=== PATIENT | male | born 1965 | race Caucasian/White ===

== ENCOUNTER 2017-08-31 00:05 | Inpatient (IN) ==
--- NOTE | 2017-08-31 00:16 | ED ---
HPI General Chief Complaint: Shortness of Breath/Dyspnea Stated Complaint: Diff Breathing Time Seen by Provider: 08/31/17 00:07 History of Present Illness 52-year-old male [facility] to the emergency department from [facility] hypoxemia dyspnea tachycardia and per paramedics elevated temperature with history of paraplegia with immobility dyslipidemia chronic cough mood disorder with depression dementia pressure ulceration bilateral lower extremity knee contracture prior Klebsiella pneumonia morbid obesity Related Data Home Medications Medication Instructions Recorded Confirmed baclofen 08/31/17 08/31/17 baclofen 08/31/17 08/31/17 cetirizine 08/31/17 08/31/17 collagenase clostridium histo. 08/31/17 08/31/17 [Santyl] dantrolene 08/31/17 08/31/17 divalproex 08/31/17 08/31/17 escitalopram oxalate 08/31/17 08/31/17 escitalopram oxalate 08/31/17 08/31/17 gabapentin 08/31/17 08/31/17 gabapentin 08/31/17 08/31/17 gabapentin 08/31/17 08/31/17 hydrochlorothiazide 08/31/17 08/31/17 hydrochlorothiazide 08/31/17 08/31/17 lactulose 08/31/17 08/31/17 meloxicam 08/31/17 08/31/17 metronidazole 08/31/17 08/31/17 metronidazole 08/31/17 08/31/17 omeprazole 08/31/17 08/31/17 oxybutynin chloride 08/31/17 08/31/17 simvastatin 08/31/17 08/31/17 simvastatin 08/31/17 08/31/17 simvastatin 08/31/17 08/31/17 vitamin E (dl, acetate) 08/31/17 08/31/17 vitamin E (dl, acetate) 08/31/17 08/31/17 Allergies Allergy/AdvReac Type Severity Reaction Status Date / Time No Known Allergies Allergy Verified 08/31/17 00:16 [facility] Medical History Medical History Dementia (Acute) Depression (Acute) GERD (gastroesophageal reflux disease) (Acute) Hemorrhoids (Acute) Hyperlipidemia (Acute) Paraplegia (Acute) UTI (urinary tract infection) (Acute) Surgical History Surgical History H/O exploratory laparotomy (Acute) History of cholecystectomy (Acute) Social History Social History Substance History: Unable to Obtain Second Hand Smoke Exposure: No Smoking Status: Unknown if ever smoked Tobacco Type: Cigarettes How Often Do You Have a Drink Containing Alcohol: Unable to Obtain Recent Travel in [place] within the Last 8 Weeks: No Recent Out of Country Travel within the Last 8 Weeks: No Exam Narrative Exam Narrative: GENERAL: Well-nourished, well-developed patient. Awake answers yes/no questions appropriately. SKIN: Focused skin assessment warm/dry. HEAD: Normocephalic. EYES: No scleral icterus. No injection or drainage. NECK: Supple, trachea midline. No JVD or lymphadenopathy. CARDIOVASCULAR: Regular rate and rhythm without murmurs, gallops, or rubs. RESPIRATORY: Breath sounds equal bilaterally. No accessory muscle use. GASTROINTESTINAL: Abdomen soft, non-tender, nondistended. MUSCULOSKELETAL: No cyanosis, or edema. Bilateral carpal and lower leg edema. BACK: Nontender without obvious deformity. No CVA tenderness. Course Initial Documented Vital Signs Pulse Rate 119 H 08/31/17 00:07 Respiratory Rate 26 H 08/31/17 00:07 Blood Pressure 148/79 H 08/31/17 00:07 Pulse Oximetry 96 08/31/17 00:07 Last Documented Vital Signs Temperature 98.6 F 09/01/17 00:00 Pulse Rate 103 H 09/01/17 04:14 Respiratory Rate 24 09/01/17 04:14 Blood Pressure 107/58 L 09/01/17 01:00 Pulse Oximetry 97 09/01/17 04:14 Critical Care Time Critical Care Time: Yes Total Critical Care Time: 35 Attestation: Aggregate critical care time was 35 minutes. Time to perform other separately billable procedures was not included in the critical care time. My time did not include minutes spent treating any other patients simultaneously or on activities that did not directly contribute to the patient's treatment. The services I provided to this patient were to treat and/or prevent clinically significant deterioration that could result in: Septic shock respiratory arrest I provided critical care services requiring my management, as noted below: Chart data review, documentation time, medication orders and management, vital sign assessments/reviewing monitor data, ordering and reviewing lab tests, ordering and interpreting/reviewing x-rays and diagnostic studies, care of the patient and discussion of the patient with the admitting physicians. Medical Decision Making MDM Narrative Medical decision making narrative: 52-year-old male presents from nursing facility for shortness of breath and dyspnea identified to have fever findings consistent with sepsis tachycardia tachypnea fever and hypoxemia placed on BiPAP after to care taken over from EMS with presentation on CPAP; blood cultures obtained lactic acid obtained chest x-ray ordered presumptive IV antibiotics administered Patient given rectal Tylenol for fever ABG performed which identifies respiratory acidosis pH 7.3 with PCO2 of 68 PO2 of 163 bicarb is 32 with a base excess of 6 sats 95% hemoglobin 13.6; FiO2 tapered toward 60% as tolerated patient had been on nonrebreather prior to EMS arrival to transport to emergency department unknown duration of high flow O2 prior to EMS arrival. Plan will be admission for IV antibiotics and ongoing respiratory support updraft 3 administered. Patient's case discussed with on-call plastic sheeting cutter Dr. Morton for admission Patient's EKG sinus tach with no acute ST elevation patient unable to tolerate rapid flow to taper. Patient given additional dose of acetaminophen 325 mg suppository Medical Records no prior evaluations here Lab Data Result diagrams: 09/01/17 03:47 09/01/17 03:47 Lab Results 08/31/17 08/31/17 08/31/17 Range/Units 00:25 00:27 00:30 WBC 11.7 H (4.0-11.0) th/mm3 RBC 4.34 L (4.50-5.90) mil/mm3 Hgb 13.6 (13.0-17.0) gm/dL Hct 41.5 (39.0-51.0) % MCV 95.7 (80.0-100.0) fL MCH 31.4 (27.0-34.0) pg MCHC 32.8 (32.0-36.0) % RDW 16.0 (11.6-17.2) % Plt Count 152 (150-450) th/mm3 MPV 9.4 (7.0-11.0) fL Neut % (Auto) 81.7 H (16.0-70.0) % Lymph % (Auto) 7.4 L (9.0-44.0) % [place] % (Auto) 10.1 H (0.0-8.0) % Eos % (Auto) 0.5 (0.0-4.0) % Baso % (Auto) 0.3 (0.0-2.0) % Neut # (Auto) 9.6 H (1.8-7.7) th/mm3 Lymph # (Auto) 0.9 L (1.0-4.8) th/mm3 [place] # (Auto) 1.2 H (0.0-0.9) th/mm3 Eos # (Auto) 0.1 (0.0-0.4) th/mm3 Baso # (Auto) 0.0 (0.0-0.2) th/mm3 WBC Differential . Differential Comment Auto diff final Hematology Comments PT (9.8-11.6) sec INR Ratio APTT (24.3-30.1) sec Puncture Site Right radial Patient Temperature 98.6 O2 Saturation 95 (90-100) % ABG pH 7.30 L (7.380-7.420) ABG pCO2 68 H* (38-42) mmHg ABG pO2 163 H (61-120) mmHg ABG HCO3 32 H (22-26) mmol/L ABG O2 Content 18.4 (12.0-20.0) Vol % ABG Base Excess 5.9 H (-2-2) mmol/L ABG Methemoglobin 1.7 (0-2) % Alpesh Test Present Hemoglobin 13.6 (12.0-16.0) G/DL Carboxyhemoglobin 1.1 (0-4) % O2 Delivery Device Bipap Vent Setting Epap5/ipap12 Inspired O2 100 % Critical Value Yes Sodium (136-145) meq/L Potassium (3.5-5.1) meq/L Chloride (98-107) meq/L Carbon Dioxide (21.0-32.0) meq/L Anion Gap (5-15) meq/L BUN (7-18) mg/dL Creatinine (0.60-1.30) mg/dL Estimated GFR (>89) mL/min POC Glucose 135 H (68-110) mg/dl Random Glucose (74-106) mg/dL Lactic Acid (0.4-2.0) mmol/L Calcium (8.5-10.1) mg/dL Phosphorus (2.5-4.9) mg/dL Magnesium (1.5-2.5) mg/dL Total Bilirubin (0.2-1.0) mg/dL AST (15-37) U/L ALT (12-78) U/L Alkaline Phosphatase (45-117) U/L Ammonia (11-32) mcmol/L Total Creatine Kinase (39-308) U/L CK-MB (CK-2) (0.5-3.6) ng/mL Troponin I (0.02-0.05) ng/mL Total Protein (6.4-8.2) g/dL Albumin (3.4-5.0) g/dL Urine Color (Yellw/Straw) Urine Clarity (Clear) Urine pH (5.0-8.5) Ur Specific [place] (1.002-1.035) Urine Protein (Neg-Trace) mg/dL Urine Glucose (UA) (Negative) mg/dL Urine Ketones (Negative) mg/dL Urine Occult Blood (Negative) Urine Nitrate (Negative) Urine Bilirubin (Negative) Urine Urobilinogen (Less than 2) mg/dL Ur Leukocyte Esterase (Negative) Urine RBC (0-3) /hpf Urine WBC (0-5) /hpf Ur Squamous Epith Cells (0-5) /hpf Urine Bacteria (None) /hpf Hyaline Casts (0-3) /lpf Urine Mucus (Occasional) /lpf Micro UA Comment Urine Culture Comments Nasal Screen MRSA (PCR) (Negative) Valproic Acid (50-100) mcg/mL 08/31/17 08/31/17 08/31/17 Range/Units 00:30 00:30 00:30 WBC (4.0-11.0) th/mm3 RBC (4.50-5.90) mil/mm3 Hgb (13.0-17.0) gm/dL Hct (39.0-51.0) % MCV (80.0-100.0) fL MCH (27.0-34.0) pg MCHC (32.0-36.0) % RDW (11.6-17.2) % Plt Count (150-450) th/mm3 MPV (7.0-11.0) fL Neut % (Auto) (16.0-70.0) % Lymph % (Auto) (9.0-44.0) % [place] % (Auto) (0.0-8.0) % Eos % (Auto) (0.0-4.0) % Baso % (Auto) (0.0-2.0) % Neut # (Auto) (1.8-7.7) th/mm3 Lymph # (Auto) (1.0-4.8) th/mm3 [place] # (Auto) (0.0-0.9) th/mm3 Eos # (Auto) (0.0-0.4) th/mm3 Baso # (Auto) (0.0-0.2) th/mm3 WBC Differential Differential Comment Hematology Comments PT 9.9 (9.8-11.6) sec INR 1.0 Ratio APTT 28.1 (24.3-30.1) sec Puncture Site Patient Temperature O2 Saturation (90-100) % ABG pH (7.380-7.420) ABG pCO2 (38-42) mmHg ABG pO2 (61-120) mmHg ABG HCO3 (22-26) mmol/L ABG O2 Content (12.0-20.0) Vol % ABG Base Excess (-2-2) mmol/L ABG Methemoglobin (0-2) % Alpesh Test Hemoglobin (12.0-16.0) G/DL Carboxyhemoglobin (0-4) % O2 Delivery Device Vent Setting Inspired O2 % Critical Value Sodium 140 (136-145) meq/L Potassium 4.5 (3.5-5.1) meq/L Chloride 101 (98-107) meq/L Carbon Dioxide 30.8 (21.0-32.0) meq/L Anion Gap 8 (5-15) meq/L BUN 20 H (7-18) mg/dL Creatinine 0.68 (0.60-1.30) mg/dL Estimated GFR Greater than 89 (>89) mL/min POC Glucose (68-110) mg/dl Random Glucose 146 H (74-106) mg/dL Lactic Acid 1.1 (0.4-2.0) mmol/L Calcium 8.3 L (8.5-10.1) mg/dL Phosphorus (2.5-4.9) mg/dL Magnesium 1.9 (1.5-2.5) mg/dL Total Bilirubin 0.4 (0.2-1.0) mg/dL AST 16 (15-37) U/L ALT 19 (12-78) U/L Alkaline Phosphatase 108 (45-117) U/L Ammonia (11-32) mcmol/L Total Creatine Kinase 293 (39-308) U/L CK-MB (CK-2) 2.1 (0.5-3.6) ng/mL Troponin I Less than 0.02 L (0.02-0.05) ng/mL Total Protein 7.2 (6.4-8.2) g/dL Albumin 3.4 (3.4-5.0) g/dL Urine Color (Yellw/Straw) Urine Clarity (Clear) Urine pH (5.0-8.5) Ur Specific [place] (1.002-1.035) Urine Protein (Neg-Trace) mg/dL Urine Glucose (UA) (Negative) mg/dL Urine Ketones (Negative) mg/dL Urine Occult Blood (Negative) Urine Nitrate (Negative) Urine Bilirubin (Negative) Urine Urobilinogen (Less than 2) mg/dL Ur Leukocyte Esterase (Negative) Urine RBC (0-3) /hpf Urine WBC (0-5) /hpf Ur Squamous Epith Cells (0-5) /hpf Urine Bacteria (None) /hpf Hyaline Casts (0-3) /lpf Urine Mucus (Occasional) /lpf Micro UA Comment Urine Culture Comments Nasal Screen MRSA (PCR) (Negative) Valproic Acid (50-100) mcg/mL 08/31/17 08/31/17 08/31/17 Range/Units 00:30 00:30 02:50 WBC (4.0-11.0) th/mm3 RBC (4.50-5.90) mil/mm3 Hgb (13.0-17.0) gm/dL Hct (39.0-51.0) % MCV (80.0-100.0) fL MCH (27.0-34.0) pg MCHC (32.0-36.0) % RDW (11.6-17.2) % Plt Count (150-450) th/mm3 MPV (7.0-11.0) fL Neut % (Auto) (16.0-70.0) % Lymph % (Auto) (9.0-44.0) % [place] % (Auto) (0.0-8.0) % Eos % (Auto) (0.0-4.0) % Baso % (Auto) (0.0-2.0) % Neut # (Auto) (1.8-7.7) th/mm3 Lymph # (Auto) (1.0-4.8) th/mm3 [place] # (Auto) (0.0-0.9) th/mm3 Eos # (Auto) (0.0-0.4) th/mm3 Baso # (Auto) (0.0-0.2) th/mm3 WBC Differential Differential Comment Hematology Comments PT (9.8-11.6) sec INR Ratio APTT (24.3-30.1) sec Puncture Site Patient Temperature O2 Saturation (90-100) % ABG pH (7.380-7.420) ABG pCO2 (38-42) mmHg ABG pO2 (61-120) mmHg ABG HCO3 (22-26) mmol/L ABG O2 Content (12.0-20.0) Vol % ABG Base Excess (-2-2) mmol/L ABG Methemoglobin (0-2) % Alpesh Test Hemoglobin (12.0-16.0) G/DL Carboxyhemoglobin (0-4) % O2 Delivery Device Vent Setting Inspired O2 % Critical Value Sodium (136-145) meq/L Potassium (3.5-5.1) meq/L Chloride (98-107) meq/L Carbon Dioxide (21.0-32.0) meq/L Anion Gap (5-15) meq/L BUN (7-18) mg/dL Creatinine (0.60-1.30) mg/dL Estimated GFR (>89) mL/min POC Glucose (68-110) mg/dl Random Glucose (74-106) mg/dL Lactic Acid (0.4-2.0) mmol/L Calcium (8.5-10.1) mg/dL Phosphorus (2.5-4.9) mg/dL Magnesium (1.5-2.5) mg/dL Total Bilirubin (0.2-1.0) mg/dL AST (15-37) U/L ALT (12-78) U/L Alkaline Phosphatase (45-117) U/L Ammonia 30 (11-32) mcmol/L Total Creatine Kinase (39-308) U/L CK-MB (CK-2) (0.5-3.6) ng/mL Troponin I (0.02-0.05) ng/mL Total Protein (6.4-8.2) g/dL Albumin (3.4-5.0) g/dL Urine Color Tricia (Yellw/Straw) Urine Clarity Cloudy H (Clear) Urine pH 5.0 (5.0-8.5) Ur Specific [place] 1.024 (1.002-1.035) Urine Protein 500 or greater (Neg-Trace) mg/dL Urine Glucose (UA) Negative (Negative) mg/dL Urine Ketones Trace (Negative) mg/dL Urine Occult Blood Moderate H (Negative) Urine Nitrate Positive H (Negative) Urine Bilirubin Negative (Negative) Urine Urobilinogen 2.0 H (Less than 2) mg/dL Ur Leukocyte Esterase Moderate H (Negative) Urine RBC 93 H (0-3) /hpf Urine WBC 80 H (0-5) /hpf Ur Squamous Epith Cells 2 (0-5) /hpf Urine Bacteria Moderate H (None) /hpf Hyaline Casts 6 (0-3) /lpf Urine Mucus Moderate H (Occasional) /lpf Micro UA Comment Cath-culture ind Urine Culture Comments Cath-cult indicated Nasal Screen MRSA (PCR) (Negative) Valproic Acid 29 L (50-100) mcg/mL 08/31/17 08/31/17 08/31/17 Range/Units 04:30 07:18 07:53 WBC (4.0-11.0) th/mm3 RBC (4.50-5.90) mil/mm3 Hgb (13.0-17.0) gm/dL Hct (39.0-51.0) % MCV (80.0-100.0) fL MCH (27.0-34.0) pg MCHC (32.0-36.0) % RDW (11.6-17.2) % Plt Count (150-450) th/mm3 MPV (7.0-11.0) fL Neut % (Auto) (16.0-70.0) % Lymph % (Auto) (9.0-44.0) % [place] % (Auto) (0.0-8.0) % Eos % (Auto) (0.0-4.0) % Baso % (Auto) (0.0-2.0) % Neut # (Auto) (1.8-7.7) th/mm3 Lymph # (Auto) (1.0-4.8) th/mm3 [place] # (Auto) (0.0-0.9) th/mm3 Eos # (Auto) (0.0-0.4) th/mm3 Baso # (Auto) (0.0-0.2) th/mm3 WBC Differential Differential Comment Hematology Comments PT (9.8-11.6) sec INR Ratio APTT (24.3-30.1) sec Puncture Site Right brachial Patient Temperature 98.6 O2 Saturation 90 (90-100) % ABG pH 7.29 L* (7.380-7.420) ABG pCO2 61 H* (38-42) mmHg ABG pO2 72 (61-120) mmHg ABG HCO3 28 H (22-26) mmol/L ABG O2 Content 17.8 (12.0-20.0) Vol % ABG Base Excess 1.9 (-2-2) mmol/L ABG Methemoglobin 2.3 H (0-2) % Alpesh Test Present Hemoglobin 14.1 (12.0-16.0) G/DL Carboxyhemoglobin 0.4 (0-4) % O2 Delivery Device Bipap Vent Setting [id number]/epap5 Inspired O2 50 % Critical Value Yes Sodium (136-145) meq/L Potassium (3.5-5.1) meq/L Chloride (98-107) meq/L Carbon Dioxide (21.0-32.0) meq/L Anion Gap (5-15) meq/L BUN (7-18) mg/dL Creatinine (0.60-1.30) mg/dL Estimated GFR (>89) mL/min POC Glucose 132 H (68-110) mg/dl Random Glucose (74-106) mg/dL Lactic Acid (0.4-2.0) mmol/L Calcium (8.5-10.1) mg/dL Phosphorus (2.5-4.9) mg/dL Magnesium (1.5-2.5) mg/dL Total Bilirubin (0.2-1.0) mg/dL AST (15-37) U/L ALT (12-78) U/L Alkaline Phosphatase (45-117) U/L Ammonia (11-32) mcmol/L Total Creatine Kinase (39-308) U/L CK-MB (CK-2) (0.5-3.6) ng/mL Troponin I (0.02-0.05) ng/mL Total Protein (6.4-8.2) g/dL Albumin (3.4-5.0) g/dL Urine Color (Yellw/Straw) Urine Clarity (Clear) Urine pH (5.0-8.5) Ur Specific [place] (1.002-1.035) Urine Protein (Neg-Trace) mg/dL Urine Glucose (UA) (Negative) mg/dL Urine Ketones (Negative) mg/dL Urine Occult Blood (Negative) Urine Nitrate (Negative) Urine Bilirubin (Negative) Urine Urobilinogen (Less than 2) mg/dL Ur Leukocyte Esterase (Negative) Urine RBC (0-3) /hpf Urine WBC (0-5) /hpf Ur Squamous Epith Cells (0-5) /hpf Urine Bacteria (None) /hpf Hyaline Casts (0-3) /lpf Urine Mucus (Occasional) /lpf Micro UA Comment Urine Culture Comments Nasal Screen MRSA (PCR) Not detected (Negative) Valproic Acid (50-100) mcg/mL 08/31/17 08/31/17 08/31/17 Range/Units 08:53 13:11 18:05 WBC (4.0-11.0) th/mm3 RBC (4.50-5.90) mil/mm3 Hgb (13.0-17.0) gm/dL Hct (39.0-51.0) % MCV (80.0-100.0) fL MCH (27.0-34.0) pg MCHC (32.0-36.0) % RDW (11.6-17.2) % Plt Count (150-450) th/mm3 MPV (7.0-11.0) fL Neut % (Auto) (16.0-70.0) % Lymph % (Auto) (9.0-44.0) % [place] % (Auto) (0.0-8.0) % Eos % (Auto) (0.0-4.0) % Baso % (Auto) (0.0-2.0) % Neut # (Auto) (1.8-7.7) th/mm3 Lymph # (Auto) (1.0-4.8) th/mm3 [place] # (Auto) (0.0-0.9) th/mm3 Eos # (Auto) (0.0-0.4) th/mm3 Baso # (Auto) (0.0-0.2) th/mm3 WBC Differential Differential Comment Hematology Comments PT (9.8-11.6) sec INR Ratio APTT (24.3-30.1) sec Puncture Site Patient Temperature O2 Saturation (90-100) % ABG pH (7.380-7.420) ABG pCO2 (38-42) mmHg ABG pO2 (61-120) mmHg ABG HCO3 (22-26) mmol/L ABG O2 Content (12.0-20.0) Vol % ABG Base Excess (-2-2) mmol/L ABG Methemoglobin (0-2) % Alpesh Test Hemoglobin (12.0-16.0) G/DL Carboxyhemoglobin (0-4) % O2 Delivery Device Vent Setting Inspired O2 % Critical Value Sodium 138 (136-145) meq/L Potassium 4.9 (3.5-5.1) meq/L Chloride 103 (98-107) meq/L Carbon Dioxide 23.7 (21.0-32.0) meq/L Anion Gap 11 (5-15) meq/L BUN 23 H (7-18) mg/dL Creatinine 0.80 (0.60-1.30) mg/dL Estimated GFR Greater than 89 (>89) mL/min POC Glucose 139 H 145 H (68-110) mg/dl Random Glucose 141 H (74-106) mg/dL Lactic Acid (0.4-2.0) mmol/L Calcium 8.9 (8.5-10.1) mg/dL Phosphorus (2.5-4.9) mg/dL Magnesium (1.5-2.5) mg/dL Total Bilirubin 0.5 (0.2-1.0) mg/dL AST 22 (15-37) U/L ALT 21 (12-78) U/L Alkaline Phosphatase 96 (45-117) U/L Ammonia (11-32) mcmol/L Total Creatine Kinase (39-308) U/L CK-MB (CK-2) (0.5-3.6) ng/mL Troponin I (0.02-0.05) ng/mL Total Protein 7.2 (6.4-8.2) g/dL Albumin 3.1 L (3.4-5.0) g/dL Urine Color (Yellw/Straw) Urine Clarity (Clear) Urine pH (5.0-8.5) Ur Specific [place] (1.002-1.035) Urine Protein (Neg-Trace) mg/dL Urine Glucose (UA) (Negative) mg/dL Urine Ketones (Negative) mg/dL Urine Occult Blood (Negative) Urine Nitrate (Negative) Urine Bilirubin (Negative) Urine Urobilinogen (Less than 2) mg/dL Ur Leukocyte Esterase (Negative) Urine RBC (0-3) /hpf Urine WBC (0-5) /hpf Ur Squamous Epith Cells (0-5) /hpf Urine Bacteria (None) /hpf Hyaline Casts (0-3) /lpf Urine Mucus (Occasional) /lpf Micro UA Comment Urine Culture Comments Nasal Screen MRSA (PCR) (Negative) Valproic Acid (50-100) mcg/mL 08/31/17 09/01/17 09/01/17 Range/Units 20:31 00:35 03:47 WBC 11.8 H (4.0-11.0) th/mm3 RBC 4.37 L (4.50-5.90) mil/mm3 Hgb 13.6 (13.0-17.0) gm/dL Hct 41.4 (39.0-51.0) % MCV 94.8 (80.0-100.0) fL MCH 31.2 (27.0-34.0) pg MCHC 32.9 (32.0-36.0) % RDW 15.8 (11.6-17.2) % Plt Count 146 L (150-450) th/mm3 MPV 9.9 (7.0-11.0) fL Neut % (Auto) 84.8 H (16.0-70.0) % Lymph % (Auto) 5.4 L (9.0-44.0) % [place] % (Auto) 9.6 H (0.0-8.0) % Eos % (Auto) 0.1 (0.0-4.0) % Baso % (Auto) 0.1 (0.0-2.0) % Neut # (Auto) 10.0 H (1.8-7.7) th/mm3 Lymph # (Auto) 0.6 L (1.0-4.8) th/mm3 [place] # (Auto) 1.1 H (0.0-0.9) th/mm3 Eos # (Auto) 0.0 (0.0-0.4) th/mm3 Baso # (Auto) 0.0 (0.0-0.2) th/mm3 WBC Differential . Differential Comment Auto diff final Hematology Comments PT (9.8-11.6) sec INR Ratio APTT (24.3-30.1) sec Puncture Site Patient Temperature O2 Saturation (90-100) % ABG pH (7.380-7.420) ABG pCO2 (38-42) mmHg ABG pO2 (61-120) mmHg ABG HCO3 (22-26) mmol/L ABG O2 Content (12.0-20.0) Vol % ABG Base Excess (-2-2) mmol/L ABG Methemoglobin (0-2) % Alpesh Test Hemoglobin (12.0-16.0) G/DL Carboxyhemoglobin (0-4) % O2 Delivery Device Vent Setting Inspired O2 % Critical Value Sodium (136-145) meq/L Potassium (3.5-5.1) meq/L Chloride (98-107) meq/L Carbon Dioxide (21.0-32.0) meq/L Anion Gap (5-15) meq/L BUN (7-18) mg/dL Creatinine (0.60-1.30) mg/dL Estimated GFR (>89) mL/min POC Glucose 110 100 (68-110) mg/dl Random Glucose (74-106) mg/dL Lactic Acid (0.4-2.0) mmol/L Calcium (8.5-10.1) mg/dL Phosphorus (2.5-4.9) mg/dL Magnesium (1.5-2.5) mg/dL Total Bilirubin (0.2-1.0) mg/dL AST (15-37) U/L ALT (12-78) U/L Alkaline Phosphatase (45-117) U/L Ammonia (11-32) mcmol/L Total Creatine Kinase (39-308) U/L CK-MB (CK-2) (0.5-3.6) ng/mL Troponin I (0.02-0.05) ng/mL Total Protein (6.4-8.2) g/dL Albumin (3.4-5.0) g/dL Urine Color (Yellw/Straw) Urine Clarity (Clear) Urine pH (5.0-8.5) Ur Specific [place] (1.002-1.035) Urine Protein (Neg-Trace) mg/dL Urine Glucose (UA) (Negative) mg/dL Urine Ketones (Negative) mg/dL Urine Occult Blood (Negative) Urine Nitrate (Negative) Urine Bilirubin (Negative) Urine Urobilinogen (Less than 2) mg/dL Ur Leukocyte Esterase (Negative) Urine RBC (0-3) /hpf Urine WBC (0-5) /hpf Ur Squamous Epith Cells (0-5) /hpf Urine Bacteria (None) /hpf Hyaline Casts (0-3) /lpf Urine Mucus (Occasional) /lpf Micro UA Comment Urine Culture Comments Nasal Screen MRSA (PCR) (Negative) Valproic Acid (50-100) mcg/mL 09/01/17 09/01/17 09/01/17 Range/Units 03:47 03:47 03:47 WBC (4.0-11.0) th/mm3 RBC (4.50-5.90) mil/mm3 Hgb (13.0-17.0) gm/dL Hct (39.0-51.0) % MCV (80.0-100.0) fL MCH (27.0-34.0) pg MCHC (32.0-36.0) % RDW (11.6-17.2) % Plt Count (150-450) th/mm3 MPV (7.0-11.0) fL Neut % (Auto) (16.0-70.0) % Lymph % (Auto) (9.0-44.0) % [place] % (Auto) (0.0-8.0) % Eos % (Auto) (0.0-4.0) % Baso % (Auto) (0.0-2.0) % Neut # (Auto) (1.8-7.7) th/mm3 Lymph # (Auto) (1.0-4.8) th/mm3 [place] # (Auto) (0.0-0.9) th/mm3 Eos # (Auto) (0.0-0.4) th/mm3 Baso # (Auto) (0.0-0.2) th/mm3 WBC Differential Differential Comment Hematology Comments PT 10.0 (9.8-11.6) sec INR 1.0 Ratio APTT 28.1 (24.3-30.1) sec Puncture Site Patient Temperature O2 Saturation (90-100) % ABG pH (7.380-7.420) ABG pCO2 (38-42) mmHg ABG pO2 (61-120) mmHg ABG HCO3 (22-26) mmol/L ABG O2 Content (12.0-20.0) Vol % ABG Base Excess (-2-2) mmol/L ABG Methemoglobin (0-2) % Alpesh Test Hemoglobin (12.0-16.0) G/DL Carboxyhemoglobin (0-4) % O2 Delivery Device Vent Setting Inspired O2 % Critical Value Sodium 144 (136-145) meq/L Potassium 4.2 (3.5-5.1) meq/L Chloride 106 (98-107) meq/L Carbon Dioxide 30.2 (21.0-32.0) meq/L Anion Gap 8 (5-15) meq/L BUN 20 H (7-18) mg/dL Creatinine 0.58 L (0.60-1.30) mg/dL Estimated GFR Greater than 89 (>89) mL/min POC Glucose (68-110) mg/dl Random Glucose 97 (74-106) mg/dL Lactic Acid 0.9 (0.4-2.0) mmol/L Calcium 8.7 (8.5-10.1) mg/dL Phosphorus 2.9 (2.5-4.9) mg/dL Magnesium 2.4 (1.5-2.5) mg/dL Total Bilirubin 0.3 (0.2-1.0) mg/dL AST 17 (15-37) U/L ALT 21 (12-78) U/L Alkaline Phosphatase 86 (45-117) U/L Ammonia (11-32) mcmol/L Total Creatine Kinase (39-308) U/L CK-MB (CK-2) (0.5-3.6) ng/mL Troponin I (0.02-0.05) ng/mL Total Protein 7.2 (6.4-8.2) g/dL Albumin 3.0 L (3.4-5.0) g/dL Urine Color (Yellw/Straw) Urine Clarity (Clear) Urine pH (5.0-8.5) Ur Specific [place] (1.002-1.035) Urine Protein (Neg-Trace) mg/dL Urine Glucose (UA) (Negative) mg/dL Urine Ketones (Negative) mg/dL Urine Occult Blood (Negative) Urine Nitrate (Negative) Urine Bilirubin (Negative) Urine Urobilinogen (Less than 2) mg/dL Ur Leukocyte Esterase (Negative) Urine RBC (0-3) /hpf Urine WBC (0-5) /hpf Ur Squamous Epith Cells (0-5) /hpf Urine Bacteria (None) /hpf Hyaline Casts (0-3) /lpf Urine Mucus (Occasional) /lpf Micro UA Comment Urine Culture Comments Nasal Screen MRSA (PCR) (Negative) Valproic Acid (50-100) mcg/mL 09/01/17 Range/Units 04:09 WBC (4.0-11.0) th/mm3 RBC (4.50-5.90) mil/mm3 Hgb (13.0-17.0) gm/dL Hct (39.0-51.0) % MCV (80.0-100.0) fL MCH (27.0-34.0) pg MCHC (32.0-36.0) % RDW (11.6-17.2) % Plt Count (150-450) th/mm3 MPV (7.0-11.0) fL Neut % (Auto) (16.0-70.0) % Lymph % (Auto) (9.0-44.0) % [place] % (Auto) (0.0-8.0) % Eos % (Auto) (0.0-4.0) % Baso % (Auto) (0.0-2.0) % Neut # (Auto) (1.8-7.7) th/mm3 Lymph # (Auto) (1.0-4.8) th/mm3 [place] # (Auto) (0.0-0.9) th/mm3 Eos # (Auto) (0.0-0.4) th/mm3 Baso # (Auto) (0.0-0.2) th/mm3 WBC Differential Differential Comment Hematology Comments PT (9.8-11.6) sec INR Ratio APTT (24.3-30.1) sec Puncture Site Patient Temperature O2 Saturation (90-100) % ABG pH (7.380-7.420) ABG pCO2 (38-42) mmHg ABG pO2 (61-120) mmHg ABG HCO3 (22-26) mmol/L ABG O2 Content (12.0-20.0) Vol % ABG Base Excess (-2-2) mmol/L ABG Methemoglobin (0-2) % Alpesh Test Hemoglobin (12.0-16.0) G/DL Carboxyhemoglobin (0-4) % O2 Delivery Device Vent Setting Inspired O2 % Critical Value Sodium (136-145) meq/L Potassium (3.5-5.1) meq/L Chloride (98-107) meq/L Carbon Dioxide (21.0-32.0) meq/L Anion Gap (5-15) meq/L BUN (7-18) mg/dL Creatinine (0.60-1.30) mg/dL Estimated GFR (>89) mL/min POC Glucose 95 (68-110) mg/dl Random Glucose (74-106) mg/dL Lactic Acid (0.4-2.0) mmol/L Calcium (8.5-10.1) mg/dL Phosphorus (2.5-4.9) mg/dL Magnesium (1.5-2.5) mg/dL Total Bilirubin (0.2-1.0) mg/dL AST (15-37) U/L ALT (12-78) U/L Alkaline Phosphatase (45-117) U/L Ammonia (11-32) mcmol/L Total Creatine Kinase (39-308) U/L CK-MB (CK-2) (0.5-3.6) ng/mL Troponin I (0.02-0.05) ng/mL Total Protein (6.4-8.2) g/dL Albumin (3.4-5.0) g/dL Urine Color (Yellw/Straw) Urine Clarity (Clear) Urine pH (5.0-8.5) Ur Specific [place] (1.002-1.035) Urine Protein (Neg-Trace) mg/dL Urine Glucose (UA) (Negative) mg/dL Urine Ketones (Negative) mg/dL Urine Occult Blood (Negative) Urine Nitrate (Negative) Urine Bilirubin (Negative) Urine Urobilinogen (Less than 2) mg/dL Ur Leukocyte Esterase (Negative) Urine RBC (0-3) /hpf Urine WBC (0-5) /hpf Ur Squamous Epith Cells (0-5) /hpf Urine Bacteria (None) /hpf Hyaline Casts (0-3) /lpf Urine Mucus (Occasional) /lpf Micro UA Comment Urine Culture Comments Nasal Screen MRSA (PCR) (Negative) Valproic Acid (50-100) mcg/mL Imaging Data Radiologist's impression: ITS Impressions Abdomen/Bladder Ultrasound 08/31/17 00:00 CONCLUSION: 1. 11 mm left midlung calculus. 2. No evidence of hydronephrosis. 3. Otherwise normal appearing kidneys. Chest CTA 08/31/17 00:00 CONCLUSION: 1. No evidence of pulmonary embolism. 2. Extensive consolidation in the right lung and patchy infiltrates elsewhere in both lungs. 3. Moderately enlarged mediastinal lymph node. Chest X-Ray 08/31/17 00:08 CONCLUSION: Elevation of the right hemidiaphragm and right lower lung consolidation. Patchy infiltrates in left lower lung. Cardiomegaly. ECG Data EKG Prior to Arrival: No Interpretation: EKG sinus tachycardia rate 120 rightward axis right ventricular hypertrophy no acute ST elevation injury Discharge Plan Discharge Disposition Patient Disposition: 30 Still Patient Physicians Team ED Provider: Aby Yusuf Primary Care Provider: UNKNOWN, Attending Provider: Brian Morton Other Providers: Cari Reveles Status ED Status: Left Department Discharge Information Discharge Date/Time: 08/31/17 04:10
[2017-08-31] MEDS ORDERED: Piperacil/Tazo 4.5 GM Premix 4.5 GM/100 ML BAG IV.SIG ONE (00:35)
[2017-08-31] MEDS ORDERED: Acetaminophen 650 MG Supp RECTAL ONE (00:39)
[2017-08-31] MEDS ORDERED: Vancomycin Inj 1 GM/200 ML PIGGYBACK IV.SIG ONE ×2 (00:39→05:00)
[2017-08-31 00:52] LABS: ABG Base Excess 5.9 mmol/L (-2-2); ABG PCO2 68 mmHg (38-42); ABG PO2 163 mmHg (61-120)
--- NOTE | 2017-08-31 00:55 | XR ---
EXAM DATE: 08/31/2017 12:39 AM EDT AGE/SEX: 52 years / Male INDICATIONS: Shortness of breath for 2 hours CLINICAL DATA: This is the patient's initial encounter. Patient reports that signs and symptoms have been present for 1 day and indicates a pain score of Nonresponsive. MEDICAL/SURGICAL HISTORY: None. None. COMPARISON: No prior exams available for comparison. FINDINGS: There is elevation of the right hemidiaphragm and patchy areas of consolidation in the medial right l ower lung. There are nonconsolidative infiltrates in the retrocardiac left lower lung with preservati on of the left hemidiaphragm. The heart is moderately enlarged. CONCLUSION: Elevation of the right hemidiaphragm and right lower lung consolidation. Patchy infiltrates in left l ower lung. Cardiomegaly. Electronically signed by: Quentin Dela Cruz MD 08/31/2017 12:53 AM EDT
[2017-08-31 01:01] LABS: Baso % (Auto) 0.3 % (0.0-2.0); Eos # (Auto) 0.1 th/mm3 (0.0-0.4); Eos % (Auto) 0.5 % (0.0-4.0); Hematocrit 41.5 % (39.0-51.0); Hemoglobin 13.6 gm/dL (13.0-17.0); Lymph # (Auto) 0.9 th/mm3 (1.0-4.8); Lymph % (Auto) 7.4 % (9.0-44.0); Mean Corpuscular HGB Conc 32.8 % (32.0-36.0); Mean Corpuscular Hemoglobin 31.4 pg (27.0-34.0); Mean Corpuscular Volume 95.7 fL (80.0-100.0); Mean Platelet Volume 9.4 fL (7.0-11.0); Mono # (Auto) 1.2 th/mm3 (0.0-0.9); Mono % (Auto) 10.1 % (0.0-8.0); Neut # (Auto) 9.6 th/mm3 (1.8-7.7); Neut % (Auto) 81.7 % (16.0-70.0); Platelet Count 152 th/mm3 (150-450); Red Blood Count 4.34 mil/mm3 (4.50-5.90); White Blood Count 11.7 th/mm3 (4.0-11.0)
[2017-08-31 01:04] LABS: Activated Partial Thrombo Time 28.1 sec (24.3-30.1); Prothrombin Time 9.9 sec (9.8-11.6)
[2017-08-31 01:13] LABS: Alanine Aminotransferase 19 U/L (12-78); Albumin 3.4 g/dL (3.4-5.0); Anion Gap 8 meq/L (5-15); Aspartate Aminotransferase 16 U/L (15-37); Blood Urea Nitrogen 20 mg/dL (7-18); Calcium 8.3 mg/dL (8.5-10.1); Carbon Dioxide 30.8 meq/L (21.0-32.0); Chloride 101 meq/L (98-107); Glomerular Filtration Rate Greater Than 89 mL/min (>89); Glucose,Random 146 mg/dL (74-106); Magnesium 1.9 mg/dL (1.5-2.5); Potassium 4.5 meq/L (3.5-5.1); Sodium 140 meq/L (136-145)
[2017-08-31 01:17] LABS: Alkaline Phosphatase 108 U/L (45-117); Creatine Kinase 293 U/L (39-308); Total Protein 7.2 g/dL (6.4-8.2)
[2017-08-31 01:30] LABS: Creatine Kinase MB 2.1 ng/mL (0.5-3.6)
[2017-08-31] MEDS ORDERED: Vancomycin Consult Pharmacy OTHER ONE (02:28)
[2017-08-31] MEDS ORDERED: Bisacodyl 10 MG Supp RECTAL PRN (02:28)
[2017-08-31] MEDS ORDERED: Acetaminophen 325 MG Tablet PO PRN (02:28)
--- NOTE | 2017-08-31 02:35 | P.HPCC ---
History of Present Illness Primary Care Physician: UNKNOWN History of Present Illness: 52-year-old male presents from [facility] for an evaluation of hypoxemia, shortness of breath, and tachycardia and per paramedics elevated temperature with history of paraplegia with immobility, dyslipidemia, chronic cough, mood disorder with depression, pressure ulceration bilateral lower extremity knee contracture, prior Klebsiella pneumonia and morbid obesity. In the emergency department he appeared to be in respiratory distress and was placed by ED attending on the BiPAP. - Inpatient Certification If this patient has been admitted as an Inpatient: I certify that the inpatient services were ordered in accordance with Medicare regulations governing the order. This includes certification that hospital inpatient services are reasonable and necessary and in the case of services not specified as inpatient-only under 42 CFR 419.22(n), that they are appropriately provided as inpatient services in accordance to with the 2-midnight benchmark under 43 CFR 412.3(e) Estimated Total Length of Stay (Days): 5 Plans for Post Hospital Care: Not yet determined Review of Systems unobtainable due to mental condition, other Unable to obtain patient in respiratory distress on facemask BiPAP PMFSH - History History Provided By: Air Conditioning Specialist / EMT - Medical / Surgical Hx Neg / Unobtainable Medical Problems Denied: Unable to Obtain - Tobacco History Smoking Status: Unknown if ever smoked - Alcohol History How Often Do You Have a Drink Containing Alcohol: Unable to Obtain - Substance Use History Substance History: Unable to Obtain - Travel History Recent Travel in the [place] Within the Last 8 Weeks: No Recent Travel Out of the Country Within the Last 8 Weeks: No Medications and Allergies Active Medications: Current Medications Acetaminophen (Tylenol) 650 mg PO Q6H PRN PRN Reason: PAIN 1-10 AND/OR FEVER >101F Al Hydroxide/Mg Hydroxide (Milk Of Magnesia Liq) 30 ml PO Q12H PRN PRN Reason: Mild Constipation Albuterol (Duoneb Neb (Volodymyr)) 1 ampul NEB Q6HR NEB VOLODYMYR Last Admin: 08/31/17 03:07 Dose: 1 ampul Albuterol (Duoneb Neb (Prn)) 1 ampul NEB Q2HR NEB PRN PRN Reason: WHEEZING Baclofen (Lioresal) 20 mg PO Q8HR VOLODYMYR Bisacodyl (Dulcolax Supp) 10 mg RECTAL DAILY PRN PRN Reason: SEVERE CONSITIPATION Chlorhexidine Gluconate (Chlorhexidine 2% Cloth) 3 pack TOPICAL DAILY@0400 [facility] Stop: 09/05/17 03:59 Last Admin: 08/31/17 05:22 Dose: 3 pack Chlorhexidine Gluconate (Chlorhexidine 2% Cloth) 3 pack TOPICAL DAILY@0400 PRN PRN Reason: Extra cloth needed Stop: 09/05/17 03:59 Divalproex Sodium (Depakote Sprinkles) 125 mg PO BID [facility] Escitalopram Oxalate (Lexapro) 20 mg PO HS [facility] Famotidine (Pepcid Pf Inj) 20 mg IV.PUSH Q12HR [facility] Gabapentin (Neurontin) 100 mg PO TID [facility] Heparin Sodium (Porcine) (Heparin Inj) 5,000 units SQ Q8H [facility] Last Admin: 08/31/17 05:20 Dose: 5,000 units Hydromorphone HCl (Dilaudid Pf Inj) 1 mg IV.PUSH Q4H PRN PRN Reason: PAIN SCALE 6 TO 10 Sodium Chloride (Ns Inj) 1,000 mls @ 150 mls/hr IV.CONT .Q6H40M [facility] Last Admin: 08/31/17 03:22 Dose: 150 mls/hr Piperacillin/Tazobactam/Dextrose (Zosyn 4.5 Gm Premix) 4.5 gm in 100 mls @ 200 mls/hr IV.SIG Q6H [facility] Last Admin: 08/31/17 05:20 Dose: 200 mls/hr Azithromycin 500 mg/ Sodium (Chloride) 250 mls @ 250 mls/hr IV.SIG Q24H [facility] Last Infusion: 08/31/17 04:47 Dose: Infused Lactulose (Lactulose Liq) 30 ml PO DAILY PRN PRN Reason: SEVERE CONSITIPATION Non-Formulary Medication (Simvastatin [Simvastatin]) 40 mg PO DAILY [facility] Ondansetron HCl (Zofran Inj) 4 mg IV.PUSH Q6H PRN PRN Reason: NAUSEA OR VOMITING Oxybutynin Chloride (Ditropan) 5 mg PO DAILY [facility] Senna/Docusate Sodium (Lakia-Colace) 1 tab PO BID [facility] Sennosides (Senokot) 17.2 mg PO Q12H PRN PRN Reason: Moderate Constipation Sodium Chloride (Ns Flush) 2 ml IV.FLUSH BID [facility] Sodium Chloride (Ns Flush) 2 ml IV.FLUSH PRN PRN PRN Reason: FLUSH AFTER USING IV ACCESS Vitamin E (Vitamin E) 400 unit PO DAILY VOLODYMYR Allergies Allergy/AdvReac Type Severity Reaction Status Date / Time No Known Allergies Allergy Verified 08/31/17 00:16 Home Medications Medication Instructions Recorded Confirmed Type baclofen 08/31/17 08/31/17 History baclofen 08/31/17 08/31/17 History cetirizine 08/31/17 08/31/17 History collagenase clostridium histo. 08/31/17 08/31/17 History [Santyl] dantrolene 08/31/17 08/31/17 History divalproex 08/31/17 08/31/17 History escitalopram oxalate 08/31/17 08/31/17 History escitalopram oxalate 08/31/17 08/31/17 History gabapentin 08/31/17 08/31/17 History gabapentin 08/31/17 08/31/17 History gabapentin 08/31/17 08/31/17 History hydrochlorothiazide 08/31/17 08/31/17 History hydrochlorothiazide 08/31/17 08/31/17 History lactulose 08/31/17 08/31/17 History meloxicam 08/31/17 08/31/17 History metronidazole 08/31/17 08/31/17 History metronidazole 08/31/17 08/31/17 History omeprazole 08/31/17 08/31/17 History oxybutynin chloride 08/31/17 08/31/17 History simvastatin 08/31/17 08/31/17 History simvastatin 08/31/17 08/31/17 History simvastatin 08/31/17 08/31/17 History vitamin E (dl, acetate) 08/31/17 08/31/17 History vitamin E (dl, acetate) 08/31/17 08/31/17 History Results - Labs CBC & Chem 7: 08/31/17 00:30 08/31/17 00:30 Labs: Short CBC 08/31/17 Range/Units 00:30 WBC 11.7 H (4.0-11.0) th/mm3 Hgb 13.6 (13.0-17.0) gm/dL Hct 41.5 (39.0-51.0) % Plt Count 152 (150-450) th/mm3 BMP 08/31/17 00:30 Sodium 140 Potassium 4.5 Chloride 101 Carbon Dioxide 30.8 BUN 20 H Creatinine 0.68 Calcium 8.3 L Cardiac Enzymes 08/31/17 Range/Units 00:30 Total Creatine Kinase 293 (39-308) U/L CK-MB (CK-2) 2.1 (0.5-3.6) ng/mL Troponin I Less than 0.02 L (0.02-0.05) ng/mL Liver Function 08/31/17 Range/Units 00:30 Total Bilirubin 0.4 (0.2-1.0) mg/dL AST 16 (15-37) U/L ALT 19 (12-78) U/L Alkaline Phosphatase 108 (45-117) U/L Albumin 3.4 (3.4-5.0) g/dL - Imaging Impressions Chest X-Ray 08/31/17 00:08 CONCLUSION: Elevation of the right hemidiaphragm and right lower lung consolidation. Patchy infiltrates in left lower lung. Cardiomegaly. Exam Vital signs: Vital Signs 08/31/17 00:07 08/31/17 00:21 08/31/17 00:31 Temperature Pulse Rate 119 H Respiratory Rate 26 H Blood Pressure 148/79 H Pulse Oximetry 96 97 95 08/31/17 00:36 08/31/17 00:37 08/31/17 02:29 Temperature 101.0 F H Pulse Rate 130 H Respiratory Rate 22 Blood Pressure 183/85 H Pulse Oximetry 98 97 Intake & Output 08/30/17 08/30/17 08/31/17 06:59 18:59 06:59 Weight 127.006 kg - Constitutional moderate distress, morbidly obese, disheveled, somnolent - Routine HEENT Exam Head: Present: atraumatic Eye: Present: PERRL ENT: Present: mucous membranes dry - Routine Neck Exam Absent: JVD, carotid bruit - Routine Respiratory Exam Present: patient mechanically ventilated. Absent: accessory muscle use - Routine Cardiovascular Exam Present: RRR, S1, S2 - Routine Abdominal Exam Present: soft, normoactive bowel sounds - Routine Extremities Exam Present: edema, joint swelling, pallor. Absent: cyanosis, clubbing - Routine Skin Exam Absent: cyanosis, erythema - Routine Neurological Exam Present: motor deficit, altered mental status. Absent: moving all extremities Caprini VTE Risk Assessment Caprini VTE Risk Assessment: Moderate/High Risk (score >= 2) Caprini Risk Assessment Model: Point Value = 1 Point Value = 2 Point Value = 3 Point Value = 5 Age 41-60 Minor surgery BMI > 25 kg/m2 Swollen legs Varicose veins or History of unexplained or recurrent spontaneous Oral contraceptives or hormone replacement Sepsis (< 1 month) Serious lung disease, including pneumonia (< 1 month) Abnormal pulmonary function Acute myocardial infarction Congestive heart failure (< 1 month) History of inflammatory bowel disease Medical patient at bed rest Age 61-74 Arthroscopic surgery Major open surgery (> 45 min) Laparoscopic surgery (> 45 min) Malignancy Confined to bed (> 72 hours) Immobilizing plaster cast Central venous access Age >= 75 History of VTE Family history of VTE Factor V Leiden Prothrombin [id number] Lupus anticoagulant Anticardiolipin antibodies Elevated serum homocysteine Heparin-induced thrombocytopenia Other congenital or acquired thrombophilia Stroke (< 1 month) Elective arthroplasty Hip, pelvis, or leg fracture Acute spinal cord injury (< 1 month) Prophylaxis Regimen: Total Risk Factor Score Risk Level Prophylaxis Regimen 0-1 Low Early ambulation 2 Moderate Order ONE of the following: *Sequential Compression Device (SCD) *Heparin 5000 units SQ BID 3-4 Higher Order ONE of the following medications: *Heparin 5000 units SQ TID *Enoxaparin/Lovenox 40 mg SQ daily (WT < 150 kg, CrCl > 30 mL/min) *Enoxaparin/Lovenox 30 mg SQ daily (WT < 150 kg, CrCl > 10-29 mL/min) *Enoxaparin/Lovenox 30 mg SQ BID (WT < 150 kg, CrCl > 30 mL/min) AND/OR *Sequential Compression Device (SCD) 5 or more Highest Order ONE of the following medications: *Heparin 5000 units SQ TID (Preferred with Epidurals) *Enoxaparin/Lovenox 40 mg SQ daily (WT < 150 kg, CrCl > 30 mL/min) *Enoxaparin/Lovenox 30 mg SQ daily (WT < 150 kg, CrCl > 10-29 mL/min) *Enoxaparin/Lovenox 30 mg SQ BID (WT < 150 kg, CrCl > 30 mL/min) AND *Sequential Compression Device (SCD) Assessment and Plan - Assessment and Plan Plan: Respiratory failure -Patchy infiltrates in left lower lung -Broad-spectrum antibiotics to treat as a hospital acquired pneumonia -Blood cultures, sputum cultures -DuoNeb scheduled and as needed -De-escalate antibiotics per sensitivity and microbiology results Paraplegia with immobility -Chronic spasticity -Baclofen -Gabapentin Dyslipidemia Mood disorder with depression, -Divalproex Sodium -Escitalopram Neurogenic bladder -Oxybutynin Chloride DVT GI prophylaxis -Teds SCDs -Subcu heparin -Pepcid Critical Care: The total critical care time was 35 minutes. Time to perform other separately billable procedures was not included in the critical care time.
[2017-08-31] MEDS ORDERED: Azithromycin Inj 500 MG in Sodium Chlor 0.9% Inj 250 ML IV.SIG SCH (03:00)
[2017-08-31] MEDS ORDERED: Acetaminophen 325 MG Supp RECTAL ONE (03:03)
[2017-08-31] MEDS ORDERED: Famotidine PF Inj 20 MG/2 ML Vial IV.PUSH ONE (03:09)
[2017-08-31] MEDS ORDERED: MethylPREDNISolone Sod Succinate Inj 125 MG/2 ML Vial IV.PUSH ONE (03:10)
[2017-08-31 03:15] LABS: Bacteria,Urine Moderate /hpf; Bilirubin,Urine Negative (Negative); Clarity,Urine Cloudy (Clear); Color,Urine Amber (Yellw/Straw); Glucose,Urine (UA) Negative (Negative); Hyaline Casts,Urine 6 /lpf (0-3); Leukocyte Esterase,Urine Moderate (Negative); Mucus,Urine Moderate /lpf (Occasional); Nitrite,Urine Positive (Negative); Specific Gravity,Urine 1.024 (1.002-1.035); Squamous Epithelial Cell,Urine 2 /hpf (0-5)
[2017-08-31] MEDS: Sod Chloride 0.9% Inj 1,000 ML IV.CONT SCH ×2 (03:22→10:01)
[2017-08-31] MEDS: Azithromycin Inj 500 MG in Sodium Chlor 0.9% Inj 250 ML IV.SIG SCH (03:24)
[2017-08-31] MEDS ORDERED: Chlorhexidine Gluconate 2% 1 Pack (2 Cloths) TOPICAL PRN (04:00)
[2017-08-31] MEDS: Piperacil/Tazo 4.5 GM Premix 4.5 GM/100 ML BAG IV.SIG SCH ×3 (05:20→18:02)
[2017-08-31] MEDS: Heparin - SQ 10,000 UNITS/ML Vial SQ SCH ×3 (05:20→21:25)
[2017-08-31] MEDS: Chlorhexidine Gluconate 2% 1 Pack (2 Cloths) TOPICAL SCH (05:22)
[2017-08-31 07:26] LABS: ABG Base Excess 1.9 mmol/L (-2-2); ABG PCO2 61 mmHg (38-42); ABG PO2 72 mmHG (61-120)
[2017-08-31] MEDS: Famotidine PF Inj 20 MG/2 ML Vial IV.PUSH SCH ×2 (08:00→21:24)
--- NOTE | 2017-08-31 08:44 | P.CONID ---
History of Present Illness Service: Infectious disease Consult date: 08/31/17 Requesting Physician: Nile Ng Reason for Consult: Evaluate patient with sepsis Primary Care Provider: UNKNOWN History of Present Illness: Patient seen and examined. Records reviewed. Unable to get any history from the patient He is a 52-year-old male, who is a resident of the assisted, brought to the hospital for evaluation of shortness of breath, hypoxemia, and tachycardic. According to the paramedics he had an elevated temp. Got some information from the nurse, patient did not have any Vernon when he presented, and a Vernon catheter was placed. Since admission he has required BiPAP for oxygenation. He has been febrile. Urinalysis showed significant pyuria. His blood pressures seem to be holding, and he is not requiring any pressors. His WBC is mildly elevated at 11.7. Lactic acid is normal. Creatinine is normal. Chest x -ray showing some infiltrates. Infectious disease consultation has been requested to assist with evaluation and treatment of patient with sepsis. Review of Systems unobtainable due to mental status PMFSH - History History Provided By: Outside Production Inspector / EMT - Medical / Surgical Hx Neg / Unobtainable Medical Problems Denied: Unable to Obtain - Medical History Medical History: Medical History (Last Updated 08/31/17 @ 08:33 by Cari Reveles MD) Dementia Depression GERD (gastroesophageal reflux disease) Hemorrhoids Hyperlipidemia Paraplegia UTI (urinary tract infection) - Surgical History Surgical History: Surgical History (Last Updated 08/31/17 @ 08:33 by Cari Reveles MD) H/O exploratory laparotomy History of cholecystectomy - Tobacco History Second Hand Smoke Exposure: No Tobacco Use In Past 30 Days: No Smoking Status: Unknown if ever smoked Tobacco Type: Cigarettes - Alcohol History How Often Do You Have a Drink Containing Alcohol: Unable to Obtain - Substance Use History Substance History: Unable to Obtain - Travel History Recent Travel in the [place] Within the Last 8 Weeks: No Recent Travel Out of the Country Within the Last 8 Weeks: No - Immunization History Tetanus Immunization: Unable to Assess Hx Influenza Vaccine This Season: Unable to Assess Medications and Allergies Active Medications: Active Medications Acetaminophen (Tylenol) 650 mg PO Q6H PRN PRN Reason: PAIN 1-10 AND/OR FEVER >101F Al Hydroxide/Mg Hydroxide (Milk Of Magnesia Liq) 30 ml PO Q12H PRN PRN Reason: Mild Constipation Albuterol (Duoneb Neb (Volodymyr)) 1 ampul NEB Q6HR NEB [facility] Last Admin: 08/31/17 07:45 Dose: 1 ampul Albuterol (Duoneb Neb (Prn)) 1 ampul NEB Q2HR NEB PRN PRN Reason: WHEEZING Baclofen (Lioresal) 20 mg PO Q8HR [facility] Bisacodyl (Dulcolax Supp) 10 mg RECTAL DAILY PRN PRN Reason: SEVERE CONSITIPATION Chlorhexidine Gluconate (Chlorhexidine 2% Cloth) 3 pack TOPICAL DAILY@0400 [facility] Stop: 09/05/17 03:59 Last Admin: 08/31/17 05:22 Dose: 3 pack Chlorhexidine Gluconate (Chlorhexidine 2% Cloth) 3 pack TOPICAL DAILY@0400 PRN PRN Reason: Extra cloth needed Stop: 09/05/17 03:59 Dextrose (D50w Vial) 50 ml IV.PUSH UNSCH PRN PRN Reason: PER HYPOGLYCEMIA PROTOCOL Divalproex Sodium (Depakote Sprinkles) 125 mg PO BID [facility] Escitalopram Oxalate (Lexapro) 20 mg PO HS [facility] Famotidine (Pepcid Pf Inj) 20 mg IV.PUSH Q12HR [facility] Last Admin: 08/31/17 08:00 Dose: 20 mg Gabapentin (Neurontin) 100 mg PO TID [facility] Glucagon (Glucagon Inj) 1 mg OTHER PRN PRN PRN Reason: for Hypoglycemia Protocol Heparin Sodium (Porcine) (Heparin Inj) 5,000 units SQ Q8H [facility] Last Admin: 08/31/17 05:20 Dose: 5,000 units Hydromorphone HCl (Dilaudid Pf Inj) 1 mg IV.PUSH Q4H PRN PRN Reason: PAIN SCALE 6 TO 10 Sodium Chloride (Ns Inj) 1,000 mls @ 75 mls/hr IV.CONT .[id number] [facility] Last Admin: 08/31/17 03:22 Dose: 150 mls/hr Piperacillin/Tazobactam/Dextrose (Zosyn 4.5 Gm Premix) 4.5 gm in 100 mls @ 200 mls/hr IV.SIG Q6H [facility] Last Infusion: 08/31/17 06:55 Dose: Infused Azithromycin 500 mg/ Sodium (Chloride) 250 mls @ 250 mls/hr IV.SIG Q24H [facility] Last Infusion: 08/31/17 04:47 Dose: Infused Insulin Human Regular (Novolin R Supplemental Scale) 0 units SQ Q4HR [facility]; Protocol Lactulose (Lactulose Liq) 30 ml PO DAILY PRN PRN Reason: SEVERE CONSITIPATION Ondansetron HCl (Zofran Inj) 4 mg IV.PUSH Q6H PRN PRN Reason: NAUSEA OR VOMITING Oxybutynin Chloride (Ditropan) 5 mg PO DAILY [facility] Pravastatin Sodium (Pravachol) 80 mg PO DAILY [facility] Senna/Docusate Sodium (Lakia-Colace) 1 tab PO BID [facility] Sennosides (Senokot) 17.2 mg PO Q12H PRN PRN Reason: Moderate Constipation Sodium Chloride (Ns Flush) 2 ml IV.FLUSH BID [facility] Last Admin: 08/31/17 07:59 Dose: 2 ml Sodium Chloride (Ns Flush) 2 ml IV.FLUSH PRN PRN PRN Reason: FLUSH AFTER USING IV ACCESS Vitamin E (Vitamin E) 400 unit PO DAILY [facility] Allergies Allergy/AdvReac Type Severity Reaction Status Date / Time No Known Allergies Allergy Verified 08/31/17 00:16 Home Medications Medication Instructions Recorded Confirmed Type baclofen 08/31/17 08/31/17 History baclofen 08/31/17 08/31/17 History cetirizine 08/31/17 08/31/17 History collagenase clostridium histo. 08/31/17 08/31/17 History [Santyl] dantrolene 08/31/17 08/31/17 History divalproex 08/31/17 08/31/17 History escitalopram oxalate 08/31/17 08/31/17 History escitalopram oxalate 08/31/17 08/31/17 History gabapentin 08/31/17 08/31/17 History gabapentin 08/31/17 08/31/17 History gabapentin 08/31/17 08/31/17 History hydrochlorothiazide 08/31/17 08/31/17 History hydrochlorothiazide 08/31/17 08/31/17 History lactulose 08/31/17 08/31/17 History meloxicam 08/31/17 08/31/17 History metronidazole 08/31/17 08/31/17 History metronidazole 08/31/17 08/31/17 History omeprazole 08/31/17 08/31/17 History oxybutynin chloride 08/31/17 08/31/17 History simvastatin 08/31/17 08/31/17 History simvastatin 08/31/17 08/31/17 History simvastatin 08/31/17 08/31/17 History vitamin E (dl, acetate) 08/31/17 08/31/17 History vitamin E (dl, acetate) 08/31/17 08/31/17 History Exam Vital signs: Vital Signs 08/31/17 00:07 08/31/17 00:21 08/31/17 00:31 Temperature Pulse Rate 119 H Respiratory Rate 26 H Blood Pressure 148/79 H Pulse Oximetry 96 97 95 08/31/17 00:36 08/31/17 00:37 08/31/17 01:20 Temperature 101.0 F H Pulse Rate 124 H Respiratory Rate 28 H Blood Pressure 183/79 H Pulse Oximetry 98 96 08/31/17 02:29 08/31/17 02:48 08/31/17 03:58 Temperature 101.1 F H Pulse Rate 130 H 121 H 133 H Respiratory Rate 22 28 H 26 H Blood Pressure 183/85 H 169/74 H 136/67 Pulse Oximetry 97 92 L 97 08/31/17 04:00 08/31/17 04:32 08/31/17 04:35 Temperature 101.1 F H Pulse Rate 123 H Respiratory Rate 24 Blood Pressure 134/79 Pulse Oximetry 96 95 95 08/31/17 05:00 08/31/17 06:00 08/31/17 07:45 Temperature 101.1 F H 99.7 F H Pulse Rate 118 H 101 H 94 H Respiratory Rate 23 24 22 Blood Pressure 92/56 L 92/57 L Pulse Oximetry 100 100 94 L Intake & Output 08/30/17 08/31/17 08/31/17 18:59 06:59 18:59 Intake Total 350 / 350 Balance 350 / 350 Weight 106 kg Intake: IV 350 / 350 Azithromycin Inj 500 MG In NS 250 / 250 Inj 250 ML @ 250 mls/hr IV.SIG Q24H [facility] Rx#:[id number] Zosyn 4.5 GM Premix 4.5 gm In 100 / 100 100 ml @ 200 mls/hr IV.SIG Q6H [facility] Rx#:[id number] Other: Weight On Admission 106 kg Narrative: Physical Examination GENERAL: Patient is an obese, well-developed male, awake, on BIPAP mask, following some commands, mildly tachypneic. SKIN: Cool and dry. No generalized rash, no ecchymoses and no evidence of embolic lesions. HEAD: Atraumatic. Normocephalic. No temporal wasting, or tenderness. EYES: [place] conjunctiva. No petechia or hemorrhage. Pupils equal, round and reactive to light. Extraocular movements full and intact. No scleral icterus. No injection or drainage. EARS, NOSE AND THROAT: Incomplete exam due to BIPAP mask, and he desaturates fairly quickly when mask taken off. NECK: Trachea midline. Supple and not tender, no meningeal signs CARDIOVASCULAR: Regular rate and rhythm. No murmurs, rubs or gallops heard RESPIRATORY: Clear to auscultation. Breath sounds equal bilaterally. No rales , wheezing or rhonchi ABDOMEN: Soft, obese, non-tender, nondistended. Bowel sounds present and normoactive. No guarding. No rebound. No organomegaly. He has a long midline incision which looks like an exp lap, and has a cholecystectomy scar in RUQ. EXTREMITIES: No clubbing, cyanosis. Has mild pedal edema. No calf tenderness. NEUROLOGICAL: Awake, following commands. 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 PSYCHIATRIC: cooperative. LINE: No evidence of infection : Vernon in place, urine dark yellow Results - Labs CBC & Chem 7: 08/31/17 00:30 08/31/17 00:30 Labs: Laboratory Results - last 24 hr 08/31/17 08/31/17 08/31/17 00:25 00:27 00:30 WBC 11.7 H RBC 4.34 L Hgb 13.6 Hct 41.5 MCV 95.7 MCH 31.4 MCHC 32.8 RDW 16.0 Plt Count 152 MPV 9.4 Neut % (Auto) 81.7 H Lymph % (Auto) 7.4 L Mitchell % (Auto) 10.1 H Eos % (Auto) 0.5 Baso % (Auto) 0.3 Neut # (Auto) 9.6 H Lymph # (Auto) 0.9 L Mitchell # (Auto) 1.2 H Eos # (Auto) 0.1 Baso # (Auto) 0.0 WBC Differential . Differential Comment Auto diff final PT INR APTT Puncture Site Right radial Patient Temperature 98.6 O2 Saturation 95 ABG pH 7.30 L ABG pCO2 68 H* ABG pO2 163 H ABG HCO3 32 H ABG O2 Content 18.4 ABG Base Excess 5.9 H ABG Methemoglobin 1.7 Alpesh Test Present Hemoglobin 13.6 Carboxyhemoglobin 1.1 O2 Delivery Device Bipap Vent Setting Epap5/ipap12 Inspired O2 100 Critical Value Yes Sodium Potassium Chloride Carbon Dioxide Anion Gap BUN Creatinine Estimated GFR POC Glucose 135 H Random Glucose Lactic Acid Calcium Magnesium Total Bilirubin AST ALT Alkaline Phosphatase Ammonia Total Creatine Kinase CK-MB (CK-2) Troponin I Total Protein Albumin Urine Color Urine Clarity Urine pH Ur Specific [place] Urine Protein Urine Glucose (UA) Urine Ketones Urine Occult Blood Urine Nitrate Urine Bilirubin Urine Urobilinogen Ur Leukocyte Esterase Urine RBC Urine WBC Ur Squamous Epith Cells Urine Bacteria Hyaline Casts Urine Mucus Micro UA Comment Urine Culture Comments Nasal Screen MRSA (PCR) Valproic Acid 08/31/17 08/31/17 08/31/17 00:30 00:30 00:30 WBC RBC Hgb Hct MCV MCH MCHC RDW Plt Count MPV Neut % (Auto) Lymph % (Auto) Mitchell % (Auto) Eos % (Auto) Baso % (Auto) Neut # (Auto) Lymph # (Auto) Mitchell # (Auto) Eos # (Auto) Baso # (Auto) WBC Differential Differential Comment PT 9.9 INR 1.0 APTT 28.1 Puncture Site Patient Temperature O2 Saturation ABG pH ABG pCO2 ABG pO2 ABG HCO3 ABG O2 Content ABG Base Excess ABG Methemoglobin Alpesh Test Hemoglobin Carboxyhemoglobin O2 Delivery Device Vent Setting Inspired O2 Critical Value Sodium 140 Potassium 4.5 Chloride 101 Carbon Dioxide 30.8 Anion Gap 8 BUN 20 H Creatinine 0.68 Estimated GFR Greater than 89 POC Glucose Random Glucose 146 H Lactic Acid 1.1 Calcium 8.3 L Magnesium 1.9 Total Bilirubin 0.4 AST 16 ALT 19 Alkaline Phosphatase 108 Ammonia Total Creatine Kinase 293 CK-MB (CK-2) 2.1 Troponin I Less than 0.02 L Total Protein 7.2 Albumin 3.4 Urine Color Urine Clarity Urine pH Ur Specific [place] Urine Protein Urine Glucose (UA) Urine Ketones Urine Occult Blood Urine Nitrate Urine Bilirubin Urine Urobilinogen Ur Leukocyte Esterase Urine RBC Urine WBC Ur Squamous Epith Cells Urine Bacteria Hyaline Casts Urine Mucus Micro UA Comment Urine Culture Comments Nasal Screen MRSA (PCR) Valproic Acid 08/31/17 08/31/17 08/31/17 00:30 00:30 02:50 WBC RBC Hgb Hct MCV MCH MCHC RDW Plt Count MPV Neut % (Auto) Lymph % (Auto) Mitchell % (Auto) Eos % (Auto) Baso % (Auto) Neut # (Auto) Lymph # (Auto) Mitchell # (Auto) Eos # (Auto) Baso # (Auto) WBC Differential Differential Comment PT INR APTT Puncture Site Patient Temperature O2 Saturation ABG pH ABG pCO2 ABG pO2 ABG HCO3 ABG O2 Content ABG Base Excess ABG Methemoglobin Alpesh Test Hemoglobin Carboxyhemoglobin O2 Delivery Device Vent Setting Inspired O2 Critical Value Sodium Potassium Chloride Carbon Dioxide Anion Gap BUN Creatinine Estimated GFR POC Glucose Random Glucose Lactic Acid Calcium Magnesium Total Bilirubin AST ALT Alkaline Phosphatase Ammonia 30 Total Creatine Kinase CK-MB (CK-2) Troponin I Total Protein Albumin Urine Color Tricia Urine Clarity Cloudy H Urine pH 5.0 Ur Specific [place] 1.024 Urine Protein 500 or greater Urine Glucose (UA) Negative Urine Ketones Trace Urine Occult Blood Moderate H Urine Nitrate Positive H Urine Bilirubin Negative Urine Urobilinogen 2.0 H Ur Leukocyte Esterase Moderate H Urine RBC 93 H Urine WBC 80 H Ur Squamous Epith Cells 2 Urine Bacteria Moderate H Hyaline Casts 6 Urine Mucus Moderate H Micro UA Comment Cath-culture ind Urine Culture Comments Cath-cult indicated Nasal Screen MRSA (PCR) Valproic Acid 29 L 08/31/17 08/31/17 08/31/17 04:30 07:18 07:53 WBC RBC Hgb Hct MCV MCH MCHC RDW Plt Count MPV Neut % (Auto) Lymph % (Auto) Mitchell % (Auto) Eos % (Auto) Baso % (Auto) Neut # (Auto) Lymph # (Auto) Mitchell # (Auto) Eos # (Auto) Baso # (Auto) WBC Differential Differential Comment PT INR APTT Puncture Site Right brachial Patient Temperature 98.6 O2 Saturation 90 ABG pH 7.29 L* ABG pCO2 61 H* ABG pO2 72 ABG HCO3 28 H ABG O2 Content 17.8 ABG Base Excess 1.9 ABG Methemoglobin 2.3 H Lapesh Test Present Hemoglobin 14.1 Carboxyhemoglobin 0.4 O2 Delivery Device Bipap Vent Setting Ipap15/epap5 Inspired O2 50 Critical Value Yes Sodium Potassium Chloride Carbon Dioxide Anion Gap BUN Creatinine Estimated GFR POC Glucose 132 H Random Glucose Lactic Acid Calcium Magnesium Total Bilirubin AST ALT Alkaline Phosphatase Ammonia Total Creatine Kinase CK-MB (CK-2) Troponin I Total Protein Albumin Urine Color Urine Clarity Urine pH Ur Specific [place] Urine Protein Urine Glucose (UA) Urine Ketones Urine Occult Blood Urine Nitrate Urine Bilirubin Urine Urobilinogen Ur Leukocyte Esterase Urine RBC Urine WBC Ur Squamous Epith Cells Urine Bacteria Hyaline Casts Urine Mucus Micro UA Comment Urine Culture Comments Nasal Screen MRSA (PCR) Not detected Valproic Acid - Imaging Impressions Chest X-Ray 08/31/17 00:08 CONCLUSION: Elevation of the right hemidiaphragm and right lower lung consolidation. Patchy infiltrates in left lower lung. Cardiomegaly. Assessment and Plan - Plan Impression Sepsis on presentation, patient came from [facility] - has lung infiltrates, and SOB, C/W HCAP - also with UTI Hx paraplegia Recommendation Follow C/S and adjust Abx Renal US to check for obstruction Continue Zosyn Continue Zithromax Add Vanco for MRSA coverage Monitor respiratory status Follow temps Monitor progress Urine for legio and pneumococcal Ag I will determine course of Abx once work up is completed I will follow along with you Thank you for this consultation D/W RN
[2017-08-31] MEDS ORDERED: Vancomycin Consult Pharmacy 1 EACH OTHER SCH (09:00)
[2017-08-31] MEDS: Senna/Docusate Sodium 8.6/50 MG Tablet PO SCH ×2 (09:11→22:47)
[2017-08-31] MEDS: Gabapentin 100 MG Capsule PO SCH ×3 (09:11→20:12)
[2017-08-31] MEDS: Divalproex 125 MG Sprinkles Capsule PO SCH ×2 (09:11→22:47)
[2017-08-31] MEDS: Insulin NovoLIN Regular Correctional Sugar Inj SQ SCH ×3 (09:12→21:25)
[2017-08-31 09:38] LABS: Albumin 3.1 g/dL (3.4-5.0); Anion Gap 11 meq/L (5-15); Blood Urea Nitrogen 23 mg/dL (7-18); Calcium 8.9 mg/dL (8.5-10.1); Carbon Dioxide 23.7 meq/L (21.0-32.0); Chloride 103 meq/L (98-107); Glomerular Filtration Rate Greater Than 89 mL/min (>89); Glucose,Random 141 mg/dL (74-106); Potassium 4.9 meq/L (3.5-5.1); Sodium 138 meq/L (136-145)
[2017-08-31 09:39] LABS: Alanine Aminotransferase 21 U/L (12-78); Aspartate Aminotransferase 22 U/L (15-37)
[2017-08-31 09:41] LABS: Alkaline Phosphatase 96 U/L (45-117); Total Protein 7.2 g/dL (6.4-8.2)
[2017-08-31] MEDS: Vancomycin Inj 1,500 MG in Sodium Chlor 0.9% Inj 500 ML IV.SIG SCH (15:25)
--- NOTE | 2017-08-31 15:31 | US ---
EXAM DATE: 08/31/2017 3:22 PM EDT AGE/SEX: 52 years / Male INDICATIONS: Elevated lab values. CLINICAL DATA: This is the patient's initial encounter. Patient reports that signs and symptoms have been present for 1 day and indicates a pain score of 1/10. MEDICAL/SURGICAL HISTORY: Gastroesophageal reflux disease. Dementia. Depression. Hyperlipidemia . Paraplegia. Urinary tract infection. Cholecystectomy. COMPARISON: No prior exams available for comparison. MEASUREMENTS: Right Kidney:__10.8 x 4.6 x 4.9 cm Left Kidney:__10.7 x 4.1 x 5.1 cm FINDINGS: Right Kidney: Normal echotexture and cortical thickness. No mass or hydronephrosis. Left Kidney: Normal echotexture and cortical thickness. No mass or hydronephrosis. A hyperechoic stru cture is identified in the mid left kidney measuring 11 mm in greatest dimension. Bladder: Vernon catheter is present. Bladder decompressed. Other: None. CONCLUSION: 1. 11 mm left midlung calculus. 2. No evidence of hydronephrosis. 3. Otherwise normal appearing kidneys. Electronically signed by: Rolando Dela Cruz MD 08/31/2017 3:30 PM EDT
--- NOTE | 2017-08-31 17:32 | ECG ---
Date Performed: 08/31/2017 Time Performed: 02:51:56 PTAGE: 52 years EKG: SINUS TACHYCARDIA PATTERN CONSISTENT WITH PULMONARY DISEASE INCOMPLETE RIGHT BUNDLE BRANCH BLOCK RIGHT VENTRICULAR HYPERTROPHY ABNORMAL ECG NO PREVIOUS TRACING DOCTOR: Mayte Mike Interpretating Date/Time 08/31/2017 17:31:22
--- NOTE | 2017-08-31 17:40 | ECHRPT ---
Indication: Shortness of breath CONCLUSIONS Wall thickness is measured at the upper limits of normal. The left ventricular systolic function is normal with an estimated ejection fraction in the range of 60-65%. The transthoracic study is normal by two-dimensional, color flow imaging and Doppler interrogation. BP: / HR: Rhythm: MEASUREMENTS (Male / Female) Normal Values Technical Quality: Technically difficult study 2D ECHO LV Diastolic Diameter PLAX 5.2 cm 4.2 - 5.9 / 3.9 - 5.3 cm LV Systolic Diameter PLAX 3.5 cm IVS Diastolic Thickness 1.4 cm 0.6 - 1.0 / 0.6 - 0.9 cm LVPW Diastolic Thickness 1.2 cm 0.6 - 1.0 / 0.6 - 0.9 cm LV Relative Wall Thickness 0.5 RV Internal Dim ED PLAX 2.3 cm M-MODE Aortic Root Diameter MM 3.6 cm LA Systolic Diameter MM 3.5 cm LA Ao Ratio MM 1.0 AV Cusp Separation MM 2.0 cm DOPPLER Mitral E Point Velocity 96.4 cm/s Mitral A Point Velocity 84.2 cm/s Mitral E to A Ratio 1.1 FINDINGS LEFT VENTRICLE There was limited left ventricular wall motion assessment due to poor endocardial visualization. Wall thickness is measured at the upper limits of normal. The left ventricular systolic function is normal with an estimated ejection fraction in the range of 60-65%. Normal left ventricular size. RIGHT VENTRICLE The right ventricular size is normal. LEFT ATRIUM The left atrial size is normal. RIGHT ATRIUM The right atrial size is normal. ATRIAL SEPTUM Normal atrial septal thickness without atrial level shunting by limited color doppler interrogation. AORTA The aortic root and proximal ascending aorta are not well visualized. MITRAL VALVE Structurally normal mitral valve. No mitral valve regurgitation. AORTIC VALVE Trileaflet aortic valve. No aortic valve stenosis or regurgitation. TRICUSPID VALVE Structurally normal tricuspid valve. No tricuspid valve stenosis or regurgitation. PULMONARY VALVE No pulmonary valve regurgitation or stenosis. VESSELS The inferior vena cava was not well visualized. PERICARDIUM No pericardial effusion. Troy Hearn MD (Electronically Signed) Final Date:31 August 2017 17:38
--- NOTE | 2017-08-31 17:47 | CT ---
EXAM DATE: 08/31/2017 5:42 PM EDT AGE/SEX: 52 years / Male INDICATIONS: Sepsis; dyspnea. Rule out pulmonary embolus. CLINICAL DATA: This is the patient's initial encounter. Patient reports that signs and symptoms have been present for 1 day and indicates a pain score of 0/10. MEDICAL/SURGICAL HISTORY: Gastroesophageal reflux disease. None. RADIATION DOSE: 10.77 CTDI (mGy) COMPARISON: No prior exams available for comparison. TECHNIQUE: Volumetric scanning was performed using a multi-row detector CT scanner during bolus infu oli of 70 ml Omnipaque 350 (iohexol) nonionic water-soluble contrast as a single exam dose. The yeimy a was post processed with a variety of visualization algorithms including full volume maximum intensi ty projection and sliding thin slab reformation. Using automated exposure control and adjustment of the mA and/or kV according to patient size, radiation dose was kept as low as reasonably achievable t o obtain optimal diagnostic quality images. DICOM format image data is available electronically for review and comparison. FINDINGS: Pulmonary Arteries: No filling defects are seen in the pulmonary arteries out to the subsegmental ve ssels. The left and right pulmonary arteries are normal in diameter. Lung: Lower lobe endobronchial mass or debris on the right with extensive consolidation in the right lower lobe. Patchy nodular infiltrate elsewhere in the right lung and occasional infiltrate in the c ontralateral left lung. Effusion: Minimal Mediastinum: 2.5 cm right paratracheal lymph node and smaller lymph nodes elsewhere in the mediastin um. Other: The axilla is unremarkable. CONCLUSION: 1. No evidence of pulmonary embolism. 2. Extensive consolidation in the right lung and patchy infiltrates elsewhere in both lungs. 3. Moderately enlarged mediastinal lymph node. Electronically signed by: Cesario Horton MD 08/31/2017 5:45 PM EDT
--- NOTE | 2017-08-31 19:37 | ECG ---
Date Performed: 08/31/2017 Time Performed: 08:06:40 PTAGE: 52 years EKG: Sinus rhythm . Severe right axis deviation rSr'(V1) - probable normal variant Low QRS voltages in precordial leads Probable right ventricular hypertrophy Borderline ECG PREVIOUS TRACING : 08/31/2017 @02.51 Since the previous tracing, no significant change noted DOCTOR: Mayte Mike Interpretating Date/Time 08/31/2017 19:36:13
[2017-08-31] MEDS: HYDROmorphone PF Inj 2 MG/ML Vial IV.PUSH PRN (21:31)
[2017-09-01] MEDS: Piperacil/Tazo 4.5 GM Premix 4.5 GM/100 ML BAG IV.SIG SCH ×4 (00:33→18:39)
[2017-09-01] MEDS: Insulin NovoLIN Regular Correctional Sugar Inj SQ SCH ×3 (00:35→20:59)
[2017-09-01] MEDS: Azithromycin Inj 500 MG in Sodium Chlor 0.9% Inj 250 ML IV.SIG SCH (03:58)
[2017-09-01] MEDS: Heparin - SQ 10,000 UNITS/ML Vial SQ SCH ×3 (04:03→20:47)
[2017-09-01 04:31] LABS: Activated Partial Thrombo Time 28.1 sec (24.3-30.1)
[2017-09-01] MEDS: Sod Chloride 0.9% Inj 1,000 ML IV.CONT SCH (04:37)
[2017-09-01 04:42] LABS: Baso % (Auto) 0.1 % (0.0-2.0); Eos % (Auto) 0.1 % (0.0-4.0); Hematocrit 41.4 % (39.0-51.0); Hemoglobin 13.6 gm/dL (13.0-17.0); Lymph # (Auto) 0.6 th/mm3 (1.0-4.8); Lymph % (Auto) 5.4 % (9.0-44.0); Mean Corpuscular HGB Conc 32.9 % (32.0-36.0); Mean Corpuscular Hemoglobin 31.2 pg (27.0-34.0); Mean Corpuscular Volume 94.8 fL (80.0-100.0); Mean Platelet Volume 9.9 fL (7.0-11.0); Mono # (Auto) 1.1 th/mm3 (0.0-0.9); Mono % (Auto) 9.6 % (0.0-8.0); Neut % (Auto) 84.8 % (16.0-70.0); Platelet Count 146 th/mm3 (150-450); Red Blood Count 4.37 mil/mm3 (4.50-5.90); Red Cell Distribution Width 15.8 % (11.6-17.2); White Blood Count 11.8 th/mm3 (4.0-11.0)
[2017-09-01 04:55] LABS: Anion Gap 8 meq/L (5-15); Aspartate Aminotransferase 17 U/L (15-37); Blood Urea Nitrogen 20 mg/dL (7-18); Calcium 8.7 mg/dL (8.5-10.1); Carbon Dioxide 30.2 meq/L (21.0-32.0); Chloride 106 meq/L (98-107); Glomerular Filtration Rate Greater Than 89 mL/min (>89); Glucose,Random 97 mg/dL (74-106); Magnesium 2.4 mg/dL (1.5-2.5); Potassium 4.2 meq/L (3.5-5.1); Sodium 144 meq/L (136-145)
[2017-09-01 04:59] LABS: Alanine Aminotransferase 21 U/L (12-78); Alkaline Phosphatase 86 U/L (45-117); Phosphorus 2.9 mg/dL (2.5-4.9); Total Protein 7.2 g/dL (6.4-8.2)
[2017-09-01] MEDS: HYDROmorphone PF Inj 2 MG/ML Vial IV.PUSH PRN (06:38)
[2017-09-01] MEDS: Vancomycin Inj 1,500 MG in Sodium Chlor 0.9% Inj 500 ML IV.SIG SCH ×2 (06:58→18:39)
[2017-09-01] MEDS: Chlorhexidine Gluconate 2% 1 Pack (2 Cloths) TOPICAL SCH (07:44)
[2017-09-01 07:48] LABS: ABG Base Excess 3.8 mmol/L (-2-2); ABG PCO2 78 mmHg (38-42); ABG PO2 77 mmHG (61-120)
--- NOTE | 2017-09-01 08:16 | P.PNCC ---
Subjective Subjective Remarks/Hospital Course: 52-year-old male presents from [facility] for an evaluation of hypoxemia, shortness of breath, and tachycardia and per paramedics elevated temperature with history of paraplegia with immobility, dyslipidemia, chronic cough, mood disorder with depression, pressure ulceration bilateral lower extremity knee contracture, prior Klebsiella pneumonia and morbid obesity. In the emergency department he appeared to be in respiratory distress and was placed by ED attending on the BiPAP. 09/01 Patient is on BIPAP 18/5 with 40% FIO2. Afebrile with intermittent confusion. CTA chest yesterday showed no PE, extensive consolidation right lung. Objective Vital Signs / I&O: Vital Signs 08/31/17 09:00 08/31/17 10:00 08/31/17 10:45 Temperature 98.3 F Pulse Rate 86 78 97 H Respiratory Rate 20 22 28 H Blood Pressure 104/60 107/66 129/70 Pulse Oximetry 94 L 96 97 08/31/17 11:00 08/31/17 12:00 08/31/17 13:00 Temperature 99 F Pulse Rate 94 H 82 89 Respiratory Rate 26 H 22 30 H Blood Pressure 131/72 116/58 L 135/79 Pulse Oximetry 94 L 91 L 95 08/31/17 13:10 08/31/17 14:00 08/31/17 15:00 Temperature Pulse Rate 96 H 97 H Respiratory Rate 30 H 29 H Blood Pressure 135/71 126/81 Pulse Oximetry 96 96 92 L 08/31/17 15:07 08/31/17 16:00 08/31/17 17:00 Temperature 97.9 F Pulse Rate 96 H 96 H 97 H Respiratory Rate 23 27 H 30 H Blood Pressure 149/86 H 130/72 Pulse Oximetry 95 97 95 08/31/17 17:20 08/31/17 17:24 08/31/17 18:00 Temperature Pulse Rate 102 H 109 H Respiratory Rate 36 H 30 H Blood Pressure 141/67 H Pulse Oximetry 89 L 95 08/31/17 19:00 08/31/17 20:00 08/31/17 20:25 Temperature 98.3 F Pulse Rate 103 H 100 H Respiratory Rate 36 H 18 Blood Pressure Pulse Oximetry 96 97 98 08/31/17 20:34 08/31/17 21:00 08/31/17 21:38 Temperature Pulse Rate 98 H 100 H Respiratory Rate 30 H 23 Blood Pressure Pulse Oximetry 98 97 08/31/17 22:00 08/31/17 22:49 08/31/17 23:00 Temperature Pulse Rate 103 H 100 H 98 H Respiratory Rate 24 28 H 21 Blood Pressure 109/57 L 111/55 L Pulse Oximetry 96 95 96 09/01/17 00:00 09/01/17 01:00 09/01/17 02:00 Temperature 98.6 F Pulse Rate 93 H 85 97 H Respiratory Rate 23 21 27 H Blood Pressure 115/56 L 107/58 L 132/74 Pulse Oximetry 97 96 97 09/01/17 03:00 09/01/17 04:00 09/01/17 04:14 Temperature 99.6 F Pulse Rate 97 H 97 H 103 H Respiratory Rate 29 H 26 H 24 Blood Pressure 140/74 147/80 H Pulse Oximetry 97 99 97 09/01/17 05:00 09/01/17 06:00 09/01/17 07:00 Temperature Pulse Rate 110 H 113 H 116 H Respiratory Rate 32 H 47 H 22 Blood Pressure 143/89 H 152/80 H 132/69 Pulse Oximetry 99 96 89 L 09/01/17 07:45 Temperature Pulse Rate Respiratory Rate Blood Pressure Pulse Oximetry 94 L Intake & Output 08/31/17 09/01/17 09/01/17 18:59 06:59 18:59 Intake Total 2100 / 2100 200 / 200 Output Total 750 / 750 550 / 550 Balance 1350 / 1350 -350 / -350 Weight 108.5 kg Intake: IV 2100 / 2100 200 / 200 NS Inj 1,000 ML @ 75 mls/hr IV. 1999 CONT .[id number] [facility] Rx#:[id number] Zosyn 4.5 GM Premix 4.5 gm In 100 / 100 200 / 200 100 ml @ 200 mls/hr IV.SIG Q6H [facility] Rx#:[id number] Output: Urine Amount (Catheter) 750 / 750 550 / 550 Indwelling Urethral Catheter 750 / 750 550 / 550 Result Diagrams: 09/01/17 03:47 09/01/17 03:47 Objective Remarks: GENERAL: Patient is 52 yo on BIPAP SKIN: Warm and dry. HEAD: Normocephalic. EYES: No scleral icterus. No injection or drainage. NECK: Supple, trachea midline. No JVD or lymphadenopathy. CARDIOVASCULAR: Tachycardic without murmurs, gallops, or rubs. RESPIRATORY: Breath sounds equal bilaterally. No accessory muscle use. GASTROINTESTINAL: Abdomen soft, non-tender, nondistended. MUSCULOSKELETAL: No cyanosis, or edema. Neuro: Awake, confused. Assessment and Plan - Assessment and Plan Plan: Acute hypoxemic and hypercapnic resp failure Hospital acquired pneumonia Paraplegia with immobility Dyslipidemia Mood disorder with depression, Neurogenic bladder Leukocytosis UTI Plan Neuro: awake with intermittent confusion. Monitor neuro status and avoid sedatives Pulm: Continue wit oxygen keep sats >92% Bronchodilators, add solumederol 60mg Q8, Mucomyst Will proceed with intubation given worsening resp acidosis and mental status. Patient s/p bronch today showed thock secretions/mucous plugs suctioned to clear BAL performed RLL CV: Monitor HR and BP keep MAP>65mmHg Place on Cardizem 60mg QID : Monitor renal function, electrolytes replacement per protocol On NS@75ml/hr GI: Keep NPO for now, on Pepcid for GI prophylaxis ID: Continue with abx (Zosyn, Zithromax)monitor for signs of infections ( fever , WBC) Follow up on cultures. ID is following. Strep pneumonia and Legionella Ag pending Heme: Monitor CBC Endo: SSI for glycemic control DVT GI prophylaxis -Teds SCDs -Subcu heparin -Pepcid Level 3
[2017-09-01] MEDS: MethylPREDNISolone Sod Succinate Inj 125 MG/2 ML Vial IV.PUSH SCH ×3 (08:32→21:03)
[2017-09-01] MEDS: Famotidine PF Inj 20 MG/2 ML Vial IV.PUSH SCH ×2 (08:39→20:48)
[2017-09-01] MEDS ORDERED: Etomidate Inj 40 MG/20 ML Vial IV.PUSH ONE (08:50)
[2017-09-01] MEDS ORDERED: fentaNYL Citrate Inj 100 MCG/2 ML Ampul ONE ×2 (08:59)
[2017-09-01] MEDS: Senna/Docusate Sodium 8.6/50 MG Tablet PO SCH ×2 (09:55→20:49)
[2017-09-01] MEDS: Gabapentin 100 MG Capsule PO SCH ×3 (09:55→18:38)
[2017-09-01] MEDS: Divalproex 125 MG Sprinkles Capsule PO SCH ×2 (09:56→20:49)
--- NOTE | 2017-09-01 09:59 | XR ---
EXAM DATE: 09/01/2017 9:46 AM EDT AGE/SEX: 52 years / Male INDICATIONS: Intubation. CLINICAL DATA: This is the patient's subsequent encounter. Patient reports that signs and symptoms h ave been present for 2 days and indicates a pain score of Nonresponsive. MEDICAL/SURGICAL HISTORY: . Gastroesophageal reflux disease. Dementia. Depression. Hyperlipidem ia. Paraplegia. Urinary tract infection. Cholecystectomy. COMPARISON: [facility], CHEST 1V SINGLE AP, 08/31/2017. . FINDINGS: Status post placement of an endotracheal tube which appears to be in good position overlying the trac heal air shadow. There is no evidence of pneumothorax. There is some parenchymal consolidation in the right lung base with an increasing infiltrate in the right upper lung. There is mild atelectasis in the left lung base. Otherwise the left lung is clear. The heart size is enlarged but stable. There is an NG tube in the stomach. The bony structures are stable CONCLUSION: 1. The endotracheal tube and NG tube appear to be in good position. 2. No evidence of pneumothorax. 3. There is parenchymal consolidation in the right lung base with an increasing infiltrate in the ri ght upper lung. Electronically signed by: Wilber Mcginnis MD 09/01/2017 9:58 AM EDT
[2017-09-01] MEDS: fentaNYL 10 mcg/mL Premix Drip 2,500 MCG/250 ML BAG IV.SIG PRN ×2 (10:00→20:55)
[2017-09-01] MEDS: Propofol 1000 mg/100 ml Inj 1,000 MG/100 ML BOTTLE IV.CONT PRN ×4 (10:04→23:43)
[2017-09-01 10:14] LABS: ABG Base Excess 5.4 mmol/L (-2-2); ABG PCO2 59 mmHg (38-42); ABG PO2 111 mmHG (61-120)
--- NOTE | 2017-09-01 12:54 | P.PNID ---
Subjective Remarks: He is a 52-year-old male, who is a [facility], brought to the hospital for evaluation of shortness of breath, hypoxemia, and tachycardic. According to the paramedics he had an elevated temp. Got some information from the nurse, patient did not have any Vernon when he presented, and a Vernon catheter was placed. Since admission he has required BiPAP for oxygenation. He has been febrile. Urinalysis showed significant pyuria. His blood pressures seem to be holding, and he is not requiring any pressors. His WBC is mildly elevated at 11.7. Lactic acid is normal. Creatinine is normal. Chest x -ray showing some infiltrates. Infectious disease consultation has been requested to assist with evaluation and treatment of patient with sepsis. Notes reviewed Temps ok Pulmonary deterioration, now intubated BP ok Sedated, FiO2 at 50% [place] and Pneumo Ag negative Antibiotics: Vancomycin Zosyn Zithromax Lines: No evidence of infection Past Medical History: Dementia Depression GERD (gastroesophageal reflux disease) Hemorrhoids Hyperlipidemia Paraplegia UTI (urinary tract infection) H/O exploratory laparotomy History of cholecystectomy Allergies/Adverse Reactions: Allergies No Known Allergies Allergy (Verified 08/31/17 00:16) Objective Vital Signs 08/31/17 13:00 08/31/17 13:10 08/31/17 14:00 Temperature Pulse Rate 89 96 H Respiratory Rate 30 H 30 H Blood Pressure 135/79 135/71 Pulse Oximetry 95 96 96 08/31/17 15:00 08/31/17 15:07 08/31/17 16:00 Temperature 97.9 F Pulse Rate 97 H 96 H 96 H Respiratory Rate 29 H 23 27 H Blood Pressure 126/81 149/86 H Pulse Oximetry 92 L 95 97 08/31/17 17:00 08/31/17 17:20 08/31/17 17:24 Temperature Pulse Rate 97 H 102 H Respiratory Rate 30 H 36 H Blood Pressure 130/72 141/67 H Pulse Oximetry 95 89 L 08/31/17 18:00 08/31/17 19:00 08/31/17 20:00 Temperature 98.3 F Pulse Rate 109 H 103 H 100 H Respiratory Rate 30 H 36 H 18 Blood Pressure Pulse Oximetry 95 96 97 08/31/17 20:25 08/31/17 20:34 08/31/17 21:00 Temperature Pulse Rate 98 H Respiratory Rate 30 H Blood Pressure Pulse Oximetry 98 98 97 08/31/17 21:38 08/31/17 22:00 08/31/17 22:49 Temperature Pulse Rate 100 H 103 H 100 H Respiratory Rate 23 24 28 H Blood Pressure 109/57 L Pulse Oximetry 96 95 08/31/17 23:00 09/01/17 00:00 09/01/17 01:00 Temperature 98.6 F Pulse Rate 98 H 93 H 85 Respiratory Rate 21 23 21 Blood Pressure 111/55 L 115/56 L 107/58 L Pulse Oximetry 96 97 96 09/01/17 02:00 09/01/17 03:00 09/01/17 04:00 Temperature 99.6 F Pulse Rate 97 H 97 H 97 H Respiratory Rate 27 H 29 H 26 H Blood Pressure 132/74 140/74 147/80 H Pulse Oximetry 97 97 99 09/01/17 04:14 09/01/17 05:00 09/01/17 06:00 Temperature Pulse Rate 103 H 110 H 113 H Respiratory Rate 24 32 H 47 H Blood Pressure 143/89 H 152/80 H Pulse Oximetry 97 99 96 09/01/17 07:00 09/01/17 07:45 09/01/17 08:00 Temperature Pulse Rate 116 H 137 H Respiratory Rate 22 33 H Blood Pressure 132/69 135/61 Pulse Oximetry 89 L 94 L 93 L 09/01/17 09:00 09/01/17 09:30 09/01/17 10:00 Temperature Pulse Rate 138 H 112 H 103 H Respiratory Rate 22 18 18 Blood Pressure 122/63 120/58 L 127/68 Pulse Oximetry 96 97 97 09/01/17 10:30 09/01/17 11:00 09/01/17 11:30 Temperature Pulse Rate 94 H 89 77 Respiratory Rate 18 18 18 Blood Pressure 128/63 125/62 127/61 Pulse Oximetry 95 92 L 93 L 09/01/17 11:40 09/01/17 12:00 Temperature 100.9 F H Pulse Rate Respiratory Rate 18 Blood Pressure Pulse Oximetry 94 L Intake & Output 08/31/17 09/01/17 09/01/17 18:59 06:59 18:59 Intake Total 2099 / 2100 200 / 200 Output Total 750 / 750 550 / 550 Balance 1350 / 1350 -350 / -350 Weight 108.5 kg Intake: IV 2099 / 2100 200 / 200 NS Inj 1,000 ML @ 75 mls/hr IV. 1999 CONT .[id number] [facility] Rx#:[id number] Zosyn 4.5 GM Premix 4.5 gm In 100 / 100 200 / 200 100 ml @ 200 mls/hr IV.SIG Q6H [facility] Rx#:[id number] Output: Urine Amount (Catheter) 750 / 750 550 / 550 Indwelling Urethral Catheter 750 / 750 550 / 550 08/31/17 00:25 Blood - Peripheral Aerobic Blood Culture - Preliminary No growth in 1 day 08/31/17 00:25 Blood - Peripheral Anaerobic Blood Culture - Preliminary No growth in 1 day 08/31/17 00:30 Blood - Peripheral Aerobic Blood Culture - Preliminary No growth in 1 day 08/31/17 00:30 Blood - Peripheral Anaerobic Blood Culture - Preliminary No growth in 1 day 08/31/17 02:50 Catheterized Urine Urine Culture - Final 50-100,000 cfu/mL mixed cher (probable contaminants ) 08/31/17 02:50 Urine - Catheterized Urine Streptococcus pneumoniae Antigen ( M - Final Presumptive negative for streptococcus pneumoniae antigen, suggesting no current or recent infection. Infection due to Streptococcus pneumoniae cannot be ruled out since the antigen present in the sample may be below the detection limit of the test. 08/31/17 02:50 Urine - Catheterized Urine Legionella Antigen - Final Presumptive negative for Legionella pneumophila serogroup 1 antigen in urine, suggesting no recent or recurrent infection. Infection due to Legionella cannot be ruled out since other serogroups and species may cause disease, antigen may not be present in urine in early infection, and the level of antigen present in the urine may be below the detection limit of the test. Lab - Hematology Results 08/31/17 09/01/17 00:30 03:47 WBC 11.7 H 11.8 H RBC 4.34 L 4.37 L Hgb 13.6 13.6 Hct 41.5 41.4 MCV 95.7 94.8 MCH 31.4 31.2 MCHC 32.8 32.9 RDW 16.0 15.8 Plt Count 152 146 L MPV 9.4 9.9 Neut % (Auto) 81.7 H 84.8 H Lymph % (Auto) 7.4 L 5.4 L [place] % (Auto) 10.1 H 9.6 H Eos % (Auto) 0.5 0.1 Baso % (Auto) 0.3 0.1 Neut # (Auto) 9.6 H 10.0 H Lymph # (Auto) 0.9 L 0.6 L [place] # (Auto) 1.2 H 1.1 H Eos # (Auto) 0.1 0.0 Baso # (Auto) 0.0 0.0 WBC Differential . . Differential Comment Auto diff final Auto diff final Hematology Comments Lab - Chemistry Results 08/31/17 08/31/17 08/31/17 00:27 00:30 00:30 Sodium 140 Potassium 4.5 Chloride 101 Carbon Dioxide 30.8 Anion Gap 8 BUN 20 H Creatinine 0.68 Estimated GFR Greater than 89 POC Glucose 135 H Random Glucose 146 H Lactic Acid 1.1 Calcium 8.3 L Phosphorus Magnesium 1.9 Total Bilirubin 0.4 AST 16 ALT 19 Alkaline Phosphatase 108 Ammonia Total Creatine Kinase 293 CK-MB (CK-2) 2.1 Troponin I Less than 0.02 L Total Protein 7.2 Albumin 3.4 08/31/17 08/31/17 08/31/17 00:30 07:53 08:53 Sodium 138 Potassium 4.9 Chloride 103 Carbon Dioxide 23.7 Anion Gap 11 BUN 23 H Creatinine 0.80 Estimated GFR Greater than 89 POC Glucose 132 H Random Glucose 141 H Lactic Acid Calcium 8.9 Phosphorus Magnesium Total Bilirubin 0.5 AST 22 ALT 21 Alkaline Phosphatase 96 Ammonia 30 Total Creatine Kinase CK-MB (CK-2) Troponin I Total Protein 7.2 Albumin 3.1 L 08/31/17 08/31/17 08/31/17 13:11 18:05 20:31 Sodium Potassium Chloride Carbon Dioxide Anion Gap BUN Creatinine Estimated GFR POC Glucose 139 H 145 H 110 Random Glucose Lactic Acid Calcium Phosphorus Magnesium Total Bilirubin AST ALT Alkaline Phosphatase Ammonia Total Creatine Kinase CK-MB (CK-2) Troponin I Total Protein Albumin 09/01/17 09/01/17 09/01/17 00:35 03:47 03:47 Sodium 144 Potassium 4.2 Chloride 106 Carbon Dioxide 30.2 Anion Gap 8 BUN 20 H Creatinine 0.58 L Estimated GFR Greater than 89 POC Glucose 100 Random Glucose 97 Lactic Acid 0.9 Calcium 8.7 Phosphorus 2.9 Magnesium 2.4 Total Bilirubin 0.3 AST 17 ALT 21 Alkaline Phosphatase 86 Ammonia Total Creatine Kinase CK-MB (CK-2) Troponin I Total Protein 7.2 Albumin 3.0 L 09/01/17 09/01/17 04:09 08:42 Sodium Potassium Chloride Carbon Dioxide Anion Gap BUN Creatinine Estimated GFR POC Glucose 95 99 Random Glucose Lactic Acid Calcium Phosphorus Magnesium Total Bilirubin AST ALT Alkaline Phosphatase Ammonia Total Creatine Kinase CK-MB (CK-2) Troponin I Total Protein Albumin Imaging: Abdomen/Bladder Ultrasound 08/31/17 00:00 CONCLUSION: 1. 11 mm left midlung calculus. 2. No evidence of hydronephrosis. 3. Otherwise normal appearing kidneys. Chest CTA 08/31/17 00:00 CONCLUSION: 1. No evidence of pulmonary embolism. 2. Extensive consolidation in the right lung and patchy infiltrates elsewhere in both lungs. 3. Moderately enlarged mediastinal lymph node. Chest X-Ray 09/01/17 00:00 CONCLUSION: 1. The endotracheal tube and NG tube appear to be in good position. 2. No evidence of pneumothorax. 3. There is parenchymal consolidation in the right lung base with an increasing infiltrate in the right upper lung. Physical Exam: Physical Examination GENERAL: sedated on the vent, not in distress. SKIN: Cool and dry. No generalized rash, no ecchymoses and no evidence of embolic lesions. HEAD: Atraumatic. Normocephalic. No temporal wasting, or tenderness. EYES: [place] conjunctiva. No petechia or hemorrhage. Pupils equal, round and reactive to light. No scleral icterus. No injection or drainage. EARS, NOSE AND THROAT: orally intubated, no nasal discharge NECK: Trachea midline. Supple and not tender, no meningeal signs CARDIOVASCULAR: Regular rate and rhythm. No murmurs, rubs or gallops heard RESPIRATORY: Scattered rhocnhi, decreased L base ABDOMEN: obese, distended. Bowel sounds present and normoactive. He has a long midline incision which looks like an exp lap, and has a cholecystectomy scar in RUQ. EXTREMITIES: No clubbing, cyanosis. Has mild pedal edema. No calf tenderness. NEUROLOGICAL: Sedated on the vent PSYCHIATRIC: Unable to assess LINE: No evidence of infection : Vernon in place, urine dark yellow Assessment and Plan - Plan Impression Sepsis on presentation, patient came from [facility] - has lung infiltrates, and SOB, C/W HCAP - also with UTI HCAP Respiratory failure Hx paraplegia Recommendation Follow C/S and adjust Abx Continue Zosyn Continue Zithromax Continue Vanco for MRSA coverage Sputum G/S C/S Follow temps Monitor progress
--- NOTE | 2017-09-01 13:29 | P.DIET ---
Nutritional Evaluation Type of nutrition evaluation: initial Nutrition consult regarding: Tube Feeding Nutrition screening: Poor PO Intake Objective - Diagnosis Sepsis. PMH see H&P - Objective Spinal Cord Impairment: Paraplegia (5-10 lbs) Weight Subtracted: 5 lbs % IBW: 132 Body Weight Used for Calculations: IBW Energy Needs - Lower Range (kCal/kg): 25 Energy Needs - Upper Range (kCal/kg): 30 Lower Limit kCal/kg (kCals): 2,025 Upper Limit kCal/kg (kCals): 2,430 Lower Limit Protein Factor (Grams per Kg): 1.0 Upper Limit Protein Factor (Grams per Kg): 1.5 Lower Protein Needs (Protein): 81 Upper Protein Needs (Protein): 121 Dietitian Reviewed in Medical Record: Curent medications, Intake & Output, Labs , Medical history Diet Order: TF Assessment Assessment: Pt. is at nutritional risk due to dx. and need for TFing. Pt. presents from retirement for an evaluation of hypoxemia, shortness of breath, and tachycardia and per paramedics elevated temperature with history of paraplegia with immobility, dyslipidemia, chronic cough, mood disorder with depression, pressure ulceration bilateral lower extremity, knee contracture, prior Klebsiella pneumonia and morbid obesity. Pt. was just intubated and on low dose of propofol due to worsening resp acidosis and metal status. Recommend Jevity 1.5 @ goal rate of 60 mls/hr. over 24 hours with current propofol rate. Will provide 2160kcals, 92g of protein and 1094mls of free water. Monitor TFing tolerance, documentation on pressure ulceration, wt. and labs. Recommendations: 1. Recommend Jevity 1.5 @ goal rate of 60 mls/hr. over 24 hours with current propofol rate. 2. Monitor TFing tolerance, documentation on pressure ulceration, wt. and labs. Dietitian to Monitor: Lab values, Glucose level, Intake & Output, Tube feeding tolerance, Weight change, Residuals, Wound/skin status, Medical course
--- NOTE | 2017-09-01 15:45 | XR ---
EXAM DATE: 09/01/2017 3:41 PM EDT AGE/SEX: 52 years / Male INDICATIONS: Post bronchoscopy CLINICAL DATA: This is the patient's subsequent encounter. Patient reports that signs and symptoms h ave been present for 2 weeks and indicates a pain score of Nonresponsive. MEDICAL/SURGICAL HISTORY: . Gastroesophageal reflux disease. Dementia. Depression. Hyperlipide felicia. Paraplegia. Urinary tract infection. . Cholecystectomy. COMPARISON: [facility], CHEST 1V SINGLE AP, 09/01/2017. . FINDINGS: The support devices remain in place. Patient is status post bronchoscopy. There are scattered infiltr ates bilaterally. There is some elevation of the right hemidiaphragm. No pneumothorax. The heart size is enlarged but stable. The bony structures are stable. CONCLUSION: There are scattered bilateral pulmonary infiltrates. No evidence of pneumothorax. Electronically signed by: Wilber Mcginnis MD 09/01/2017 3:43 PM EDT
[2017-09-01] MEDS: RESP: Acetylcysteine 10% 4 ML Neb NEB SCH (20:39)
[2017-09-02] MEDS: RESP: Acetylcysteine 10% 4 ML Neb NEB SCH ×6 (00:22→21:00)
[2017-09-02] MEDS: Insulin NovoLIN Regular Correctional Sugar Inj SQ SCH ×8 (00:41→23:40)
[2017-09-02] MEDS: Piperacil/Tazo 4.5 GM Premix 4.5 GM/100 ML BAG IV.SIG SCH ×5 (00:41→23:38)
[2017-09-02] MEDS: Propofol 1000 mg/100 ml Inj 1,000 MG/100 ML BOTTLE IV.CONT PRN ×5 (03:00→22:41)
[2017-09-02] MEDS: Azithromycin Inj 500 MG in Sodium Chlor 0.9% Inj 250 ML IV.SIG SCH (03:35)
[2017-09-02] MEDS: Heparin - SQ 10,000 UNITS/ML Vial SQ SCH ×3 (03:35→20:12)
[2017-09-02] MEDS ORDERED: Pharmacy Ordered Lab Info OTHER ONE (03:45)
[2017-09-02] MEDS: Vancomycin Inj 1,500 MG in Sodium Chlor 0.9% Inj 500 ML IV.SIG SCH ×2 (03:59→18:02)
[2017-09-02 04:36] LABS: Baso % (Auto) 0.2 % (0.0-2.0); Hematocrit 37.7 % (39.0-51.0); Hemoglobin 12.6 gm/dL (13.0-17.0); Lymph # (Auto) 0.4 th/mm3 (1.0-4.8); Lymph % (Auto) 4.7 % (9.0-44.0); Mean Corpuscular HGB Conc 33.4 % (32.0-36.0); Mean Corpuscular Hemoglobin 31.1 pg (27.0-34.0); Mean Corpuscular Volume 93.3 fL (80.0-100.0); Mean Platelet Volume 9.6 fL (7.0-11.0); Mono # (Auto) 0.6 th/mm3 (0.0-0.9); Mono % (Auto) 7.1 % (0.0-8.0); Neut # (Auto) 7.7 th/mm3 (1.8-7.7); Platelet Count 186 th/mm3 (150-450); Red Blood Count 4.04 mil/mm3 (4.50-5.90); Red Cell Distribution Width 15.8 % (11.6-17.2); White Blood Count 8.8 th/mm3 (4.0-11.0)
[2017-09-02 04:48] LABS: Alanine Aminotransferase 28 U/L (12-78); Albumin 3.1 g/dL (3.4-5.0); Alkaline Phosphatase 84 U/L (45-117); Anion Gap 10 meq/L (5-15); Aspartate Aminotransferase 28 U/L (15-37); Blood Urea Nitrogen 22 mg/dL (7-18); Calcium 8.6 mg/dL (8.5-10.1); Carbon Dioxide 29.1 meq/L (21.0-32.0); Chloride 105 meq/L (98-107); Glomerular Filtration Rate Greater Than 89 mL/min (>89); Glucose,Random 125 mg/dL (74-106); Potassium 3.1 meq/L (3.5-5.1); Sodium 144 meq/L (136-145); Vancomycin,Trough 10.5 mcg/mL (5.0-10.0)
[2017-09-02 05:18] LABS: Platelet Estimate Normal (Normal); Platelet Morphology Normal (Normal)
[2017-09-02] MEDS: MethylPREDNISolone Sod Succinate Inj 125 MG/2 ML Vial IV.PUSH SCH ×3 (06:01→22:40)
[2017-09-02] MEDS ORDERED: Potassium Phosphate Inj 30 MMOL in Sodium Chlor 0.9% Inj 250 ML IV.SIG PRN (08:45)
[2017-09-02] MEDS ORDERED: Potassium Chloride 25 MEQ Effervescent Tablet PO PRN (08:45)
[2017-09-02] MEDS ORDERED: Sodium Phosphate Inj 30 MMOL in Sodium Chlor 0.9% Inj 250 ML IV.SIG PRN (08:45)
[2017-09-02] MEDS ORDERED: Magnesium Sulfate Inj 4 GM in Sodium Chlor 0.9% Inj 92 ML IV.SIG PRN (08:45)
[2017-09-02] MEDS ORDERED: Potassium Chlor 40 mEq Premix 40 MEQ/100 ML PIGGYBACK IV.SIG PRN ×2 (08:45)
[2017-09-02] MEDS ORDERED: Magnesium Sulfate Inj 2 GM in Sodium Chlor 0.9% Inj 96 ML IV.SIG PRN (08:45)
[2017-09-02] MEDS ORDERED: Magnesium Oxide 400 MG Tablet PO PRN (08:45)
[2017-09-02] MEDS ORDERED: Potassium Phosphate 500 MG Soluble Tablet PO PRN ×2 (08:45)
--- NOTE | 2017-09-02 08:50 | P.PNCC ---
Subjective Subjective Remarks/Hospital Course: 52-year-old male presents from longterm for an evaluation of hypoxemia, shortness of breath, and tachycardia and per paramedics elevated temperature with history of paraplegia with immobility, dyslipidemia, chronic cough, mood disorder with depression, pressure ulceration bilateral lower extremity knee contracture, prior Klebsiella pneumonia and morbid obesity. In the emergency department he appeared to be in respiratory distress and was placed by ED attending on the BiPAP. 09/01 Patient is on BIPAP 18/5 with 40% FIO2. Afebrile with intermittent confusion. CTA chest yesterday showed no PE, extensive consolidation right lung. 09/02 Patient was intubated yesterday and s/p bronch. Sdeated with Diprivan and Fentanyl infusion. Afebrile. Objective Vital Signs / I&O: Vital Signs 09/01/17 09:00 09/01/17 09:30 09/01/17 10:00 Temperature Pulse Rate 138 H 112 H 103 H Respiratory Rate 22 18 18 Blood Pressure 122/63 120/58 L 127/68 Pulse Oximetry 96 97 97 09/01/17 10:30 09/01/17 11:00 09/01/17 11:30 Temperature Pulse Rate 94 H 89 77 Respiratory Rate 18 18 18 Blood Pressure 128/63 125/62 127/61 Pulse Oximetry 95 92 L 93 L 09/01/17 11:40 09/01/17 12:00 09/01/17 12:30 Temperature 100.9 F H Pulse Rate 74 71 Respiratory Rate 18 18 18 Blood Pressure 128/67 130/70 Pulse Oximetry 94 L 95 96 09/01/17 13:00 09/01/17 13:30 09/01/17 14:00 Temperature Pulse Rate 71 88 68 Respiratory Rate 18 18 18 Blood Pressure 136/73 151/68 H 132/71 Pulse Oximetry 96 100 98 09/01/17 14:01 09/01/17 14:30 09/01/17 15:00 Temperature Pulse Rate 71 83 Respiratory Rate 18 21 Blood Pressure 127/69 Pulse Oximetry 100 95 94 L 09/01/17 15:01 09/01/17 15:30 09/01/17 15:51 Temperature Pulse Rate 79 62 60 Respiratory Rate 18 18 18 Blood Pressure 126/61 105/65 Pulse Oximetry 94 L 94 L 95 09/01/17 16:00 07/06/18 16:30 09/01/17 17:00 Temperature 97.5 F L Pulse Rate 60 58 L 57 L Respiratory Rate 18 18 18 Blood Pressure 101/63 107/67 Pulse Oximetry 95 94 L 94 L 09/01/17 17:01 09/01/17 17:30 09/01/17 18:00 Temperature Pulse Rate 58 L 59 L 59 L Respiratory Rate 18 18 18 Blood Pressure 122/69 129/74 134/76 Pulse Oximetry 94 L 95 95 09/01/17 18:30 09/01/17 19:00 09/01/17 19:30 Temperature Pulse Rate 59 L 59 L 58 L Respiratory Rate 18 18 18 Blood Pressure 137/80 134/73 134/73 Pulse Oximetry 95 94 L 94 L 09/01/17 20:00 09/01/17 20:30 09/01/17 20:38 Temperature 98.8 F Pulse Rate 56 L 57 L 55 L Respiratory Rate 18 18 18 Blood Pressure 143/76 H 144/79 H Pulse Oximetry 94 L 94 L 09/01/17 21:00 09/01/17 21:30 09/01/17 22:00 Temperature Pulse Rate 58 L 56 L 56 L Respiratory Rate 18 18 18 Blood Pressure 150/77 H 146/78 H 148/77 H Pulse Oximetry 93 L 93 L 93 L 09/01/17 22:30 09/01/17 23:00 09/01/17 23:30 Temperature Pulse Rate 56 L 56 L 55 L Respiratory Rate 18 18 18 Blood Pressure 157/81 H 162/82 H 162/83 H Pulse Oximetry 94 L 94 L 93 L 09/02/17 00:00 09/02/17 00:24 09/02/17 00:30 Temperature 98.9 F Pulse Rate 55 L 55 L 56 L Respiratory Rate 18 18 18 Blood Pressure 164/82 H 166/81 H Pulse Oximetry 93 L 93 L 94 L 09/02/17 01:00 09/02/17 01:01 09/02/17 01:30 Temperature Pulse Rate 58 L 59 L 56 L Respiratory Rate 18 18 18 Blood Pressure 145/76 H 148/75 H Pulse Oximetry 92 L 92 L 92 L 09/02/17 02:00 09/02/17 02:30 09/02/17 03:00 Temperature Pulse Rate 54 L 57 L 55 L Respiratory Rate 18 18 18 Blood Pressure 152/82 H 148/76 H 145/82 H Pulse Oximetry 90 L 90 L 91 L 09/02/17 03:30 09/02/17 03:38 09/02/17 03:40 Temperature Pulse Rate 55 L 54 L Respiratory Rate 18 18 18 Blood Pressure 160/82 H Pulse Oximetry 92 L 92 L 09/02/17 04:00 09/02/17 04:17 09/02/17 04:30 Temperature 98.4 F Pulse Rate 60 70 68 Respiratory Rate 18 18 18 Blood Pressure 154/82 H 142/77 H 145/84 H Pulse Oximetry 91 L 92 L 90 L 09/02/17 05:00 09/02/17 05:30 09/02/17 06:00 Temperature Pulse Rate 57 L 56 L 56 L Respiratory Rate 18 18 18 Blood Pressure 155/81 H 154/86 H 165/87 H Pulse Oximetry 92 L 92 L 93 L 09/02/17 06:31 09/02/17 07:00 09/02/17 07:01 Temperature Pulse Rate 54 L 74 61 Respiratory Rate 18 16 19 Blood Pressure 144/80 H 160/91 H Pulse Oximetry 93 L 92 L 98 09/02/17 07:30 09/02/17 08:25 Temperature Pulse Rate 52 L Respiratory Rate 18 Blood Pressure 156/82 H Pulse Oximetry 93 L 93 L Intake & Output 09/01/17 09/02/17 09/02/17 18:59 06:59 18:59 Intake Total 300 / 300 3215 / 3215 Output Total 1750 / 1750 550 / 550 Balance -1450 / -1450 2665 / 2665 Weight 105.5 kg Intake: IV 300 / 300 2615 / 2615 Diprivan 1000 mg/100 ml Inj 1, 100 / 100 400 / 400 000 mg In 100 ml @ 5 MCG/KG/MIN 3.255 mls/hr IV.CONT TITRATE PRN Rx#:[id number] NS Inj 1,000 ML @ 75 mls/hr IV. 1000 / 1000 CONT .[id number] [facility] Rx#:[id number] Azithromycin Inj 500 MG In NS 250 / 250 Inj 250 ML @ 250 mls/hr IV.SIG Q24H [facility] Rx#:[id number] Zosyn 4.5 GM Premix 4.5 gm In 200 / 200 200 / 200 100 ml @ 200 mls/hr IV.SIG Q6H [facility] Rx#:[id number] Vancomycin Inj 1,500 MG In NS 515 / 515 Inj 500 ML @ 250 mls/hr IV.SIG Q12H [facility] Rx#:[id number] fentaNYL 10 mcg/mL Premix Drip 250 / 250 2,500 mcg In 250 ml @ 50 MCG/HR 5 mls/hr IV.SIG TITRATE PRN Rx #:[id number] Water Bolus Amount 600 / 600 Output: Urine Amount (Catheter) 1750 / 1750 550 / 550 Indwelling Urethral Catheter 1750 / 1750 550 / 550 Other: # Bowel Movements 0 0 Result Diagrams: 09/02/17 03:22 09/02/17 03:22 Objective Remarks: GENERAL: Patient is 52 yo intubated and sdeated SKIN: Warm and dry. HEAD: Normocephalic. EYES: No scleral icterus. No injection or drainage. NECK: Supple, trachea midline. No JVD or lymphadenopathy. CARDIOVASCULAR: RRR, nl S1, S2 without murmurs, gallops, or rubs. RESPIRATORY: Breath sounds equal bilaterally. No accessory muscle use. GASTROINTESTINAL: Abdomen soft, non-tender, nondistended. MUSCULOSKELETAL: No cyanosis, or edema. Neuro: Intubated Assessment and Plan - Assessment and Plan Plan: Acute hypoxemic and hypercapnic resp failure Intubated 09/02 Hospital acquired pneumonia Paraplegia with immobility Dyslipidemia Mood disorder with depression, Neurogenic bladder Leukocytosis UTI Plan Neuro: On Diprivan and Fentnayl infusion for sedation. Daily sedation vacation. Pulm: Continue with vent support keep sats >92% Bronchodilators, solumederol 60mg Q8, Mucomyst Check ABG Patient s/p bronch 09/01 showed thick cormier like secretions/mucous plugs suctioned to clear BAL performed RLL CV: Monitor HR and BP keep MAP>65mmHg on Cardizem 60mg QID : Monitor renal function, electrolytes replacement per protocol Will need K replacement today GI: on Pepcid for GI prophylaxis Tube feeds- Glucerna 1.5 with goal rate 45ml/hr, not started yet as there is no pump available. ID: Continue with abx (Zosyn, Zithromax, Vanco)monitor for signs of infections ( fever, WBC) ID is following. Follow up on BAL cxs Strep pneumonia and Legionella Ag negative Heme: Monitor CBC Endo: SSI for glycemic control DVT GI prophylaxis -Teds SCDs -Subcu heparin -Pepcid Level 3
[2017-09-02] MEDS: Gabapentin 100 MG Capsule PO SCH ×3 (08:56→18:01)
[2017-09-02] MEDS: Famotidine PF Inj 20 MG/2 ML Vial IV.PUSH SCH ×2 (08:56→20:12)
[2017-09-02] MEDS: Divalproex 125 MG Sprinkles Capsule PO SCH ×2 (08:56→20:11)
[2017-09-02] MEDS: Senna/Docusate Sodium 8.6/50 MG Tablet PO SCH ×2 (08:56→20:11)
[2017-09-02 09:19] LABS: ABG Base Excess 4.6 mmol/L (-2-2); ABG PCO2 40 mmHg (38-42); ABG PO2 73 mmHG (61-120)
[2017-09-02] MEDS: Potassium Chlor 20 mEq Premix 20 MEQ/100 ML PIGGYBACK IV.SIG PRN ×4 (10:57→18:03)
[2017-09-02] MEDS: fentaNYL 10 mcg/mL Premix Drip 2,500 MCG/250 ML BAG IV.SIG PRN ×2 (13:55→22:43)
[2017-09-03] MEDS: RESP: Acetylcysteine 10% 4 ML Neb NEB SCH ×2 (00:23→12:01)
[2017-09-03] MEDS ORDERED: Pharmacy Ordered Lab Info OTHER ONE (03:45)
[2017-09-03 04:11] LABS: Hematocrit 40.4 % (39.0-51.0); Hemoglobin 13.1 gm/dL (13.0-17.0); Lymph # (Auto) 0.5 th/mm3 (1.0-4.8); Lymph % (Auto) 3.8 % (9.0-44.0); Mean Corpuscular HGB Conc 32.5 % (32.0-36.0); Mean Corpuscular Hemoglobin 30.6 pg (27.0-34.0); Mean Corpuscular Volume 94.1 fL (80.0-100.0); Mean Platelet Volume 9.2 fL (7.0-11.0); Mono # (Auto) 0.7 th/mm3 (0.0-0.9); Mono % (Auto) 5.7 % (0.0-8.0); Neut # (Auto) 11.2 th/mm3 (1.8-7.7); Neut % (Auto) 90.5 % (16.0-70.0); Platelet Count 208 th/mm3 (150-450); Red Cell Distribution Width 15.7 % (11.6-17.2); White Blood Count 12.4 th/mm3 (4.0-11.0)
[2017-09-03 04:43] LABS: Alanine Aminotransferase 36 U/L (12-78); Albumin 2.9 g/dL (3.4-5.0); Alkaline Phosphatase 88 U/L (45-117); Anion Gap 10 meq/L (5-15); Aspartate Aminotransferase 34 U/L (15-37); Blood Urea Nitrogen 23 mg/dL (7-18); Carbon Dioxide 28.1 meq/L (21.0-32.0); Chloride 106 meq/L (98-107); Glomerular Filtration Rate Greater Than 89 mL/min (>89); Glucose,Random 107 mg/dL (74-106); Potassium 4.3 meq/L (3.5-5.1); Sodium 144 meq/L (136-145); Total Protein 7.1 g/dL (6.4-8.2); Vancomycin,Trough 6.5 mcg/mL (5.0-10.0)
[2017-09-03 04:49] LABS: Lymphocytes 2 % (9-44); Metamyelocytes 1 % (0-1); Monocytes 1 % (0-8); Myelocytes 1 % (0-0); Platelet Estimate Normal (Normal); Platelet Morphology Normal (Normal); Promyelocyte 1 % (0-0)
[2017-09-03] MEDS: Insulin NovoLIN Regular Correctional Sugar Inj SQ SCH ×5 (05:22→17:34)
[2017-09-03] MEDS: Chlorhexidine Gluconate 2% 1 Pack (2 Cloths) TOPICAL SCH (05:23)
[2017-09-03] MEDS: Azithromycin Inj 500 MG in Sodium Chlor 0.9% Inj 250 ML IV.SIG SCH (05:24)
[2017-09-03] MEDS: MethylPREDNISolone Sod Succinate Inj 125 MG/2 ML Vial IV.PUSH SCH ×3 (05:24→21:42)
[2017-09-03] MEDS: Piperacil/Tazo 4.5 GM Premix 4.5 GM/100 ML BAG IV.SIG SCH ×3 (05:25→17:34)
[2017-09-03] MEDS: Heparin - SQ 10,000 UNITS/ML Vial SQ SCH ×3 (05:25→21:44)
[2017-09-03] MEDS: Vancomycin Inj 1,500 MG in Sodium Chlor 0.9% Inj 500 ML IV.SIG SCH ×2 (05:25→15:04)
--- NOTE | 2017-09-03 08:09 | P.PNCC ---
Subjective Subjective Remarks/Hospital Course: 52-year-old male presents from long-term for an evaluation of hypoxemia, shortness of breath, and tachycardia and per paramedics elevated temperature with history of paraplegia with immobility, dyslipidemia, chronic cough, mood disorder with depression, pressure ulceration bilateral lower extremity knee contracture, prior Klebsiella pneumonia and morbid obesity. In the emergency department he appeared to be in respiratory distress and was placed by ED attending on the BiPAP. 09/01 Patient is on BIPAP 18/5 with 40% FIO2. Afebrile with intermittent confusion. CTA chest yesterday showed no PE, extensive consolidation right lung. 09/02 Patient was intubated yesterday and s/p bronch. Sedated with Diprivan and Fentanyl infusion. Afebrile. 09/03 No events overnight. Sedated with Diprivan and Fentanyl infusion. Afebrile. Objective Vital Signs / I&O: Vital Signs 09/02/17 08:25 09/02/17 08:30 09/02/17 09:00 Temperature Pulse Rate 53 L 51 L Respiratory Rate 18 18 Blood Pressure 150/82 H 164/84 H Pulse Oximetry 93 L 92 L 92 L 09/02/17 09:31 09/02/17 10:00 09/02/17 10:30 Temperature Pulse Rate 51 L 53 L 54 L Respiratory Rate 18 18 18 Blood Pressure 153/85 H 163/89 H 158/88 H Pulse Oximetry 93 L 94 L 93 L 09/02/17 11:00 09/02/17 11:30 09/02/17 11:53 Temperature Pulse Rate 53 L 53 L Respiratory Rate 18 18 Blood Pressure 162/85 H 140/81 Pulse Oximetry 93 L 93 L 93 L 09/02/17 12:00 09/02/17 12:31 09/02/17 13:00 Temperature Pulse Rate 51 L 55 L 46 L Respiratory Rate 18 18 18 Blood Pressure 139/79 133/88 140/80 Pulse Oximetry 92 L 93 L 94 L 09/02/17 13:31 09/02/17 14:00 09/02/17 14:30 Temperature Pulse Rate 82 84 89 Respiratory Rate 18 18 22 Blood Pressure 170/91 H 164/93 H 163/88 H Pulse Oximetry 89 L 94 L 94 L 09/02/17 15:00 09/02/17 15:01 09/02/17 15:30 Temperature Pulse Rate 102 H 108 H 88 Respiratory Rate 17 32 H 22 Blood Pressure 148/95 H 152/84 H Pulse Oximetry 87 L 89 L 96 09/02/17 16:00 09/02/17 16:01 09/02/17 16:30 Temperature Pulse Rate 75 80 64 Respiratory Rate 18 19 18 Blood Pressure 122/74 116/72 Pulse Oximetry 91 L 95 91 L 09/02/17 16:59 09/02/17 17:00 09/02/17 17:23 Temperature 98.4 F Pulse Rate 91 H 90 Respiratory Rate 18 32 H Blood Pressure 128/82 Pulse Oximetry 94 L 09/02/17 17:30 09/02/17 18:00 09/02/17 18:30 Temperature Pulse Rate 62 56 L 53 L Respiratory Rate 18 18 18 Blood Pressure 114/66 114/67 117/72 Pulse Oximetry 90 L 91 L 92 L 09/02/17 19:00 09/02/17 20:00 09/02/17 21:00 Temperature 98.8 F Pulse Rate 58 L 72 62 Respiratory Rate 18 18 18 Blood Pressure 127/77 133/82 115/69 Pulse Oximetry 94 L 91 L 91 L 09/02/17 22:00 09/02/17 23:00 09/03/17 00:00 Temperature 98.8 F Pulse Rate 59 L 53 L 80 Respiratory Rate 18 18 Blood Pressure 110/65 124/75 115/60 Pulse Oximetry 92 L 94 L 91 L 09/03/17 00:24 09/03/17 01:00 09/03/17 02:00 Temperature Pulse Rate 64 60 Respiratory Rate 18 18 18 Blood Pressure 111/62 116/65 Pulse Oximetry 92 L 93 L 09/03/17 03:00 09/03/17 04:00 09/03/17 04:54 Temperature 98.6 F 98.9 F Pulse Rate 53 L 75 62 Respiratory Rate 20 18 18 Blood Pressure 124/75 107/60 Pulse Oximetry 94 L 92 L 93 L 09/03/17 05:00 09/03/17 06:00 Temperature Pulse Rate 60 87 Respiratory Rate 18 18 Blood Pressure 104/60 101/59 L Pulse Oximetry 93 L Intake & Output 09/02/17 09/03/17 09/03/17 18:59 06:59 18:59 Intake Total 1773 / 1773 649 / 649 Output Total 400 / 400 400 / 400 Balance 1373 / 1373 249 / 249 Weight 106 kg Intake: IV 1615 / 1615 350 / 350 Diprivan 1000 mg/100 ml Inj 1, 250 / 250 000 mg In 100 ml @ 5 MCG/KG/MIN 3.255 mls/hr IV.CONT TITRATE PRN Rx#:[id number] Zosyn 4.5 GM Premix 4.5 gm In 300 / 300 100 / 100 100 ml @ 200 mls/hr IV.SIG Q6H [facility] Rx#:[id number] KCl 20 mEq Premix Inj 20 meq In 300 / 300 100 ml @ 50 mls/hr IV.SIG Q2H [facility] Rx#:[id number] Vancomycin Inj 1,500 MG In NS 515 / 515 Inj 500 ML @ 250 mls/hr IV.SIG Q12H [facility] Rx#:[id number] fentaNYL 10 mcg/mL Premix Drip 250 / 250 250 / 250 2,500 mcg In 250 ml @ 50 MCG/HR 5 mls/hr IV.SIG TITRATE PRN Rx #:[id number] Tube Feeding 68 / 68 249 / 249 Tube Irrigant 90 / 90 Water Bolus Amount 50 / 50 Output: Stool 0 / 0 Urine Amount (Catheter) 400 / 400 400 / 400 Indwelling Urethral Catheter 400 / 400 400 / 400 Other: # Bowel Movements 0 Result Diagrams: 09/03/17 03:55 09/03/17 03:55 Other Results: Laboratory Results - last 12 hr 09/02/17 09/02/17 09/03/17 21:30 23:40 03:55 WBC 12.4 H RBC 4.30 L Hgb 13.1 Hct 40.4 MCV 94.1 MCH 30.6 MCHC 32.5 RDW 15.7 Plt Count 208 MPV 9.2 Prelim Diff (Auto) Slide review pending Neut % (Auto) 90.5 H Lymph % (Auto) 3.8 L Curry % (Auto) 5.7 Eos % (Auto) 0.0 Baso % (Auto) 0.0 Neut # (Auto) 11.2 H Lymph # (Auto) 0.5 L Curry # (Auto) 0.7 Eos # (Auto) 0.0 Baso # (Auto) 0.0 WBC Differential Manual diff final Seg Neuts % (Manual) 88 H Band Neuts % (Manual) 6 Lymphocytes % (Manual) 2 L Monocytes % (Manual) 1 Metamyelocytes % (Man) 1 Myelocytes % (Man) 1 H Promyelocytes % (Man) 1 H Abs Neuts (Manual) 12.0 H Differential Comment . Platelet Estimate Normal Platelet Morphology Normal Sodium Potassium Chloride Carbon Dioxide Anion Gap BUN Creatinine Estimated GFR POC Glucose 115 H 103 Random Glucose Calcium Total Bilirubin AST ALT Alkaline Phosphatase Total Protein Albumin Vancomycin Trough 09/03/17 03:55 WBC RBC Hgb Hct MCV MCH MCHC RDW Plt Count MPV Prelim Diff (Auto) Neut % (Auto) Lymph % (Auto) Curry % (Auto) Eos % (Auto) Baso % (Auto) Neut # (Auto) Lymph # (Auto) Curry # (Auto) Eos # (Auto) Baso # (Auto) WBC Differential Seg Neuts % (Manual) Band Neuts % (Manual) Lymphocytes % (Manual) Monocytes % (Manual) Metamyelocytes % (Man) Myelocytes % (Man) Promyelocytes % (Man) Abs Neuts (Manual) Differential Comment Platelet Estimate Platelet Morphology Sodium 144 Potassium 4.3 D Chloride 106 Carbon Dioxide 28.1 Anion Gap 10 BUN 23 H Creatinine 0.76 Estimated GFR Greater than 89 POC Glucose Random Glucose 107 H Calcium 9.0 Total Bilirubin 0.4 AST 34 ALT 36 Alkaline Phosphatase 88 Total Protein 7.1 Albumin 2.9 L Vancomycin Trough 6.5 Imaging: Abdomen/Bladder Ultrasound 08/31/17 00:00 CONCLUSION: 1. 11 mm left midlung calculus. 2. No evidence of hydronephrosis. 3. Otherwise normal appearing kidneys. Chest CTA 08/31/17 00:00 CONCLUSION: 1. No evidence of pulmonary embolism. 2. Extensive consolidation in the right lung and patchy infiltrates elsewhere in both lungs. 3. Moderately enlarged mediastinal lymph node. Chest X-Ray 09/01/17 00:00 CONCLUSION: There are scattered bilateral pulmonary infiltrates. No evidence of pneumothorax. Objective Remarks: GENERAL: Patient is 52 yo intubated and sdeated SKIN: Warm and dry. HEAD: Normocephalic. EYES: No scleral icterus. No injection or drainage. NECK: Supple, trachea midline. No JVD or lymphadenopathy. CARDIOVASCULAR: RRR, nl S1, S2 without murmurs, gallops, or rubs. RESPIRATORY: Breath sounds equal bilaterally. No accessory muscle use. GASTROINTESTINAL: Abdomen soft, non-tender, nondistended. MUSCULOSKELETAL: No cyanosis, or edema. Neuro: Intubated, sedated Assessment and Plan - Assessment and Plan Plan: Acute hypoxemic and hypercapnic resp failure Intubated 09/02 Hospital acquired pneumonia Paraplegia with immobility Dyslipidemia Mood disorder with depression, Neurogenic bladder Leukocytosis UTI Plan Neuro: On Diprivan and Fentanyl infusion for sedation. Daily sedation vacation. Pulm: Continue with vent support keep sats >92% Bronchodilators, solumederol 60mg Q8, Mucomyst Patient s/p bronch 09/01 showed thick cormier like secretions/mucous plugs suctioned to clear BAL performed RLL CV: Monitor HR and BP keep MAP>65mmHg on Cardizem 60mg QID : Monitor renal function, electrolytes replacement per protocol GI: on Pepcid for GI prophylaxis Tube feeds- Glucerna 1.5 with goal rate 45ml/hr, not started yet as there is no pump available. Check KUB abdomen r/o ileus, continue with bowel regimen. ID: Continue with abx (Zosyn, Zithromax, Vanco)monitor for signs of infections ( fever, WBC) ID is following. Follow up on BAL cxs- NGTD BC 08/31: NGTD Strep pneumonia and Legionella Ag negative Heme: Monitor CBC Endo: SSI for glycemic control DVT GI prophylaxis -Teds SCDs -Subcu heparin -Pepcid Level 3
[2017-09-03] MEDS: Propofol 1000 mg/100 ml Inj 1,000 MG/100 ML BOTTLE IV.CONT PRN ×4 (08:54→20:28)
[2017-09-03] MEDS: fentaNYL 10 mcg/mL Premix Drip 2,500 MCG/250 ML BAG IV.SIG PRN ×2 (08:54→20:31)
[2017-09-03] MEDS: Famotidine PF Inj 20 MG/2 ML Vial IV.PUSH SCH ×2 (08:55→21:46)
[2017-09-03] MEDS: Senna/Docusate Sodium 8.6/50 MG Tablet PO SCH ×2 (08:55→21:46)
[2017-09-03] MEDS: Divalproex 125 MG Sprinkles Capsule PO SCH ×2 (08:55→21:46)
[2017-09-03] MEDS: Gabapentin 100 MG Capsule PO SCH ×3 (08:55→17:34)
--- NOTE | 2017-09-03 08:58 | XR ---
EXAM DATE: 09/03/2017 8:55 AM EDT AGE/SEX: 52 years / Male INDICATIONS: Evaluate for ileus CLINICAL DATA: This is the patient's initial encounter. Patient reports that signs and symptoms have been present for 3 days and indicates a pain score of Nonresponsive. MEDICAL/SURGICAL HISTORY: Non-responsive. Non-responsive. COMPARISON: No prior exams available for comparison. FINDINGS: There is a prominent bowel loop in the right abdomen otherwise normal bowel gas pattern.. No abnormal masses, calcifications, or organomegaly is seen. The osseous structures are unremarkable . CONCLUSION: Prominent loop of bowel in the right abdomen. Electronically signed by: José Luis Mi MD 09/03/2017 8:57 AM EDT
[2017-09-04] MEDS: Insulin NovoLIN Regular Correctional Sugar Inj SQ SCH ×4 (00:04→23:42)
[2017-09-04] MEDS: Piperacil/Tazo 4.5 GM Premix 4.5 GM/100 ML BAG IV.SIG SCH ×5 (00:10→23:43)
[2017-09-04] MEDS: Propofol 1000 mg/100 ml Inj 1,000 MG/100 ML BOTTLE IV.CONT PRN ×5 (01:04→20:41)
--- NOTE | 2017-09-04 03:13 | XR ---
EXAM DATE: 09/04/2017 2:38 AM EDT AGE/SEX: 52 years / Male INDICATIONS: Respiratory failure. CLINICAL DATA: This is the patient's subsequent encounter. Patient reports that signs and symptoms h ave been present for 4 - 6 days and indicates a pain score of Nonresponsive. MEDICAL/SURGICAL HISTORY: Non-responsive. Non-responsive. COMPARISON: [facility], CHEST 1V SINGLE AP, 09/01/2017. . FINDINGS: Stable ETT and NGT coursing beyond the GE junction. Redemonstration of patchy airspace disease in the mid to lower lung zones bilaterally. Cardiomediastinal contours are stable. Remainder of the exam is unchanged. CONCLUSION: 1. No significant interval change. 2. Stable patchy bilateral mid to lower lung zone airspace disease. Electronically signed by: Cody Shaffer MD 09/04/2017 3:12 AM EDT
[2017-09-04] MEDS: Chlorhexidine Gluconate 2% 1 Pack (2 Cloths) TOPICAL SCH (04:06)
[2017-09-04] MEDS: Heparin - SQ 10,000 UNITS/ML Vial SQ SCH ×3 (04:14→20:46)
[2017-09-04] MEDS: Azithromycin Inj 500 MG in Sodium Chlor 0.9% Inj 250 ML IV.SIG SCH (04:14)
[2017-09-04] MEDS: Vancomycin Inj 1,500 MG in Sodium Chlor 0.9% Inj 500 ML IV.SIG SCH (04:15)
[2017-09-04] MEDS: RESP: Acetylcysteine 10% 4 ML Neb NEB SCH ×6 (04:27→21:16)
[2017-09-04] MEDS: MethylPREDNISolone Sod Succinate Inj 125 MG/2 ML Vial IV.PUSH SCH ×3 (05:58→21:00)
[2017-09-04 08:24] LABS: Baso % (Auto) 0.1 % (0.0-2.0); Eos % (Auto) 0.1 % (0.0-4.0); Hematocrit 37.5 % (39.0-51.0); Hemoglobin 12.7 gm/dL (13.0-17.0); Lymph # (Auto) 0.7 th/mm3 (1.0-4.8); Lymph % (Auto) 4.6 % (9.0-44.0); Mean Corpuscular HGB Conc 33.9 % (32.0-36.0); Mean Corpuscular Hemoglobin 31.7 pg (27.0-34.0); Mean Corpuscular Volume 93.5 fL (80.0-100.0); Mono # (Auto) 0.9 th/mm3 (0.0-0.9); Mono % (Auto) 6.1 % (0.0-8.0); Neut # (Auto) 12.8 th/mm3 (1.8-7.7); Neut % (Auto) 89.1 % (16.0-70.0); Platelet Count 196 th/mm3 (150-450); Red Blood Count 4.01 mil/mm3 (4.50-5.90); Red Cell Distribution Width 15.8 % (11.6-17.2); White Blood Count 14.4 th/mm3 (4.0-11.0)
[2017-09-04] MEDS: Famotidine PF Inj 20 MG/2 ML Vial IV.PUSH SCH ×2 (08:28→20:46)
[2017-09-04] MEDS: Divalproex 125 MG Sprinkles Capsule PO SCH ×2 (08:29→20:47)
[2017-09-04] MEDS: Gabapentin 100 MG Capsule PO SCH ×3 (08:30→17:21)
[2017-09-04] MEDS: Senna/Docusate Sodium 8.6/50 MG Tablet PO SCH ×2 (08:30→20:47)
[2017-09-04 08:49] LABS: Alkaline Phosphatase 86 U/L (45-117); Total Protein 6.7 g/dL (6.4-8.2)
[2017-09-04 08:57] LABS: Alanine Aminotransferase 33 U/L (12-78); Albumin 2.6 g/dL (3.4-5.0); Anion Gap 7 meq/L (5-15); Aspartate Aminotransferase 33 U/L (15-37); Blood Urea Nitrogen 20 mg/dL (7-18); Calcium 8.3 mg/dL (8.5-10.1); Carbon Dioxide 29.7 meq/L (21.0-32.0); Chloride 107 meq/L (98-107); Glomerular Filtration Rate Greater Than 89 mL/min (>89); Glucose,Random 116 mg/dL (74-106); Potassium 4.4 meq/L (3.5-5.1)
[2017-09-04 09:01] LABS: Sodium 144 meq/L (136-145)
[2017-09-04 09:35] LABS: Lymphocytes 5 % (9-44); Metamyelocytes 1 % (0-1); Myelocytes 6 % (0-0); Platelet Estimate Normal (Normal); Platelet Morphology Normal (Normal)
--- NOTE | 2017-09-04 10:39 | P.PNCC ---
Subjective Subjective Remarks/Hospital Course: 52-year-old male presents from shelter for an evaluation of hypoxemia, shortness of breath, and tachycardia and per paramedics elevated temperature with history of paraplegia with immobility, dyslipidemia, chronic cough, mood disorder with depression, pressure ulceration bilateral lower extremity knee contracture, prior Klebsiella pneumonia and morbid obesity. In the emergency department he appeared to be in respiratory distress and was placed by ED attending on the BiPAP. 09/01 Patient is on BIPAP 18/ with 40% FIO2. Afebrile with intermittent confusion. CTA chest yesterday showed no PE, extensive consolidation right lung. 09/02 Patient was intubated yesterday and s/p bronch. Sedated with Diprivan and Fentanyl infusion. Afebrile. 09/03 No events overnight. Sedated with Diprivan and Fentanyl infusion. Afebrile. 09/04: Remains intubated, sedated with propofol. Eyes open, do not follow commands. Bilateral wheezing on exam. FiO2 remains high at 60%, O2 sat 92-94% Objective Vital Signs / I&O: Vital Signs 09/03/17 10:30 09/03/17 11:00 09/03/17 11:30 Temperature Pulse Rate 63 63 71 Respiratory Rate 18 18 Blood Pressure 109/60 106/60 109/62 Pulse Oximetry 94 L 93 L 92 L 09/03/17 11:56 09/03/17 12:00 09/03/17 12:30 Temperature 99.5 F Pulse Rate 92 H 68 Respiratory Rate 17 28 H 20 Blood Pressure 120/70 105/60 Pulse Oximetry 93 L 98 93 L 09/03/17 13:00 09/03/17 13:30 09/03/17 14:00 Temperature Pulse Rate 61 58 L 54 L Respiratory Rate 18 18 18 Blood Pressure 103/58 L 95/54 L 98/57 L Pulse Oximetry 92 L 92 L 93 L 09/03/17 14:30 09/03/17 15:00 09/03/17 15:30 Temperature Pulse Rate 50 L 48 L 56 L Respiratory Rate 18 18 18 Blood Pressure 105/62 118/67 119/69 Pulse Oximetry 94 L 95 94 L 09/03/17 16:00 09/03/17 16:30 09/03/17 16:53 Temperature 99.4 F Pulse Rate 53 L 56 L 55 L Respiratory Rate 18 18 18 Blood Pressure 121/70 117/65 Pulse Oximetry 94 L 94 L 09/03/17 16:54 09/03/17 17:00 09/03/17 17:30 Temperature Pulse Rate 60 72 Respiratory Rate 18 18 18 Blood Pressure 114/63 122/67 Pulse Oximetry 93 L 92 L 91 L 09/03/17 18:00 09/03/17 20:00 09/03/17 20:20 Temperature 98.6 F Pulse Rate 62 51 L Respiratory Rate 18 18 19 Blood Pressure 113/61 126/71 Pulse Oximetry 91 L 95 95 09/03/17 21:46 09/04/17 00:00 09/04/17 00:23 Temperature 99.2 F Pulse Rate 51 L 55 L Respiratory Rate 18 18 18 Blood Pressure 142/74 H Pulse Oximetry 95 94 L 09/04/17 02:00 09/04/17 04:31 09/04/17 06:00 Temperature 99.1 F Pulse Rate 57 L 61 59 L Respiratory Rate 18 18 Blood Pressure 134/77 Pulse Oximetry 92 L 92 L 09/04/17 08:21 Temperature Pulse Rate 71 Respiratory Rate 18 Blood Pressure Pulse Oximetry 93 L Intake & Output 09/03/17 09/04/17 09/04/17 18:59 06:59 18:59 Intake Total 2363 / 2363 2034 / 2034 Output Total 450 / 450 650 / 650 Balance 191 / 1913 1384 / 1384 Weight 109 kg Intake: IV 2004 1508 / 1508 Diprivan 1000 mg/100 ml Inj 1, 300 / 300 293 / 293 000 mg In 100 ml @ 5 MCG/KG/MIN 3.255 mls/hr IV.CONT TITRATE PRN Rx#:[id number] Azithromycin Inj 500 MG In NS 250 / 250 250 / 250 Inj 250 ML @ 250 mls/hr IV.SIG Q24H [facility] Rx#:[id number] Zosyn 4.5 GM Premix 4.5 gm In 200 / 200 200 / 200 100 ml @ 200 mls/hr IV.SIG Q6H [facility] Rx#:[id number] Vancomycin Inj 1,500 MG In NS 1005 / 1005 515 / 515 Inj 500 ML @ 250 mls/hr IV.SIG Q12H [facility] Rx#:[id number] fentaNYL 10 mcg/mL Premix Drip 250 / 250 250 / 250 2,500 mcg In 250 ml @ 50 MCG/HR 5 mls/hr IV.SIG TITRATE PRN Rx #:[id number] Tube Feeding 358 / 358 526 / 526 Output: Urine Amount (Catheter) 450 / 450 650 / 650 Indwelling Urethral Catheter 450 / 450 650 / 650 Other: Date of Last Bowel Movement 09/02/17 # Bowel Movements 0 Result Diagrams: 09/04/17 07:54 09/04/17 07:54 Objective Remarks: GENERAL: Patient is 52 yo intubated and sedated SKIN: Warm and dry. HEAD: Normocephalic. EYES: No scleral icterus. No injection or drainage. NECK: Supple, trachea midline. No JVD or lymphadenopathy. CARDIOVASCULAR: RRR, nl S1, S2 without murmurs, gallops, or rubs. RESPIRATORY: Breath sounds equal bilaterally. No accessory muscle use. Bilateral wheezes heard GASTROINTESTINAL: Abdomen soft, non-tender, nondistended. MUSCULOSKELETAL: No cyanosis, or edema. Neuro: Intubated, sedated. Eyes are open to stimuli, does not followed commands Assessment and Plan - Assessment and Plan Plan: Acute hypoxemic and hypercapnic resp failure Intubated 09/02 Hospital acquired pneumonia Paraplegia with immobility Dyslipidemia Mood disorder with depression, Neurogenic bladder Leukocytosis UTI Plan Neuro: On Diprivan and Fentanyl infusion for sedation. Daily sedation vacation. Once FiO2 down to 40%, start Precedex to facilitate vent wean Pulm: Continue with vent support keep sats >92%. Fio2 remains high at 60%, increase PEEP to 10, give 1 dose of Lasix 20 mg x1 Bronchodilators, solumederol 60mg Q8, Mucomyst. Add scheduled DuoNeb q4hr Patient s/p bronch 09/01 showed thick cormier like secretions/mucous plugs suctioned to clear BAL performed RLL CV: Monitor HR and BP keep MAP>65mmHg on Cardizem 60mg QID. iv lasix 20 mg x1 : Monitor renal function, electrolytes replacement per protocol GI: on Pepcid for GI prophylaxis Tube feeds- Glucerna 1.5 with goal rate 45ml/hr, not started yet as there is no pump available. ID: Continue with abx (Zosyn, Zithromax, Vanco)monitor for signs of infections ( fever, WBC) ID is following. Follow up on BAL cxs- NGTD BC 08/31: NGTD Strep pneumonia and Legionella Ag negative Heme: Monitor CBC Endo: SSI for glycemic control DVT GI prophylaxis -Teds SCDs -Subcu heparin -Pepcid CCT 35. Patient is critically ill with high FiO2 requirement and bilateral wheezing. Increase PEEP 10, add scheduled DuoNeb
[2017-09-04] MEDS: fentaNYL 10 mcg/mL Premix Drip 2,500 MCG/250 ML BAG IV.SIG PRN (11:45)
--- NOTE | 2017-09-04 13:18 | P.PNID ---
Subjective Remarks: He is a 52-year-old male, who [facility], brought to the hospital for evaluation of shortness of breath, hypoxemia, and tachycardic. According to the paramedics he had an elevated temp. Got some information from the nurse, patient did not have any Vernon when he presented, and a Vernon catheter was placed. Since admission he has required BiPAP for oxygenation. He has been febrile. Urinalysis showed significant pyuria. His blood pressures seem to be holding, and he is not requiring any pressors. His WBC is mildly elevated at 11.7. Lactic acid is normal. Creatinine is normal. Chest x -ray showing some infiltrates. Infectious disease consultation has been requested to assist with evaluation and treatment of patient with sepsis. Notes reviewed D/W RBN Temps ok BP ok On the vent, FiO2 at 55% Not a lot of secretions Bronch C/S negative CXR no change in infiltrates [place] and Pneumo Ag negative Antibiotics: Vancomycin Zosyn Zithromax Lines: No evidence of infection Past Medical History: Dementia Depression GERD (gastroesophageal reflux disease) Hemorrhoids Hyperlipidemia Paraplegia UTI (urinary tract infection) H/O exploratory laparotomy History of cholecystectomy Allergies/Adverse Reactions: Allergies No Known Allergies Allergy (Verified 08/31/17 00:16) Objective Vital Signs 09/03/17 13:30 09/03/17 14:00 09/03/17 14:30 Temperature Pulse Rate 58 L 54 L 50 L Respiratory Rate 18 18 18 Blood Pressure 95/54 L 98/57 L 105/62 Pulse Oximetry 92 L 93 L 94 L 09/03/17 15:00 09/03/17 15:30 09/03/17 16:00 Temperature 99.4 F Pulse Rate 48 L 56 L 53 L Respiratory Rate 18 18 18 Blood Pressure 118/67 119/69 121/70 Pulse Oximetry 95 94 L 94 L 09/03/17 16:30 09/03/17 16:53 09/03/17 16:54 Temperature Pulse Rate 56 L 55 L Respiratory Rate 18 18 18 Blood Pressure 117/65 Pulse Oximetry 94 L 93 L 09/03/17 17:00 09/03/17 17:30 09/03/17 18:00 Temperature Pulse Rate 60 72 62 Respiratory Rate 18 18 18 Blood Pressure 114/63 122/67 113/61 Pulse Oximetry 92 L 91 L 91 L 09/03/17 20:00 09/03/17 20:20 09/03/17 21:46 Temperature 98.6 F Pulse Rate 51 L 51 L Respiratory Rate 18 19 18 Blood Pressure 126/71 Pulse Oximetry 95 95 09/04/17 00:00 09/04/17 00:23 09/04/17 02:00 Temperature 99.2 F Pulse Rate 55 L 57 L Respiratory Rate 18 18 Blood Pressure 142/74 H Pulse Oximetry 95 94 L 09/04/17 04:31 09/04/17 05:00 09/04/17 05:15 Temperature Pulse Rate 61 79 80 Respiratory Rate 18 18 18 Blood Pressure 122/70 Pulse Oximetry 92 L 91 L 95 09/04/17 05:31 09/04/17 05:45 09/04/17 06:00 Temperature 99.1 F Pulse Rate 105 H 95 H 79 Respiratory Rate 22 19 18 Blood Pressure 145/78 H 132/73 121/61 Pulse Oximetry 90 L 89 L 92 L 09/04/17 06:15 09/04/17 06:30 09/04/17 06:45 Temperature Pulse Rate 96 H 80 73 Respiratory Rate 23 18 18 Blood Pressure 128/63 125/66 123/64 Pulse Oximetry 87 L 91 L 91 L 09/04/17 07:00 09/04/17 07:15 09/04/17 07:30 Temperature Pulse Rate 68 63 63 Respiratory Rate 18 18 18 Blood Pressure 127/72 130/76 129/77 Pulse Oximetry 91 L 91 L 91 L 09/04/17 07:45 09/04/17 08:00 09/04/17 08:15 Temperature Pulse Rate 65 87 70 Respiratory Rate 18 20 19 Blood Pressure 128/74 135/75 135/75 Pulse Oximetry 91 L 91 L 92 L 09/04/17 08:21 09/04/17 08:30 09/04/17 08:45 Temperature Pulse Rate 71 74 93 H Respiratory Rate 18 18 20 Blood Pressure 140/77 163/105 H Pulse Oximetry 93 L 89 L 92 L 09/04/17 08:48 09/04/17 09:00 09/04/17 09:31 Temperature Pulse Rate 93 H 80 63 Respiratory Rate 20 18 18 Blood Pressure 155/93 H 150/82 H 124/72 Pulse Oximetry 92 L 94 L 94 L 09/04/17 10:00 09/04/17 10:31 09/04/17 11:00 Temperature Pulse Rate 63 77 64 Respiratory Rate 18 20 18 Blood Pressure 125/68 161/84 H Pulse Oximetry 94 L 95 93 L 09/04/17 11:01 09/04/17 11:30 09/04/17 11:32 Temperature Pulse Rate 65 59 L 60 Respiratory Rate 18 18 18 Blood Pressure 117/68 124/70 Pulse Oximetry 93 L 94 L 09/04/17 12:00 09/04/17 12:04 09/04/17 13:00 Temperature 98.8 F Pulse Rate 61 62 57 L Respiratory Rate 18 18 Blood Pressure 116/64 116/68 Pulse Oximetry 94 L 95 Intake & Output 09/03/17 09/04/17 09/04/17 18:59 06:59 18:59 Intake Total 2363 / 2363 2134 / 2134 350 / 350 Output Total 450 / 450 650 / 650 Balance 1912 / 1912 1484 / 1484 350 / 350 Weight 109 kg Intake: IV 2004 1608 / 1608 350 / 350 Diprivan 1000 mg/100 ml Inj 1, 300 / 300 293 / 293 100 / 100 000 mg In 100 ml @ 5 MCG/KG/MIN 3.255 mls/hr IV.CONT TITRATE PRN Rx#:[id number] Azithromycin Inj 500 MG In NS 250 / 250 250 / 250 Inj 250 ML @ 250 mls/hr IV.SIG Q24H ABENA Rx#:[id number] Zosyn 4.5 GM Premix 4.5 gm In 200 / 200 300 / 300 100 ml @ 200 mls/hr IV.SIG Q6H ABENA Rx#:[id number] Vancomycin Inj 1,500 MG In NS 1005 / 1005 515 / 515 Inj 500 ML @ 250 mls/hr IV.SIG Q12H ABENA Rx#:[id number] fentaNYL 10 mcg/mL Premix Drip 250 / 250 250 / 250 250 / 250 2,500 mcg In 250 ml @ 50 MCG/HR 5 mls/hr IV.SIG TITRATE PRN Rx #:[id number] Tube Feeding 358 / 358 526 / 526 Output: Urine Amount (Catheter) 450 / 450 650 / 650 Indwelling Urethral Catheter 450 / 450 650 / 650 Other: Date of Last Bowel Movement 09/02/17 # Bowel Movements 0 08/31/17 00:25 Blood - Peripheral Aerobic Blood Culture - Preliminary No growth in 4 days 08/31/17 00:25 Blood - Peripheral Anaerobic Blood Culture - Preliminary No growth in 4 days 08/31/17 00:30 Blood - Peripheral Aerobic Blood Culture - Preliminary No growth in 4 days 08/31/17 00:30 Blood - Peripheral Anaerobic Blood Culture - Preliminary No growth in 4 days 09/01/17 09:30 Bronchial - Right Lower Lobe Gram Stain - Final 09/01/17 09:30 Bronchial - Right Lower Lobe Bronchial Culture - Final No growth in 48 hours 08/31/17 02:50 Catheterized Urine Urine Culture - Final 50-100,000 cfu/mL mixed cher (probable contaminants ) Lab - Hematology Results 09/03/17 09/04/17 03:55 07:54 WBC 12.4 H 14.4 H RBC 4.30 L 4.01 L Hgb 13.1 12.7 L Hct 40.4 37.5 L MCV 94.1 93.5 MCH 30.6 31.7 MCHC 32.5 33.9 RDW 15.7 15.8 Plt Count 208 196 MPV 9.2 9.0 Prelim Diff (Auto) Slide review pending Slide review pending Neut % (Auto) 90.5 H 89.1 H Lymph % (Auto) 3.8 L 4.6 L [place] % (Auto) 5.7 6.1 Eos % (Auto) 0.0 0.1 Baso % (Auto) 0.0 0.1 Neut # (Auto) 11.2 H 12.8 H Lymph # (Auto) 0.5 L 0.7 L [place] # (Auto) 0.7 0.9 Eos # (Auto) 0.0 0.0 Baso # (Auto) 0.0 0.0 WBC Differential Manual diff final Manual diff final Seg Neuts % (Manual) 88 H 74 H Band Neuts % (Manual) 6 14 H Lymphocytes % (Manual) 2 L 5 L Monocytes % (Manual) 1 Metamyelocytes % (Man) 1 1 Myelocytes % (Man) 1 H 6 H Promyelocytes % (Man) 1 H Abs Neuts (Manual) 12.0 H 13.7 H Differential Comment . . Platelet Estimate Normal Normal Platelet Morphology Normal Normal Lab - Chemistry Results 09/02/17 09/02/17 09/03/17 21:30 23:40 03:55 Sodium 144 Potassium 4.3 D Chloride 106 Carbon Dioxide 28.1 Anion Gap 10 BUN 23 H Creatinine 0.76 Estimated GFR Greater than 89 POC Glucose 115 H 103 Random Glucose 107 H Calcium 9.0 Total Bilirubin 0.4 AST 34 ALT 36 Alkaline Phosphatase 88 Total Protein 7.1 Albumin 2.9 L 09/03/17 09/03/17 09/03/17 08:49 16:04 20:27 Sodium Potassium Chloride Carbon Dioxide Anion Gap BUN Creatinine Estimated GFR POC Glucose 125 H 137 H 175 H Random Glucose Calcium Total Bilirubin AST ALT Alkaline Phosphatase Total Protein Albumin 09/03/17 09/04/17 09/04/17 21:38 00:03 04:03 Sodium Potassium Chloride Carbon Dioxide Anion Gap BUN Creatinine Estimated GFR POC Glucose 128 H 133 H 104 Random Glucose Calcium Total Bilirubin AST ALT Alkaline Phosphatase Total Protein Albumin 09/04/17 09/04/17 07:54 08:17 Sodium 144 Potassium 4.4 Chloride 107 Carbon Dioxide 29.7 Anion Gap 7 BUN 20 H Creatinine 0.63 Estimated GFR Greater than 89 POC Glucose 105 Random Glucose 116 H Calcium 8.3 L Total Bilirubin 0.4 AST 33 ALT 33 Alkaline Phosphatase 86 Total Protein 6.7 Albumin 2.6 L Imaging: ITS Impressions Abdomen/Bladder Ultrasound 08/31/17 00:00 CONCLUSION: 1. 11 mm left midlung calculus. 2. No evidence of hydronephrosis. 3. Otherwise normal appearing kidneys. Chest CTA 08/31/17 00:00 CONCLUSION: 1. No evidence of pulmonary embolism. 2. Extensive consolidation in the right lung and patchy infiltrates elsewhere in both lungs. 3. Moderately enlarged mediastinal lymph node. Abdomen X-Ray 09/03/17 08:04 CONCLUSION: Prominent loop of bowel in the right abdomen. Chest X-Ray 09/04/17 00:00 CONCLUSION: 1. No significant interval change. 2. Stable patchy bilateral mid to lower lung zone airspace disease. Physical Exam: Physical Examination GENERAL: sedated on the vent, not in distress. SKIN: Cool and dry. No generalized rash, no ecchymoses and no evidence of embolic lesions. HEAD: Atraumatic. Normocephalic. No temporal wasting, or tenderness. EYES: [place] conjunctiva. No petechia or hemorrhage. Pupils equal, round and reactive to light. No scleral icterus. No injection or drainage. EARS, NOSE AND THROAT: orally intubated, no nasal discharge NECK: Trachea midline. Supple and not tender, no meningeal signs CARDIOVASCULAR: Regular rate and rhythm. No murmurs, rubs or gallops heard RESPIRATORY: Scattered rhocnhi, decreased L base ABDOMEN: obese, distended. Bowel sounds present and normoactive. He has a long midline incision which looks like an exp lap, and has a cholecystectomy scar in RUQ. EXTREMITIES: No clubbing, cyanosis. Has mild pedal edema. No calf tenderness. NEUROLOGICAL: Sedated on the vent PSYCHIATRIC: Unable to assess LINE: No evidence of infection : Vernon in place, urine dark yellow Assessment and Plan - Plan Impression Sepsis on presentation, patient came from [facility] - has lung infiltrates, and SOB, C/W HCAP - also with UTI HCAP Respiratory failure Hx paraplegia Recommendation Continue Zosyn Continue Zithromax Stop Vanco Follow CBC Follow temps Monitor progress D/W RN
[2017-09-04] MEDS ORDERED: Dexmedetomidine Inj 200 MCG in Sodium Chlor 0.9% Inj 48 ML IV.SIG PRN (14:35)
[2017-09-04] MEDS: Chlorhexidine 0.12% Oral Kit 15 ML UDC OROPHARYNG SCH (20:47)
[2017-09-04] MEDS: Oral Hygiene Kit OROPHARYNG SCH (23:27)
[2017-09-05] MEDS: Propofol 1000 mg/100 ml Inj 1,000 MG/100 ML BOTTLE IV.CONT PRN ×7 (00:06→21:49)
[2017-09-05] MEDS: RESP: Acetylcysteine 10% 4 ML Neb NEB SCH ×5 (02:08→15:49)
[2017-09-05] MEDS: Oral Hygiene Kit OROPHARYNG SCH ×4 (03:38→17:26)
[2017-09-05] MEDS: Heparin - SQ 10,000 UNITS/ML Vial SQ SCH ×3 (03:39→21:40)
[2017-09-05] MEDS: fentaNYL 10 mcg/mL Premix Drip 2,500 MCG/250 ML BAG IV.SIG PRN ×2 (03:40→14:53)
[2017-09-05] MEDS ORDERED: Pharmacy Ordered Lab Info OTHER ONE (03:45)
[2017-09-05] MEDS: Insulin NovoLIN Regular Correctional Sugar Inj SQ SCH ×6 (03:47→21:40)
[2017-09-05] MEDS: MethylPREDNISolone Sod Succinate Inj 125 MG/2 ML Vial IV.PUSH SCH ×3 (05:21→21:40)
[2017-09-05] MEDS: Piperacil/Tazo 4.5 GM Premix 4.5 GM/100 ML BAG IV.SIG SCH ×3 (05:22→17:25)
--- NOTE | 2017-09-05 06:27 | XR ---
EXAM DATE: 09/05/2017 6:04 AM EDT AGE/SEX: 52 years / Male INDICATIONS: ET tube placement advancement. CLINICAL DATA: This is the patient's initial encounter. Patient reports that signs and symptoms have been present for 4 - 6 days and indicates a pain score of 0/10. MEDICAL/SURGICAL HISTORY: Non-responsive. Non-responsive. COMPARISON: [facility], CHEST 1V SINGLE AP, 09/04/2017. . FINDINGS: ETT at the level of the clavicles. NGT in the stomach. Patchy bilateral airspace disease similar to p rior exam. Cardiomediastinal contours are stable. Bony thorax is intact. CONCLUSION: 1. ETT at the level of the clavicles. NGT beyond the GE junction. 2. Stable patchy diffuse bilateral airspace disease. Electronically signed by: Cody Shaffer MD 09/05/2017 6:25 AM EDT
[2017-09-05] MEDS: Azithromycin 250 MG Tablet PO SCH (08:49)
[2017-09-05] MEDS: Divalproex 125 MG Sprinkles Capsule PO SCH ×2 (08:50→21:42)
[2017-09-05] MEDS: Gabapentin 100 MG Capsule PO SCH ×3 (08:51→17:25)
[2017-09-05] MEDS: Senna/Docusate Sodium 8.6/50 MG Tablet PO SCH ×2 (08:51→21:39)
[2017-09-05] MEDS: Famotidine PF Inj 20 MG/2 ML Vial IV.PUSH SCH ×2 (08:51→21:40)
[2017-09-05] MEDS: Chlorhexidine 0.12% Oral Kit 15 ML UDC OROPHARYNG SCH ×2 (10:43→21:41)
--- NOTE | 2017-09-05 11:35 | P.PNCC ---
Subjective Subjective Remarks/Hospital Course: 52-year-old male presents from snf for an evaluation of hypoxemia, shortness of breath, and tachycardia and per paramedics elevated temperature with history of paraplegia with immobility, dyslipidemia, chronic cough, mood disorder with depression, pressure ulceration bilateral lower extremity knee contracture, prior Klebsiella pneumonia and morbid obesity. In the emergency department he appeared to be in respiratory distress and was placed by ED attending on the BiPAP. 09/01 Patient is on BIPAP 18/5 with 40% FIO2. Afebrile with intermittent confusion. CTA chest yesterday showed no PE, extensive consolidation right lung. 09/02 Patient was intubated yesterday and s/p bronch. Sedated with Diprivan and Fentanyl infusion. Afebrile. 09/03 No events overnight. Sedated with Diprivan and Fentanyl infusion. Afebrile. 09/04: Remains intubated, sedated with propofol. Eyes open, do not follow commands. Bilateral wheezing on exam. FiO2 remains high at 60%, O2 sat 92-94% 09/05: Remains sedated heavily for vent synchrony, FiO2 remains at 60%, will wean. Sputum cx negative. ETT advanced due to leak, will repeat CXR. Patient do not follow commands, but get agitated when sedation held Objective Vital Signs / I&O: Vital Signs 09/04/17 11:30 09/04/17 11:32 09/04/17 12:00 Temperature 98.8 F Pulse Rate 59 L 60 61 Respiratory Rate 18 18 18 Blood Pressure 124/70 116/64 Pulse Oximetry 94 L 94 L 09/04/17 12:04 09/04/17 12:30 09/04/17 13:00 Temperature Pulse Rate 62 58 L 56 L Respiratory Rate 18 18 Blood Pressure 119/66 116/68 Pulse Oximetry 94 L 95 09/04/17 13:30 09/04/17 14:00 09/04/17 14:31 Temperature 98.2 F Pulse Rate 56 L 52 L 106 H Respiratory Rate 18 18 22 Blood Pressure 119/67 127/69 157/86 H Pulse Oximetry 96 96 90 L 09/04/17 15:00 09/04/17 15:01 09/04/17 15:30 Temperature Pulse Rate 67 67 73 Respiratory Rate 18 16 17 Blood Pressure 136/71 136/71 147/72 H Pulse Oximetry 98 98 99 09/04/17 16:00 09/04/17 16:28 09/04/17 16:31 Temperature Pulse Rate 61 74 79 Respiratory Rate 18 20 19 Blood Pressure 140/73 156/103 H Pulse Oximetry 99 99 09/04/17 16:47 09/04/17 17:00 09/04/17 17:31 Temperature Pulse Rate 76 76 60 Respiratory Rate 16 16 26 H Blood Pressure 166/88 H 177/93 H 175/75 H Pulse Oximetry 99 99 99 09/04/17 18:00 09/04/17 18:01 09/04/17 20:00 Temperature 98.5 F Pulse Rate 56 L 56 L 47 L Respiratory Rate 11 L 10 L 21 Blood Pressure 139/71 143/75 H Pulse Oximetry 99 99 99 09/04/17 21:12 09/04/17 22:00 09/05/17 00:00 Temperature 98.1 F Pulse Rate 56 L 46 L 54 L Respiratory Rate 10 L 18 Blood Pressure 148/76 H Pulse Oximetry 99 98 09/05/17 02:00 09/05/17 02:08 09/05/17 04:00 Temperature 98 F Pulse Rate 50 L 47 L 69 Respiratory Rate 18 18 Blood Pressure 168/71 H Pulse Oximetry 97 97 09/05/17 05:10 09/05/17 06:00 09/05/17 07:00 Temperature Pulse Rate 57 L 64 42 L Respiratory Rate 18 18 Blood Pressure 135/69 Pulse Oximetry 95 09/05/17 07:31 09/05/17 08:00 09/05/17 09:00 Temperature 98.3 F Pulse Rate 61 70 48 L Respiratory Rate 10 L 15 18 Blood Pressure 147/82 H 159/81 H Pulse Oximetry 94 L 95 97 09/05/17 09:02 09/05/17 09:43 09/05/17 09:59 Temperature Pulse Rate 46 L 49 L Respiratory Rate 18 18 18 Blood Pressure 172/82 H Pulse Oximetry 97 97 09/05/17 10:00 09/05/17 10:30 09/05/17 10:42 Temperature Pulse Rate 50 L 51 L 51 L Respiratory Rate 18 18 18 Blood Pressure 171/79 H 182/87 H 187/88 H Pulse Oximetry 97 97 97 09/05/17 11:00 Temperature Pulse Rate 51 L Respiratory Rate 18 Blood Pressure Pulse Oximetry 94 L Intake & Output 09/04/17 09/05/17 09/05/17 18:59 06:59 18:59 Intake Total 1191 / 1191 1396 / 1396 100 / 100 Output Total 750 / 750 750 / 750 Balance 441 / 441 646 / 646 100 / 100 Weight 109 kg Intake: IV 550 / 550 900 / 900 100 / 100 Diprivan 1000 mg/100 ml Inj 1, 200 / 200 300 / 300 100 / 100 000 mg In 100 ml @ 5 MCG/KG/MIN 3.255 mls/hr IV.CONT TITRATE PRN Rx#:[id number] Precedex Inj 200 MCG In NS Inj 50 / 50 48 ML @ 0.2 MCG/KG/HR 5.45 mls/ hr IV.SIG TITRATE PRN Rx#: [id number] Zosyn 4.5 GM Premix 4.5 gm In 100 / 100 300 / 300 100 ml @ 200 mls/hr IV.SIG Q6H ABENA Rx#:[id number] fentaNYL 10 mcg/mL Premix Drip 250 / 250 250 / 250 2,500 mcg In 250 ml @ 50 MCG/HR 5 mls/hr IV.SIG TITRATE PRN Rx #:[id number] Tube Feeding 441 / 441 496 / 496 Tube Irrigant 200 / 200 Output: Urine 750 / 750 Urine Amount (Catheter) 750 / 750 Indwelling Urethral Catheter 750 / 750 Other: Date of Last Bowel Movement 09/02/17 09/02/17 Result Diagrams: 09/04/17 07:54 09/04/17 07:54 Objective Remarks: GENERAL: Patient is 52 yo intubated and sedated SKIN: Warm and dry. HEAD: Normocephalic. EYES: No scleral icterus. No injection or drainage. NECK: Supple, trachea midline. No JVD or lymphadenopathy. CARDIOVASCULAR: RRR, nl S1, S2 without murmurs, gallops, or rubs. RESPIRATORY: Breath sounds equal bilaterally. No accessory muscle use. Bilateral wheezes heard, but improved GASTROINTESTINAL: Abdomen soft, non-tender, nondistended. MUSCULOSKELETAL: No cyanosis, or edema. Neuro: Intubated, sedated. Eyes are open to stimuli, does not follow commands. Sedated with propofol today Assessment and Plan - Assessment and Plan Plan: Acute hypoxemic and hypercapnic resp failure Intubated 09/02 Hospital acquired pneumonia Paraplegia with immobility Dyslipidemia Mood disorder with depression Neurogenic bladder Leukocytosis UTI Plan Neuro: On Diprivan and Fentanyl infusion for sedation. Daily sedation vacation. Once FiO2 down to 40%, start Precedex to facilitate vent wean Low valproic acid level but I believe this is for mood disorder. Will check EEG Pulm: Continue with vent support keep sats >92%. Fio2 remains high at 60%, PEEP 8, give 1 dose of Lasix 20 mg x1 yesterday, start on scheduled Lasix as below Bronchodilators, solumederol 60mg Q8, Mucomyst. scheduled DuoNeb q4hr Patient s/p bronch 09/01 showed thick cormier like secretions/mucous plugs suctioned to clear BAL performed RLL-cultures negative to date CV: Monitor HR and BP keep MAP>65mmHg on Cardizem 60mg QID. iv lasix 20 mg x1 given 09/04/2017 Start IV Lasix 40 mg every 12 : Monitor renal function, electrolytes replacement per protocol GI: on Pepcid for GI prophylaxis Tube feeds- Glucerna 1.5 with goal rate 45ml/hr ID: Continue with abx (Zosyn, Zithromax, Vanco)monitor for signs of infections ( fever, WBC) ID is following. Follow up on BAL cxs- NGTD BC 08/31: NGTD Strep pneumonia and Legionella Ag negative Heme: Monitor CBC Endo: SSI for glycemic control DVT GI prophylaxis -Teds SCDs -Subcu heparin -Pepcid CCT 35. Patient is critically ill with high FiO2 requirement and bilateral wheezing. Remains encephalopathy
[2017-09-05] MEDS ORDERED: niCARdipine Inj 25 MG in Sodium Chlor 0.9% Inj 240 ML IV.CONT PRN (12:00)
[2017-09-05] MEDS: amLODIPine 5 MG Tablet PO SCH (12:28)
--- NOTE | 2017-09-05 12:37 | XR ---
EXAM DATE: 09/05/2017 12:26 PM EDT AGE/SEX: 52 years / Male INDICATIONS: Respiratory distress. CLINICAL DATA: This is the patient's subsequent encounter. Patient reports that signs and symptoms h ave been present for 4 - 6 days and indicates a pain score of Nonresponsive. MEDICAL/SURGICAL HISTORY: Non-responsive. Non-responsive. COMPARISON: [facility], CHEST 1V SINGLE AP, 09/05/2017. . FINDINGS: The endotracheal tube and NG tube remain in place. There continue be bilateral pulmonary infiltrates without significant change compared to the prior examination. There appears to be a small right-sided pleural effusion. The heart size is enlarged but stable. The bony structures are stable. CONCLUSION: No significant change with the bilateral pulmonary infiltrates compared to the prior study. Electronically signed by: Wilber Mcginnis MD 09/05/2017 12:36 PM EDT
--- NOTE | 2017-09-05 14:03 | P.PNID ---
Subjective Remarks: He is a 52-year-old male, who is a resident of the residential, brought to the hospital for evaluation of shortness of breath, hypoxemia, and tachycardic. According to the paramedics he had an elevated temp. Got some information from the nurse, patient did not have any Vernon when he presented, and a Vernon catheter was placed. Since admission he has required BiPAP for oxygenation. He has been febrile. Urinalysis showed significant pyuria. His blood pressures seem to be holding, and he is not requiring any pressors. His WBC is mildly elevated at 11.7. Lactic acid is normal. Creatinine is normal. Chest x -ray showing some infiltrates. Infectious disease consultation has been requested to assist with evaluation and treatment of patient with sepsis. Notes reviewed D/W RN Temps ok BP ok On the vent, FiO2 at 50% Needing heavy sedation, for vent management Gets very agitated when sedation lighten Bronch C/S negative CXR no change in infiltrates [place] and Pneumo Ag negative Having EEG Antibiotics: Zosyn Zithromax Lines: No evidence of infection Past Medical History: Dementia Depression GERD (gastroesophageal reflux disease) Hemorrhoids Hyperlipidemia Paraplegia UTI (urinary tract infection) H/O exploratory laparotomy History of cholecystectomy Allergies/Adverse Reactions: Allergies No Known Allergies Allergy (Verified 08/31/17 00:16) Objective Vital Signs 09/04/17 14:31 09/04/17 15:00 09/04/17 15:01 Temperature Pulse Rate 106 H 67 67 Respiratory Rate 22 18 16 Blood Pressure 157/86 H 136/71 136/71 Pulse Oximetry 90 L 98 98 09/04/17 15:30 09/04/17 16:00 09/04/17 16:28 Temperature Pulse Rate 73 61 74 Respiratory Rate 17 18 20 Blood Pressure 147/72 H 140/73 Pulse Oximetry 99 99 09/04/17 16:31 09/04/17 16:47 09/04/17 17:00 Temperature Pulse Rate 79 76 76 Respiratory Rate 19 16 16 Blood Pressure 156/103 H 166/88 H 177/93 H Pulse Oximetry 99 99 99 09/04/17 17:31 09/04/17 18:00 09/04/17 18:01 Temperature Pulse Rate 60 56 L 56 L Respiratory Rate 26 H 11 L 10 L Blood Pressure 175/75 H 139/71 Pulse Oximetry 99 99 99 09/04/17 20:00 09/04/17 21:12 09/04/17 22:00 Temperature 98.5 F Pulse Rate 47 L 56 L 46 L Respiratory Rate 21 10 L Blood Pressure 143/75 H Pulse Oximetry 99 99 09/05/17 00:00 09/05/17 02:00 09/05/17 02:08 Temperature 98.1 F Pulse Rate 54 L 50 L 47 L Respiratory Rate 18 18 Blood Pressure 148/76 H Pulse Oximetry 98 97 09/05/17 04:00 09/05/17 05:10 09/05/17 06:00 Temperature 98 F Pulse Rate 69 57 L 64 Respiratory Rate 18 18 Blood Pressure 168/71 H Pulse Oximetry 97 09/05/17 07:00 09/05/17 07:31 09/05/17 08:00 Temperature Pulse Rate 42 L 61 70 Respiratory Rate 18 10 L 15 Blood Pressure 135/69 147/82 H 159/81 H Pulse Oximetry 95 94 L 95 09/05/17 09:00 09/05/17 09:02 09/05/17 09:43 Temperature 98.3 F Pulse Rate 48 L 46 L Respiratory Rate 18 18 18 Blood Pressure Pulse Oximetry 97 97 09/05/17 09:59 09/05/17 10:00 09/05/17 10:30 Temperature Pulse Rate 49 L 50 L 51 L Respiratory Rate 18 18 18 Blood Pressure 172/82 H 171/79 H 182/87 H Pulse Oximetry 97 97 97 09/05/17 10:42 09/05/17 11:00 09/05/17 11:01 Temperature Pulse Rate 51 L 51 L 52 L Respiratory Rate 18 18 18 Blood Pressure 187/88 H 183/84 H Pulse Oximetry 97 94 L 94 L 09/05/17 11:30 09/05/17 11:56 09/05/17 11:59 Temperature Pulse Rate 110 H 99 H Respiratory Rate 20 18 18 Blood Pressure 195/90 H Pulse Oximetry 84 L 93 L 09/05/17 12:00 09/05/17 12:01 09/05/17 13:00 Temperature 98.4 F Pulse Rate 65 64 53 L Respiratory Rate 18 18 18 Blood Pressure 132/63 132/63 Pulse Oximetry 93 L 93 L 95 Intake & Output 09/04/17 09/05/17 09/05/17 18:59 06:59 18:59 Intake Total 1191 / 1191 1396 / 1396 200 / 200 Output Total 750 / 750 750 / 750 Balance 441 / 441 646 / 646 200 / 200 Weight 109 kg Intake: IV 550 / 550 900 / 900 200 / 200 Diprivan 1000 mg/100 ml Inj 1, 200 / 200 300 / 300 200 / 200 000 mg In 100 ml @ 5 MCG/KG/MIN 3.255 mls/hr IV.CONT TITRATE PRN Rx#:[id number] Precedex Inj 200 MCG In NS Inj 50 / 50 48 ML @ 0.2 MCG/KG/HR 5.45 mls/ hr IV.SIG TITRATE PRN Rx#: [id number] Zosyn 4.5 GM Premix 4.5 gm In 100 / 100 300 / 300 100 ml @ 200 mls/hr IV.SIG Q6H ABENA Rx#:[id number] fentaNYL 10 mcg/mL Premix Drip 250 / 250 250 / 250 2,500 mcg In 250 ml @ 50 MCG/HR 5 mls/hr IV.SIG TITRATE PRN Rx #:[id number] Tube Feeding 441 / 441 496 / 496 Tube Irrigant 200 / 200 Output: Urine 750 / 750 Urine Amount (Catheter) 750 / 750 Indwelling Urethral Catheter 750 / 750 Other: Date of Last Bowel Movement 09/02/17 09/02/17 08/31/17 00:25 Blood - Peripheral Aerobic Blood Culture - Final No growth in 5 days 08/31/17 00:25 Blood - Peripheral Anaerobic Blood Culture - Final No growth in 5 days 08/31/17 00:30 Blood - Peripheral Aerobic Blood Culture - Final No growth in 5 days 08/31/17 00:30 Blood - Peripheral Anaerobic Blood Culture - Final No growth in 5 days 09/01/17 09:30 Bronchial - Right Lower Lobe Gram Stain - Final 09/01/17 09:30 Bronchial - Right Lower Lobe Bronchial Culture - Final No growth in 48 hours Lab - Hematology Results 09/04/17 07:54 WBC 14.4 H RBC 4.01 L Hgb 12.7 L Hct 37.5 L MCV 93.5 MCH 31.7 MCHC 33.9 RDW 15.8 Plt Count 196 MPV 9.0 Prelim Diff (Auto) Slide review pending Neut % (Auto) 89.1 H Lymph % (Auto) 4.6 L [place] % (Auto) 6.1 Eos % (Auto) 0.1 Baso % (Auto) 0.1 Neut # (Auto) 12.8 H Lymph # (Auto) 0.7 L [place] # (Auto) 0.9 Eos # (Auto) 0.0 Baso # (Auto) 0.0 WBC Differential Manual diff final Seg Neuts % (Manual) 74 H Band Neuts % (Manual) 14 H Lymphocytes % (Manual) 5 L Metamyelocytes % (Man) 1 Myelocytes % (Man) 6 H Abs Neuts (Manual) 13.7 H Differential Comment . Platelet Estimate Normal Platelet Morphology Normal Lab - Chemistry Results 09/03/17 09/03/17 09/03/17 16:04 20:27 21:38 Sodium Potassium Chloride Carbon Dioxide Anion Gap BUN Creatinine Estimated GFR POC Glucose 137 H 175 H 128 H Random Glucose Calcium Total Bilirubin AST ALT Alkaline Phosphatase Total Protein Albumin 09/04/17 09/04/17 09/04/17 00:03 04:03 07:54 Sodium 144 Potassium 4.4 Chloride 107 Carbon Dioxide 29.7 Anion Gap 7 BUN 20 H Creatinine 0.63 Estimated GFR Greater than 89 POC Glucose 133 H 104 Random Glucose 116 H Calcium 8.3 L Total Bilirubin 0.4 AST 33 ALT 33 Alkaline Phosphatase 86 Total Protein 6.7 Albumin 2.6 L 09/04/17 09/04/17 09/04/17 08:17 14:01 19:44 Sodium Potassium Chloride Carbon Dioxide Anion Gap BUN Creatinine Estimated GFR POC Glucose 105 121 H 145 H Random Glucose Calcium Total Bilirubin AST ALT Alkaline Phosphatase Total Protein Albumin 09/04/17 09/05/17 09/05/17 23:23 03:47 07:45 Sodium Potassium Chloride Carbon Dioxide Anion Gap BUN Creatinine Estimated GFR POC Glucose 159 H 135 H 139 H Random Glucose Calcium Total Bilirubin AST ALT Alkaline Phosphatase Total Protein Albumin 09/05/17 11:56 Sodium Potassium Chloride Carbon Dioxide Anion Gap BUN Creatinine Estimated GFR POC Glucose 152 H Random Glucose Calcium Total Bilirubin AST ALT Alkaline Phosphatase Total Protein Albumin Imaging: ITS Impressions Abdomen/Bladder Ultrasound 08/31/17 00:00 CONCLUSION: 1. 11 mm left midlung calculus. 2. No evidence of hydronephrosis. 3. Otherwise normal appearing kidneys. Chest CTA 08/31/17 00:00 CONCLUSION: 1. No evidence of pulmonary embolism. 2. Extensive consolidation in the right lung and patchy infiltrates elsewhere in both lungs. 3. Moderately enlarged mediastinal lymph node. Abdomen X-Ray 09/03/17 08:04 CONCLUSION: Prominent loop of bowel in the right abdomen. Chest X-Ray 09/05/17 06:00 CONCLUSION: 1. ETT at the level of the clavicles. NGT beyond the GE junction. 2. Stable patchy diffuse bilateral airspace disease. Physical Exam: Physical Examination GENERAL: sedated on the vent, not in distress. SKIN: Cool and dry. No generalized rash, no ecchymoses and no evidence of embolic lesions. HEAD: Atraumatic. Normocephalic. No temporal wasting, or tenderness. EYES: [place] conjunctiva. No petechia or hemorrhage. Pupils equal, round and reactive to light. No scleral icterus. No injection or drainage. EARS, NOSE AND THROAT: orally intubated, no nasal discharge NECK: Trachea midline. Supple and not tender, no meningeal signs CARDIOVASCULAR: Regular rate and rhythm. No murmurs, rubs or gallops heard RESPIRATORY: Scattered rhocnhi, decreased L base ABDOMEN: obese, distended. Bowel sounds present and normoactive. He has a long midline incision which looks like an exp lap, and has a cholecystectomy scar in RUQ. EXTREMITIES: No clubbing, cyanosis. Has mild pedal edema. No calf tenderness. NEUROLOGICAL: Sedated on the vent PSYCHIATRIC: Unable to assess LINE: No evidence of infection : Vernon in place, urine dark yellow Assessment and Plan - Plan Impression Sepsis on presentation, patient came from [facility] - has lung infiltrates, and SOB, C/W HCAP - also with UTI HCAP Respiratory failure Hx paraplegia Encephalopathy Recommendation Continue Zosyn Continue Zithromax Follow CBC Follow temps Monitor progress D/W RN
--- NOTE | 2017-09-05 16:05 | MG ---
cc: Ana Hoskins MD DATE OF : 1965 AGE: [age] years old. EEG NUMBER: [id number] REFERRING PHYSICIAN: Dr. Nassar ROOM: 508B NOTE: Intubated, sedated. On Diprivan 50 mcg, fentanyl 250 mcg. With photic done. Very agitated off sedation. Stimulation makes him more agitated. CT or MRI not reported. Admitted with respiratory failure, hypoxemia. Sedated. History of dementia, paraplegia, pneumonia. MEDICATIONS: On Diprivan, fentanyl, baclofen, Neurontin, Depakote Sprinkles, Lexapro, as well as Ditropan. DESCRIPTION OF RECORD: Stated the patient's EEG is performed with him in a sedated state. Overall, background slow. Predominantly delta frequency. At times, it looks like he may also be in burst suppression. No epileptiform features. Low amplitude. Photic stimulation with no driving response. IMPRESSION: Abnormal electrocardiogram due to significant slowing of the background at times with some burst suppressed pattern. Notable for possible sedation effect versus encephalopathic process but the patient is sedated, as outlined. Clinical correlation. MD ROBERT Gunderson/EDSON , 03:41 PM , 04:04 PM
--- NOTE | 2017-09-05 21:11 | ECHRPT ---
Indication: SOB CONCLUSIONS Normal left ventricular size. Mild concentric left ventricular hypertrophy. The left ventricular systolic function is normal with an estimated ejection fraction in the range of 55-60%. There is trace tricuspid valve regurgitation. Trace pericardial effusion. A prominent epicardial fat pad is present. BP: / HR: Rhythm: Sinus MEASUREMENTS (Male / Female) Normal Values Technical Quality:Very technically difficult study 2D ECHO LV Diastolic Diameter PLAX 4.3 cm 4.2 - 5.9 / 3.9 - 5.3 cm LV Systolic Diameter PLAX 3.3 cm IVS Diastolic Thickness 1.2 cm 0.6 - 1.0 / 0.6 - 0.9 cm LVPW Diastolic Thickness 1.2 cm 0.6 - 1.0 / 0.6 - 0.9 cm LV Relative Wall Thickness 0.6 RV Internal Dim ED PLAX 2.8 cm LVOT Diameter 2.0 cm Aortic Root Diameter 3.4 cm LA Systolic Diameter LX 3.1 cm 3.0 - 4.0 / 2.7 - 3.8 cm M-MODE AV Cusp Separation MM 2.2 cm DOPPLER LVOT Peak Velocity 52.6 cm/s LVOT Peak Gradient 1.1 mmHg LVOT Velocity Time Integral 11.1 cm Mitral E Point Velocity 69.6 cm/s Mitral A Point Velocity 58.2 cm/s Mitral E to A Ratio 1.2 LV E' Lateral Velocity 4.4 cm/s Mitral E to LV E' Lateral Ratio 15.9 LV E' Septal Velocity 7.1 cm/s Mitral E to LV E' Septal Ratio 9.8 PV Peak Velocity 68.4 cm/s PV Peak Gradient 1.9 mmHg FINDINGS LEFT VENTRICLE Normal left ventricular size. Mild concentric left ventricular hypertrophy. The left ventricular systolic function is normal with an estimated ejection fraction in the range of 55-60%. RIGHT VENTRICLE Normal right ventricular size and systolic function. LEFT ATRIUM The left atrial size is normal. RIGHT ATRIUM The right atrial size is normal. ATRIAL SEPTUM The interatrial septum not well visualized. AORTA The aortic root and proximal ascending aorta are not well visualized. MITRAL VALVE Structurally normal mitral valve. No mitral valve stenosis or regurgitation. AORTIC VALVE No aortic valve stenosis or regurgitation. TRICUSPID VALVE There is trace tricuspid valve regurgitation. PULMONARY VALVE No pulmonary valve regurgitation or stenosis. VESSELS The inferior vena cava was not well visualized. PERICARDIUM Trace pericardial effusion. A prominent epicardial fat pad is present. Troy Hearn MD (Electronically Signed) Final Date:05 September 2017 21:10
[2017-09-06] MEDS: Piperacil/Tazo 4.5 GM Premix 4.5 GM/100 ML BAG IV.SIG SCH ×4 (00:12→17:34)
[2017-09-06] MEDS: fentaNYL 10 mcg/mL Premix Drip 2,500 MCG/250 ML BAG IV.SIG PRN ×3 (00:13→17:34)
[2017-09-06] MEDS: Oral Hygiene Kit OROPHARYNG SCH ×4 (00:13→16:33)
[2017-09-06] MEDS: Insulin NovoLIN Regular Correctional Sugar Inj SQ SCH ×6 (00:13→21:52)
[2017-09-06] MEDS: Propofol 1000 mg/100 ml Inj 1,000 MG/100 ML BOTTLE IV.CONT PRN ×7 (01:00→22:39)
[2017-09-06] MEDS: Heparin - SQ 10,000 UNITS/ML Vial SQ SCH ×3 (04:38→21:51)
[2017-09-06] MEDS: MethylPREDNISolone Sod Succinate Inj 125 MG/2 ML Vial IV.PUSH SCH ×3 (05:16→21:54)
--- NOTE | 2017-09-06 05:28 | XR ---
EXAM DATE: 09/06/2017 5:05 AM EDT AGE/SEX: 52 years / Male INDICATIONS: Short of breath. CLINICAL DATA: This is the patient's subsequent encounter. Patient reports that signs and symptoms h ave been present for 1 week and indicates a pain score of 0/10. MEDICAL/SURGICAL HISTORY: Non-responsive. Non-responsive. COMPARISON: C, CHEST 1V SINGLE AP, 09/05/2017. . FINDINGS: Stable ETT and NGT. Diffuse interstitial prominence with patchy bilateral airspace disease. Cardiomed iastinal contours are stable. Remainder of exam is unchanged. CONCLUSION: 1. No significant interval change. 2. Stable ETT and NGT. 3. Stable bilateral patchy airspace disease. Electronically signed by: Cody Shaffer MD 09/06/2017 5:27 AM EDT
[2017-09-06 07:23] LABS: Alanine Aminotransferase 33 U/L (12-78); Albumin 2.6 g/dL (3.4-5.0); Alkaline Phosphatase 90 U/L (45-117); Anion Gap 6 meq/L (5-15); Aspartate Aminotransferase 26 U/L (15-37); Blood Urea Nitrogen 25 mg/dL (7-18); Calcium 8.9 mg/dL (8.5-10.1); Carbon Dioxide 35.8 meq/L (21.0-32.0); Chloride 99 meq/L (98-107); Glomerular Filtration Rate Greater Than 89 mL/min (>89); Glucose,Random 134 mg/dL (74-106); Potassium 5.1 meq/L (3.5-5.1); Sodium 141 meq/L (136-145); Total Protein 6.5 g/dL (6.4-8.2); Valproic Acid 11 mcg/mL (50-100)
[2017-09-06] MEDS: Divalproex 125 MG Sprinkles Capsule PO SCH ×3 (08:30→21:52)
[2017-09-06] MEDS: Famotidine PF Inj 20 MG/2 ML Vial IV.PUSH SCH ×2 (08:52→21:51)
[2017-09-06] MEDS: amLODIPine 5 MG Tablet PO SCH (08:53)
[2017-09-06] MEDS: Azithromycin 250 MG Tablet PO SCH (08:54)
[2017-09-06] MEDS: Gabapentin 100 MG Capsule PO SCH ×3 (08:54→17:34)
[2017-09-06] MEDS: Senna/Docusate Sodium 8.6/50 MG Tablet PO SCH ×2 (08:54→21:52)
[2017-09-06] MEDS: Chlorhexidine 0.12% Oral Kit 15 ML UDC OROPHARYNG SCH ×2 (08:55→21:52)
--- NOTE | 2017-09-06 09:20 | P.PNCC ---
Subjective Subjective Remarks/Hospital Course: 52-year-old male [facility] for an evaluation of hypoxemia, shortness of breath, and tachycardia and per paramedics elevated temperature with history of paraplegia with immobility, dyslipidemia, chronic cough, mood disorder with depression, pressure ulceration bilateral lower extremity knee contracture, prior Klebsiella pneumonia and morbid obesity. In the emergency department he appeared to be in respiratory distress and was placed by ED attending on the BiPAP. 09/01 Patient is on BIPAP 18/5 with 40% FIO2. Afebrile with intermittent confusion. CTA chest yesterday showed no PE, extensive consolidation right lung. 09/02 Patient was intubated yesterday and s/p bronch. Sedated with Diprivan and Fentanyl infusion. Afebrile. 09/03 No events overnight. Sedated with Diprivan and Fentanyl infusion. Afebrile. 09/04: Remains intubated, sedated with propofol. Eyes open, do not follow commands. Bilateral wheezing on exam. FiO2 remains high at 60%, O2 sat 92-94% 09/05: Remains sedated heavily for vent synchrony, FiO2 remains at 60%, will wean. Sputum cx negative. ETT advanced due to leak, will repeat CXR. Patient do not follow commands, but get agitated when sedation held 09/06: Remains sedated for ventilator synchrony. Oxygen saturation improved FiO2 down to 50%. Chest x-ray on my review shows pulmonary edema. Started scheduled Lasix scheduled Lasix yesterday, urine output excellent 5.5 L in 24 hours Objective Vital Signs / I&O: Vital Signs 09/05/17 09:43 09/05/17 09:59 09/05/17 10:00 Temperature Pulse Rate 49 L 50 L Respiratory Rate 18 18 18 Blood Pressure 172/82 H 171/79 H Pulse Oximetry 97 97 97 09/05/17 10:30 09/05/17 10:42 09/05/17 11:00 Temperature Pulse Rate 51 L 51 L 51 L Respiratory Rate 18 18 18 Blood Pressure 182/87 H 187/88 H Pulse Oximetry 97 97 94 L 09/05/17 11:01 09/05/17 11:30 09/05/17 11:56 Temperature Pulse Rate 52 L 110 H Respiratory Rate 18 20 18 Blood Pressure 183/84 H 195/90 H Pulse Oximetry 94 L 84 L 93 L 09/05/17 11:59 09/05/17 12:00 09/05/17 12:01 Temperature 98.4 F Pulse Rate 99 H 65 64 Respiratory Rate 18 18 18 Blood Pressure 132/63 Pulse Oximetry 93 L 93 L 09/05/17 12:30 09/05/17 13:00 09/05/17 13:30 Temperature Pulse Rate 59 L 57 L 51 L Respiratory Rate 18 18 18 Blood Pressure 131/61 132/63 132/63 Pulse Oximetry 94 L 95 95 09/05/17 14:00 09/05/17 14:30 09/05/17 15:00 Temperature 98.2 F Pulse Rate 51 L 50 L 51 L Respiratory Rate 18 18 18 Blood Pressure 129/64 139/70 143/69 H Pulse Oximetry 95 95 95 09/05/17 15:30 09/05/17 15:49 09/05/17 15:54 Temperature Pulse Rate 51 L 54 L Respiratory Rate 18 18 18 Blood Pressure 160/80 H Pulse Oximetry 94 L 92 L 09/05/17 16:00 09/05/17 16:30 09/05/17 17:00 Temperature 98.9 F Pulse Rate 55 L 54 L 53 L Respiratory Rate 18 18 18 Blood Pressure 147/70 H 149/72 H 158/76 H Pulse Oximetry 91 L 92 L 93 L 09/05/17 17:30 09/05/17 18:00 09/05/17 18:01 Temperature Pulse Rate 52 L 56 L 56 L Respiratory Rate 18 18 18 Blood Pressure 162/79 H 141/73 H Pulse Oximetry 94 L 93 L 93 L 09/05/17 18:30 09/05/17 19:00 09/05/17 19:30 Temperature Pulse Rate 53 L 52 L 53 L Respiratory Rate 18 18 18 Blood Pressure 136/69 140/72 140/76 Pulse Oximetry 93 L 93 L 93 L 09/05/17 20:00 09/05/17 20:30 09/05/17 20:49 Temperature 98.4 F Pulse Rate 51 L 52 L 51 L Respiratory Rate 18 18 18 Blood Pressure 146/73 H 145/73 H Pulse Oximetry 93 L 94 L 94 L 09/05/17 21:00 09/05/17 21:30 09/05/17 22:00 Temperature Pulse Rate 56 L 60 81 Respiratory Rate 18 18 19 Blood Pressure 145/71 H 146/81 H Pulse Oximetry 94 L 93 L 92 L 09/05/17 22:01 09/05/17 22:31 09/05/17 23:00 Temperature Pulse Rate 79 53 L 50 L Respiratory Rate 20 18 18 Blood Pressure 153/84 H 138/74 Pulse Oximetry 93 L 93 L 93 L 09/05/17 23:01 09/05/17 23:30 09/05/17 23:41 Temperature Pulse Rate 50 L 49 L 49 L Respiratory Rate 18 18 18 Blood Pressure 168/84 H 186/93 H 188/87 H Pulse Oximetry 93 L 93 L 93 L 09/05/17 23:45 09/06/17 00:00 09/06/17 00:15 Temperature 98.8 F Pulse Rate 50 L 52 L 50 L Respiratory Rate 18 18 18 Blood Pressure 173/86 H 157/78 H 161/83 H Pulse Oximetry 93 L 92 L 93 L 09/06/17 00:30 09/06/17 00:42 09/06/17 00:46 Temperature Pulse Rate 54 L 53 L 60 Respiratory Rate 18 18 18 Blood Pressure 146/77 H 141/90 H Pulse Oximetry 93 L 92 L 98 09/06/17 01:00 09/06/17 01:15 09/06/17 01:30 Temperature Pulse Rate 57 L 57 L 56 L Respiratory Rate 18 18 18 Blood Pressure 135/78 136/76 126/72 Pulse Oximetry 93 L 92 L 93 L 09/06/17 01:45 09/06/17 02:00 09/06/17 02:15 Temperature Pulse Rate 51 L 52 L 51 L Respiratory Rate 18 18 18 Blood Pressure 137/77 140/82 148/82 H Pulse Oximetry 93 L 93 L 93 L 09/06/17 02:30 09/06/17 02:45 09/06/17 03:00 Temperature Pulse Rate 52 L 50 L 50 L Respiratory Rate 18 18 18 Blood Pressure 148/81 H 148/82 H 151/85 H Pulse Oximetry 94 L 94 L 94 L 09/06/17 03:15 09/06/17 03:30 09/06/17 03:45 Temperature Pulse Rate 49 L 51 L 49 L Respiratory Rate 18 18 18 Blood Pressure 165/85 H 153/77 H 158/82 H Pulse Oximetry 94 L 94 L 94 L 09/06/17 04:00 09/06/17 04:15 09/06/17 04:33 Temperature 98.5 F Pulse Rate 51 L 51 L 63 Respiratory Rate 18 18 18 Blood Pressure 151/77 H 143/75 H 157/87 H Pulse Oximetry 94 L 94 L 94 L 09/06/17 04:45 09/06/17 05:00 09/06/17 05:15 Temperature Pulse Rate 64 66 57 L Respiratory Rate 18 18 18 Blood Pressure 152/84 H 130/80 139/78 Pulse Oximetry 94 L 94 L 94 L 09/06/17 05:30 09/06/17 05:39 09/06/17 05:45 Temperature Pulse Rate 54 L 53 L 56 L Respiratory Rate 18 18 18 Blood Pressure 130/73 121/68 Pulse Oximetry 94 L 94 L 94 L 09/06/17 06:00 09/06/17 06:05 09/06/17 07:00 Temperature Pulse Rate 66 77 53 L Respiratory Rate 18 18 18 Blood Pressure 142/82 H Pulse Oximetry 92 L 91 L 93 L 09/06/17 07:35 09/06/17 07:45 Temperature Pulse Rate 50 L 47 L Respiratory Rate 18 18 Blood Pressure 148/78 H 158/85 H Pulse Oximetry 94 L 95 Intake & Output 09/05/17 09/06/17 09/06/17 18:59 06:59 18:59 Intake Total 1352 / 1352 1408 / 1408 450 / 450 Output Total 2550 / 2550 2995 / 2995 Balance -1198 / -1198 -1587 / -1587 450 / 450 Weight 110 kg Intake: IV 750 / 750 750 / 750 450 / 450 Diprivan 1000 mg/100 ml Inj 1, 400 / 400 300 / 300 100 / 100 000 mg In 100 ml @ 5 MCG/KG/MIN 3.255 mls/hr IV.CONT TITRATE PRN Rx#:[id number] Zosyn 4.5 GM Premix 4.5 gm In 100 / 100 200 / 200 100 / 100 100 ml @ 200 mls/hr IV.SIG Q6H ABENA Rx#:[id number] fentaNYL 10 mcg/mL Premix Drip 250 / 250 250 / 250 250 / 250 2,500 mcg In 250 ml @ 50 MCG/HR 5 mls/hr IV.SIG TITRATE PRN Rx #:[id number] Tube Feeding 502 / 502 538 / 538 Tube Irrigant 100 / 100 120 / 120 Output: Urine Amount (Catheter) 2550 / 2550 2995 / 2995 Indwelling Urethral Catheter 2550 / 2550 2995 / 2995 Other: Date of Last Bowel Movement 09/02/17 09/02/17 Result Diagrams: 09/04/17 07:54 09/06/17 06:05 Objective Remarks: GENERAL: Patient is 52 yo intubated and sedated SKIN: Warm and dry. HEAD: Normocephalic. EYES: No scleral icterus. No injection or drainage. ENT: Orotracheally intubated NECK: Supple, trachea midline. No JVD or lymphadenopathy. CARDIOVASCULAR: RRR, NL S1, S2 without murmurs, gallops, or rubs. RESPIRATORY: Breath sounds equal bilaterally. No accessory muscle use. Bilateral wheezes improving GASTROINTESTINAL: Abdomen soft, non-tender, nondistended. MUSCULOSKELETAL: No cyanosis, or edema. Neuro: Intubated, sedated. Eyes are open to stimuli, does not follow commands. Sedated with propofol Assessment and Plan - Assessment and Plan Plan: ASSESSMENT: Acute hypoxemic and hypercapnic respiratory failure Intubated 09/02 Hospital acquired pneumonia Fluid overload/pulmonary edema Metabolic encephalopathy Sepsis Leukocytosis Paraplegia with immobility Dyslipidemia Mood disorder with depression Neurogenic bladder Plan Neuro: On Diprivan and Fentanyl infusion for sedation. Daily sedation vacation. Low valproic acid level but I believe this is for mood disorder. EEG- encephalopathy, some burst suppression pattern. Increase valproic acid to 250 mg twice daily Pulm: Continue with vent support keep sats >92%. Fio2 remains at 500%, PEEP 8, wean FiO2 to 50% Bronchodilators, solumederol 60mg Q8, Mucomyst. scheduled DuoNeb q4hr Patient s/p bronch 09/01 showed thick cormier like secretions/mucous plugs suctioned to clear BAL performed RLL-cultures negative to date CV: Monitor HR and BP keep MAP>65mmHg on Cardizem 60mg QID. iv Lasix 20 mg x1 given 09/04/2017. Started IV Lasix 40 mg every 12 on 09/05 : Monitor renal function, electrolytes replacement per protocol. IV Lasix as above GI: on Pepcid for GI prophylaxis Tube feeds- Glucerna 1.5 with goal rate 45ml/hr ID: Continue with abx (Zosyn, Zithromax,)monitor for signs of infections ( fever , WBC) ID is following. Follow up on BAL cxs- NGTD BC 08/31: NGTD Strep pneumonia and Legionella Ag negative Heme: Monitor CBC Endo: SSI for glycemic control DVT GI prophylaxis -Teds SCDs -Subcu heparin -Pepcid Level 3 Remains critical, unable to wean ventilator due to severe encephalopathy. Continue weaning attempts to continue aggressive diuresis
--- NOTE | 2017-09-06 09:57 | P.PNID ---
Subjective Remarks: He is a 52-year-old male, who [facility], brought to the hospital for evaluation of shortness of breath, hypoxemia, and tachycardic. According to the paramedics he had an elevated temp. Got some information from the nurse, patient did not have any Vernon when he presented, and a Vernon catheter was placed. Since admission he has required BiPAP for oxygenation. He has been febrile. Urinalysis showed significant pyuria. His blood pressures seem to be holding, and he is not requiring any pressors. His WBC is mildly elevated at 11.7. Lactic acid is normal. Creatinine is normal. Chest x -ray showing some infiltrates. Infectious disease consultation has been requested to assist with evaluation and treatment of patient with sepsis. Notes reviewed Temps ok BP ok Awake, on the vent, on CPAP this morning FiO2 at 50% Has a lot of clear oral secretions Bronch C/S negative CXR no change in infiltrates [place] and Pneumo Ag negative Antibiotics: Zosyn Zithromax Lines: No evidence of infection Past Medical History: Dementia Depression GERD (gastroesophageal reflux disease) Hemorrhoids Hyperlipidemia Paraplegia UTI (urinary tract infection) H/O exploratory laparotomy History of cholecystectomy Allergies/Adverse Reactions: Allergies No Known Allergies Allergy (Verified 08/31/17 00:16) Objective Vital Signs 09/05/17 09:59 09/05/17 10:00 09/05/17 10:30 Temperature Pulse Rate 49 L 50 L 51 L Respiratory Rate 18 18 18 Blood Pressure 172/82 H 171/79 H 182/87 H Pulse Oximetry 97 97 97 09/05/17 10:42 09/05/17 11:00 09/05/17 11:01 Temperature Pulse Rate 51 L 51 L 52 L Respiratory Rate 18 18 18 Blood Pressure 187/88 H 183/84 H Pulse Oximetry 97 94 L 94 L 09/05/17 11:30 09/05/17 11:56 09/05/17 11:59 Temperature Pulse Rate 110 H 99 H Respiratory Rate 20 18 18 Blood Pressure 195/90 H Pulse Oximetry 84 L 93 L 09/05/17 12:00 09/05/17 12:01 09/05/17 12:30 Temperature 98.4 F Pulse Rate 65 64 59 L Respiratory Rate 18 18 18 Blood Pressure 132/63 131/61 Pulse Oximetry 93 L 93 L 94 L 09/05/17 13:00 09/05/17 13:30 09/05/17 14:00 Temperature 98.2 F Pulse Rate 57 L 51 L 51 L Respiratory Rate 18 18 18 Blood Pressure 132/63 132/63 129/64 Pulse Oximetry 95 95 95 09/05/17 14:30 09/05/17 15:00 09/05/17 15:30 Temperature Pulse Rate 50 L 51 L 51 L Respiratory Rate 18 18 18 Blood Pressure 139/70 143/69 H 160/80 H Pulse Oximetry 95 95 94 L 09/05/17 15:49 09/05/17 15:54 09/05/17 16:00 Temperature 98.9 F Pulse Rate 54 L 55 L Respiratory Rate 18 18 18 Blood Pressure 147/70 H Pulse Oximetry 92 L 91 L 09/05/17 16:30 09/05/17 17:00 09/05/17 17:30 Temperature Pulse Rate 54 L 53 L 52 L Respiratory Rate 18 18 18 Blood Pressure 149/72 H 158/76 H 162/79 H Pulse Oximetry 92 L 93 L 94 L 09/05/17 18:00 09/05/17 18:01 09/05/17 18:30 Temperature Pulse Rate 56 L 56 L 53 L Respiratory Rate 18 18 18 Blood Pressure 141/73 H 136/69 Pulse Oximetry 93 L 93 L 93 L 09/05/17 19:00 09/05/17 19:30 09/05/17 20:00 Temperature 98.4 F Pulse Rate 52 L 53 L 51 L Respiratory Rate 18 18 18 Blood Pressure 140/72 140/76 146/73 H Pulse Oximetry 93 L 93 L 93 L 09/05/17 20:30 09/05/17 20:49 09/05/17 21:00 Temperature Pulse Rate 52 L 51 L 56 L Respiratory Rate 18 18 18 Blood Pressure 145/73 H 145/71 H Pulse Oximetry 94 L 94 L 94 L 09/05/17 21:30 09/05/17 22:00 09/05/17 22:01 Temperature Pulse Rate 60 81 79 Respiratory Rate 18 19 20 Blood Pressure 146/81 H 153/84 H Pulse Oximetry 93 L 92 L 93 L 09/05/17 22:31 09/05/17 23:00 09/05/17 23:01 Temperature Pulse Rate 53 L 50 L 50 L Respiratory Rate 18 18 18 Blood Pressure 138/74 168/84 H Pulse Oximetry 93 L 93 L 93 L 09/05/17 23:30 09/05/17 23:41 09/05/17 23:45 Temperature Pulse Rate 49 L 49 L 50 L Respiratory Rate 18 18 18 Blood Pressure 186/93 H 188/87 H 173/86 H Pulse Oximetry 93 L 93 L 93 L 09/06/17 00:00 09/06/17 00:15 09/06/17 00:30 Temperature 98.8 F Pulse Rate 52 L 50 L 54 L Respiratory Rate 18 18 18 Blood Pressure 157/78 H 161/83 H 146/77 H Pulse Oximetry 92 L 93 L 93 L 09/06/17 00:42 09/06/17 00:46 09/06/17 01:00 Temperature Pulse Rate 53 L 60 57 L Respiratory Rate 18 18 18 Blood Pressure 141/90 H 135/78 Pulse Oximetry 92 L 98 93 L 09/06/17 01:15 09/06/17 01:30 09/06/17 01:45 Temperature Pulse Rate 57 L 56 L 51 L Respiratory Rate 18 18 18 Blood Pressure 136/76 126/72 137/77 Pulse Oximetry 92 L 93 L 93 L 09/06/17 02:00 09/06/17 02:15 09/06/17 02:30 Temperature Pulse Rate 52 L 51 L 52 L Respiratory Rate 18 18 18 Blood Pressure 140/82 148/82 H 148/81 H Pulse Oximetry 93 L 93 L 94 L 09/06/17 02:45 09/06/17 03:00 09/06/17 03:15 Temperature Pulse Rate 50 L 50 L 49 L Respiratory Rate 18 18 18 Blood Pressure 148/82 H 151/85 H 165/85 H Pulse Oximetry 94 L 94 L 94 L 09/06/17 03:30 09/06/17 03:45 09/06/17 04:00 Temperature 98.5 F Pulse Rate 51 L 49 L 51 L Respiratory Rate 18 18 18 Blood Pressure 153/77 H 158/82 H 151/77 H Pulse Oximetry 94 L 94 L 94 L 09/06/17 04:15 09/06/17 04:33 09/06/17 04:45 Temperature Pulse Rate 51 L 63 64 Respiratory Rate 18 18 18 Blood Pressure 143/75 H 157/87 H 152/84 H Pulse Oximetry 94 L 94 L 94 L 09/06/17 05:00 07/11/18 05:15 09/06/17 05:30 Temperature Pulse Rate 66 57 L 54 L Respiratory Rate 18 18 18 Blood Pressure 130/80 139/78 130/73 Pulse Oximetry 94 L 94 L 94 L 09/06/17 05:39 09/06/17 05:45 09/06/17 06:00 Temperature Pulse Rate 53 L 56 L 66 Respiratory Rate 18 18 18 Blood Pressure 121/68 Pulse Oximetry 94 L 94 L 92 L 09/06/17 06:05 09/06/17 07:00 09/06/17 07:35 Temperature Pulse Rate 77 53 L 50 L Respiratory Rate 18 18 18 Blood Pressure 142/82 H 148/78 H Pulse Oximetry 91 L 93 L 94 L 09/06/17 07:45 09/06/17 09:20 Temperature Pulse Rate 47 L 99 H Respiratory Rate 18 14 Blood Pressure 158/85 H Pulse Oximetry 95 93 L Intake & Output 09/05/17 09/06/17 09/06/17 18:59 06:59 18:59 Intake Total 1352 / 1352 1408 / 1408 450 / 450 Output Total 2550 / 2550 2995 / 2995 Balance -1198 / -1198 -1587 / -1587 450 / 450 Weight 110 kg Intake: IV 750 / 750 750 / 750 450 / 450 Diprivan 1000 mg/100 ml Inj 1, 400 / 400 300 / 300 100 / 100 000 mg In 100 ml @ 5 MCG/KG/MIN 3.255 mls/hr IV.CONT TITRATE PRN Rx#:[id number] Zosyn 4.5 GM Premix 4.5 gm In 100 / 100 200 / 200 100 / 100 100 ml @ 200 mls/hr IV.SIG Q6H ABENA Rx#:[id number] fentaNYL 10 mcg/mL Premix Drip 250 / 250 250 / 250 250 / 250 2,500 mcg In 250 ml @ 50 MCG/HR 5 mls/hr IV.SIG TITRATE PRN Rx #:[id number] Tube Feeding 502 / 502 538 / 538 Tube Irrigant 100 / 100 120 / 120 Output: Urine Amount (Catheter) 2550 / 2550 2995 / 2995 Indwelling Urethral Catheter 2550 / 2550 2995 / 2995 Other: Date of Last Bowel Movement 09/02/17 09/02/17 08/31/17 00:25 Blood - Peripheral Aerobic Blood Culture - Final No growth in 5 days 08/31/17 00:25 Blood - Peripheral Anaerobic Blood Culture - Final No growth in 5 days 08/31/17 00:30 Blood - Peripheral Aerobic Blood Culture - Final No growth in 5 days 08/31/17 00:30 Blood - Peripheral Anaerobic Blood Culture - Final No growth in 5 days 09/01/17 09:30 Bronchial - Right Lower Lobe Gram Stain - Final 09/01/17 09:30 Bronchial - Right Lower Lobe Bronchial Culture - Final No growth in 48 hours Lab - Chemistry Results 09/04/17 09/04/17 09/04/17 14:01 19:44 23:23 Sodium Potassium Chloride Carbon Dioxide Anion Gap BUN Creatinine Estimated GFR POC Glucose 121 H 145 H 159 H Random Glucose Calcium Total Bilirubin AST ALT Alkaline Phosphatase Total Protein Albumin 09/05/17 09/05/17 09/05/17 03:47 07:45 11:56 Sodium Potassium Chloride Carbon Dioxide Anion Gap BUN Creatinine Estimated GFR POC Glucose 135 H 139 H 152 H Random Glucose Calcium Total Bilirubin AST ALT Alkaline Phosphatase Total Protein Albumin 09/05/17 09/05/17 09/06/17 16:11 21:30 00:10 Sodium Potassium Chloride Carbon Dioxide Anion Gap BUN Creatinine Estimated GFR POC Glucose 148 H 132 H 140 H Random Glucose Calcium Total Bilirubin AST ALT Alkaline Phosphatase Total Protein Albumin 09/06/17 09/06/17 09/06/17 04:34 06:05 07:53 Sodium 141 Potassium 5.1 Chloride 99 D Carbon Dioxide 35.8 H Anion Gap 6 BUN 25 H Creatinine 0.61 Estimated GFR Greater than 89 POC Glucose 138 H 122 H Random Glucose 134 H Calcium 8.9 Total Bilirubin 0.3 AST 26 ALT 33 Alkaline Phosphatase 90 Total Protein 6.5 Albumin 2.6 L Imaging: ITS Impressions Abdomen/Bladder Ultrasound 08/31/17 00:00 CONCLUSION: 1. 11 mm left midlung calculus. 2. No evidence of hydronephrosis. 3. Otherwise normal appearing kidneys. Chest CTA 08/31/17 00:00 CONCLUSION: 1. No evidence of pulmonary embolism. 2. Extensive consolidation in the right lung and patchy infiltrates elsewhere in both lungs. 3. Moderately enlarged mediastinal lymph node. Abdomen X-Ray 09/03/17 08:04 CONCLUSION: Prominent loop of bowel in the right abdomen. Chest X-Ray 09/06/17 06:00 CONCLUSION: 1. No significant interval change. 2. Stable ETT and NGT. 3. Stable bilateral patchy airspace disease. Physical Exam: Physical Examination GENERAL: Awake, on the vent, on CPAP, not in distress, not tracking. SKIN: Cool and dry. No generalized rash, no ecchymoses and no evidence of embolic lesions. HEAD: Atraumatic. Normocephalic. No temporal wasting, or tenderness. EYES: [place] conjunctiva. No petechia or hemorrhage. Pupils equal, round and reactive to light. No scleral icterus. No injection or drainage. EARS, NOSE AND THROAT: orally intubated, no nasal discharge NECK: Trachea midline. Supple and not tender, no meningeal signs CARDIOVASCULAR: Regular rate and rhythm. No murmurs, rubs or gallops heard RESPIRATORY: Coarse breath sounds bilaterally, decreased L base ABDOMEN: obese, distended. Bowel sounds present and normoactive. He has a long midline incision which looks like an exp lap, and has a cholecystectomy scar in RUQ. EXTREMITIES: No clubbing, cyanosis. Has mild pedal edema. No calf tenderness. NEUROLOGICAL: Sedated on the vent PSYCHIATRIC: Unable to assess LINE: No evidence of infection : Vernon in place, urine dark yellow Assessment and Plan - Plan Impression Sepsis on presentation, patient came from [facility] - has lung infiltrates, and SOB, C/W HCAP - also with UTI HCAP, C/S bronch negative Leukocytosis Respiratory failure Hx paraplegia Encephalopathy Recommendation Continue Zosyn Continue Zithromax Repeat sputum G/S C/S Follow CBC Follow temps Monitor progress I will be off September 07- Other ID MD covering in my absence
[2017-09-06 09:59] LABS: Hematocrit 41.2 % (39.0-51.0); Hemoglobin 13.6 gm/dL (13.0-17.0); Mean Corpuscular HGB Conc 32.9 % (32.0-36.0); Mean Corpuscular Hemoglobin 30.8 pg (27.0-34.0); Mean Corpuscular Volume 93.6 fL (80.0-100.0); Mean Platelet Volume 9.7 fL (7.0-11.0); Platelet Count 212 th/mm3 (150-450); Red Cell Distribution Width 15.8 % (11.6-17.2); White Blood Count 12.8 th/mm3 (4.0-11.0)
[2017-09-07] MEDS: Insulin NovoLIN Regular Correctional Sugar Inj SQ SCH ×5 (01:01→20:59)
[2017-09-07] MEDS: Oral Hygiene Kit OROPHARYNG SCH ×3 (01:01→11:15)
[2017-09-07] MEDS: Piperacil/Tazo 4.5 GM Premix 4.5 GM/100 ML BAG IV.SIG SCH ×4 (01:01→23:46)
[2017-09-07] MEDS: fentaNYL 10 mcg/mL Premix Drip 2,500 MCG/250 ML BAG IV.SIG PRN (04:00)
[2017-09-07] MEDS: Heparin - SQ 10,000 UNITS/ML Vial SQ SCH ×3 (05:13→21:00)
[2017-09-07] MEDS: MethylPREDNISolone Sod Succinate Inj 125 MG/2 ML Vial IV.PUSH SCH ×3 (05:13→21:03)
[2017-09-07] MEDS: Propofol 1000 mg/100 ml Inj 1,000 MG/100 ML BOTTLE IV.CONT PRN ×4 (05:15→20:39)
[2017-09-07] MEDS: Divalproex 125 MG Sprinkles Capsule PO SCH ×2 (08:17→21:02)
[2017-09-07] MEDS: Azithromycin 250 MG Tablet PO SCH (08:18)
[2017-09-07] MEDS: Famotidine PF Inj 20 MG/2 ML Vial IV.PUSH SCH (08:18)
[2017-09-07] MEDS: amLODIPine 5 MG Tablet PO SCH (08:18)
[2017-09-07] MEDS: Senna/Docusate Sodium 8.6/50 MG Tablet PO SCH ×2 (08:18→21:03)
[2017-09-07] MEDS: Gabapentin 100 MG Capsule PO SCH ×2 (08:32→13:02)
[2017-09-07] MEDS: Chlorhexidine 0.12% Oral Kit 15 ML UDC OROPHARYNG SCH ×2 (08:33→21:01)
--- NOTE | 2017-09-07 13:24 | P.PNCC ---
Subjective Subjective Remarks/Hospital Course: 52-year-old male presents from residential for an evaluation of hypoxemia, shortness of breath, and tachycardia and per paramedics elevated temperature with history of paraplegia with immobility, dyslipidemia, chronic cough, mood disorder with depression, pressure ulceration bilateral lower extremity knee contracture, prior Klebsiella pneumonia and morbid obesity. In the emergency department he appeared to be in respiratory distress and was placed by ED attending on the BiPAP. 09/01 Patient is on BIPAP 18/5 with 40% FIO2. Afebrile with intermittent confusion. CTA chest yesterday showed no PE, extensive consolidation right lung. 09/02 Patient was intubated yesterday and s/p bronch. Sedated with Diprivan and Fentanyl infusion. Afebrile. 09/03 No events overnight. Sedated with Diprivan and Fentanyl infusion. Afebrile. 09/04: Remains intubated, sedated with propofol. Eyes open, do not follow commands. Bilateral wheezing on exam. FiO2 remains high at 60%, O2 sat 92-94% 09/05: Remains sedated heavily for vent synchrony, FiO2 remains at 60%, will wean. Sputum cx negative. ETT advanced due to leak, will repeat CXR. Patient do not follow commands, but get agitated when sedation held 09/06: Remains sedated for ventilator synchrony. Oxygen saturation improved FiO2 down to 50%. Chest x-ray on my review shows pulmonary edema. Started scheduled Lasix scheduled Lasix yesterday, urine output excellent 5.5 L in 24 hours Subjective 09/07: Afebrile. Remains on propofol and fentanyl drips due to his significant agitation. 2 bite block placed overnight/guedel airways related secondary to patient attempted to bite through ET tube.. One bowel movement yesterday Objective Vital Signs / I&O: Vital Signs 09/06/17 13:30 09/06/17 14:00 09/06/17 14:31 Temperature Pulse Rate 55 L 52 L 55 L Respiratory Rate 18 18 18 Blood Pressure 107/59 L 113/62 105/57 L Pulse Oximetry 98 98 98 09/06/17 15:00 09/06/17 15:01 09/06/17 15:30 Temperature Pulse Rate 50 L 52 L 53 L Respiratory Rate 18 18 18 Blood Pressure 129/69 129/69 134/71 Pulse Oximetry 98 98 98 09/06/17 15:52 09/06/17 16:00 09/06/17 16:30 Temperature 98.9 F Pulse Rate 86 81 79 Respiratory Rate 18 18 18 Blood Pressure 130/79 126/77 Pulse Oximetry 97 97 97 09/06/17 17:00 09/06/17 17:30 09/06/17 18:00 Temperature Pulse Rate 77 66 62 Respiratory Rate 18 18 18 Blood Pressure 129/77 122/68 118/69 Pulse Oximetry 97 98 98 09/06/17 18:30 09/06/17 19:00 09/06/17 19:30 Temperature Pulse Rate 55 L 55 L 58 L Respiratory Rate 18 18 18 Blood Pressure 124/69 115/66 106/60 Pulse Oximetry 99 98 98 09/06/17 19:56 09/06/17 20:00 09/06/17 20:30 Temperature 98.6 F Pulse Rate 58 L 63 Respiratory Rate 26 H 18 18 Blood Pressure 103/62 97/56 L Pulse Oximetry 98 98 97 09/06/17 21:00 09/06/17 21:30 09/06/17 22:00 Temperature Pulse Rate 61 61 104 H Respiratory Rate 18 18 18 Blood Pressure 101/59 L 104/59 L 156/95 H Pulse Oximetry 98 98 99 09/06/17 22:30 09/06/17 23:00 09/06/17 23:30 Temperature Pulse Rate 73 58 L 52 L Respiratory Rate 18 18 18 Blood Pressure 125/70 122/71 137/78 Pulse Oximetry 100 100 99 09/07/17 00:00 09/07/17 00:31 09/07/17 01:00 Temperature 98.5 F Pulse Rate 52 L 55 L 55 L Respiratory Rate 18 18 18 Blood Pressure 157/79 H 139/71 159/82 H Pulse Oximetry 98 98 99 09/07/17 01:31 09/07/17 02:00 09/07/17 02:23 Temperature Pulse Rate 69 62 57 L Respiratory Rate 18 18 18 Blood Pressure 113/58 L 115/65 Pulse Oximetry 99 99 99 09/07/17 02:30 09/07/17 03:00 09/07/17 03:31 Temperature Pulse Rate 57 L 58 L 74 Respiratory Rate 18 18 18 Blood Pressure 119/68 114/61 131/74 Pulse Oximetry 99 99 99 09/07/17 04:00 09/07/17 04:30 09/07/17 05:00 Temperature 98.9 F Pulse Rate 63 64 69 Respiratory Rate 18 18 18 Blood Pressure 116/64 145/85 H 114/62 Pulse Oximetry 100 100 100 09/07/17 05:24 09/07/17 05:31 09/07/17 06:00 Temperature Pulse Rate 67 70 77 Respiratory Rate 18 18 18 Blood Pressure 149/83 H 137/79 Pulse Oximetry 100 100 100 09/07/17 06:30 09/07/17 07:00 09/07/17 08:00 Temperature 97.5 F L 97.5 F L Pulse Rate 56 L 58 L 58 L Respiratory Rate 18 18 18 Blood Pressure 123/74 162/83 H 148/59 H Pulse Oximetry 100 100 100 09/07/17 09:00 09/07/17 09:07 09/07/17 10:00 Temperature 97.6 F 97.8 F Pulse Rate 63 64 61 Respiratory Rate 18 18 Blood Pressure 101/60 Pulse Oximetry 100 100 100 09/07/17 11:00 09/07/17 11:24 09/07/17 12:00 Temperature 98 F 97.5 F L Pulse Rate 59 L 64 98 H Respiratory Rate 18 18 18 Blood Pressure 101/60 103/73 Pulse Oximetry 100 100 100 Intake & Output 09/06/17 09/07/17 09/07/17 18:59 06:59 18:59 Intake Total 1763 / 1763 1395 / 1395 200 / 200 Output Total 2225 / 2225 2875 / 2875 Balance -462 / -462 -1480 / -1480 200 / 200 Weight 107.5 kg Intake: IV 1200 / 1200 650 / 650 200 / 200 Diprivan 1000 mg/100 ml Inj 1, 400 / 400 200 / 200 200 / 200 000 mg In 100 ml @ 5 MCG/KG/MIN 3.255 mls/hr IV.CONT TITRATE PRN Rx#:[id number] Zosyn 4.5 GM Premix 4.5 gm In 300 / 300 200 / 200 100 ml @ 200 mls/hr IV.SIG Q6H ABENA Rx#:[id number] fentaNYL 10 mcg/mL Premix Drip 500 / 500 250 / 250 2,500 mcg In 250 ml @ 50 MCG/HR 5 mls/hr IV.SIG TITRATE PRN Rx #:[id number] Tube Feeding 503 / 503 425 / 425 Tube Irrigant 320 / 320 Water Bolus Amount 60 / 60 Output: Urine Amount (Catheter) 2225 / 2225 2875 / 2875 Indwelling Urethral Catheter 2224 / 2224 2875 / 2875 Other: Date of Last Bowel Movement 09/02/17 09/07/17 09/07/17 Result Diagrams: 09/06/17 08:59 09/06/17 06:05 Other Results: Microbiology 09/06/17 10:45 Sputum - Endotracheal Gram Stain - Final 08/31/17 00:25 Blood - Peripheral Aerobic Blood Culture - Final No growth in 5 days 08/31/17 00:25 Blood - Peripheral Anaerobic Blood Culture - Final No growth in 5 days 08/31/17 00:30 Blood - Peripheral Aerobic Blood Culture - Final No growth in 5 days 08/31/17 00:30 Blood - Peripheral Anaerobic Blood Culture - Final No growth in 5 days 09/01/17 09:30 Bronchial - Right Lower Lobe Gram Stain - Final 09/01/17 09:30 Bronchial - Right Lower Lobe Bronchial Culture - Final No growth in 48 hours 08/31/17 02:50 Catheterized Urine Urine Culture - Final 50-100,000 cfu/mL mixed cher (probable contaminants ) 08/31/17 02:50 Urine - Catheterized Urine Streptococcus pneumoniae Antigen ( M - Final Presumptive negative for streptococcus pneumoniae antigen, suggesting no current or recent infection. Infection due to Streptococcus pneumoniae cannot be ruled out since the antigen present in the sample may be below the detection limit of the test. 08/31/17 02:50 Urine - Catheterized Urine Legionella Antigen - Final Presumptive negative for Legionella pneumophila serogroup 1 antigen in urine, suggesting no recent or recurrent infection. Infection due to Legionella cannot be ruled out since other serogroups and species may cause disease, antigen may not be present in urine in early infection, and the level of antigen present in the urine may be below the detection limit of the test. Imaging: ITS Impressions Abdomen/Bladder Ultrasound 08/31/17 00:00 CONCLUSION: 1. 11 mm left midlung calculus. 2. No evidence of hydronephrosis. 3. Otherwise normal appearing kidneys. Chest CTA 08/31/17 00:00 CONCLUSION: 1. No evidence of pulmonary embolism. 2. Extensive consolidation in the right lung and patchy infiltrates elsewhere in both lungs. 3. Moderately enlarged mediastinal lymph node. Chest X-Ray 08/31/17 00:08 CONCLUSION: Elevation of the right hemidiaphragm and right lower lung consolidation. Patchy infiltrates in left lower lung. Cardiomegaly. Chest X-Ray 09/01/17 00:00 CONCLUSION: 1. The endotracheal tube and NG tube appear to be in good position. 2. No evidence of pneumothorax. 3. There is parenchymal consolidation in the right lung base with an increasing infiltrate in the right upper lung. Chest X-Ray 09/01/17 00:00 CONCLUSION: There are scattered bilateral pulmonary infiltrates. No evidence of pneumothorax. Abdomen X-Ray 09/03/17 08:04 CONCLUSION: Prominent loop of bowel in the right abdomen. Chest X-Ray 09/04/17 00:00 CONCLUSION: 1. No significant interval change. 2. Stable patchy bilateral mid to lower lung zone airspace disease. Chest X-Ray 09/05/17 00:00 CONCLUSION: No significant change with the bilateral pulmonary infiltrates compared to the prior study. Chest X-Ray 09/05/17 06:00 CONCLUSION: 1. ETT at the level of the clavicles. NGT beyond the GE junction. 2. Stable patchy diffuse bilateral airspace disease. Chest X-Ray 09/06/17 06:00 CONCLUSION: 1. No significant interval change. 2. Stable ETT and NGT. 3. Stable bilateral patchy airspace disease. Objective Remarks: GENERAL: Patient is 52 yo male currently orotracheally intubated SKIN: Warm and dry. No rash HEAD: Normocephalic. EYES: No scleral icterus. No injection or drainage. ENT: Orotracheally intubated NECK: Supple, trachea midline. No JVD or lymphadenopathy. CARDIOVASCULAR: RRR, NL S1, S2 without murmurs, gallops, or rubs. RESPIRATORY: Breath sounds equal bilaterally. No accessory muscle use. Bilateral and expiratory wheeze. GASTROINTESTINAL: Abdomen soft, non-tender, nondistended. Hypoactive bowel sounds are appreciated MUSCULOSKELETAL: Anasarca/1+ upper lower extremity edema Neuro: Intubated, sedated. Eyes are open to stimuli, does not follow commands. Sedated with propofol. Patient has a diagnosis of paraplegia in the record. Assessment and Plan - Assessment and Plan Plan: Neuro/Psych: Mood disorder with depression Paraplegia with mobility Acute metabolic encephalopathy Dementia disorder NOS On propofol at 40 mcg/kg/min and fentanyl drip at 200 mcg an hour for sedation/ analgesia while intubated Goal of RASS -2 Low valproic acid level but I believe this is for mood disorder. EEG-encephalopathy, some burst suppression pattern. Increase valproic acid to 250 mg twice daily and recheck level in a.m. 09/08 Continue baclofen 20 mg 3 times daily/home medication Continue citalopram 20 mg daily/home medication for depression Continue gabapentin 100 mg 3 times daily/home medication Acetaminophen 650 mg by tube every 6 hours as needed fever Holding meloxicam/home medication Holding dantrolene unknown dosage. Pulm: Acute Respiratory Failure -hypoxic and hypercapnic PRVC 18/600/03/06/54 Ventilator bundle Albuterol/ipratropium aerosols every 4 hours with albuterol aerosols every 2 hours as needed for dyspnea Methylprednisolone succinate 60 mg IV every 8 hours Spontaneous breathing trials when clinically indicated Patient s/p bronch 09/01 showed thick cormier like secretions/mucous plugs suctioned to clear BAL performed RLL-cultures negative to date Follow-up on chest x-ray in a.m. 09/08 CV: Hypertension Hyperlipidemia Monitor HR and BP keep MAP>65mmHg Started on furosemide 40 mg IV twice daily 09/05. Continue Holding amlodipine 5 mg daily in light of hypertension Patient is on simvastatin 40 mg daily at home. Hospital substitution is pravastatin 80 mg daily Renal/FEN/: Neurogenic bladder Monitor renal function, electrolytes replacement per protocol. IV furosemide as above Replace electrolytes as clinically indicated GI: Gastroesophageal reflux disease Hypoalbuminemia History of external hemorrhoids Glucerna 1.5 to goal 45 cc an hour Lansoprazole for GI prophylaxis Docusate sodium/senna 1 tablet twice daily for bowel regimen ID: HAP Continue with abx (piperacillin/tazobactam, Zithromax,)monitor for signs of infections ( fever, WBC) ID is following. Follow up on BAL 09/01 cxs- NGTD BC 08/31: NGTD Strep pneumonia and Legionella Ag negative Sputum 09/06 no growth to date Heme: Monitor CBC Endo: Hyperglycemia SSI with Novulin R with Accu-Cheks to maintain euglycemia for glycemic control MSK Paraplegia DVT GI prophylaxis -Teds SCDs -Subcu heparin -Lansoprazole Level 3 Remains critical, unable to wean ventilator due to severe encephalopathy. Continue weaning attempts to continue aggressive diuresis
--- NOTE | 2017-09-07 14:45 | P.PNID ---
Subjective Remarks: He is a 52-year-old male, who is a [facility] the [facility], brought to the hospital for evaluation of shortness of breath, hypoxemia, and tachycardic. According to the paramedics he had an elevated temp. Got some information from the nurse, patient did not have any Vernon when he presented, and a Vernon catheter was placed. Since admission he has required BiPAP for oxygenation. He has been febrile. Urinalysis showed significant pyuria. His blood pressures seem to be holding, and he is not requiring any pressors. His WBC is mildly elevated at 11.7. Lactic acid is normal. Creatinine is normal. Chest x -ray showing some infiltrates. Infectious disease consultation has been requested to assist with evaluation and treatment of patient with sepsis. Notes reviewed. Labs reviewed. Discussed with RN. Temps ok Sedated on vent. Has a lot of clear oral secretions Bronch C/S negative Legionella and Pneumococcal Ag negative Antibiotics: Zosyn Zithromax Lines: No evidence of infection Past Medical History: Dementia Depression GERD (gastroesophageal reflux disease) Hemorrhoids Hyperlipidemia Paraplegia UTI (urinary tract infection) H/O exploratory laparotomy History of cholecystectomy Allergies/Adverse Reactions: Allergies No Known Allergies Allergy (Verified 08/31/17 00:16) Objective Vital Signs 09/06/17 15:00 09/06/17 15:01 09/06/17 15:30 Temperature Pulse Rate 50 L 52 L 53 L Respiratory Rate 18 18 18 Blood Pressure 129/69 129/69 134/71 Pulse Oximetry 98 98 98 09/06/17 15:52 09/06/17 16:00 09/06/17 16:30 Temperature 98.9 F Pulse Rate 86 81 79 Respiratory Rate 18 18 18 Blood Pressure 130/79 126/77 Pulse Oximetry 97 97 97 09/06/17 17:00 09/06/17 17:30 09/06/17 18:00 Temperature Pulse Rate 77 66 62 Respiratory Rate 18 18 18 Blood Pressure 129/77 122/68 118/69 Pulse Oximetry 97 98 98 09/06/17 18:30 09/06/17 19:00 09/06/17 19:30 Temperature Pulse Rate 55 L 55 L 58 L Respiratory Rate 18 18 18 Blood Pressure 124/69 115/66 106/60 Pulse Oximetry 99 98 98 09/06/17 19:56 09/06/17 20:00 09/06/17 20:30 Temperature 98.6 F Pulse Rate 58 L 63 Respiratory Rate 26 H 18 18 Blood Pressure 103/62 97/56 L Pulse Oximetry 98 98 97 09/06/17 21:00 09/06/17 21:30 09/06/17 22:00 Temperature Pulse Rate 61 61 104 H Respiratory Rate 18 18 18 Blood Pressure 101/59 L 104/59 L 156/95 H Pulse Oximetry 98 98 99 09/06/17 22:30 09/06/17 23:00 09/06/17 23:30 Temperature Pulse Rate 73 58 L 52 L Respiratory Rate 18 18 18 Blood Pressure 125/70 122/71 137/78 Pulse Oximetry 100 100 99 09/07/17 00:00 09/07/17 00:31 09/07/17 01:00 Temperature 98.5 F Pulse Rate 52 L 55 L 55 L Respiratory Rate 18 18 18 Blood Pressure 157/79 H 139/71 159/82 H Pulse Oximetry 98 98 99 09/07/17 01:31 09/07/17 02:00 09/07/17 02:23 Temperature Pulse Rate 69 62 57 L Respiratory Rate 18 18 18 Blood Pressure 113/58 L 115/65 Pulse Oximetry 99 99 99 09/07/17 02:30 09/07/17 03:00 09/07/17 03:31 Temperature Pulse Rate 57 L 58 L 74 Respiratory Rate 18 18 18 Blood Pressure 119/68 114/61 131/74 Pulse Oximetry 99 99 99 09/07/17 04:00 09/07/17 04:30 09/07/17 05:00 Temperature 98.9 F Pulse Rate 63 64 69 Respiratory Rate 18 18 18 Blood Pressure 116/64 145/85 H 114/62 Pulse Oximetry 100 100 100 09/07/17 05:24 09/07/17 05:31 09/07/17 06:00 Temperature Pulse Rate 67 70 77 Respiratory Rate 18 18 18 Blood Pressure 149/83 H 137/79 Pulse Oximetry 100 100 100 09/07/17 06:30 09/07/17 07:00 09/07/17 08:00 Temperature 97.5 F L 97.5 F L Pulse Rate 56 L 58 L 58 L Respiratory Rate 18 18 18 Blood Pressure 123/74 162/83 H 148/59 H Pulse Oximetry 100 100 100 09/07/17 09:00 09/07/17 09:07 09/07/17 10:00 Temperature 97.6 F 97.8 F Pulse Rate 63 64 61 Respiratory Rate 18 18 Blood Pressure 101/60 Pulse Oximetry 100 100 100 09/07/17 11:00 09/07/17 11:24 09/07/17 12:00 Temperature 98 F 97.5 F L Pulse Rate 59 L 64 98 H Respiratory Rate 18 18 18 Blood Pressure 101/60 103/73 Pulse Oximetry 100 100 100 09/07/17 13:00 Temperature 97.8 F Pulse Rate 74 Respiratory Rate 18 Blood Pressure 103/73 Pulse Oximetry 100 Intake & Output 09/06/17 09/07/17 09/07/17 18:59 06:59 18:59 Intake Total 1763 / 1763 1395 / 1395 200 / 200 Output Total 2225 / 2225 2875 / 2875 Balance -462 / -462 -1480 / -1480 200 / 200 Weight 107.5 kg Intake: IV 1200 / 1200 650 / 650 200 / 200 Diprivan 1000 mg/100 ml Inj 1, 400 / 400 200 / 200 200 / 200 000 mg In 100 ml @ 5 MCG/KG/MIN 3.255 mls/hr IV.CONT TITRATE PRN Rx#:[id number] Zosyn 4.5 GM Premix 4.5 gm In 300 / 300 200 / 200 100 ml @ 200 mls/hr IV.SIG Q6H ABENA Rx#:[id number] fentaNYL 10 mcg/mL Premix Drip 500 / 500 250 / 250 2,500 mcg In 250 ml @ 50 MCG/HR 5 mls/hr IV.SIG TITRATE PRN Rx #:[id number] Tube Feeding 503 / 503 425 / 425 Tube Irrigant 320 / 320 Water Bolus Amount 60 / 60 Output: Urine Amount (Catheter) 2225 / 2225 2875 / 2875 Indwelling Urethral Catheter 2225 / 2225 2875 / 2875 Other: Date of Last Bowel Movement 09/02/17 09/07/17 09/07/17 09/06/17 10:45 Sputum - Endotracheal Gram Stain - Final 09/06/17 10:45 Sputum - Endotracheal Sputum Culture - Preliminary No growth in 24 hours 08/31/17 00:25 Blood - Peripheral Aerobic Blood Culture - Final No growth in 5 days 08/31/17 00:25 Blood - Peripheral Anaerobic Blood Culture - Final No growth in 5 days 08/31/17 00:30 Blood - Peripheral Aerobic Blood Culture - Final No growth in 5 days 08/31/17 00:30 Blood - Peripheral Anaerobic Blood Culture - Final No growth in 5 days Lab - Hematology Results 09/06/17 08:59 WBC 12.8 H RBC 4.40 L Hgb 13.6 Hct 41.2 MCV 93.6 MCH 30.8 MCHC 32.9 RDW 15.8 Plt Count 212 MPV 9.7 Lab - Chemistry Results 09/05/17 09/05/17 09/06/17 16:11 21:30 00:10 Sodium Potassium Chloride Carbon Dioxide Anion Gap BUN Creatinine Estimated GFR POC Glucose 148 H 132 H 140 H Random Glucose Calcium Total Bilirubin AST ALT Alkaline Phosphatase Total Protein Albumin 09/06/17 09/06/17 09/06/17 04:34 06:05 07:53 Sodium 141 Potassium 5.1 Chloride 99 D Carbon Dioxide 35.8 H Anion Gap 6 BUN 25 H Creatinine 0.61 Estimated GFR Greater than 89 POC Glucose 138 H 122 H Random Glucose 134 H Calcium 8.9 Total Bilirubin 0.3 AST 26 ALT 33 Alkaline Phosphatase 90 Total Protein 6.5 Albumin 2.6 L 09/06/17 09/06/17 09/06/17 12:08 16:32 21:37 Sodium Potassium Chloride Carbon Dioxide Anion Gap BUN Creatinine Estimated GFR POC Glucose 156 H 126 H 144 H Random Glucose Calcium Total Bilirubin AST ALT Alkaline Phosphatase Total Protein Albumin 09/07/17 09/07/17 09/07/17 00:59 04:19 07:55 Sodium Potassium Chloride Carbon Dioxide Anion Gap BUN Creatinine Estimated GFR POC Glucose 145 H 133 H 132 H Random Glucose Calcium Total Bilirubin AST ALT Alkaline Phosphatase Total Protein Albumin 09/07/17 11:05 Sodium Potassium Chloride Carbon Dioxide Anion Gap BUN Creatinine Estimated GFR POC Glucose 148 H Random Glucose Calcium Total Bilirubin AST ALT Alkaline Phosphatase Total Protein Albumin Imaging: ITS Impressions Abdomen/Bladder Ultrasound 08/31/17 00:00 CONCLUSION: 1. 11 mm left midlung calculus. 2. No evidence of hydronephrosis. 3. Otherwise normal appearing kidneys. Chest CTA 08/31/17 00:00 CONCLUSION: 1. No evidence of pulmonary embolism. 2. Extensive consolidation in the right lung and patchy infiltrates elsewhere in both lungs. 3. Moderately enlarged mediastinal lymph node. Abdomen X-Ray 09/03/17 08:04 CONCLUSION: Prominent loop of bowel in the right abdomen. Chest X-Ray 09/06/17 06:00 CONCLUSION: 1. No significant interval change. 2. Stable ETT and NGT. 3. Stable bilateral patchy airspace disease. Physical Exam: GENERAL: Awake, on the vent. SKIN: Cool and dry. No generalized rash. HEAD: Atraumatic. Normocephalic. No temporal wasting, or tenderness. EYES: [place] conjunctiva. No petechia or hemorrhage. Pupils equal, round and reactive to light. No scleral icterus. No injection or drainage. EARS, NOSE AND THROAT: orally intubated, no nasal discharge NECK: Trachea midline. Supple. CARDIOVASCULAR: Regular rate and rhythm. No murmurs, rubs or gallops. RESPIRATORY: Coarse breath sounds bilaterally, decreased L base ABDOMEN: obese, distended. Bowel sounds present and normoactive. He has a long midline incision which looks like an exp lap, and has a cholecystectomy scar in RUQ. EXTREMITIES: No clubbing, cyanosis. Has mild pedal edema. No calf tenderness. NEUROLOGICAL: Sedated on the vent PSYCHIATRIC: Unable to assess LINE: No evidence of infection : Vernon in place, Clear yellow urine. Assessment and Plan - Plan Impression Sepsis on presentation, patient came from SN[facility] - has lung infiltrates, and SOB, C/W HCAP - also with UTI HCAP, C/S bronch negative Leukocytosis Respiratory failure Hx paraplegia Encephalopathy Recommendation Continue Zosyn Continue Zithromax Follow sputum G/S C/S Monitor temps Monitor progress
--- NOTE | 2017-09-07 16:35 | P.DIET ---
Nutritional Evaluation Type of nutrition evaluation: follow-up Nutrition screening: Poor PO Intake Screening comments: [facility] [place] TF Objective - Diagnosis Sepsis. PMH see H&P - Objective Spinal Cord Impairment: Paraplegia (5-10 lbs) (Policy states 10-15 lbs. This clinician uses 12.5 lbs) Weight Subtracted: Other % IBW: 132 Body Weight Used for Calculations: IBW (Adjusted IBW of 75.3kg) Energy Needs - Lower Range (kCal/kg): 25 Energy Needs - Upper Range (kCal/kg): 30 Lower Limit kCal/kg (kCals): 1,883 Upper Limit kCal/kg (kCals): 2,259 Lower Limit Protein Factor (Grams per Kg): 1.2 Upper Limit Protein Factor (Grams per Kg): 1.5 Lower Protein Needs (Protein): 90 Upper Protein Needs (Protein): 113 Dietitian Reviewed in Medical Record: Curent medications, Intake & Output, Labs , Medical history, Tube feeding Diet Order: TF Objective Comments: PMH: Paraplegia with immobility, depression, PNA, obesity, dementia, GERD, HLD, Bilateral pressure ulceration LE knee contracture Meds include: Propofol, Fentanyl, Lasix, Vit E Labs include: Glucose 134 Assessment Assessment: Pt. is at nutritional risk due to dx. and need for TFing. Pt remains intubated and sedated on propofol and fentanyl. Current TF of Glucerna 1.5 is running at 45 ml/hr. In order to meet pt's nutritional needs a goal rate of 60 ml/hr is necessary providing 2160 kcals, 119 gms protein and 1094 mls free water. Reviewed MD notes, labs, wt. Will continue to monitor Tf tolerance, clinical course. Recommendations: 1.Glucerna 1.5 with a goal rate of 60 mls/hr to meet pt's nutritional needs. 2. Monitor TFing tolerance, documentation on pressure ulceration, wt. and labs. Dietitian to Monitor: Lab values, Glucose level, Intake & Output, Tube feeding tolerance, Weight change, Residuals, Wound/skin status, Medical course
[2017-09-07] MEDS: Hypromellose 0.3% Opth Gel 10 GM Bottle EACH EYE SCH (21:02)
[2017-09-08] MEDS: Insulin NovoLIN Regular Correctional Sugar Inj SQ SCH ×6 (00:16→21:45)
[2017-09-08] MEDS: Oral Hygiene Kit OROPHARYNG SCH ×4 (00:36→13:32)
[2017-09-08] MEDS: Piperacil/Tazo 4.5 GM Premix 4.5 GM/100 ML BAG IV.SIG SCH ×4 (00:38→18:35)
[2017-09-08] MEDS: fentaNYL 10 mcg/mL Premix Drip 2,500 MCG/250 ML BAG IV.SIG PRN (03:01)
[2017-09-08] MEDS: Heparin - SQ 10,000 UNITS/ML Vial SQ SCH ×3 (04:09→20:00)
--- NOTE | 2017-09-08 04:57 | XR ---
EXAM DATE: 09/08/2017 4:15 AM EDT AGE/SEX: 52 years / Male INDICATIONS: Shortness of breath. CLINICAL DATA: This is the patient's subsequent encounter. Patient reports that signs and symptoms h ave been present for 1 week and indicates a pain score of Nonresponsive. MEDICAL/SURGICAL HISTORY: Non-responsive. Non-responsive. COMPARISON: [facility] [place], CHEST 1V SINGLE AP, 09/06/2017. . FINDINGS: A single AP view of the chest demonstrates cardiomegaly with minimal bibasilar densities. Lungs are b mervin aerated when compared to previous study. Endotracheal tube and nasogastric tube unchanged.. Th e cardiomediastinal contours are unremarkable. Osseous structures are intact. CONCLUSION: Lungs are better aerated. Minimal residual bibasilar densities. Electronically signed by: José Luis Mi MD 09/08/2017 4:56 AM EDT
[2017-09-08] MEDS: MethylPREDNISolone Sod Succinate Inj 125 MG/2 ML Vial IV.PUSH SCH ×3 (05:03→21:49)
[2017-09-08 06:00] LABS: Baso # (Auto) 0.1 th/mm3 (0.0-0.2); Baso % (Auto) 0.5 % (0.0-2.0); Hematocrit 41.5 % (39.0-51.0); Hemoglobin 14.1 gm/dL (13.0-17.0); Lymph % (Auto) 9.4 % (9.0-44.0); Mean Corpuscular HGB Conc 33.8 % (32.0-36.0); Mean Corpuscular Hemoglobin 31.3 pg (27.0-34.0); Mean Corpuscular Volume 92.5 fL (80.0-100.0); Mean Platelet Volume 9.4 fL (7.0-11.0); Mono # (Auto) 1.1 th/mm3 (0.0-0.9); Mono % (Auto) 10.8 % (0.0-8.0); Neut # (Auto) 8.1 th/mm3 (1.8-7.7); Neut % (Auto) 79.3 % (16.0-70.0); Platelet Count 196 th/mm3 (150-450); Red Blood Count 4.49 mil/mm3 (4.50-5.90); Red Cell Distribution Width 15.5 % (11.6-17.2); White Blood Count 10.3 th/mm3 (4.0-11.0)
[2017-09-08] MEDS: Gabapentin 100 MG Capsule PO SCH ×2 (08:33→13:31)
[2017-09-08] MEDS: Divalproex 125 MG Sprinkles Capsule PO SCH ×2 (08:33→21:00)
[2017-09-08] MEDS: Collagenase Oint 30 GM Tube TOPICAL SCH (08:33)
[2017-09-08] MEDS: Azithromycin 250 MG Tablet PO SCH (08:33)
[2017-09-08] MEDS: Senna/Docusate Sodium 8.6/50 MG Tablet PO SCH ×2 (08:33→21:48)
--- NOTE | 2017-09-08 08:35 | P.PNCC ---
Subjective Subjective Remarks/Hospital Course: 52[facility] of hypoxemia, shortness of breath, and tachycardia and per paramedics elevated temperature with history of paraplegia with immobility, dyslipidemia, chronic cough, mood disorder with depression, pressure ulceration bilateral lower extremity knee contracture, prior Klebsiella pneumonia and morbid obesity. In the emergency department he appeared to be in respiratory distress and was placed by ED attending on the BiPAP. 09/01 Patient is on BIPAP 18/5 with 40% FIO2. Afebrile with intermittent confusion. CTA chest yesterday showed no PE, extensive consolidation right lung. 09/02 Patient was intubated yesterday and s/p bronch. Sedated with Diprivan and Fentanyl infusion. Afebrile. 09/03 No events overnight. Sedated with Diprivan and Fentanyl infusion. Afebrile. 09/04: Remains intubated, sedated with propofol. Eyes open, do not follow commands. Bilateral wheezing on exam. FiO2 remains high at 60%, O2 sat 92-94% 09/05: Remains sedated heavily for vent synchrony, FiO2 remains at 60%, will wean. Sputum cx negative. ETT advanced due to leak, will repeat CXR. Patient do not follow commands, but get agitated when sedation held 09/06: Remains sedated for ventilator synchrony. Oxygen saturation improved FiO2 down to 50%. Chest x-ray on my review shows pulmonary edema. Started scheduled Lasix scheduled Lasix yesterday, urine output excellent 5.5 L in 24 hours Subjective 09/07: Afebrile. Remains on propofol and fentanyl drips due to his significant agitation. 2 bite block placed overnight/guedel airways related secondary to patient attempted to bite through ET tube.. One bowel movement yesterday 09/08 No events overnight. Sedated with Diprivan and Fentanyl drip. Afebrile. Objective Vital Signs / I&O: Vital Signs 09/07/17 09:00 09/07/17 09:07 09/07/17 10:00 Temperature 97.6 F 97.8 F Pulse Rate 63 64 61 Respiratory Rate 18 18 Blood Pressure 101/60 Pulse Oximetry 100 100 100 09/07/17 11:00 09/07/17 11:24 09/07/17 12:00 Temperature 98 F 97.5 F L Pulse Rate 59 L 64 98 H Respiratory Rate 18 18 18 Blood Pressure 101/60 103/73 Pulse Oximetry 100 100 100 09/07/17 13:00 09/07/17 14:00 09/07/17 15:00 Temperature 97.8 F Pulse Rate 74 61 54 L Respiratory Rate 18 18 18 Blood Pressure 103/73 103/63 128/71 Pulse Oximetry 100 100 100 09/07/17 16:00 09/07/17 17:00 09/07/17 17:11 Temperature 98.5 F Pulse Rate 71 59 L 57 L Respiratory Rate 18 18 18 Blood Pressure 136/75 106/58 L Pulse Oximetry 100 100 99 09/07/17 18:00 09/07/17 19:00 09/07/17 20:00 Temperature 98.6 F 98.5 F 98.5 F Pulse Rate 68 55 L 55 L Respiratory Rate 18 18 Blood Pressure 114/69 103/62 103/62 Pulse Oximetry 100 98 98 09/07/17 20:43 09/07/17 20:44 09/07/17 21:00 Temperature 98.6 F Pulse Rate 59 L 63 Respiratory Rate 18 18 18 Blood Pressure 108/61 Pulse Oximetry 98 98 09/07/17 22:00 09/07/17 23:00 09/08/17 00:00 Temperature 98.3 F 98.3 F 98.0 F Pulse Rate 67 56 L 91 H Respiratory Rate 18 18 17 Blood Pressure 108/62 107/67 146/63 H Pulse Oximetry 97 97 100 09/08/17 00:38 09/08/17 01:00 09/08/17 02:00 Temperature 98.2 F 98.4 F Pulse Rate 82 93 H 88 Respiratory Rate 18 18 16 Blood Pressure 128/60 130/60 Pulse Oximetry 97 100 100 09/08/17 04:00 09/08/17 04:13 09/08/17 05:00 Temperature 98.7 F 98.4 F Pulse Rate 66 60 84 Respiratory Rate 18 18 Blood Pressure 120/72 120/72 Pulse Oximetry 98 98 09/08/17 06:00 09/08/17 08:16 Temperature 98 F Pulse Rate 115 H 114 H Respiratory Rate 18 15 Blood Pressure 115/74 Pulse Oximetry 97 95 Intake & Output 09/07/17 09/08/17 09/08/17 18:59 06:59 18:59 Intake Total 1185 / 1185 1190 / 1190 Output Total 2500 / 2500 2200 / 2200 Balance -1315 / -1315 -1010 / -1010 Weight 108 kg Intake: IV 300 / 300 750 / 750 Diprivan 1000 mg/100 ml Inj 1, 200 / 200 300 / 300 000 mg In 100 ml @ 5 MCG/KG/MIN 3.255 mls/hr IV.CONT TITRATE PRN Rx#:[id number] Zosyn 4.5 GM Premix 4.5 gm In 100 / 100 200 / 200 100 ml @ 200 mls/hr IV.SIG Q6H ABENA Rx#:[id number] fentaNYL 10 mcg/mL Premix Drip 250 / 250 2,500 mcg In 250 ml @ 50 MCG/HR 5 mls/hr IV.SIG TITRATE PRN Rx #:[id number] Tube Feeding 535 / 535 440 / 440 Tube Irrigant 275 / 275 Water Bolus Amount 75 / 75 Output: Stool 0 / 0 0 / 0 Urine Amount (Catheter) 2500 / 2500 2200 / 2200 Indwelling Urethral Catheter 2500 / 2500 2200 / 2200 Other: Date of Last Bowel Movement 09/07/17 09/07/17 # Bowel Movements 0 0 Result Diagrams: 09/08/17 05:26 09/06/17 06:05 Other Results: Laboratory Results - last 12 hr 09/07/17 09/07/17 09/08/17 20:46 23:52 04:08 WBC RBC Hgb Hct MCV MCH MCHC RDW Plt Count MPV Prelim Diff (Auto) Neut % (Auto) Lymph % (Auto) [place] % (Auto) Eos % (Auto) Baso % (Auto) Neut # (Auto) Lymph # (Auto) [place] # (Auto) Eos # (Auto) Baso # (Auto) Differential Comment POC Glucose 135 H 149 H 156 H Ammonia 09/08/17 09/08/17 09/08/17 05:24 05:26 07:59 WBC 10.3 RBC 4.49 L Hgb 14.1 Hct 41.5 MCV 92.5 MCH 31.3 MCHC 33.8 RDW 15.5 Plt Count 196 MPV 9.4 Prelim Diff (Auto) Slide review pending Neut % (Auto) 79.3 H Lymph % (Auto) 9.4 [place] % (Auto) 10.8 H Eos % (Auto) 0.0 Baso % (Auto) 0.5 Neut # (Auto) 8.1 H Lymph # (Auto) 1.0 [place] # (Auto) 1.1 H Eos # (Auto) 0.0 Baso # (Auto) 0.1 Differential Comment . POC Glucose 129 H Ammonia 56 H Imaging: Abdomen/Bladder Ultrasound 08/31/17 00:00 CONCLUSION: 1. 11 mm left midlung calculus. 2. No evidence of hydronephrosis. 3. Otherwise normal appearing kidneys. Chest CTA 08/31/17 00:00 CONCLUSION: 1. No evidence of pulmonary embolism. 2. Extensive consolidation in the right lung and patchy infiltrates elsewhere in both lungs. 3. Moderately enlarged mediastinal lymph node. Abdomen X-Ray 09/03/17 08:04 CONCLUSION: Prominent loop of bowel in the right abdomen. Chest X-Ray 09/08/17 06:00 CONCLUSION: Lungs are better aerated. Minimal residual bibasilar densities. Objective Remarks: GENERAL: Patient is 52 yo male currently orotracheally intubated SKIN: Warm and dry. No rash HEAD: Normocephalic. EYES: No scleral icterus. No injection or drainage. ENT: Orotracheally intubated NECK: Supple, trachea midline. No JVD or lymphadenopathy. CARDIOVASCULAR: RRR, NL S1, S2 without murmurs, gallops, or rubs. RESPIRATORY: Breath sounds equal bilaterally. No accessory muscle use. Bilateral and expiratory wheeze. GASTROINTESTINAL: Abdomen soft, non-tender, nondistended. Hypoactive bowel sounds are appreciated MUSCULOSKELETAL: Anasarca/1+ upper lower extremity edema Neuro: Intubated, sedated. Eyes are open to stimuli, does not follow commands. Sedated with propofol. Patient has a diagnosis of paraplegia in the record. Assessment and Plan - Assessment and Plan Plan: Neuro/Psych: Mood disorder with depression Paraplegia with mobility Acute metabolic encephalopathy Dementia disorder NOS On propofol at 40 mcg/kg/min and fentanyl drip at 200 mcg an hour for sedation/ analgesia while intubated Goal of RASS -2 EEG-encephalopathy, some burst suppression pattern. On valproic acid 250 mg twice daily, follow up on Valproic acid level. Continue baclofen 20 mg 3 times daily/home medication Continue citalopram 20 mg daily/home medication for depression Continue gabapentin 100 mg 3 times daily/home medication Acetaminophen 650 mg by tube every 6 hours as needed fever Holding meloxicam/home medication Holding dantrolene unknown dosage. Pulm: Acute Respiratory Failure -hypoxic and hypercapnic PRVC 18/600/03/06/55, decrease FIO2:45% Ventilator bundle Albuterol/ipratropium aerosols every 4 hours with albuterol aerosols every 2 hours as needed for dyspnea Methylprednisolone succinate 60 mg IV every 8 hours Spontaneous breathing trials Patient s/p bronch 09/01 showed thick cormier like secretions/mucous plugs suctioned to clear BAL performed RLL-cultures negative to date CXR today: Minimal residual bibasilar densities, better aeration. CV: Hypertension Hyperlipidemia Monitor HR and BP keep MAP>65mmHg on furosemide 40 mg IV twice daily Patient is on simvastatin 40 mg daily at home. Hospital substitution is pravastatin 80 mg daily Renal/FEN/: Neurogenic bladder Monitor renal function, electrolytes replacement per protocol. IV furosemide as above GI: Gastroesophageal reflux disease Hypoalbuminemia History of external hemorrhoids Glucerna 1.5 to goal 45 cc an hour Lansoprazole for GI prophylaxis Docusate sodium/senna 1 tablet twice daily for bowel regimen ID: HAP Continue with abx (piperacillin/tazobactam, Zithromax,)monitor for signs of infections ( fever, WBC) ID is following. Follow up on BAL 09/01 cxs- NGTD BC 08/31: NGTD Strep pneumonia and Legionella Ag negative Sputum 09/06 no growth to date Heme: Monitor CBC Endo: Hyperglycemia SSI with Novulin R with Accu-Cheks to maintain euglycemia for glycemic control MSK Paraplegia DVT GI prophylaxis -Teds SCDs -Subcu heparin -Lansoprazole Level 3 Remains critical, unable to wean ventilator due to severe encephalopathy. Continue weaning attempts to continue aggressive diuresis
[2017-09-08 09:25] LABS: Alanine Aminotransferase 31 U/L (12-78); Albumin 2.8 g/dL (3.4-5.0); Alkaline Phosphatase 82 U/L (45-117); Anion Gap 14 meq/L (5-15); Aspartate Aminotransferase 25 U/L (15-37); Blood Urea Nitrogen 39 mg/dL (7-18); Calcium 8.9 mg/dL (8.5-10.1); Carbon Dioxide 28.9 meq/L (21.0-32.0); Chloride 96 meq/L (98-107); Glomerular Filtration Rate Greater Than 89 mL/min (>89); Glucose,Random 148 mg/dL (74-106); Magnesium 2.7 mg/dL (1.5-2.5); Phosphorus 4.9 mg/dL (2.5-4.9); Potassium 4.6 meq/L (3.5-5.1); Sodium 139 meq/L (136-145); Total Protein 6.8 g/dL (6.4-8.2); Valproic Acid 16 mcg/mL (50-100)
[2017-09-08 10:42] LABS: Lymphocytes 15 % (9-44); Monocytes 6 % (0-8); Myelocytes 4 % (0-0)
[2017-09-08 10:43] LABS: Platelet Estimate Normal (Normal); Platelet Morphology Normal (Normal)
[2017-09-08 14:00] LABS: ABG PCO2 51 mmHg (38-42); ABG PO2 108 mmHG (61-120)
--- NOTE | 2017-09-08 16:44 | P.PNID ---
Subjective Remarks: He is a 52-year-old male, who [facility], brought to the hospital for evaluation of shortness of breath, hypoxemia, and tachycardic. According to the paramedics he had an elevated temp. Got some information from the nurse, patient did not have any Vernon when he presented, and a Vernon catheter was placed. Since admission he has required BiPAP for oxygenation. He has been febrile. Urinalysis showed significant pyuria. His blood pressures seem to be holding, and he is not requiring any pressors. His WBC is mildly elevated at 11.7. Lactic acid is normal. Creatinine is normal. Chest x -ray showing some infiltrates. Infectious disease consultation has been requested to assist with evaluation and treatment of patient with sepsis. Notes reviewed. Discussed with RN. Patient was extubated a couple hours ago. On O2 via facemask. Somewhat lethargic but responsive. Afebrile. Bronch C/S negative Legionella and Pneumococcal Ag negative Antibiotics: Zosyn Zithromax Lines: No evidence of infection Past Medical History: Dementia Depression GERD (gastroesophageal reflux disease) Hemorrhoids Hyperlipidemia Paraplegia UTI (urinary tract infection) H/O exploratory laparotomy History of cholecystectomy Allergies/Adverse Reactions: Allergies No Known Allergies Allergy (Verified 08/31/17 00:16) Objective Vital Signs 09/07/17 17:00 09/07/17 17:11 09/07/17 18:00 Temperature 98.6 F Pulse Rate 59 L 57 L 68 Respiratory Rate 18 18 Blood Pressure 106/58 L 114/69 Pulse Oximetry 100 99 100 09/07/17 19:00 09/07/17 20:00 09/07/17 20:43 Temperature 98.5 F 98.5 F Pulse Rate 55 L 55 L 59 L Respiratory Rate 18 18 18 Blood Pressure 103/62 103/62 Pulse Oximetry 98 98 09/07/17 20:44 09/07/17 21:00 09/07/17 22:00 Temperature 98.6 F 98.3 F Pulse Rate 63 67 Respiratory Rate 18 18 18 Blood Pressure 108/61 108/62 Pulse Oximetry 98 98 97 09/07/17 23:00 09/08/17 00:00 09/08/17 00:30 Temperature 98.3 F 98.0 F Pulse Rate 56 L 55 L 76 Respiratory Rate 18 18 18 Blood Pressure 107/67 126/71 140/74 Pulse Oximetry 97 97 97 09/08/17 00:38 09/08/17 01:00 09/08/17 01:30 Temperature 98.2 F Pulse Rate 82 80 79 Respiratory Rate 18 18 18 Blood Pressure 130/75 127/65 Pulse Oximetry 97 97 97 09/08/17 02:00 09/08/17 02:30 09/08/17 03:00 Temperature 98.4 F Pulse Rate 71 58 L 55 L Respiratory Rate 18 18 18 Blood Pressure 111/64 102/58 L 105/61 Pulse Oximetry 97 97 97 09/08/17 03:31 09/08/17 04:00 09/08/17 04:13 Temperature 98.7 F Pulse Rate 65 66 60 Respiratory Rate 18 18 18 Blood Pressure 135/75 120/72 Pulse Oximetry 97 98 09/08/17 04:30 09/08/17 05:00 09/08/17 05:30 Temperature 98.4 F Pulse Rate 69 84 88 Respiratory Rate 18 18 18 Blood Pressure 102/57 L 108/70 116/66 Pulse Oximetry 96 96 97 09/08/17 06:00 09/08/17 06:30 09/08/17 07:00 Temperature 98 F Pulse Rate 115 H 91 H 76 Respiratory Rate 18 18 18 Blood Pressure 115/74 99/58 L 98/55 L Pulse Oximetry 97 97 96 09/08/17 08:00 09/08/17 08:16 09/08/17 09:00 Temperature Pulse Rate 103 H 114 H 117 H Respiratory Rate 18 15 16 Blood Pressure 140/84 151/89 H Pulse Oximetry 97 95 95 09/08/17 10:00 09/08/17 11:00 09/08/17 11:27 Temperature Pulse Rate 133 H 138 H 118 H Respiratory Rate 17 22 18 Blood Pressure 156/93 H 156/87 H Pulse Oximetry 95 96 97 09/08/17 11:30 09/08/17 12:00 09/08/17 16:35 Temperature Pulse Rate 119 H 108 H 110 H Respiratory Rate 18 18 26 H Blood Pressure 125/68 108/57 L Pulse Oximetry 97 98 93 L Intake & Output 09/07/17 09/08/17 09/08/17 18:59 06:59 18:59 Intake Total 1185 / 1185 1190 / 1190 100 / 100 Output Total 2500 / 2500 2200 / 2200 Balance -1315 / -1315 -1010 / -1010 100 / 100 Weight 108 kg Intake: IV 300 / 300 750 / 750 100 / 100 Diprivan 1000 mg/100 ml Inj 1, 200 / 200 300 / 300 000 mg In 100 ml @ 5 MCG/KG/MIN 3.255 mls/hr IV.CONT TITRATE PRN Rx#:[id number] Zosyn 4.5 GM Premix 4.5 gm In 100 / 100 200 / 200 100 / 100 100 ml @ 200 mls/hr IV.SIG Q6H [facility] Rx#:[id number] fentaNYL 10 mcg/mL Premix Drip 250 / 250 2,500 mcg In 250 ml @ 50 MCG/HR 5 mls/hr IV.SIG TITRATE PRN Rx #:[id number] Tube Feeding 535 / 535 440 / 440 Tube Irrigant 275 / 275 Water Bolus Amount 75 / 75 Output: Stool 0 / 0 0 / 0 Urine Amount (Catheter) 2500 / 2500 2200 / 2200 Indwelling Urethral Catheter 2500 / 2500 2200 / 2200 Other: Date of Last Bowel Movement 09/07/17 09/07/17 09/07/17 # Bowel Movements 0 0 09/06/17 10:45 Sputum - Endotracheal Gram Stain - Final 09/06/17 10:45 Sputum - Endotracheal Sputum Culture - Final Rare growth normal respiratory cher Lab - Hematology Results 09/08/17 05:26 WBC 10.3 RBC 4.49 L Hgb 14.1 Hct 41.5 MCV 92.5 MCH 31.3 MCHC 33.8 RDW 15.5 Plt Count 196 MPV 9.4 Prelim Diff (Auto) Slide review pending Neut % (Auto) 79.3 H Lymph % (Auto) 9.4 [place] % (Auto) 10.8 H Eos % (Auto) 0.0 Baso % (Auto) 0.5 Neut # (Auto) 8.1 H Lymph # (Auto) 1.0 [place] # (Auto) 1.1 H Eos # (Auto) 0.0 Baso # (Auto) 0.1 WBC Differential Manual diff final Seg Neuts % (Manual) 73 H Band Neuts % (Manual) 1 Lymphocytes % (Manual) 15 Monocytes % (Manual) 6 Basophils % (Manual) 1 Myelocytes % (Man) 4 H Abs Neuts (Manual) 8.0 H Differential Comment . Platelet Estimate Normal Platelet Morphology Normal Lab - Chemistry Results 09/06/17 09/07/17 09/07/17 21:37 00:59 04:19 Sodium Potassium Chloride Carbon Dioxide Anion Gap BUN Creatinine Estimated GFR POC Glucose 144 H 145 H 133 H Random Glucose Calcium Phosphorus Magnesium Total Bilirubin AST ALT Alkaline Phosphatase Ammonia Total Protein Albumin 09/07/17 09/07/17 09/07/17 07:55 11:05 15:50 Sodium Potassium Chloride Carbon Dioxide Anion Gap BUN Creatinine Estimated GFR POC Glucose 132 H 148 H 134 H Random Glucose Calcium Phosphorus Magnesium Total Bilirubin AST ALT Alkaline Phosphatase Ammonia Total Protein Albumin 09/07/17 09/07/17 09/08/17 20:46 23:52 04:08 Sodium Potassium Chloride Carbon Dioxide Anion Gap BUN Creatinine Estimated GFR POC Glucose 135 H 149 H 156 H Random Glucose Calcium Phosphorus Magnesium Total Bilirubin AST ALT Alkaline Phosphatase Ammonia Total Protein Albumin 09/08/17 09/08/17 09/08/17 05:24 05:24 07:59 Sodium 139 Potassium 4.6 Chloride 96 L Carbon Dioxide 28.9 Anion Gap 14 BUN 39 H Creatinine 0.77 Estimated GFR Greater than 89 POC Glucose 129 H Random Glucose 148 H Calcium 8.9 Phosphorus 4.9 Magnesium 2.7 H Total Bilirubin 0.4 AST 25 ALT 31 Alkaline Phosphatase 82 Ammonia 56 H Total Protein 6.8 Albumin 2.8 L 09/08/17 09/08/17 11:51 15:40 Sodium Potassium Chloride Carbon Dioxide Anion Gap BUN Creatinine Estimated GFR POC Glucose 87 98 Random Glucose Calcium Phosphorus Magnesium Total Bilirubin AST ALT Alkaline Phosphatase Ammonia Total Protein Albumin Imaging: ITS Impressions Abdomen/Bladder Ultrasound 08/31/17 00:00 CONCLUSION: 1. 11 mm left midlung calculus. 2. No evidence of hydronephrosis. 3. Otherwise normal appearing kidneys. Chest CTA 08/31/17 00:00 CONCLUSION: 1. No evidence of pulmonary embolism. 2. Extensive consolidation in the right lung and patchy infiltrates elsewhere in both lungs. 3. Moderately enlarged mediastinal lymph node. Abdomen X-Ray 09/03/17 08:04 CONCLUSION: Prominent loop of bowel in the right abdomen. Chest X-Ray 09/08/17 06:00 CONCLUSION: Lungs are better aerated. Minimal residual bibasilar densities. Physical Exam: GENERAL: Awake. Lethargic. SKIN: Cool and dry. No generalized rash. HEAD: Atraumatic. Normocephalic. No temporal wasting, or tenderness. EYES: [place] conjunctiva. No petechia or hemorrhage. Pupils equal, round and reactive to light. No scleral icterus. No injection or drainage. NECK: Trachea midline. Supple. CARDIOVASCULAR: Regular rate and rhythm. No murmurs, rubs or gallops. RESPIRATORY: Decreased breath sounds. ABDOMEN: obese, distended. Bowel sounds present and normoactive. He has a long midline incision which looks like an exp lap, and has a cholecystectomy scar in RUQ. EXTREMITIES: No clubbing, cyanosis. Has mild pedal edema. No calf tenderness. NEUROLOGICAL: Sedated on the vent PSYCHIATRIC: Unable to assess LINE: No evidence of infection : Vernon in place, Clear yellow urine. Assessment and Plan - Plan Impression Sepsis on presentation, patient came from [facility] - has lung infiltrates, and SOB, C/W HCAP - also with UTI HCAP, C/S bronch negative Leukocytosis Respiratory failure Hx paraplegia Encephalopathy Recommendation Continue Zosyn Continue Zithromax Follow sputum G/S C/S Monitor temps Monitor progress
[2017-09-08] MEDS: Chlorhexidine 0.12% Oral Kit 15 ML UDC OROPHARYNG SCH (19:13)
[2017-09-08] MEDS: Hypromellose 0.3% Opth Gel 10 GM Bottle EACH EYE SCH ×2 (21:43→21:48)
[2017-09-09] MEDS: Insulin NovoLIN Regular Correctional Sugar Inj SQ SCH ×7 (00:19→20:09)
[2017-09-09] MEDS: Piperacil/Tazo 4.5 GM Premix 4.5 GM/100 ML BAG IV.SIG SCH ×4 (00:23→18:02)
[2017-09-09] MEDS: Oral Hygiene Kit OROPHARYNG SCH ×5 (00:23→19:34)
[2017-09-09] MEDS: Heparin - SQ 10,000 UNITS/ML Vial SQ SCH ×3 (05:51→20:47)
[2017-09-09] MEDS: MethylPREDNISolone Sod Succinate Inj 125 MG/2 ML Vial IV.PUSH SCH (05:51)
[2017-09-09 07:20] LABS: Baso % (Auto) 0.3 % (0.0-2.0); Eos # (Auto) 0.1 th/mm3 (0.0-0.4); Eos % (Auto) 0.7 % (0.0-4.0); Hematocrit 45.8 % (39.0-51.0); Hemoglobin 14.9 gm/dL (13.0-17.0); Lymph # (Auto) 0.9 th/mm3 (1.0-4.8); Mean Corpuscular HGB Conc 32.5 % (32.0-36.0); Mean Corpuscular Hemoglobin 30.4 pg (27.0-34.0); Mean Corpuscular Volume 93.4 fL (80.0-100.0); Mean Platelet Volume 9.4 fL (7.0-11.0); Mono % (Auto) 6.7 % (0.0-8.0); Neut # (Auto) 13.4 th/mm3 (1.8-7.7); Neut % (Auto) 86.3 % (16.0-70.0); Platelet Count 220 th/mm3 (150-450); Red Cell Distribution Width 15.9 % (11.6-17.2); White Blood Count 15.6 th/mm3 (4.0-11.0)
[2017-09-09 07:51] LABS: Anion Gap 12 meq/L (5-15); Blood Urea Nitrogen 35 mg/dL (7-18); Calcium 9.4 mg/dL (8.5-10.1); Carbon Dioxide 25.6 meq/L (21.0-32.0); Chloride 100 meq/L (98-107); Glomerular Filtration Rate Greater Than 89 mL/min (>89); Glucose,Random 91 mg/dL (74-106); Sodium 138 meq/L (136-145)
[2017-09-09 08:43] LABS: Potassium 5.4 meq/L (3.5-5.1)
[2017-09-09] MEDS: Chlorhexidine 0.12% Oral Kit 15 ML UDC OROPHARYNG SCH ×3 (09:09→20:10)
[2017-09-09] MEDS: Collagenase Oint 30 GM Tube TOPICAL SCH (09:10)
[2017-09-09] MEDS: Hypromellose 0.3% Opth Gel 10 GM Bottle EACH EYE SCH ×2 (09:10→20:49)
[2017-09-09 09:32] LABS: Lymphocytes 3 % (9-44); Metamyelocytes 1 % (0-1); Monocytes 6 % (0-8); Myelocytes 1 % (0-0); Platelet Estimate Normal (Normal)
[2017-09-09 09:33] LABS: Platelet Morphology Normal (Normal)
[2017-09-09] MEDS ORDERED: MethylPREDNISolone Sod Succinate Inj 125 MG/2 ML Vial IV.PUSH SCH (10:19)
[2017-09-09] MEDS ORDERED: Dextrose 50% in Water 50 ML Vial IV.PUSH ONE (10:20)
[2017-09-09] MEDS: Gabapentin 100 MG Capsule PO SCH ×4 (10:43→19:33)
[2017-09-09] MEDS: Senna/Docusate Sodium 8.6/50 MG Tablet PO SCH (10:44)
[2017-09-09] MEDS: Divalproex 125 MG Sprinkles Capsule PO SCH ×2 (10:44→20:48)
[2017-09-09] MEDS: MethylPREDNISolone Sod Succinate Inj 40 MG/ML Vial IV.PUSH SCH ×3 (11:05→21:38)
[2017-09-09] MEDS ORDERED: Calcium Chloride Inj 1 GM in Sodium Chlor 0.9% Inj 100 ML IV.SIG ONE (12:00)
--- NOTE | 2017-09-09 14:08 | XR ---
EXAM DATE: 09/09/2017 2:01 PM EDT AGE/SEX: 52 years / Male INDICATIONS: NG tube placement. CLINICAL DATA: This is the patient's subsequent encounter. Patient reports that signs and symptoms h ave been present for 2 weeks and indicates a pain score of Nonresponsive. MEDICAL/SURGICAL HISTORY: . Gastroesophageal reflux disease. Dementia. Depression. Hyperlipidem ia. Paraplegia. Urinary tract infection. . Cholecystectomy. COMPARISON: C, ABDOMEN 1V KUB, 09/03/2017. . FINDINGS: Examination of the abdomen demonstrates a normal bowel gas pattern. No free air is identified. No o rganomegaly is evident. Osseous structures are intact. Dobbhoff tube is present at the level of the pyloric channel CONCLUSION: Dobbhoff tube at the level of the pyloric channel Electronically signed by: Manjeet Tristan MD 09/09/2017 2:06 PM EDT
[2017-09-09] MEDS: Azithromycin 250 MG Tablet PO SCH (14:27)
--- NOTE | 2017-09-09 15:28 | P.PNCC ---
Subjective Subjective Remarks/Hospital Course: 52-year-old male [facility] for an evaluation of hypoxemia, shortness of breath, and tachycardia and per paramedics elevated temperature with history of paraplegia with immobility, dyslipidemia, chronic cough, mood disorder with depression, pressure ulceration bilateral lower extremity knee contracture, prior Klebsiella pneumonia and morbid obesity. In the emergency department he appeared to be in respiratory distress and was placed by ED attending on the BiPAP. 09/01 Patient is on BIPAP 18/5 with 40% FIO2. Afebrile with intermittent confusion. CTA chest yesterday showed no PE, extensive consolidation right lung. 09/02 Patient was intubated yesterday and s/p bronch. Sedated with Diprivan and Fentanyl infusion. Afebrile. 09/03 No events overnight. Sedated with Diprivan and Fentanyl infusion. Afebrile. 09/04: Remains intubated, sedated with propofol. Eyes open, do not follow commands. Bilateral wheezing on exam. FiO2 remains high at 60%, O2 sat 92-94% 09/05: Remains sedated heavily for vent synchrony, FiO2 remains at 60%, will wean. Sputum cx negative. ETT advanced due to leak, will repeat CXR. Patient do not follow commands, but get agitated when sedation held 09/06: Remains sedated for ventilator synchrony. Oxygen saturation improved FiO2 down to 50%. Chest x-ray on my review shows pulmonary edema. Started scheduled Lasix scheduled Lasix yesterday, urine output excellent 5.5 L in 24 hours 09/07: Afebrile. Remains on propofol and fentanyl drips due to his significant agitation. 2 bite block placed overnight/Guedel airways related secondary to patient attempted to bite through ET tube.. One bowel movement yesterday 09/08 No events overnight. Sedated with Diprivan and Fentanyl drip. Afebrile. Subjective 09/09: Extubated yesterday without complication. Currently on 6 L nasal cannula. Swallow evaluation failed 2. Dobbhoff tube is in place. No bowel movement since 09/02. Objective Vital Signs / I&O: Vital Signs 09/08/17 16:00 09/08/17 16:35 09/08/17 17:00 Temperature 98.1 F Pulse Rate 107 H 110 H 109 H Respiratory Rate 21 26 H 21 Blood Pressure 152/83 H 135/78 Pulse Oximetry 94 L 93 L 94 L 09/08/17 19:00 09/08/17 20:00 09/08/17 21:00 Temperature 98.4 F 98.4 F 98.0 F Pulse Rate 98 H 94 H 97 H Respiratory Rate 25 H 25 H 25 H Blood Pressure 144/78 H 150/83 H 149/98 H Pulse Oximetry 93 L 95 97 09/08/17 21:11 09/08/17 22:00 09/08/17 23:00 Temperature 98.0 F 99.0 F Pulse Rate 90 104 H 97 H Respiratory Rate 25 H 27 H Blood Pressure 149/98 H 139/80 Pulse Oximetry 93 L 97 97 09/09/17 00:00 09/09/17 00:36 09/09/17 01:00 Temperature 98.4 F 98.3 F Pulse Rate 92 H 96 H 99 H Respiratory Rate 25 H 18 27 H Blood Pressure 146/82 H 145/73 H Pulse Oximetry 97 99 09/09/17 02:00 09/09/17 03:00 09/09/17 04:00 Temperature 98.4 F 98.4 F 94.0 F L Pulse Rate 97 H 96 H 95 H Respiratory Rate 27 H 27 H 29 H Blood Pressure 121/63 135/87 145/80 H Pulse Oximetry 97 96 96 09/09/17 04:33 09/09/17 05:00 09/09/17 06:00 Temperature 98.0 F 98.4 F Pulse Rate 101 H 106 H 96 H Respiratory Rate 19 29 H 25 H Blood Pressure 145/80 H 156/74 H Pulse Oximetry 90 L 91 L 93 L 09/09/17 07:00 09/09/17 08:00 09/09/17 09:16 Temperature 98.4 F 97.5 F L Pulse Rate 92 H 92 H Respiratory Rate 29 H 24 Blood Pressure 148/87 H Pulse Oximetry 96 95 09/09/17 11:28 Temperature Pulse Rate 106 H Respiratory Rate 20 Blood Pressure Pulse Oximetry Intake & Output 09/08/17 09/09/17 09/09/17 18:59 06:59 18:59 Intake Total 200 / 200 750 / 750 100 / 100 Output Total 1200 / 1200 Balance 200 / 200 -450 / -450 100 / 100 Weight 103.5 kg Intake: IV 200 / 200 300 / 300 100 / 100 Zosyn 4.5 GM Premix 4.5 gm In 200 / 200 300 / 300 100 / 100 100 ml @ 200 mls/hr IV.SIG Q6H [facility] Rx#:[id number] Oral 0 / 0 Tube Feeding 450 / 450 Output: Stool 0 / 0 Urine Amount (Catheter) 1200 / 1200 Indwelling Urethral Catheter 1200 / 1200 Other: Date of Last Bowel Movement 09/07/17 09/07/17 # Bowel Movements 0 Result Diagrams: 09/09/17 06:08 09/09/17 06:08 Other Results: Microbiology 09/06/17 10:45 Sputum - Endotracheal Gram Stain - Final 09/06/17 10:45 Sputum - Endotracheal Sputum Culture - Final Rare growth normal respiratory cher 08/31/17 00:25 Blood - Peripheral Aerobic Blood Culture - Final No growth in 5 days 08/31/17 00:25 Blood - Peripheral Anaerobic Blood Culture - Final No growth in 5 days 08/31/17 00:30 Blood - Peripheral Aerobic Blood Culture - Final No growth in 5 days 08/31/17 00:30 Blood - Peripheral Anaerobic Blood Culture - Final No growth in 5 days 09/01/17 09:30 Bronchial - Right Lower Lobe Gram Stain - Final 09/01/17 09:30 Bronchial - Right Lower Lobe Bronchial Culture - Final No growth in 48 hours 08/31/17 02:50 Catheterized Urine Urine Culture - Final 50-100,000 cfu/mL mixed cher (probable contaminants ) 08/31/17 02:50 Urine - Catheterized Urine Streptococcus pneumoniae Antigen ( M - Final Presumptive negative for streptococcus pneumoniae antigen, suggesting no current or recent infection. Infection due to Streptococcus pneumoniae cannot be ruled out since the antigen present in the sample may be below the detection limit of the test. 08/31/17 02:50 Urine - Catheterized Urine Legionella Antigen - Final Presumptive negative for Legionella pneumophila serogroup 1 antigen in urine, suggesting no recent or recurrent infection. Infection due to Legionella cannot be ruled out since other serogroups and species may cause disease, antigen may not be present in urine in early infection, and the level of antigen present in the urine may be below the detection limit of the test. Imaging: Abdomen/Bladder Ultrasound 08/31/17 00:00 CONCLUSION: 1. 11 mm left midlung calculus. 2. No evidence of hydronephrosis. 3. Otherwise normal appearing kidneys. Chest CTA 08/31/17 00:00 CONCLUSION: 1. No evidence of pulmonary embolism. 2. Extensive consolidation in the right lung and patchy infiltrates elsewhere in both lungs. 3. Moderately enlarged mediastinal lymph node. Chest X-Ray 08/31/17 00:08 CONCLUSION: Elevation of the right hemidiaphragm and right lower lung consolidation. Patchy infiltrates in left lower lung. Cardiomegaly. Chest X-Ray 09/01/17 00:00 CONCLUSION: 1. The endotracheal tube and NG tube appear to be in good position. 2. No evidence of pneumothorax. 3. There is parenchymal consolidation in the right lung base with an increasing infiltrate in the right upper lung. Chest X-Ray 09/01/17 00:00 CONCLUSION: There are scattered bilateral pulmonary infiltrates. No evidence of pneumothorax. Abdomen X-Ray 09/03/17 08:04 CONCLUSION: Prominent loop of bowel in the right abdomen. Chest X-Ray 09/04/17 00:00 CONCLUSION: 1. No significant interval change. 2. Stable patchy bilateral mid to lower lung zone airspace disease. Chest X-Ray 09/05/17 00:00 CONCLUSION: No significant change with the bilateral pulmonary infiltrates compared to the prior study. Chest X-Ray 09/05/17 06:00 CONCLUSION: 1. ETT at the level of the clavicles. NGT beyond the GE junction. 2. Stable patchy diffuse bilateral airspace disease. Chest X-Ray 09/06/17 06:00 CONCLUSION: 1. No significant interval change. 2. Stable ETT and NGT. 3. Stable bilateral patchy airspace disease. Chest X-Ray 09/08/17 06:00 CONCLUSION: Lungs are better aerated. Minimal residual bibasilar densities. Abdomen X-Ray 09/09/17 00:00 CONCLUSION: Dobbhoff tube at the level of the pyloric channel Objective Remarks: GENERAL: 52 yo male currently resting in bed in no acute distress SKIN: Warm and dry. No rash HEAD: Normocephalic. EYES: No scleral icterus. No injection or drainage. ENT: Mucous members are moist and pink. Oropharynx without erythema NECK: Supple, trachea midline. No JVD or lymphadenopathy. CARDIOVASCULAR: Tachycardic, RR, NL S1, S2 without murmurs, gallops, or rubs. RESPIRATORY: Breath sounds equal bilaterally. No accessory muscle use. Bilateral end expiratory wheeze. Transmitted upper airway sounds are noted. Coarse crackles anteriorly. GASTROINTESTINAL: Abdomen soft, non-tender, nondistended. Hypoactive bowel sounds are appreciated MUSCULOSKELETAL: Anasarca/1+ upper lower extremity edema Neuro: Cranial nerves II through XII grossly intact. Strength 4-5 bilateral upper extremities and lower 1-2 out of 5. Sensation appears intact. Assessment and Plan - Assessment and Plan Plan: Neuro/Psych: Mood disorder with depression Paraplegia with mobility Acute metabolic encephalopathy Dementia disorder NOS EEG-encephalopathy, some burst suppression pattern. On valproic acid 250 mg twice daily, follow up on Valproic acid level in a.m. . Continue baclofen 20 mg 3 times daily/home medication Continue citalopram 20 mg daily/home medication for depression Continue gabapentin 100 mg 3 times daily/home medication Acetaminophen 650 mg by tube every 6 hours as needed fever Holding meloxicam/home medication Holding dantrolene unknown dosage. Pulm: Acute Respiratory Failure -hypoxic and hypercapnic Nasal cannula to maintain saturations greater than or equal to 92% Incentive spirometry while awake Albuterol/ipratropium aerosols every 4 hours with albuterol aerosols every 2 hours as needed for dyspnea Methylprednisolone succinate 60 mg IV every 8 hours Patient s/p bronch 09/01 showed thick cormier like secretions/mucous plugs suctioned to clear BAL performed RLL-cultures negative to date CXR 09/08: Minimal residual bibasilar densities, better aeration. CV: Hypertension Hyperlipidemia Monitor HR and BP keep MAP>65mmHg Continue furosemide 40 mg IV twice daily Patient is on simvastatin 40 mg daily at home. Hospital substitution is pravastatin 80 mg daily Renal/FEN/: Neurogenic bladder Hyperkalemia Monitor renal function, electrolytes replacement per protocol. IV furosemide as above Received D50/insulin, bicarbonate and calcium. Recheck this afternoon GI: Gastroesophageal reflux disease Hypoalbuminemia History of external hemorrhoids Glucerna 1.5 to goal 45 cc an hour to be resumed Lansoprazole for GI prophylaxis Docusate sodium/senna 1 tablet twice daily for bowel regimen ID: HAP Continue with abx (piperacillin/tazobactam, Zithromax,)monitor for signs of infections ( fever, WBC) ID is following. Follow up on BAL 09/01 cxs- NGTD BC 08/31: NGTD Strep pneumonia and Legionella Ag negative Sputum 7/11 no growth to date Heme: Leukocytosis Monitor CBC and follow trend Endo: Hyperglycemia SSI with Novulin R with Accu-Cheks to maintain euglycemia for glycemic control MSK Paraplegia PT evaluate and treat DVT GI prophylaxis -Teds SCDs -Subcu heparin -Lansoprazole Level 3
[2017-09-09] MEDS ORDERED: Methylnaltrexone Inj 12 MG/0.6 ML Vial SQ ONE (15:33)
[2017-09-09] MEDS ORDERED: Chlorothiazide Inj 500 MG Vial IV.PUSH ONE (18:00)
[2017-09-09] MEDS ORDERED: Metoprolol Inj 5 MG/5 ML Vial IV.PUSH SCH (20:45)
[2017-09-09] MEDS: Docusate Sodium Liq 100 MG/10 ML UDC NG/OG SCH (20:48)
[2017-09-09] MEDS ORDERED: Polyethylene Glycol 3350 17 GM Packet PO SCH (21:00)
[2017-09-09] MEDS ORDERED: Sennosides Liq 8.8 MG/5 ML UDC PO SCH (21:00)
[2017-09-10] MEDS: Piperacil/Tazo 4.5 GM Premix 4.5 GM/100 ML BAG IV.SIG SCH ×5 (01:26→23:53)
[2017-09-10] MEDS: Oral Hygiene Kit OROPHARYNG SCH ×5 (01:27→23:53)
[2017-09-10] MEDS: Insulin NovoLIN Regular Correctional Sugar Inj SQ SCH ×7 (01:27→23:53)
[2017-09-10] MEDS ORDERED: Propofol Inj 500 MG/50 ML Vial ONE (04:29)
[2017-09-10] MEDS ORDERED: Succinylcholine Inj 200 MG/10 ML Vial ONE (04:29)
--- NOTE | 2017-09-10 04:50 | P.PCN ---
Date of procedure: 09/10/17 Pre-op diagnosis: respiratory failure Procedure: Endotracheal Intubation A time-out was completed verifying correct patient, procedure, site, positioning , and special equipment if applicable. The patient was placed in a flat position. Sedation was obtained using Etomidate 20mg. The patient was easily ventilated using an ambu bag. The [employer]/ MAC 4 BLADE was used and inserted into the oropharynx at which time there was a Grade 1 view of the vocal cords. A 8-occitan endotracheal tube was inserted and visualized going through the vocal cords. The stylette was removed. Colorimetric change was visualized on the CO2 meter. Breath sounds were heard in both lung hernandez equally. The endotracheal tube was placed at 23 cm, measured at the teeth. A chest x-ray was ordered to assess for pneumothorax and verify endotrachealtube placement. Estimated Blood Loss: 0 The patient tolerated the procedure well and there were no complications.
[2017-09-10] MEDS: Heparin - SQ 10,000 UNITS/ML Vial SQ SCH ×3 (05:04→20:57)
[2017-09-10 05:31] LABS: ABG Base Excess 7.6 mmol/L (-2-2); ABG PCO2 57 mmHg (38-42); ABG PO2 55 mmHG (61-120)
--- NOTE | 2017-09-10 05:40 | XR ---
EXAM DATE: 09/10/2017 5:36 AM EDT AGE/SEX: 52 years / Male INDICATIONS: Post intubation. CLINICAL DATA: This is the patient's subsequent encounter. Patient reports that signs and symptoms h ave been present for 1 week and indicates a pain score of Nonresponsive. MEDICAL/SURGICAL HISTORY: Non-responsive. Non-responsive. COMPARISON: [facility], CHEST 1V SINGLE AP, 09/10/2017. . FINDINGS: Endotracheal tube is present with tip 6 cm above the alyce. A weighted feeding tube descends into th e stomach. Aeration is slightly improved with decrease in hazy right base pleural-parenchymal opacity . Left lung is grossly clear. Accounting for rotation, cardiac contours are satisfactory. CONCLUSION: Interval intubation with improved aeration Electronically signed by: Cesario Horton MD 09/10/2017 5:38 AM EDT
--- NOTE | 2017-09-10 05:42 | XR ---
EXAM DATE: 09/10/2017 4:55 AM EDT AGE/SEX: 52 years / Male INDICATIONS: Respiratory distress. CLINICAL DATA: This is the patient's subsequent encounter. Patient reports that signs and symptoms h ave been present for 3 days and indicates a pain score of Nonresponsive. MEDICAL/SURGICAL HISTORY: None. None. COMPARISON: [facility] [place], CHEST 1V SINGLE AP, 09/08/2017. . FINDINGS: Weighted feeding tube descends into the stomach. There is prominent hazy pleural-parenchymal opacity, right worse than left. Moderate rotation with right hilar prominence potentially related to consolid ative change or the rotation. CONCLUSION: Prominent hazy bilateral pleural parenchymal opacity right worse than left Electronically signed by: Cesario Horton MD 09/10/2017 5:41 AM EDT
[2017-09-10] MEDS: MethylPREDNISolone Sod Succinate Inj 40 MG/ML Vial IV.PUSH SCH ×3 (05:48→22:00)
[2017-09-10 06:18] LABS: ABG Base Excess 5.1 mmol/L (-2-2); ABG PCO2 46 mmHg (38-42); ABG PO2 173 mmHG (61-120)
[2017-09-10 06:47] LABS: Baso # (Auto) 0.1 th/mm3 (0.0-0.2); Baso % (Auto) 0.3 % (0.0-2.0); Hematocrit 50.8 % (39.0-51.0); Hemoglobin 16.6 gm/dL (13.0-17.0); Lymph # (Auto) 1.2 th/mm3 (1.0-4.8); Lymph % (Auto) 3.7 % (9.0-44.0); Mean Corpuscular HGB Conc 32.5 % (32.0-36.0); Mean Corpuscular Hemoglobin 29.8 pg (27.0-34.0); Mean Corpuscular Volume 91.7 fL (80.0-100.0); Mean Platelet Volume 9.3 fL (7.0-11.0); Mono # (Auto) 2.4 th/mm3 (0.0-0.9); Mono % (Auto) 7.2 % (0.0-8.0); Neut # (Auto) 29.7 th/mm3 (1.8-7.7); Neut % (Auto) 88.8 % (16.0-70.0); Platelet Count 354 th/mm3 (150-450); Red Blood Count 5.55 mil/mm3 (4.50-5.90); Red Cell Distribution Width 15.7 % (11.6-17.2); White Blood Count 33.4 th/mm3 (4.0-11.0)
[2017-09-10 07:11] LABS: Alanine Aminotransferase 63 U/L (12-78); Albumin 3.5 g/dL (3.4-5.0); Alkaline Phosphatase 117 U/L (45-117); Anion Gap 14 meq/L (5-15); Aspartate Aminotransferase 40 U/L (15-37); Blood Urea Nitrogen 53 mg/dL (7-18); Calcium 11.1 mg/dL (8.5-10.1); Carbon Dioxide 28.9 meq/L (21.0-32.0); Chloride 94 meq/L (98-107); Glomerular Filtration Rate 83 mL/min (>89); Glucose,Random 154 mg/dL (74-106); Magnesium 2.7 mg/dL (1.5-2.5); Potassium 4.1 meq/L (3.5-5.1); Sodium 137 meq/L (136-145); Total Protein 8.1 g/dL (6.4-8.2); Valproic Acid 16 mcg/mL (50-100)
[2017-09-10] MEDS: Azithromycin 250 MG Tablet PO SCH (09:02)
[2017-09-10] MEDS: Divalproex 125 MG Sprinkles Capsule PO SCH ×2 (09:03→20:57)
[2017-09-10] MEDS: Docusate Sodium Liq 100 MG/10 ML UDC NG/OG SCH (09:03)
[2017-09-10] MEDS: Gabapentin 100 MG Capsule PO SCH ×3 (09:03→17:27)
[2017-09-10] MEDS: Collagenase Oint 30 GM Tube TOPICAL SCH (09:04)
[2017-09-10] MEDS: Hypromellose 0.3% Opth Gel 10 GM Bottle EACH EYE SCH ×2 (09:04→20:57)
--- NOTE | 2017-09-10 09:49 | XR ---
EXAM DATE: 09/10/2017 9:27 AM EDT AGE/SEX: 52 years / Male INDICATIONS: Intubation. CLINICAL DATA: This is the patient's initial encounter. Patient reports that signs and symptoms have been present for 1 day and indicates a pain score of Nonresponsive. MEDICAL/SURGICAL HISTORY: None. None. [place] [facility] [place]. . FINDINGS: Single portable upright view of the chest demonstrates an endotracheal tube at the level of the clavi cles. There has been interval improvement of the lung exam with improved aeration of the right hemith orax which now appears clear. Stable elevation of the right hemidiaphragm. The left lung is clear. CONCLUSION: Improved exam with resolution of the right lower lobe airspace consolidation. Electronically signed by: Anjelica Nguyen MD 09/10/2017 9:48 AM EDT
[2017-09-10 10:01] LABS: ABG Base Excess 2.4 mmol/L (-2-2); ABG PCO2 42 mmHg (38-42); ABG PO2 272 mmHG (61-120)
[2017-09-10 10:43] LABS: Lymphocytes 5 % (9-44); Metamyelocytes 1 % (0-1); Monocytes 4 % (0-8)
[2017-09-10 10:44] LABS: Platelet Estimate Normal (Normal); Platelet Morphology Normal (Normal); RBC Morphology Normal (Normal)
--- NOTE | 2017-09-10 12:49 | P.PNCC ---
Subjective Subjective Remarks/Hospital Course: 52-year-old male presents from alf for an evaluation of hypoxemia, shortness of breath, and tachycardia and per paramedics elevated temperature with history of paraplegia with immobility, dyslipidemia, chronic cough, mood disorder with depression, pressure ulceration bilateral lower extremity knee contracture, prior Klebsiella pneumonia and morbid obesity. In the emergency department he appeared to be in respiratory distress and was placed by ED attending on the BiPAP. 09/01 Patient is on BIPAP 18/5 with 40% FIO2. Afebrile with intermittent confusion. CTA chest yesterday showed no PE, extensive consolidation right lung. 09/02 Patient was intubated yesterday and s/p bronch. Sedated with Diprivan and Fentanyl infusion. Afebrile. 09/03 No events overnight. Sedated with Diprivan and Fentanyl infusion. Afebrile. 09/04: Remains intubated, sedated with propofol. Eyes open, do not follow commands. Bilateral wheezing on exam. FiO2 remains high at 60%, O2 sat 92-94% 09/05: Remains sedated heavily for vent synchrony, FiO2 remains at 60%, will wean. Sputum cx negative. ETT advanced due to leak, will repeat CXR. Patient do not follow commands, but get agitated when sedation held 09/06: Remains sedated for ventilator synchrony. Oxygen saturation improved FiO2 down to 50%. Chest x-ray on my review shows pulmonary edema. Started scheduled Lasix scheduled Lasix yesterday, urine output excellent 5.5 L in 24 hours 09/07: Afebrile. Remains on propofol and fentanyl drips due to his significant agitation. 2 bite block placed overnight/Guedel airways related secondary to patient attempted to bite through ET tube.. One bowel movement yesterday 09/08 No events overnight. Sedated with Diprivan and Fentanyl drip. Afebrile. 09/09: Extubated yesterday without complication. Currently on 6 L nasal cannula. Swallow evaluation failed 2. Dobbhoff tube is in place. No bowel movement since 09/02. Subjective 09/10: Intubated overnight due to respiratory failure. Currently on PEEP of 12 and FiO2 90%. Ventilator is been adjusted. 2 feeds of been resumed. Objective Vital Signs / I&O: Vital Signs 09/09/17 13:00 09/09/17 13:31 09/09/17 13:58 Temperature Pulse Rate 94 H 107 H 108 H Respiratory Rate 24 39 H 33 H Blood Pressure 141/80 H 165/103 H 148/87 H Pulse Oximetry 95 93 L 96 09/09/17 14:00 09/09/17 14:30 09/09/17 15:00 Temperature Pulse Rate 107 H 108 H 100 H Respiratory Rate 33 H 32 H 34 H Blood Pressure 144/79 H 151/86 H 153/88 H Pulse Oximetry 95 95 98 09/09/17 15:30 09/09/17 15:59 09/09/17 16:00 Temperature 98.2 F Pulse Rate 99 H 106 H 105 H Respiratory Rate 24 24 32 H Blood Pressure 138/86 145/82 H Pulse Oximetry 98 97 09/09/17 16:30 09/09/17 17:00 09/09/17 17:31 Temperature Pulse Rate 106 H 119 H 116 H Respiratory Rate 40 H 33 H 41 H Blood Pressure 167/90 H 149/84 H 139/83 Pulse Oximetry 94 L 92 L 90 L 09/09/17 18:00 09/09/17 18:30 09/09/17 19:00 Temperature Pulse Rate 123 H 120 H 122 H Respiratory Rate 36 H 34 H 33 H Blood Pressure 137/76 125/71 120/71 Pulse Oximetry 92 L 93 L 09/09/17 20:00 09/09/17 21:00 09/09/17 21:28 Temperature 100.4 F H Pulse Rate 127 H 128 H Respiratory Rate 36 H 38 H Blood Pressure 115/65 111/69 Pulse Oximetry 94 L 93 L 98 09/09/17 22:00 09/09/17 23:00 09/10/17 00:00 Temperature 99.6 F Pulse Rate 101 H 114 H 123 H Respiratory Rate 38 H 39 H 41 H Blood Pressure 110/68 112/72 125/77 Pulse Oximetry 97 96 93 L 09/10/17 01:00 09/10/17 02:00 09/10/17 03:00 Temperature Pulse Rate 127 H 125 H 133 H Respiratory Rate 44 H 41 H 48 H Blood Pressure 111/78 119/74 153/91 H Pulse Oximetry 93 L 93 L 92 L 09/10/17 04:00 09/10/17 04:45 09/10/17 05:00 Temperature 99.2 F Pulse Rate 135 H 123 H Respiratory Rate 39 H 26 H 48 H Blood Pressure 179/96 H 88/50 L Pulse Oximetry 94 L 88 L 87 L 09/10/17 06:00 09/10/17 07:00 09/10/17 08:00 Temperature 101.0 F H Pulse Rate 134 H 132 H Respiratory Rate 28 H 28 H Blood Pressure 96/59 L 108/62 Pulse Oximetry 94 L 94 L 95 09/10/17 08:14 09/10/17 11:51 Temperature Pulse Rate Respiratory Rate 23 24 Blood Pressure Pulse Oximetry 95 95 Intake & Output 09/09/17 09/10/17 09/10/17 18:59 06:59 18:59 Intake Total 330 / 330 268 / 268 Output Total 3700 / 3700 1550 / 1550 Balance -3370 / -3370 -1282 / -1282 Weight 97 kg Intake: IV 200 / 200 100 / 100 Zosyn 4.5 GM Premix 4.5 gm In 200 / 200 100 / 100 100 ml @ 200 mls/hr IV.SIG Q[facility]H [facility] Rx#:[id number] Tube Feeding 168 / 168 Water Bolus Amount 120 / 120 Output: Urine Amount (Catheter) 3700 / 3700 1550 / 1550 Indwelling Urethral Catheter 3700 / 3700 1550 / 1550 Other: Date of Last Bowel Movement 09/09/17 09/09/17 # Bowel Movements 1 Result Diagrams: 09/10/17 05:44 09/10/17 05:44 Other Results: Microbiology 09/06/17 10:45 Sputum - Endotracheal Gram Stain - Final 09/06/17 10:45 Sputum - Endotracheal Sputum Culture - Final Rare growth normal respiratory cher 08/31/17 00:25 Blood - Peripheral Aerobic Blood Culture - Final No growth in 5 days 08/31/17 00:25 Blood - Peripheral Anaerobic Blood Culture - Final No growth in 5 days 08/31/17 00:30 Blood - Peripheral Aerobic Blood Culture - Final No growth in 5 days 08/31/17 00:30 Blood - Peripheral Anaerobic Blood Culture - Final No growth in 5 days 09/01/17 09:30 Bronchial - Right Lower Lobe Gram Stain - Final 09/01/17 09:30 Bronchial - Right Lower Lobe Bronchial Culture - Final No growth in 48 hours 08/31/17 02:50 Catheterized Urine Urine Culture - Final 50-100,000 cfu/mL mixed cher (probable contaminants ) 08/31/17 02:50 Urine - Catheterized Urine Streptococcus pneumoniae Antigen ( M - Final Presumptive negative for streptococcus pneumoniae antigen, suggesting no current or recent infection. Infection due to Streptococcus pneumoniae cannot be ruled out since the antigen present in the sample may be below the detection limit of the test. 08/31/17 02:50 Urine - Catheterized Urine Legionella Antigen - Final Presumptive negative for Legionella pneumophila serogroup 1 antigen in urine, suggesting no recent or recurrent infection. Infection due to Legionella cannot be ruled out since other serogroups and species may cause disease, antigen may not be present in urine in early infection, and the level of antigen present in the urine may be below the detection limit of the test. Imaging: Abdomen/Bladder Ultrasound 08/31/17 00:00 CONCLUSION: 1. 11 mm left midlung calculus. 2. No evidence of hydronephrosis. 3. Otherwise normal appearing kidneys. Chest CTA 08/31/17 00:00 CONCLUSION: 1. No evidence of pulmonary embolism. 2. Extensive consolidation in the right lung and patchy infiltrates elsewhere in both lungs. 3. Moderately enlarged mediastinal lymph node. Chest X-Ray 08/31/17 00:08 CONCLUSION: Elevation of the right hemidiaphragm and right lower lung consolidation. Patchy infiltrates in left lower lung. Cardiomegaly. Chest X-Ray 09/01/17 00:00 CONCLUSION: 1. The endotracheal tube and NG tube appear to be in good position. 2. No evidence of pneumothorax. 3. There is parenchymal consolidation in the right lung base with an increasing infiltrate in the right upper lung. Chest X-Ray 09/01/17 00:00 CONCLUSION: There are scattered bilateral pulmonary infiltrates. No evidence of pneumothorax. Abdomen X-Ray 09/03/17 08:04 CONCLUSION: Prominent loop of bowel in the right abdomen. Chest X-Ray 09/04/17 00:00 CONCLUSION: 1. No significant interval change. 2. Stable patchy bilateral mid to lower lung zone airspace disease. Chest X-Ray 09/05/17 00:00 CONCLUSION: No significant change with the bilateral pulmonary infiltrates compared to the prior study. Chest X-Ray 09/05/17 06:00 CONCLUSION: 1. ETT at the level of the clavicles. NGT beyond the GE junction. 2. Stable patchy diffuse bilateral airspace disease. Chest X-Ray 09/06/17 06:00 CONCLUSION: 1. No significant interval change. 2. Stable ETT and NGT. 3. Stable bilateral patchy airspace disease. Chest X-Ray 09/08/17 06:00 CONCLUSION: Lungs are better aerated. Minimal residual bibasilar densities. Abdomen X-Ray 09/09/17 00:00 CONCLUSION: Dobbhoff tube at the level of the pyloric channel Chest X-Ray 09/10/17 00:00 CONCLUSION: Interval intubation with improved aeration Chest X-Ray 09/10/17 00:00 CONCLUSION: Improved exam with resolution of the right lower lobe airspace consolidation. Chest X-Ray 09/10/17 06:00 CONCLUSION: Prominent hazy bilateral pleural parenchymal opacity right worse than left Objective Remarks: GENERAL: 52 yo male currently resting in bed in no acute distress orotracheally intubated SKIN: Warm and dry. No rash HEAD: Normocephalic. EYES: No scleral icterus. No injection or drainage. ENT: Mucous members are moist and pink. Oropharynx without erythema NECK: Supple, trachea midline. No JVD or lymphadenopathy. CARDIOVASCULAR: Tachycardic, RR, NL S1, S2 without murmurs, gallops, or rubs. RESPIRATORY: Breath sounds equal bilaterally. No accessory muscle use. Bilateral end expiratory wheeze. Transmitted upper airway sounds are noted. Coarse crackles anteriorly and posterior bases. GASTROINTESTINAL: Abdomen soft, non-tender, nondistended. Hypoactive bowel sounds are appreciated MUSCULOSKELETAL: Anasarca/1+ upper lower extremity edema Neuro: Cranial nerves II through XII grossly intact. Strength 4-5 bilateral upper extremities and lower 1-2 out of 5. Sensation appears intact. Assessment and Plan - Assessment and Plan Plan: Neuro/Psych: Mood disorder with depression Paraplegia with mobility Acute metabolic encephalopathy Dementia disorder NOS Currently on propofol drip at 24 m/kg/min for sedation while intubated Goal of RASS -2 Daily sedation vacation EEG-encephalopathy, some burst suppression pattern. On valproic acid 250 mg twice daily, follow up on Valproic acid level in a.m. . Continue baclofen 20 mg 3 times daily/home medication Continue citalopram 20 mg daily/home medication for depression Continue gabapentin 100 mg 3 times daily/home medication Acetaminophen 650 mg by tube every 6 hours as needed fever Holding meloxicam/home medication Holding dantrolene unknown dosage. Pulm: Acute Respiratory Failure -hypoxic and hypercapnic PRVC 18/600/03/10/69 Ventilator bundle Albuterol/ipratropium aerosols every 4 hours with albuterol aerosols every 2 hours as needed for dyspnea Methylprednisolone succinate 60 mg IV every 8 hours Patient s/p bronch 09/01 showed thick cormier like secretions/mucous plugs suctioned to clear BAL performed RLL-cultures negative to date CXR 09/10: Minimal residual bibasilar densities, better aeration post intubation CV: Hypertension Hyperlipidemia Monitor HR and BP keep MAP>65mmHg Continue furosemide 40 mg IV twice daily Patient is on simvastatin 40 mg daily at home. Hospital substitution is pravastatin 80 mg daily Renal/FEN/: Neurogenic bladder Monitor renal function, electrolytes replacement per protocol. IV furosemide as above Received D50/insulin, bicarbonate and calcium. Recheck this afternoon GI: Gastroesophageal reflux disease Hypoalbuminemia History of external hemorrhoids Hyperammonia Glucerna 1.5 to goal 60 cc an hour to be resumed. Currently at 20 cc an hour Lansoprazole for GI prophylaxis Lactulose 30 cc twice daily, Xifaxan 550 twice daily. Recheck hemoglobin a.m. ID: [id number] Continue with abx (piperacillin/tazobactam, Zithromax,)monitor for signs of infections ( fever, WBC) ID is following. Follow up on BAL 09/01 cxs- NGTD BC 08/31: NGTD Strep pneumonia and Legionella Ag negative Sputum 09/06 no growth to date Heme: Leukocytosis Monitor CBC and follow trend Endo: Hyperglycemia SSI with Novulin R with Accu-Cheks to maintain euglycemia for glycemic control MSK Paraplegia PT evaluate and treat DVT GI prophylaxis -Teds SCDs -Subcu heparin -Lansoprazole Level 3
[2017-09-10] MEDS: Chlorhexidine 0.12% Oral Kit 15 ML UDC OROPHARYNG SCH ×2 (13:06→20:57)
[2017-09-10] MEDS: Propofol 1000 mg/100 ml Inj 1,000 MG/100 ML BOTTLE IV.CONT PRN ×2 (13:13→21:36)
[2017-09-10 13:26] LABS: Bacteria,Urine Few /hpf; Bilirubin,Urine Negative (Negative); Color,Urine Yellow (Yellw/Straw); Glucose,Urine (UA) Negative (Negative); Hyaline Casts,Urine 1 /lpf (0-3); Leukocyte Esterase,Urine Negative (Negative); Nitrite,Urine Negative (Negative); Specific Gravity,Urine 1.026 (1.002-1.035); Squamous Epithelial Cell,Urine <1 /hpf (0-5); Transitional Epi Cells,Urine <1 /hpf
[2017-09-10 13:27] LABS: Clarity,Urine Hazy (Clear)
[2017-09-10] MEDS: rifAXIMin 550 MG Tablet PO SCH (20:58)
[2017-09-11] MEDS: Oral Hygiene Kit OROPHARYNG SCH ×3 (04:40→15:48)
[2017-09-11] MEDS: Heparin - SQ 10,000 UNITS/ML Vial SQ SCH ×3 (04:40→19:50)
[2017-09-11] MEDS: Propofol 1000 mg/100 ml Inj 1,000 MG/100 ML BOTTLE IV.CONT PRN ×3 (04:41→18:50)
--- NOTE | 2017-09-11 05:04 | XR ---
EXAM DATE: 09/11/2017 4:55 AM EDT AGE/SEX: 52 years / Male INDICATIONS: Shortness of breath. CLINICAL DATA: This is the patient's subsequent encounter. Patient reports that signs and symptoms h ave been present for 1 week and indicates a pain score of Nonresponsive. MEDICAL/SURGICAL HISTORY: Non-responsive. Non-responsive. COMPARISON: C, CHEST 1V SINGLE AP, 09/10/2017. . FINDINGS: Endotracheal tube in good position. Feeding tube enters stomach. Bilateral mild basilar airspace dise ase and small effusions. No pneumothorax. Elevated right hemidiaphragm. CONCLUSION: Subsegmental basilar airspace disease with small effusions. Endotracheal tube and feeding tube in goo d position. Electronically signed by: Rajiv Parr MD 09/11/2017 5:02 AM EDT
[2017-09-11 05:09] LABS: Baso # (Auto) 0.1 th/mm3 (0.0-0.2); Baso % (Auto) 0.3 % (0.0-2.0); Eos % (Auto) 0.1 % (0.0-4.0); Hematocrit 44.4 % (39.0-51.0); Hemoglobin 14.6 gm/dL (13.0-17.0); Mean Corpuscular HGB Conc 32.9 % (32.0-36.0); Mean Corpuscular Hemoglobin 30.4 pg (27.0-34.0); Mean Corpuscular Volume 92.2 fL (80.0-100.0); Mean Platelet Volume 9.6 fL (7.0-11.0); Mono # (Auto) 1.2 th/mm3 (0.0-0.9); Mono % (Auto) 6.9 % (0.0-8.0); Neut # (Auto) 14.7 th/mm3 (1.8-7.7); Neut % (Auto) 86.7 % (16.0-70.0); Platelet Count 180 th/mm3 (150-450); Red Blood Count 4.81 mil/mm3 (4.50-5.90); Red Cell Distribution Width 15.6 % (11.6-17.2); White Blood Count 16.9 th/mm3 (4.0-11.0)
[2017-09-11 05:26] LABS: Alanine Aminotransferase 77 U/L (12-78); Albumin 2.9 g/dL (3.4-5.0); Alkaline Phosphatase 94 U/L (45-117); Anion Gap 14 meq/L (5-15); Aspartate Aminotransferase 39 U/L (15-37); Blood Urea Nitrogen 64 mg/dL (7-18); Calcium 10.2 mg/dL (8.5-10.1); Carbon Dioxide 26.6 meq/L (21.0-32.0); Chloride 96 meq/L (98-107); Glomerular Filtration Rate Greater Than 89 mL/min (>89); Glucose,Random 157 mg/dL (74-106); Magnesium 2.8 mg/dL (1.5-2.5); Phosphorus 4.7 mg/dL (2.5-4.9); Potassium 3.9 meq/L (3.5-5.1); Sodium 137 meq/L (136-145); Total Protein 7.1 g/dL (6.4-8.2)
[2017-09-11] MEDS: Insulin NovoLIN Regular Correctional Sugar Inj SQ SCH ×5 (05:58→19:49)
[2017-09-11] MEDS: Piperacil/Tazo 4.5 GM Premix 4.5 GM/100 ML BAG IV.SIG SCH ×2 (06:34→11:57)
[2017-09-11] MEDS: MethylPREDNISolone Sod Succinate Inj 40 MG/ML Vial IV.PUSH SCH ×3 (06:34→22:45)
[2017-09-11] MEDS: rifAXIMin 550 MG Tablet PO SCH ×2 (09:48→21:27)
[2017-09-11] MEDS: Gabapentin 100 MG Capsule PO SCH ×3 (09:48→17:27)
[2017-09-11] MEDS: Chlorhexidine 0.12% Oral Kit 15 ML UDC OROPHARYNG SCH ×2 (09:48→19:50)
[2017-09-11] MEDS: Divalproex 125 MG Sprinkles Capsule PO SCH ×2 (09:48→21:27)
[2017-09-11] MEDS: Azithromycin 250 MG Tablet PO SCH (09:48)
[2017-09-11] MEDS: Hypromellose 0.3% Opth Gel 10 GM Bottle EACH EYE SCH (09:49)
[2017-09-11] MEDS: Collagenase Oint 30 GM Tube TOPICAL SCH (09:49)
--- NOTE | 2017-09-11 11:45 | P.PNCC ---
Subjective Subjective Remarks/Hospital Course: 52-year-old male presents from shelter for an evaluation of hypoxemia, shortness of breath, and tachycardia and per paramedics elevated temperature with history of paraplegia with immobility, dyslipidemia, chronic cough, mood disorder with depression, pressure ulceration bilateral lower extremity knee contracture, prior Klebsiella pneumonia and morbid obesity. In the emergency department he appeared to be in respiratory distress and was placed by ED attending on the BiPAP. 09/01 Patient is on BIPAP 18/5 with 40% FIO2. Afebrile with intermittent confusion. CTA chest yesterday showed no PE, extensive consolidation right lung. 09/02 Patient was intubated yesterday and s/p bronch. Sedated with Diprivan and Fentanyl infusion. Afebrile. 09/03 No events overnight. Sedated with Diprivan and Fentanyl infusion. Afebrile. 09/04: Remains intubated, sedated with propofol. Eyes open, do not follow commands. Bilateral wheezing on exam. FiO2 remains high at 60%, O2 sat 92-94% 09/05: Remains sedated heavily for vent synchrony, FiO2 remains at 60%, will wean. Sputum cx negative. ETT advanced due to leak, will repeat CXR. Patient do not follow commands, but get agitated when sedation held 09/06: Remains sedated for ventilator synchrony. Oxygen saturation improved FiO2 down to 50%. Chest x-ray on my review shows pulmonary edema. Started scheduled Lasix scheduled Lasix yesterday, urine output excellent 5.5 L in 24 hours 09/07: Afebrile. Remains on propofol and fentanyl drips due to his significant agitation. 2 bite block placed overnight/Guedel airways related secondary to patient attempted to bite through ET tube.. One bowel movement yesterday 09/08 No events overnight. Sedated with Diprivan and Fentanyl drip. Afebrile. 09/09: Extubated yesterday without complication. Currently on 6 L nasal cannula. Swallow evaluation failed 2. Dobbhoff tube is in place. No bowel movement since 09/02. Subjective 09/10: Intubated overnight due to respiratory failure. Currently on PEEP of 12 and FiO2 90%. Ventilator is been adjusted. 2 feeds of been resumed. 09/11 Patient remains intubated and sedated, on PRVC with PEEP:10, FIO2 40% . Objective Vital Signs / I&O: Vital Signs 09/10/17 11:45 09/10/17 11:51 09/10/17 12:00 Temperature 101.8 F H Pulse Rate 127 H 128 H Respiratory Rate 24 24 24 Blood Pressure 108/63 110/63 Pulse Oximetry 95 95 95 09/10/17 12:15 09/10/17 12:30 09/10/17 12:45 Temperature Pulse Rate 128 H 121 H 119 H Respiratory Rate 25 H 24 23 Blood Pressure 101/55 L 87/53 L 89/57 L Pulse Oximetry 95 95 95 09/10/17 13:00 09/10/17 13:01 09/10/17 13:15 Temperature Pulse Rate 123 H 124 H 128 H Respiratory Rate 24 24 25 H Blood Pressure 118/58 L 107/56 L Pulse Oximetry 95 95 95 09/10/17 13:30 09/10/17 13:45 09/10/17 14:00 Temperature Pulse Rate 123 H 127 H 127 H Respiratory Rate 24 26 H 27 H Blood Pressure 110/54 L 105/58 L 101/59 L Pulse Oximetry 95 95 95 09/10/17 14:16 09/10/17 14:17 09/10/17 14:30 Temperature Pulse Rate 119 H 119 H 115 H Respiratory Rate 21 21 22 Blood Pressure 77/54 L 81/56 L 81/53 L Pulse Oximetry 94 L 95 91 L 09/10/17 14:45 09/10/17 14:47 09/10/17 14:56 Temperature Pulse Rate 111 H 111 H 110 H Respiratory Rate 24 24 24 Blood Pressure 81/50 L 79/50 L 78/52 L Pulse Oximetry 99 99 99 09/10/17 14:57 09/10/17 15:00 09/10/17 15:05 Temperature Pulse Rate 109 H 107 H 104 H Respiratory Rate 24 24 23 Blood Pressure 82/53 L 86/52 L 88/54 L Pulse Oximetry 99 99 99 09/10/17 15:15 09/10/17 15:30 09/10/17 15:45 Temperature Pulse Rate 101 H 98 H 91 H Respiratory Rate 23 23 22 Blood Pressure 89/54 L 91/58 L 97/61 L Pulse Oximetry 99 99 100 09/10/17 16:00 09/10/17 16:15 09/10/17 16:30 Temperature 100.1 F H Pulse Rate 85 87 85 Respiratory Rate 21 22 21 Blood Pressure 98/60 L 91/59 L 86/57 L Pulse Oximetry 100 100 100 09/10/17 16:45 09/10/17 17:00 09/10/17 17:15 Temperature Pulse Rate 84 83 82 Respiratory Rate 21 21 21 Blood Pressure 88/60 L 83/56 L 85/54 L Pulse Oximetry 100 100 100 09/10/17 17:30 09/10/17 17:31 09/10/17 17:41 Temperature 99.5 F Pulse Rate 77 77 82 Respiratory Rate 20 20 21 Blood Pressure 79/50 L 78/52 L 75/50 L Pulse Oximetry 100 100 99 09/10/17 17:42 09/10/17 17:50 09/10/17 18:00 Temperature Pulse Rate 79 81 83 Respiratory Rate 21 19 23 Blood Pressure 77/51 L 100/59 L 107/58 L Pulse Oximetry 99 99 99 09/10/17 18:11 09/10/17 18:20 09/10/17 18:30 Temperature Pulse Rate 79 69 69 Respiratory Rate 22 21 21 Blood Pressure 105/64 101/62 104/62 Pulse Oximetry 100 100 100 09/10/17 18:40 09/10/17 20:00 09/10/17 21:30 Temperature 97.8 F Pulse Rate 58 L 55 L 76 Respiratory Rate 19 19 22 Blood Pressure 99/58 L 94/57 L Pulse Oximetry 100 100 98 09/10/17 22:00 09/10/17 23:55 09/11/17 00:00 Temperature 98.0 F Pulse Rate 60 69 63 Respiratory Rate 18 18 Blood Pressure 86/54 L Pulse Oximetry 99 99 09/11/17 02:00 09/11/17 03:37 09/11/17 04:00 Temperature 97.7 F Pulse Rate 56 L 52 L 68 Respiratory Rate 18 20 Blood Pressure 100/59 L Pulse Oximetry 99 94 L 09/11/17 06:00 09/11/17 06:40 09/11/17 06:50 Temperature Pulse Rate 49 L 69 Respiratory Rate 18 Blood Pressure 115/64 109/64 Pulse Oximetry 94 L 09/11/17 07:00 09/11/17 07:10 09/11/17 07:20 Temperature Pulse Rate 56 L 55 L 49 L Respiratory Rate 18 18 18 Blood Pressure 108/59 L 105/61 103/60 Pulse Oximetry 95 95 95 09/11/17 07:30 09/11/17 07:40 09/11/17 07:50 Temperature Pulse Rate 52 L 49 L 54 L Respiratory Rate 18 18 18 Blood Pressure 103/60 105/59 L 104/60 Pulse Oximetry 95 95 95 09/11/17 08:00 09/11/17 08:01 09/11/17 08:10 Temperature 98.7 F Pulse Rate 47 L 47 L 50 L Respiratory Rate 18 18 18 Blood Pressure 115/68 111/67 Pulse Oximetry 97 96 96 09/11/17 08:20 09/11/17 08:28 09/11/17 08:30 Temperature Pulse Rate 53 L 57 L Respiratory Rate 18 18 18 Blood Pressure 104/61 119/68 Pulse Oximetry 95 96 96 09/11/17 08:40 09/11/17 08:51 09/11/17 09:00 Temperature Pulse Rate 58 L 54 L 55 L Respiratory Rate 18 18 18 Blood Pressure 92/53 L 114/65 110/65 Pulse Oximetry 95 96 96 09/11/17 09:10 09/11/17 09:20 09/11/17 09:30 Temperature Pulse Rate 53 L 53 L 51 L Respiratory Rate 18 18 18 Blood Pressure 116/66 112/65 118/67 Pulse Oximetry 95 95 96 09/11/17 09:40 09/11/17 09:50 09/11/17 10:00 Temperature Pulse Rate 54 L 54 L 57 L Respiratory Rate 18 18 18 Blood Pressure 111/66 115/67 108/65 Pulse Oximetry 95 95 95 09/11/17 10:10 09/11/17 10:20 09/11/17 10:30 Temperature Pulse Rate 55 L 55 L 57 L Respiratory Rate 18 18 18 Blood Pressure 112/66 112/68 104/64 Pulse Oximetry 95 95 96 09/11/17 10:40 Temperature Pulse Rate 58 L Respiratory Rate 18 Blood Pressure 102/62 Pulse Oximetry 95 Intake & Output 09/10/17 09/11/17 09/11/17 18:59 06:59 18:59 Intake Total 1617 / 1617 769 / 769 100 / 100 Output Total 400 / 400 825 / 825 Balance 1217 / 1217 -56 / -56 100 / 100 Weight 97 kg Intake: IV 1200 / 1200 300 / 300 100 / 100 Diprivan 1000 mg/100 ml Inj 1, 200 / 200 000 mg In 100 ml @ 5 MCG/KG/MIN 3.105 mls/hr IV.CONT TITRATE PRN Rx#:[id number] LR 1000 mL Inj 1,000 ML @ 1000 1000 / 1000 mls/hr IV.SIG .Q1H ONE Rx#: [id number] Zosyn 4.5 GM Premix 4.5 gm In 200 / 200 100 / 100 100 / 100 100 ml @ 200 mls/hr IV.SIG Q6H ABENA Rx#:[id number] Tube Feeding 297 / 297 469 / 469 Water Bolus Amount 120 / 120 Output: Urine Amount (Catheter) 400 / 400 825 / 825 Indwelling Urethral Catheter 400 / 400 825 / 825 Other: Date of Last Bowel Movement 09/09/17 09/09/17 09/09/17 Result Diagrams: 09/11/17 04:17 09/11/17 04:17 Other Results: Abnormal Lab Results 09/10/17 09/10/17 09/10/17 11:15 11:16 13:11 WBC RBC Hgb Hct MCV MCH MCHC RDW Plt Count MPV Neut % (Auto) Lymph % (Auto) Grant % (Auto) Eos % (Auto) Baso % (Auto) Neut # (Auto) Lymph # (Auto) Grant # (Auto) Eos # (Auto) Baso # (Auto) WBC Differential Differential Comment Sodium Potassium Chloride Carbon Dioxide Anion Gap BUN Creatinine Estimated GFR POC Glucose 108 Random Glucose Lactic Acid 2.6 H Calcium Phosphorus Magnesium Total Bilirubin AST ALT Alkaline Phosphatase Ammonia Total Protein Albumin Urine Color Yellow Urine Clarity Hazy H Urine pH 5.0 Ur Specific Otis 1.026 Urine Protein 100 H Urine Glucose (UA) Negative Urine Ketones Negative Urine Occult Blood Negative Urine Nitrate Negative Urine Bilirubin Negative Urine Urobilinogen 2.0 H Ur Leukocyte Esterase Negative Urine WBC 17 H Ur Squamous Epith Cells <1 Ur Transition Epith Cell <1 Urine Bacteria Few H Hyaline Casts 1 Micro UA Comment Cath-culture ind Urine Culture Comments Cath-cult indicated 09/10/17 09/10/17 09/10/17 17:31 20:20 23:50 WBC RBC Hgb Hct MCV MCH MCHC RDW Plt Count MPV Neut % (Auto) Lymph % (Auto) Grant % (Auto) Eos % (Auto) Baso % (Auto) Neut # (Auto) Lymph # (Auto) Grant # (Auto) Eos # (Auto) Baso # (Auto) WBC Differential Differential Comment Sodium Potassium Chloride Carbon Dioxide Anion Gap BUN Creatinine Estimated GFR POC Glucose 127 H 141 H 142 H Random Glucose Lactic Acid Calcium Phosphorus Magnesium Total Bilirubin AST ALT Alkaline Phosphatase Ammonia Total Protein Albumin Urine Color Urine Clarity Urine pH Ur Specific Otis Urine Protein Urine Glucose (UA) Urine Ketones Urine Occult Blood Urine Nitrate Urine Bilirubin Urine Urobilinogen Ur Leukocyte Esterase Urine WBC Ur Squamous Epith Cells Ur Transition Epith Cell Urine Bacteria Hyaline Casts Micro UA Comment Urine Culture Comments 09/11/17 09/11/17 09/11/17 04:17 04:17 04:17 WBC 16.9 H RBC 4.81 Hgb 14.6 D Hct 44.4 MCV 92.2 MCH 30.4 MCHC 32.9 RDW 15.6 Plt Count 180 D MPV 9.6 Neut % (Auto) 86.7 H Lymph % (Auto) 6.0 L Grant % (Auto) 6.9 Eos % (Auto) 0.1 Baso % (Auto) 0.3 Neut # (Auto) 14.7 H Lymph # (Auto) 1.0 Grant # (Auto) 1.2 H Eos # (Auto) 0.0 Baso # (Auto) 0.1 WBC Differential . Differential Comment Auto diff final Sodium 137 Potassium 3.9 Chloride 96 L Carbon Dioxide 26.6 Anion Gap 14 BUN 64 H Creatinine 0.87 Estimated GFR Greater than 89 POC Glucose Random Glucose 157 H Lactic Acid Calcium 10.2 H D Phosphorus 4.7 Magnesium 2.8 H Total Bilirubin 0.5 AST 39 H ALT 77 Alkaline Phosphatase 94 Ammonia 47 H Total Protein 7.1 D Albumin 2.9 L D Urine Color Urine Clarity Urine pH Ur Specific Otis Urine Protein Urine Glucose (UA) Urine Ketones Urine Occult Blood Urine Nitrate Urine Bilirubin Urine Urobilinogen Ur Leukocyte Esterase Urine WBC Ur Squamous Epith Cells Ur Transition Epith Cell Urine Bacteria Hyaline Casts Micro UA Comment Urine Culture Comments 09/11/17 09/11/17 08:20 11:39 WBC RBC Hgb Hct MCV MCH MCHC RDW Plt Count MPV Neut % (Auto) Lymph % (Auto) Grant % (Auto) Eos % (Auto) Baso % (Auto) Neut # (Auto) Lymph # (Auto) Grant # (Auto) Eos # (Auto) Baso # (Auto) WBC Differential Differential Comment Sodium Potassium Chloride Carbon Dioxide Anion Gap BUN Creatinine Estimated GFR POC Glucose 150 H 157 H Random Glucose Lactic Acid Calcium Phosphorus Magnesium Total Bilirubin AST ALT Alkaline Phosphatase Ammonia Total Protein Albumin Urine Color Urine Clarity Urine pH Ur Specific [place] Urine Protein Urine Glucose (UA) Urine Ketones Urine Occult Blood Urine Nitrate Urine Bilirubin Urine Urobilinogen Ur Leukocyte Esterase Urine WBC Ur Squamous Epith Cells Ur Transition Epith Cell Urine Bacteria Hyaline Casts Micro UA Comment Urine Culture Comments Imaging: Abdomen/Bladder Ultrasound 08/31/17 00:00 CONCLUSION: 1. 11 mm left midlung calculus. 2. No evidence of hydronephrosis. 3. Otherwise normal appearing kidneys. Chest CTA 08/31/17 00:00 CONCLUSION: 1. No evidence of pulmonary embolism. 2. Extensive consolidation in the right lung and patchy infiltrates elsewhere in both lungs. 3. Moderately enlarged mediastinal lymph node. Abdomen X-Ray 09/09/17 00:00 CONCLUSION: Dobbhoff tube at the level of the pyloric channel Chest X-Ray 09/11/17 06:00 CONCLUSION: Subsegmental basilar airspace disease with small effusions. Endotracheal tube and feeding tube in good position. Objective Remarks: GENERAL: 52 yo male currently resting in bed in no acute distress orotracheally intubated SKIN: Warm and dry. No rash HEAD: Normocephalic. EYES: No scleral icterus. No injection or drainage. ENT: Mucous members are moist and pink. Oropharynx without erythema NECK: Supple, trachea midline. No JVD or lymphadenopathy. CARDIOVASCULAR: Tachycardic, RR, NL S1, S2 without murmurs, gallops, or rubs. RESPIRATORY: Breath sounds equal bilaterally. No accessory muscle use. Bilateral end expiratory wheeze. Transmitted upper airway sounds are noted. Coarse crackles anteriorly and posterior bases. GASTROINTESTINAL: Abdomen soft, non-tender, nondistended. Hypoactive bowel sounds are appreciated MUSCULOSKELETAL: Anasarca/1+ upper lower extremity edema Neuro: Intubated, sedated Assessment and Plan - Assessment and Plan Plan: Neuro/Psych: Mood disorder with depression Paraplegia with mobility Acute metabolic encephalopathy Dementia disorder NOS Currently on propofol drip at 20 m/kg/min for sedation while intubated Goal of RASS -2 Daily sedation vacation EEG-encephalopathy, some burst suppression pattern. On valproic acid 250 mg twice daily, follow up on Valproic acid level 16 on 09/10 Continue baclofen 20 mg 3 times daily/home medication Continue citalopram 20 mg daily/home medication for depression Continue gabapentin 100 mg 3 times daily/home medication Acetaminophen 650 mg by tube every 6 hours as needed fever Holding meloxicam/home medication Holding dantrolene unknown dosage. Pulm: Acute Respiratory Failure -hypoxic and hypercapnic PRVC 18/600/1/10/40, decrease PEEP:5 Ventilator bundle Albuterol/ipratropium aerosols every 4 hours with albuterol aerosols every 2 hours as needed for dyspnea Methylprednisolone succinate 60 mg IV every 8 hours Patient s/p bronch 09/01 showed thick cormier like secretions/mucous plugs suctioned to clear BAL performed RLL-cultures negative to date CXR basilar airspace disease CV: Hypertension Hyperlipidemia Monitor HR and BP keep MAP>65mmHg simvastatin 40 mg daily at home. Hospital substitution is pravastatin 80 mg daily Renal/FEN/: Neurogenic bladder Monitor renal function, electrolytes replacement per protocol. d/c Lasix GI: Gastroesophageal reflux disease Hypoalbuminemia History of external hemorrhoids Hyperammonia Glucerna 1.5 to goal 60 cc an hour to be resumed. Currently at 40 cc an hour Lansoprazole for GI prophylaxis Lactulose 30 cc twice daily, Xifaxan 550 twice daily. ID: [id number] Continue with abx (piperacillin/tazobactam, Zithromax,)monitor for signs of infections ( fever, WBC) ID is following. Follow up on BAL 09/01 cxs- NGTD BC 08/31: NGTD Strep pneumonia and Legionella Ag negative Sputum 09/06 no growth to date Heme: Leukocytosis Monitor CBC and follow trend Endo: Hyperglycemia SSI with Novulin R with Accu-Cheks to maintain euglycemia for glycemic control MSK Paraplegia PT evaluate and treat DVT GI prophylaxis -Teds SCDs -Subcu heparin -Lansoprazole Level 3
--- NOTE | 2017-09-11 13:03 | P.PNID ---
Subjective Remarks: He is a 52-year-old male, who is a resident of the longterm, brought to the hospital for evaluation of shortness of breath, hypoxemia, and tachycardic. According to the paramedics he had an elevated temp. Got some information from the nurse, patient did not have any Vernon when he presented, and a Vernon catheter was placed. Since admission he has required BiPAP for oxygenation. He has been febrile. Urinalysis showed significant pyuria. His blood pressures seem to be holding, and he is not requiring any pressors. His WBC is mildly elevated at 11.7. Lactic acid is normal. Creatinine is normal. Chest x -ray showing some infiltrates. Infectious disease consultation has been requested to assist with evaluation and treatment of patient with sepsis. Notes reviewed. Discussed with RN. He was extubated 09/08, but reintubated 09/09 Had volume loss on R side, better after intubation Temps ok BP ok Comfortable on the vent Repeat C/S pending WBC went up to 33K yesterday down to 16K today Antibiotics: Zosyn Zithromax Lines: No evidence of infection Past Medical History: Dementia Depression GERD (gastroesophageal reflux disease) Hemorrhoids Hyperlipidemia Paraplegia UTI (urinary tract infection) H/O exploratory laparotomy History of cholecystectomy Allergies/Adverse Reactions: Allergies No Known Allergies Allergy (Verified 08/31/17 00:16) Objective Vital Signs 09/10/17 13:00 09/10/17 13:01 09/10/17 13:15 Temperature Pulse Rate 123 H 124 H 128 H Respiratory Rate 24 24 25 H Blood Pressure 118/58 L 107/56 L Pulse Oximetry 95 95 95 09/10/17 13:30 09/10/17 13:45 09/10/17 14:00 Temperature Pulse Rate 123 H 127 H 127 H Respiratory Rate 24 26 H 27 H Blood Pressure 110/54 L 105/58 L 101/59 L Pulse Oximetry 95 95 95 09/10/17 14:16 09/10/17 14:17 09/10/17 14:30 Temperature Pulse Rate 119 H 119 H 115 H Respiratory Rate 21 21 22 Blood Pressure 77/54 L 81/56 L 81/53 L Pulse Oximetry 94 L 95 91 L 09/10/17 14:45 09/10/17 14:47 09/10/17 14:56 Temperature Pulse Rate 111 H 111 H 110 H Respiratory Rate 24 24 24 Blood Pressure 81/50 L 79/50 L 78/52 L Pulse Oximetry 99 99 99 09/10/17 14:57 09/10/17 15:00 09/10/17 15:05 Temperature Pulse Rate 109 H 107 H 104 H Respiratory Rate 24 24 23 Blood Pressure 82/53 L 86/52 L 88/54 L Pulse Oximetry 99 99 99 09/10/17 15:15 09/10/17 15:30 09/10/17 15:45 Temperature Pulse Rate 101 H 98 H 91 H Respiratory Rate 23 23 22 Blood Pressure 89/54 L 91/58 L 97/61 L Pulse Oximetry 99 99 100 09/10/17 16:00 09/10/17 16:15 09/10/17 16:30 Temperature 100.1 F H Pulse Rate 85 87 85 Respiratory Rate 21 22 21 Blood Pressure 98/60 L 91/59 L 86/57 L Pulse Oximetry 100 100 100 09/10/17 16:45 09/10/17 17:00 09/10/17 17:15 Temperature Pulse Rate 84 83 82 Respiratory Rate 21 21 21 Blood Pressure 88/60 L 83/56 L 85/54 L Pulse Oximetry 100 100 100 09/10/17 17:30 09/10/17 17:31 09/10/17 17:41 Temperature 99.5 F Pulse Rate 77 77 82 Respiratory Rate 20 20 21 Blood Pressure 79/50 L 78/52 L 75/50 L Pulse Oximetry 100 100 99 09/10/17 17:42 09/10/17 17:50 09/10/17 18:00 Temperature Pulse Rate 79 81 83 Respiratory Rate 21 19 23 Blood Pressure 77/51 L 100/59 L 107/58 L Pulse Oximetry 99 99 99 09/10/17 18:11 09/10/17 18:20 09/10/17 18:30 Temperature Pulse Rate 79 69 69 Respiratory Rate 22 21 21 Blood Pressure 105/64 101/62 104/62 Pulse Oximetry 100 100 100 09/10/17 18:40 09/10/17 20:00 09/10/17 21:30 Temperature 97.8 F Pulse Rate 58 L 55 L 76 Respiratory Rate 19 19 22 Blood Pressure 99/58 L 94/57 L Pulse Oximetry 100 100 98 09/10/17 22:00 09/10/17 23:55 09/11/17 00:00 Temperature 98.0 F Pulse Rate 60 69 63 Respiratory Rate 18 18 Blood Pressure 86/54 L Pulse Oximetry 99 99 09/11/17 02:00 09/11/17 03:37 09/11/17 04:00 Temperature 97.7 F Pulse Rate 56 L 52 L 68 Respiratory Rate 18 20 Blood Pressure 100/59 L Pulse Oximetry 99 94 L 09/11/17 06:00 09/11/17 06:40 09/11/17 06:50 Temperature Pulse Rate 49 L 69 Respiratory Rate 18 Blood Pressure 115/64 109/64 Pulse Oximetry 94 L 09/11/17 07:00 09/11/17 07:10 09/11/17 07:20 Temperature Pulse Rate 56 L 55 L 49 L Respiratory Rate 18 18 18 Blood Pressure 108/59 L 105/61 103/60 Pulse Oximetry 95 95 95 09/11/17 07:30 09/11/17 07:40 09/11/17 07:50 Temperature Pulse Rate 52 L 49 L 54 L Respiratory Rate 18 18 18 Blood Pressure 103/60 105/59 L 104/60 Pulse Oximetry 95 95 95 09/11/17 08:00 09/11/17 08:01 09/11/17 08:10 Temperature 98.7 F Pulse Rate 47 L 47 L 50 L Respiratory Rate 18 18 18 Blood Pressure 115/68 111/67 Pulse Oximetry 97 96 96 09/11/17 08:20 09/11/17 08:28 09/11/17 08:30 Temperature Pulse Rate 53 L 57 L Respiratory Rate 18 18 18 Blood Pressure 104/61 119/68 Pulse Oximetry 95 96 96 09/11/17 08:40 09/11/17 08:51 09/11/17 09:00 Temperature Pulse Rate 58 L 54 L 55 L Respiratory Rate 18 18 18 Blood Pressure 92/53 L 114/65 110/65 Pulse Oximetry 95 96 96 09/11/17 09:10 09/11/17 09:20 09/11/17 09:30 Temperature Pulse Rate 53 L 53 L 51 L Respiratory Rate 18 18 18 Blood Pressure 116/66 112/65 118/67 Pulse Oximetry 95 95 96 09/11/17 09:40 09/11/17 09:50 09/11/17 10:00 Temperature Pulse Rate 54 L 54 L 57 L Respiratory Rate 18 18 18 Blood Pressure 111/66 115/67 108/65 Pulse Oximetry 95 95 95 09/11/17 10:10 09/11/17 10:20 09/11/17 10:30 Temperature Pulse Rate 55 L 55 L 57 L Respiratory Rate 18 18 18 Blood Pressure 112/66 112/68 104/64 Pulse Oximetry 95 95 96 09/11/17 10:40 09/11/17 12:32 Temperature Pulse Rate 58 L Respiratory Rate 18 21 Blood Pressure 102/62 Pulse Oximetry 95 Intake & Output 09/10/17 09/11/17 09/11/17 18:59 06:59 18:59 Intake Total 1617 / 1617 769 / 769 100 / 100 Output Total 400 / 400 825 / 825 Balance 1217 / 1217 -56 / -56 100 / 100 Weight 97 kg Intake: IV 1200 / 1200 300 / 300 100 / 100 Diprivan 1000 mg/100 ml Inj 1, 200 / 200 000 mg In 100 ml @ 5 MCG/KG/MIN 3.105 mls/hr IV.CONT TITRATE PRN Rx#:[id number] LR 1000 mL Inj 1,000 ML @ 1000 1000 / 1000 mls/hr IV.SIG .Q1H ONE Rx#: [id number] Zosyn 4.5 GM Premix 4.5 gm In 200 / 200 100 / 100 100 / 100 100 ml @ 200 mls/hr IV.SIG Q6H ABENA Rx#:[id number] Tube Feeding 297 / 297 469 / 469 Water Bolus Amount 120 / 120 Output: Urine Amount (Catheter) 400 / 400 825 / 825 Indwelling Urethral Catheter 400 / 400 825 / 825 Other: Date of Last Bowel Movement 09/09/17 09/09/17 09/09/17 09/10/17 11:16 Blood - Peripheral Aerobic Blood Culture - Preliminary No growth in 1 day 09/10/17 11:16 Blood - Peripheral Anaerobic Blood Culture - Preliminary No growth in 1 day 09/10/17 11:10 Blood - Peripheral Aerobic Blood Culture - Preliminary No growth in 1 day 09/10/17 11:10 Blood - Peripheral Anaerobic Blood Culture - Preliminary No growth in 1 day 09/10/17 09:30 Sputum - Endotracheal Gram Stain - Final 09/10/17 09:30 Sputum - Endotracheal Sputum Culture - Pending 09/10/17 11:15 Catheterized Urine Urine Culture - Pending 09/10/17 11:00 Nasal Wash Influenza Types A,B Antigen - Final Negative for FLU A and B antigen Infection due to influenza A or B cannot be ruled out since the antigen present in the sample may be below the detection limit of the test. 09/06/17 10:45 Sputum - Endotracheal Gram Stain - Final 09/06/17 10:45 Sputum - Endotracheal Sputum Culture - Final Rare growth normal respiratory cher Lab - Hematology Results 09/10/17 09/11/17 05:44 04:17 WBC 33.4 H D 16.9 H RBC 5.55 4.81 Hgb 16.6 14.6 D Hct 50.8 44.4 MCV 91.7 92.2 MCH 29.8 30.4 MCHC 32.5 32.9 RDW 15.7 15.6 Plt Count 354 D 180 D MPV 9.3 9.6 Prelim Diff (Auto) Slide review pending Neut % (Auto) 88.8 H 86.7 H Lymph % (Auto) 3.7 L 6.0 L [place] % (Auto) 7.2 6.9 Eos % (Auto) 0.0 0.1 Baso % (Auto) 0.3 0.3 Neut # (Auto) 29.7 H 14.7 H Lymph # (Auto) 1.2 1.0 [place] # (Auto) 2.4 H 1.2 H Eos # (Auto) 0.0 0.0 Baso # (Auto) 0.1 0.1 WBC Differential Manual diff final . Seg Neuts % (Manual) 89 H Band Neuts % (Manual) 1 Lymphocytes % (Manual) 5 L Monocytes % (Manual) 4 Metamyelocytes % (Man) 1 Abs Neuts (Manual) 30.4 H Differential Comment . Auto diff final Platelet Estimate Normal Platelet Morphology Normal RBC Morphology Normal Lab - Chemistry Results 09/09/17 09/09/17 09/09/17 17:21 17:24 19:58 Sodium Potassium 4.3 D Chloride Carbon Dioxide Anion Gap BUN Creatinine Estimated GFR POC Glucose 118 H 125 H Random Glucose Lactic Acid Calcium Phosphorus Magnesium Total Bilirubin AST ALT Alkaline Phosphatase Ammonia Total Protein Albumin 09/10/17 09/10/17 09/10/17 01:15 05:02 05:44 Sodium 137 Potassium 4.1 Chloride 94 L Carbon Dioxide 28.9 Anion Gap 14 BUN 53 H Creatinine 0.95 Estimated GFR 83 L POC Glucose 127 H 170 H Random Glucose 154 H Lactic Acid Calcium 11.1 H D Phosphorus Magnesium 2.7 H Total Bilirubin 0.6 AST 40 H ALT 63 Alkaline Phosphatase 117 Ammonia Total Protein 8.1 D Albumin 3.5 09/10/17 09/10/17 09/10/17 05:44 08:48 11:16 Sodium Potassium Chloride Carbon Dioxide Anion Gap BUN Creatinine Estimated GFR POC Glucose 116 H Random Glucose Lactic Acid 2.6 H Calcium Phosphorus Magnesium Total Bilirubin AST ALT Alkaline Phosphatase Ammonia 74 H Total Protein Albumin 09/10/17 09/10/17 09/10/17 13:11 17:31 20:20 Sodium Potassium Chloride Carbon Dioxide Anion Gap BUN Creatinine Estimated GFR POC Glucose 108 127 H 141 H Random Glucose Lactic Acid Calcium Phosphorus Magnesium Total Bilirubin AST ALT Alkaline Phosphatase Ammonia Total Protein Albumin 09/10/17 09/11/17 09/11/17 23:50 04:17 04:17 Sodium 137 Potassium 3.9 Chloride 96 L Carbon Dioxide 26.6 Anion Gap 14 BUN 64 H Creatinine 0.87 Estimated GFR Greater than 89 POC Glucose 142 H Random Glucose 157 H Lactic Acid Calcium 10.2 H D Phosphorus 4.7 Magnesium 2.8 H Total Bilirubin 0.5 AST 39 H ALT 77 Alkaline Phosphatase 94 Ammonia 47 H Total Protein 7.1 D Albumin 2.9 L D 09/11/17 09/11/17 08:20 11:39 Sodium Potassium Chloride Carbon Dioxide Anion Gap BUN Creatinine Estimated GFR POC Glucose 150 H 157 H Random Glucose Lactic Acid Calcium Phosphorus Magnesium Total Bilirubin AST ALT Alkaline Phosphatase Ammonia Total Protein Albumin Imaging: ITS Impressions Abdomen/Bladder Ultrasound 08/31/17 00:00 CONCLUSION: 1. 11 mm left midlung calculus. 2. No evidence of hydronephrosis. 3. Otherwise normal appearing kidneys. Chest CTA 08/31/17 00:00 CONCLUSION: 1. No evidence of pulmonary embolism. 2. Extensive consolidation in the right lung and patchy infiltrates elsewhere in both lungs. 3. Moderately enlarged mediastinal lymph node. Abdomen X-Ray 09/09/17 00:00 CONCLUSION: Dobbhoff tube at the level of the pyloric channel Chest X-Ray 09/11/17 06:00 CONCLUSION: Subsegmental basilar airspace disease with small effusions. Endotracheal tube and feeding tube in good position. Physical Exam: GENERAL: Awake. Tracking. Comfortable on the vent SKIN: Cool and dry. No generalized rash. HEAD: Atraumatic. Normocephalic. No temporal wasting, or tenderness. EYES: [place] conjunctiva. No petechia or hemorrhage. Pupils equal, round and reactive to light. No scleral icterus. No injection or drainage. NECK: Trachea midline. Supple. CARDIOVASCULAR: Regular rate and rhythm. No murmurs, rubs or gallops. RESPIRATORY: Rhonchi upper lung hernandez, decreased breath sounds bases worse on L than R ABDOMEN: obese, distended. Bowel sounds present and normoactive. He has a long midline incision which looks like an exp lap, and has a cholecystectomy scar in RUQ. EXTREMITIES: No clubbing, cyanosis. Has no pedal edema. No calf tenderness. NEUROLOGICAL: Awake and tracking : Vernon in place, Clear yellow urine. LINE: No evidence of infection Assessment and Plan - Plan Impression Sepsis on presentation, patient came from [facility] - has lung infiltrates, and SOB, C/W HCAP - also with UTI HCAP, C/S bronch negative Leukocytosis Respiratory failure, recurrent Hx paraplegia Encephalopathy Recommendation Change Zosyn to Levaquin Stop Zithromax Follow new sputum G/S C/S Monitor temps Monitor progress D/W RN
[2017-09-11] MEDS ORDERED: Mineral Oil Enema 118 ML Bottle RECTAL ONE (23:53)
[2017-09-12] MEDS: Hypromellose 0.3% Opth Gel 10 GM Bottle EACH EYE SCH ×3 (00:25→21:43)
[2017-09-12] MEDS: Oral Hygiene Kit OROPHARYNG SCH ×4 (00:25→15:17)
[2017-09-12] MEDS: Insulin NovoLIN Regular Correctional Sugar Inj SQ SCH ×6 (00:33→23:01)
[2017-09-12 04:23] LABS: Baso % (Auto) 0.1 % (0.0-2.0); Hematocrit 41.8 % (39.0-51.0); Hemoglobin 13.9 gm/dL (13.0-17.0); Mean Corpuscular HGB Conc 33.2 % (32.0-36.0); Mean Corpuscular Hemoglobin 30.3 pg (27.0-34.0); Mean Corpuscular Volume 91.4 fL (80.0-100.0); Mean Platelet Volume 9.5 fL (7.0-11.0); Mono # (Auto) 1.3 th/mm3 (0.0-0.9); Mono % (Auto) 7.6 % (0.0-8.0); Neut # (Auto) 14.5 th/mm3 (1.8-7.7); Neut % (Auto) 86.3 % (16.0-70.0); Platelet Count 196 th/mm3 (150-450); Red Blood Count 4.58 mil/mm3 (4.50-5.90); Red Cell Distribution Width 15.3 % (11.6-17.2); White Blood Count 16.8 th/mm3 (4.0-11.0)
[2017-09-12] MEDS: Heparin - SQ 10,000 UNITS/ML Vial SQ SCH ×3 (04:34→21:42)
[2017-09-12 04:52] LABS: Alanine Aminotransferase 91 U/L (12-78); Albumin 2.9 g/dL (3.4-5.0); Alkaline Phosphatase 87 U/L (45-117); Anion Gap 15 meq/L (5-15); Aspartate Aminotransferase 41 U/L (15-37); Blood Urea Nitrogen 53 mg/dL (7-18); Calcium 9.8 mg/dL (8.5-10.1); Carbon Dioxide 28.2 meq/L (21.0-32.0); Chloride 97 meq/L (98-107); Glomerular Filtration Rate Greater Than 89 mL/min (>89); Glucose,Random 125 mg/dL (74-106); Potassium 3.7 meq/L (3.5-5.1); Sodium 140 meq/L (136-145); Total Protein 6.9 g/dL (6.4-8.2)
[2017-09-12] MEDS: MethylPREDNISolone Sod Succinate Inj 40 MG/ML Vial IV.PUSH SCH ×3 (05:49→21:43)
[2017-09-12] MEDS: Propofol 1000 mg/100 ml Inj 1,000 MG/100 ML BOTTLE IV.CONT PRN ×6 (06:06→23:03)
[2017-09-12] MEDS: rifAXIMin 550 MG Tablet PO SCH ×2 (08:08→21:42)
[2017-09-12] MEDS: Gabapentin 100 MG Capsule PO SCH ×3 (08:08→17:13)
[2017-09-12] MEDS: Collagenase Oint 30 GM Tube TOPICAL SCH (08:09)
[2017-09-12] MEDS: Divalproex 125 MG Sprinkles Capsule PO SCH ×2 (08:09→21:42)
[2017-09-12] MEDS: Chlorhexidine 0.12% Oral Kit 15 ML UDC OROPHARYNG SCH ×2 (08:09→21:43)
--- NOTE | 2017-09-12 13:21 | P.PNCC ---
Subjective Subjective Remarks/Hospital Course: 52-year-old male presents from shelter for an evaluation of hypoxemia, shortness of breath, and tachycardia and per paramedics elevated temperature with history of paraplegia with immobility, dyslipidemia, chronic cough, mood disorder with depression, pressure ulceration bilateral lower extremity knee contracture, prior Klebsiella pneumonia and morbid obesity. In the emergency department he appeared to be in respiratory distress and was placed by ED attending on the BiPAP. 09/01 Patient is on BIPAP 18/5 with 40% FIO2. Afebrile with intermittent confusion. CTA chest yesterday showed no PE, extensive consolidation right lung. 09/02 Patient was intubated yesterday and s/p bronch. Sedated with Diprivan and Fentanyl infusion. Afebrile. 09/03 No events overnight. Sedated with Diprivan and Fentanyl infusion. Afebrile. 09/04: Remains intubated, sedated with propofol. Eyes open, do not follow commands. Bilateral wheezing on exam. FiO2 remains high at 60%, O2 sat 92-94% 09/05: Remains sedated heavily for vent synchrony, FiO2 remains at 60%, will wean. Sputum cx negative. ETT advanced due to leak, will repeat CXR. Patient do not follow commands, but get agitated when sedation held 09/06: Remains sedated for ventilator synchrony. Oxygen saturation improved FiO2 down to 50%. Chest x-ray on my review shows pulmonary edema. Started scheduled Lasix scheduled Lasix yesterday, urine output excellent 5.5 L in 24 hours 09/07: Afebrile. Remains on propofol and fentanyl drips due to his significant agitation. 2 bite block placed overnight/Guedel airways related secondary to patient attempted to bite through ET tube.. One bowel movement yesterday 09/08 No events overnight. Sedated with Diprivan and Fentanyl drip. Afebrile. 09/09: Extubated yesterday without complication. Currently on 6 L nasal cannula. Swallow evaluation failed 2. Dobbhoff tube is in place. No bowel movement since 09/02. 09/10: Intubated overnight due to respiratory failure. Currently on PEEP of 12 and FiO2 90%. Ventilator is been adjusted. 2 feeds of been resumed. 09/11 Patient remains intubated and sedated, on PRVC with PEEP:10, FIO2 40% Subjective 09/12: Afebrile. Remains on 40% FiO2. Propofol drip at 50 mcg/kg/min. PEEP is still at 10. Objective Vital Signs / I&O: Vital Signs 09/11/17 13:20 09/11/17 13:31 09/11/17 13:40 Temperature Pulse Rate 79 80 81 Respiratory Rate 19 19 20 Blood Pressure 107/61 109/64 112/64 Pulse Oximetry 92 L 92 L 92 L 09/11/17 13:50 09/11/17 14:00 09/11/17 14:10 Temperature Pulse Rate 78 81 82 Respiratory Rate 18 18 19 Blood Pressure 112/70 106/64 110/68 Pulse Oximetry 95 95 97 09/11/17 14:20 09/11/17 14:30 09/11/17 14:40 Temperature Pulse Rate 83 84 84 Respiratory Rate 20 20 21 Blood Pressure 114/66 111/67 122/78 Pulse Oximetry 94 L 94 L 97 09/11/17 14:50 09/11/17 15:00 09/11/17 15:10 Temperature Pulse Rate 85 93 H 87 Respiratory Rate 21 20 20 Blood Pressure 119/72 94/63 L 106/63 Pulse Oximetry 96 93 L 94 L 09/11/17 15:20 09/11/17 15:30 09/11/17 15:40 Temperature Pulse Rate 83 83 80 Respiratory Rate 18 19 18 Blood Pressure 101/61 112/63 108/60 Pulse Oximetry 94 L 94 L 94 L 09/11/17 15:50 09/11/17 16:00 09/11/17 16:10 Temperature 98.1 F Pulse Rate 71 66 66 Respiratory Rate 18 18 18 Blood Pressure 105/62 100/57 L 97/58 L Pulse Oximetry 95 95 95 09/11/17 16:33 09/11/17 18:00 09/11/17 20:00 Temperature 97.7 F Pulse Rate 82 69 Respiratory Rate 18 20 Blood Pressure 106/66 Pulse Oximetry 95 94 L 09/11/17 20:55 09/11/17 22:00 09/12/17 00:00 Temperature 97.9 F Pulse Rate 70 88 Respiratory Rate 18 19 Blood Pressure 99/69 L Pulse Oximetry 94 L 92 L 09/12/17 00:07 09/12/17 00:10 09/12/17 00:21 Temperature Pulse Rate 96 H Respiratory Rate 19 19 Blood Pressure 106/70 99/64 L Pulse Oximetry 93 L 89 L 09/12/17 00:30 09/12/17 00:40 09/12/17 00:50 Temperature Pulse Rate 89 84 79 Respiratory Rate 18 18 18 Blood Pressure 99/69 L 96/65 L 108/63 Pulse Oximetry 91 L 92 L 93 L 09/12/17 01:00 09/12/17 01:10 09/12/17 01:20 Temperature Pulse Rate 78 74 72 Respiratory Rate 18 17 18 Blood Pressure 111/64 109/68 118/72 Pulse Oximetry 93 L 94 L 94 L 09/12/17 01:30 09/12/17 01:40 09/12/17 01:50 Temperature Pulse Rate 70 71 77 Respiratory Rate 20 18 18 Blood Pressure 118/75 116/74 114/71 Pulse Oximetry 94 L 93 L 92 L 09/12/17 02:00 09/12/17 02:10 09/12/17 02:20 Temperature Pulse Rate 74 77 71 Respiratory Rate 17 18 18 Blood Pressure 121/72 110/66 112/69 Pulse Oximetry 92 L 92 L 92 L 09/12/17 02:30 09/12/17 02:40 09/12/17 02:50 Temperature Pulse Rate 76 79 76 Respiratory Rate 18 18 18 Blood Pressure 110/68 108/68 109/63 Pulse Oximetry 93 L 91 L 93 L 09/12/17 03:00 09/12/17 03:31 09/12/17 04:00 Temperature 97.9 F Pulse Rate 75 77 77 Respiratory Rate 18 18 24 Blood Pressure 104/65 98/58 L 99/58 L Pulse Oximetry 92 L 93 L 94 L 09/12/17 04:48 09/12/17 05:00 09/12/17 06:00 Temperature Pulse Rate 63 67 Respiratory Rate 18 18 18 Blood Pressure Pulse Oximetry 94 L 92 L 93 L 09/12/17 07:00 09/12/17 07:07 09/12/17 07:30 Temperature Pulse Rate 76 82 81 Respiratory Rate 21 18 18 Blood Pressure 141/82 H 132/75 Pulse Oximetry 97 96 97 09/12/17 08:00 09/12/17 08:01 09/12/17 08:30 Temperature 98.9 F Pulse Rate 80 84 70 Respiratory Rate 20 20 18 Blood Pressure 154/77 H 154/77 H 124/75 Pulse Oximetry 96 96 97 09/12/17 10:00 09/12/17 11:43 Temperature Pulse Rate 87 Respiratory Rate 18 Blood Pressure Pulse Oximetry 96 Intake & Output 09/11/17 09/12/17 09/12/17 18:59 06:59 18:59 Intake Total 909 / 909 247 / 247 100 / 100 Output Total 1050 / 1050 850 / 850 Balance -141 / -141 -603 / -603 100 / 100 Weight 97 kg Intake: IV 450 / 450 100 / 100 Diprivan 1000 mg/100 ml Inj 1, 200 / 200 100 / 100 000 mg In 100 ml @ 5 MCG/KG/MIN 3.105 mls/hr IV.CONT TITRATE PRN Rx#:[id number] Levaquin 750 mg Premix Inj 150 150 / 150 ML @ 100 mls/hr IV.SIG Q24H ABENA Rx#:[id number] Zosyn 4.5 GM Premix 4.5 gm In 100 / 100 100 ml @ 200 mls/hr IV.SIG Q6H ABENA Rx#:[id number] Tube Feeding 409 / 409 127 / 127 Tube Irrigant 120 / 120 Water Bolus Amount 50 / 50 Output: Urine 850 / 850 Urine Amount (Catheter) 1050 / 1050 Indwelling Urethral Catheter 1050 / 1050 Other: Date of Last Bowel Movement 09/09/17 09/12/17 09/12/17 # Bowel Movements 0 2 # Incontinent Bowel Movements 2 Result Diagrams: 09/12/17 03:26 09/12/17 03:26 Other Results: Microbiology 09/10/17 11:16 Blood - Peripheral Aerobic Blood Culture - Preliminary No growth in 2 days 09/10/17 11:16 Blood - Peripheral Anaerobic Blood Culture - Preliminary No growth in 2 days 09/10/17 11:10 Blood - Peripheral Aerobic Blood Culture - Preliminary No growth in 2 days 09/10/17 11:10 Blood - Peripheral Anaerobic Blood Culture - Preliminary No growth in 2 days 09/10/17 11:15 Catheterized Urine Urine Culture - Final No growth in 48 hours 09/10/17 09:30 Sputum - Endotracheal Gram Stain - Final 09/10/17 09:30 Sputum - Endotracheal Sputum Culture - Final Heavy growth normal respiratory cher 09/10/17 11:00 Nasal Wash Influenza Types A,B Antigen - Final Negative for FLU A and B antigen Infection due to influenza A or B cannot be ruled out since the antigen present in the sample may be below the detection limit of the test. 09/06/17 10:45 Sputum - Endotracheal Gram Stain - Final 09/06/17 10:45 Sputum - Endotracheal Sputum Culture - Final Rare growth normal respiratory cher 08/31/17 00:25 Blood - Peripheral Aerobic Blood Culture - Final No growth in 5 days 08/31/17 00:25 Blood - Peripheral Anaerobic Blood Culture - Final No growth in 5 days 08/31/17 00:30 Blood - Peripheral Aerobic Blood Culture - Final No growth in 5 days 08/31/17 00:30 Blood - Peripheral Anaerobic Blood Culture - Final No growth in 5 days 09/01/17 09:30 Bronchial - Right Lower Lobe Gram Stain - Final 09/01/17 09:30 Bronchial - Right Lower Lobe Bronchial Culture - Final No growth in 48 hours 08/31/17 02:50 Catheterized Urine Urine Culture - Final 50-100,000 cfu/mL mixed cher (probable contaminants ) 08/31/17 02:50 Urine - Catheterized Urine Streptococcus pneumoniae Antigen ( M - Final Presumptive negative for streptococcus pneumoniae antigen, suggesting no current or recent infection. Infection due to Streptococcus pneumoniae cannot be ruled out since the antigen present in the sample may be below the detection limit of the test. 08/31/17 02:50 Urine - Catheterized Urine Legionella Antigen - Final Presumptive negative for Legionella pneumophila serogroup 1 antigen in urine, suggesting no recent or recurrent infection. Infection due to Legionella cannot be ruled out since other serogroups and species may cause disease, antigen may not be present in urine in early infection, and the level of antigen present in the urine may be below the detection limit of the test. Imaging: Abdomen/Bladder Ultrasound 08/31/17 00:00 CONCLUSION: 1. 11 mm left midlung calculus. 2. No evidence of hydronephrosis. 3. Otherwise normal appearing kidneys. Chest CTA 08/31/17 00:00 CONCLUSION: 1. No evidence of pulmonary embolism. 2. Extensive consolidation in the right lung and patchy infiltrates elsewhere in both lungs. 3. Moderately enlarged mediastinal lymph node. Chest X-Ray 08/31/17 00:08 CONCLUSION: Elevation of the right hemidiaphragm and right lower lung consolidation. Patchy infiltrates in left lower lung. Cardiomegaly. Chest X-Ray 09/01/17 00:00 CONCLUSION: 1. The endotracheal tube and NG tube appear to be in good position. 2. No evidence of pneumothorax. 3. There is parenchymal consolidation in the right lung base with an increasing infiltrate in the right upper lung. Chest X-Ray 09/01/17 00:00 CONCLUSION: There are scattered bilateral pulmonary infiltrates. No evidence of pneumothorax. Abdomen X-Ray 09/03/17 08:04 CONCLUSION: Prominent loop of bowel in the right abdomen. Chest X-Ray 09/04/17 00:00 CONCLUSION: 1. No significant interval change. 2. Stable patchy bilateral mid to lower lung zone airspace disease. Chest X-Ray 09/05/17 00:00 CONCLUSION: No significant change with the bilateral pulmonary infiltrates compared to the prior study. Chest X-Ray 09/05/17 06:00 CONCLUSION: 1. ETT at the level of the clavicles. NGT beyond the GE junction. 2. Stable patchy diffuse bilateral airspace disease. Chest X-Ray 09/06/17 06:00 CONCLUSION: 1. No significant interval change. 2. Stable ETT and NGT. 3. Stable bilateral patchy airspace disease. Chest X-Ray 09/08/17 06:00 CONCLUSION: Lungs are better aerated. Minimal residual bibasilar densities. Abdomen X-Ray 09/09/17 00:00 CONCLUSION: Dobbhoff tube at the level of the pyloric channel Chest X-Ray 09/10/17 00:00 CONCLUSION: Interval intubation with improved aeration Chest X-Ray 09/10/17 00:00 CONCLUSION: Improved exam with resolution of the right lower lobe airspace consolidation. Chest X-Ray 09/10/17 06:00 CONCLUSION: Prominent hazy bilateral pleural parenchymal opacity right worse than left Chest X-Ray 09/11/17 06:00 CONCLUSION: Subsegmental basilar airspace disease with small effusions. Endotracheal tube and feeding tube in good position. Objective Remarks: GENERAL: 52 yo male currently resting in bed in no acute distress orotracheally intubated SKIN: Warm and dry. No rash HEAD: Normocephalic. EYES: No scleral icterus. No injection or drainage. ENT: Mucous members are moist and pink. Oropharynx without erythema NECK: Supple, trachea midline. No JVD or lymphadenopathy. CARDIOVASCULAR: RRR, NL S1, S2 without murmurs, gallops, or rubs. RESPIRATORY: Breath sounds equal bilaterally. No accessory muscle use. Bilateral end expiratory wheeze. Transmitted upper airway sounds are noted. Coarse crackles anteriorly and posterior bases. GASTROINTESTINAL: Abdomen soft, non-tender, nondistended. Hypoactive bowel sounds are appreciated MUSCULOSKELETAL: Anasarca/1+ upper lower extremity edema Neuro: Cranial nerves II through XII grossly intact. Strength is 3 out of 5 bilateral upper extremity's. 2 out of 5 bilateral lower extremity's. Assessment and Plan - Assessment and Plan Plan: Neuro/Psych: Mood disorder with depression Paraplegia with mobility Acute metabolic encephalopathy Dementia disorder NOS Currently on propofol drip at 50 m/kg/min for sedation while intubated Goal of RASS -2 Daily sedation vacation EEG-encephalopathy, some burst suppression pattern. On valproic acid 250 mg twice daily, follow up on Valproic acid level 16 on 09/10 Continue baclofen 20 mg 3 times daily/home medication Continue citalopram 20 mg daily/home medication for depression Continue gabapentin 100 mg 3 times daily/home medication Acetaminophen 650 mg by tube every 6 hours as needed fever Holding meloxicam/home medication Holding dantrolene unknown dosage. Pulm: Acute Respiratory Failure -hypoxic and hypercapnic PRVC 18/600/1//40, decrease PEEP:8 Ventilator bundle Albuterol/ipratropium aerosols every 4 hours with albuterol aerosols every 2 hours as needed for dyspnea Methylprednisolone succinate 40 mg IV every 8 hours Patient s/p bronch 09/01 showed thick cormier like secretions/mucous plugs suctioned to clear BAL performed RLL-cultures negative to date CXR basilar airspace disease CV: Hypertension Hyperlipidemia Monitor HR and BP keep MAP>65mmHg Currently not requiring vasopressors and/or antihypertensives simvastatin 40 mg daily at home. Hospital substitution is pravastatin 80 mg daily Renal/FEN/: Neurogenic bladder Monitor renal function, electrolytes replacement per protocol. d/c Lasix GI: Gastroesophageal reflux disease Hypoalbuminemia History of external hemorrhoids Hyperammonia Elevated AST/ALT likely secondary congestion Glucerna 1.5 to goal 60 cc an hour to be resumed. Currently at 30 cc an hour Lansoprazole for GI prophylaxis Lactulose 30 cc twice daily, Xifaxan 550 twice daily. Check KUB. 2 bowel movements ID: HAP Continue with abx (p levofloxacin,)monitor for signs of infections ( fever, WBC) ID is following. Follow up on BAL 09/01 cxs- NGTD BC 08/31: NGTD Strep pneumonia and Legionella Ag negative Sputum 09/06 no growth to date 09/10 blood cultures 2, urine culture and sputum no growth to date Heme: Leukocytosis Monitor CBC and follow trend Endo: Hyperglycemia SSI with Novulin R with Accu-Cheks to maintain euglycemia for glycemic control MSK Paraplegia PT evaluate and treat DVT GI prophylaxis -Teds SCDs -Subcu heparin -Lansoprazole Level 3
--- NOTE | 2017-09-12 14:48 | XR ---
EXAM DATE: 09/12/2017 2:22 PM EDT AGE/SEX: 52 years / Male INDICATIONS: Abdominal distention. CLINICAL DATA: This is the patient's initial encounter. Patient reports that signs and symptoms have been present for 1 day and indicates a pain score of Nonresponsive. MEDICAL/SURGICAL HISTORY: . Gastroesophageal reflux disease. Dementia. Depression. Hyperlipidem ia. Paraplegia. Urinary tract infection. . . Cholecystectomy. COMPARISON: [facility] – [place], ABDOMEN [place], 09/09/2017. . FINDINGS: The examination demonstrates gaseous distention of multiple loops of both small and large bowel sugge sting adynamic ileus. There is a feeding tube present with the distal tip of the tube in the pyloric channel. CONCLUSION: Gaseous distention of multiple loops of small and large bowel. Study would suggest adynamic ileus. Fo llow-up for resolution would be warranted. Electronically signed by: Oscar Meyer MD 09/12/2017 2:46 PM EDT
[2017-09-13] MEDS: Oral Hygiene Kit OROPHARYNG SCH ×4 (00:01→15:32)
[2017-09-13] MEDS: Insulin NovoLIN Regular Correctional Sugar Inj SQ SCH ×6 (01:33→20:45)
[2017-09-13] MEDS: Heparin - SQ 10,000 UNITS/ML Vial SQ SCH ×3 (04:48→20:56)
[2017-09-13] MEDS: MethylPREDNISolone Sod Succinate Inj 40 MG/ML Vial IV.PUSH SCH ×2 (05:24→20:58)
[2017-09-13] MEDS: Propofol 1000 mg/100 ml Inj 1,000 MG/100 ML BOTTLE IV.CONT PRN ×6 (05:24→22:35)
[2017-09-13 05:27] LABS: Baso # (Auto) 0.1 th/mm3 (0.0-0.2); Baso % (Auto) 0.7 % (0.0-2.0); Eos % (Auto) 0.2 % (0.0-4.0); Hematocrit 39.3 % (39.0-51.0); Hemoglobin 13.3 gm/dL (13.0-17.0); Lymph # (Auto) 1.8 th/mm3 (1.0-4.8); Lymph % (Auto) 16.1 % (9.0-44.0); Mean Corpuscular Hemoglobin 31.1 pg (27.0-34.0); Mean Corpuscular Volume 91.5 fL (80.0-100.0); Mean Platelet Volume 10.1 fL (7.0-11.0); Mono # (Auto) 1.3 th/mm3 (0.0-0.9); Mono % (Auto) 11.9 % (0.0-8.0); Neut # (Auto) 7.9 th/mm3 (1.8-7.7); Neut % (Auto) 71.1 % (16.0-70.0); Platelet Count 187 th/mm3 (150-450); Red Blood Count 4.29 mil/mm3 (4.50-5.90); Red Cell Distribution Width 15.7 % (11.6-17.2); White Blood Count 11.2 th/mm3 (4.0-11.0)
[2017-09-13 05:50] LABS: Alanine Aminotransferase 84 U/L (12-78); Alkaline Phosphatase 81 U/L (45-117); Anion Gap 9 meq/L (5-15); Aspartate Aminotransferase 38 U/L (15-37); Blood Urea Nitrogen 42 mg/dL (7-18); Calcium 9.1 mg/dL (8.5-10.1); Carbon Dioxide 30.4 meq/L (21.0-32.0); Chloride 98 meq/L (98-107); Glomerular Filtration Rate Greater Than 89 mL/min (>89); Glucose,Random 106 mg/dL (74-106); Magnesium 2.5 mg/dL (1.5-2.5); Phosphorus 2.7 mg/dL (2.5-4.9); Potassium 3.4 meq/L (3.5-5.1); Sodium 137 meq/L (136-145); Total Protein 6.7 g/dL (6.4-8.2)
--- NOTE | 2017-09-13 05:53 | XR ---
EXAM DATE: 09/13/2017 5:50 AM EDT AGE/SEX: 52 years / Male INDICATIONS: . Shortness of breath. CLINICAL DATA: This is the patient's subsequent encounter. Patient reports that signs and symptoms h ave been present for 1 week and indicates a pain score of Nonresponsive. MEDICAL/SURGICAL HISTORY: Non-responsive. Non-responsive. COMPARISON: [facility], CHEST 1V SINGLE [facility], 09/11/2017. . FINDINGS: Endotracheal tube in good position. Feeding tube enters stomach. Mild basilar airspace disease. No pn eumothorax. CONCLUSION: Endotracheal tube and feeding tube in good position. Mild basilar airspace disease. Electronically signed by: Rajiv Parr MD 09/13/2017 5:52 AM EDT
[2017-09-13] MEDS: Potassium Chlor 20 mEq Premix 20 MEQ/100 ML PIGGYBACK IV.SIG PRN ×2 (06:01→08:45)
[2017-09-13] MEDS ORDERED: fentaNYL 10 mcg/mL Premix Drip 2,500 MCG/250 ML BAG IV.SIG PRN (07:18)
[2017-09-13] MEDS: Gabapentin 100 MG Capsule PO SCH ×3 (08:46→17:57)
[2017-09-13] MEDS: rifAXIMin 550 MG Tablet PO SCH ×2 (08:46→20:57)
[2017-09-13] MEDS: Divalproex 125 MG Sprinkles Capsule PO SCH ×2 (08:46→20:55)
[2017-09-13] MEDS: Chlorhexidine 0.12% Oral Kit 15 ML UDC OROPHARYNG SCH ×2 (08:47→20:45)
[2017-09-13] MEDS: Collagenase Oint 30 GM Tube TOPICAL SCH (08:47)
[2017-09-13] MEDS: Hypromellose 0.3% Opth Gel 10 GM Bottle EACH EYE SCH ×2 (08:47→21:08)
[2017-09-13] MEDS: Midazolam 50 MG/50 ML Inj 50 MG/50 ML BAG IV.CONT PRN (08:48)
--- NOTE | 2017-09-13 10:12 | P.PNID ---
Subjective Remarks: He is a 52-year-old male, who [facility], brought to the hospital for evaluation of shortness of breath, hypoxemia, and tachycardic. According to the paramedics he had an elevated temp. Got some information from the nurse, patient did not have any Vernon when he presented, and a Vernon catheter was placed. Since admission he has required BiPAP for oxygenation. He has been febrile. Urinalysis showed significant pyuria. His blood pressures seem to be holding, and he is not requiring any pressors. His WBC is mildly elevated at 11.7. Lactic acid is normal. Creatinine is normal. Chest x -ray showing some infiltrates. Infectious disease consultation has been requested to assist with evaluation and treatment of patient with sepsis. Notes reviewed. Temps ok On the vent Last CXR with mild basilar disease Last sputum with normal resp cher WBC better BP ok Antibiotics: Levaquin Lines: No evidence of infection Past Medical History: Dementia Depression GERD (gastroesophageal reflux disease) Hemorrhoids Hyperlipidemia Paraplegia UTI (urinary tract infection) H/O exploratory laparotomy History of cholecystectomy Allergies/Adverse Reactions: Allergies No Known Allergies Allergy (Verified 08/31/17 00:16) Objective Vital Signs 09/12/17 11:43 09/12/17 12:00 09/12/17 14:00 Temperature 99.3 F Pulse Rate 84 76 Respiratory Rate 18 18 Blood Pressure 123/73 Pulse Oximetry 96 96 09/12/17 15:12 09/12/17 16:00 09/12/17 18:00 Temperature 99.2 F Pulse Rate 72 64 Respiratory Rate 18 18 Blood Pressure 114/75 Pulse Oximetry 98 99 09/12/17 20:00 09/12/17 20:32 09/12/17 22:00 Temperature 98.9 F Pulse Rate 71 62 Respiratory Rate 18 18 Blood Pressure 128/71 Pulse Oximetry 100 99 09/12/17 23:37 09/13/17 00:00 09/13/17 02:00 Temperature 97.9 F Pulse Rate 75 67 Respiratory Rate 18 18 Blood Pressure 107/60 Pulse Oximetry 98 100 09/13/17 03:45 09/13/17 04:00 09/13/17 04:23 Temperature 97.9 F Pulse Rate 87 80 Respiratory Rate 18 18 18 Blood Pressure 117/65 Pulse Oximetry 100 98 09/13/17 05:31 09/13/17 09:13 Temperature Pulse Rate 72 Respiratory Rate 18 Blood Pressure Pulse Oximetry 98 Intake & Output 09/12/17 09/13/17 09/13/17 18:59 06:59 18:59 Intake Total 709 / 709 875 / 875 110 / 110 Output Total 525 / 525 650 / 650 Balance 184 / 184 225 / 225 110 / 110 Weight 97 kg Intake: IV 450 / 450 280 / 280 110 / 110 Diprivan 1000 mg/100 ml Inj 1, 300 / 300 280 / 280 10 / 10 000 mg In 100 ml @ 5 MCG/KG/MIN 3.105 mls/hr IV.CONT TITRATE PRN Rx#:[id number] Levaquin 750 mg Premix Inj 150 150 / 150 ML @ 100 mls/hr IV.SIG Q24H ABENA Rx#:[id number] KCl 20 mEq Premix Inj 20 meq In 100 / 100 100 ml @ 50 mls/hr IV.SIG Q2H PRN Rx#:[id number] Tube Feeding 234 / 234 395 / 395 Tube Irrigant 200 / 200 Water Bolus Amount 25 / 25 Output: Urine 650 / 650 Urine Amount (Catheter) 525 / 525 Indwelling Urethral Catheter 525 / 525 Other: Date of Last Bowel Movement 09/12/17 09/13/17 # Bowel Movements 2 3 # Incontinent Bowel Movements 3 09/10/17 11:16 Blood - Peripheral Aerobic Blood Culture - Preliminary No growth in 2 days 09/10/17 11:16 Blood - Peripheral Anaerobic Blood Culture - Preliminary No growth in 2 days 09/10/17 11:10 Blood - Peripheral Aerobic Blood Culture - Preliminary No growth in 2 days 09/10/17 11:10 Blood - Peripheral Anaerobic Blood Culture - Preliminary No growth in 2 days 09/10/17 11:15 Catheterized Urine Urine Culture - Final No growth in 48 hours 09/10/17 09:30 Sputum - Endotracheal Gram Stain - Final 09/10/17 09:30 Sputum - Endotracheal Sputum Culture - Final Heavy growth normal respiratory cher 09/10/17 11:00 Nasal Wash Influenza Types A,B Antigen - Final Negative for FLU A and B antigen Infection due to influenza A or B cannot be ruled out since the antigen present in the sample may be below the detection limit of the test. Lab - Hematology Results 09/12/17 09/13/17 03:26 05:04 WBC 16.8 H 11.2 H RBC 4.58 4.29 L Hgb 13.9 13.3 Hct 41.8 39.3 MCV 91.4 91.5 MCH 30.3 31.1 MCHC 33.2 34.0 RDW 15.3 15.7 Plt Count 196 187 MPV 9.5 10.1 Prelim Diff (Auto) Slide review pending Neut % (Auto) 86.3 H 71.1 H Lymph % (Auto) 6.0 L 16.1 [place] % (Auto) 7.6 11.9 H Eos % (Auto) 0.0 0.2 Baso % (Auto) 0.1 0.7 Neut # (Auto) 14.5 H 7.9 H Lymph # (Auto) 1.0 1.8 [place] # (Auto) 1.3 H 1.3 H Eos # (Auto) 0.0 0.0 Baso # (Auto) 0.0 0.1 WBC Differential . . Diff Scan Auto diff confirmed Differential Comment . Auto diff final Lab - Chemistry Results 09/11/17 09/11/17 09/11/17 11:39 16:04 19:48 Sodium Potassium Chloride Carbon Dioxide Anion Gap BUN Creatinine Estimated GFR POC Glucose 157 H 138 H 125 H Random Glucose Calcium Phosphorus Magnesium Total Bilirubin AST ALT Alkaline Phosphatase Ammonia Total Protein Albumin 09/12/17 09/12/17 09/12/17 00:28 03:26 04:15 Sodium 140 Potassium 3.7 Chloride 97 L Carbon Dioxide 28.2 Anion Gap 15 BUN 53 H Creatinine 0.70 Estimated GFR Greater than 89 POC Glucose 129 H 121 H Random Glucose 125 H Calcium 9.8 Phosphorus Magnesium Total Bilirubin 0.5 AST 41 H ALT 91 H Alkaline Phosphatase 87 Ammonia Total Protein 6.9 Albumin 2.9 L 09/12/17 09/12/17 09/12/17 07:41 11:56 16:04 Sodium Potassium Chloride Carbon Dioxide Anion Gap BUN Creatinine Estimated GFR POC Glucose 123 H 131 H 163 H Random Glucose Calcium Phosphorus Magnesium Total Bilirubin AST ALT Alkaline Phosphatase Ammonia Total Protein Albumin 09/12/17 09/13/17 09/13/17 21:50 01:32 04:49 Sodium Potassium Chloride Carbon Dioxide Anion Gap BUN Creatinine Estimated GFR POC Glucose 123 H 123 H 103 Random Glucose Calcium Phosphorus Magnesium Total Bilirubin AST ALT Alkaline Phosphatase Ammonia Total Protein Albumin 09/13/17 09/13/17 09/13/17 05:04 05:04 07:40 Sodium 137 Potassium 3.4 L Chloride 98 Carbon Dioxide 30.4 Anion Gap 9 BUN 42 H Creatinine 0.67 Estimated GFR Greater than 89 POC Glucose 118 H Random Glucose 106 Calcium 9.1 Phosphorus 2.7 Magnesium 2.5 Total Bilirubin 0.5 AST 38 H ALT 84 H Alkaline Phosphatase 81 Ammonia 53 H Total Protein 6.7 Albumin 3.0 L Imaging: ITS Impressions Abdomen/Bladder Ultrasound 08/31/17 00:00 CONCLUSION: 1. 11 mm left midlung calculus. 2. No evidence of hydronephrosis. 3. Otherwise normal appearing kidneys. Chest CTA 08/31/17 00:00 CONCLUSION: 1. No evidence of pulmonary embolism. 2. Extensive consolidation in the right lung and patchy infiltrates elsewhere in both lungs. 3. Moderately enlarged mediastinal lymph node. Abdomen X-Ray 09/12/17 00:00 CONCLUSION: Gaseous distention of multiple loops of small and large bowel. Study would suggest adynamic ileus. Follow-up for resolution would be warranted. Chest X-Ray 09/13/17 06:00 CONCLUSION: Endotracheal tube and feeding tube in good position. Mild basilar airspace disease. Physical Exam: GENERAL: Awake. Tracking. Comfortable on the vent SKIN: Cool and dry. No generalized rash. HEAD: Atraumatic. Normocephalic. No temporal wasting, or tenderness. EYES: [place] conjunctiva. No petechia or hemorrhage. Pupils equal, round and reactive to light. No scleral icterus. No injection or drainage. NECK: Trachea midline. Supple. CARDIOVASCULAR: Regular rate and rhythm. No murmurs, rubs or gallops. RESPIRATORY: Scattered rhonchi, decreased at bases ABDOMEN: obese, distended. Bowel sounds present and normoactive. He has a long midline incision which looks like an exp lap, and has a cholecystectomy scar in RUQ. EXTREMITIES: No clubbing, cyanosis. Has no pedal edema. No calf tenderness. NEUROLOGICAL: Awake and tracking : Vernon in place, Clear yellow urine. LINE: No evidence of infection Assessment and Plan - Plan Impression Sepsis on presentation, patient came from SNF - has lung infiltrates, and SOB, C/W HCAP - also with UTI HCAP, C/S bronch negative Leukocytosis Respiratory failure, recurrent Hx paraplegia Encephalopathy Recommendation Continue Levaquin - change to po - End date ordered Monitor temps Monitor progress Weaning per CCMm as tolerated, ?may need trach
[2017-09-13] MEDS: levoFLOXacin 750 MG Tablet PO SCH (12:02)
[2017-09-13] MEDS ORDERED: Methylnaltrexone Inj 12 MG/0.6 ML Vial SQ ONE (12:22)
[2017-09-13] MEDS ORDERED: Mineral Oil Enema 118 ML Bottle RECTAL ONE (12:22)
--- NOTE | 2017-09-13 12:33 | P.PNCC ---
Subjective Subjective Remarks/Hospital Course: 52-year-old male presents from snf for an evaluation of hypoxemia, shortness of breath, and tachycardia and per paramedics elevated temperature with history of paraplegia with immobility, dyslipidemia, chronic cough, mood disorder with depression, pressure ulceration bilateral lower extremity knee contracture, prior Klebsiella pneumonia and morbid obesity. In the emergency department he appeared to be in respiratory distress and was placed by ED attending on the BiPAP. 09/01 Patient is on BIPAP 18/5 with 40% FIO2. Afebrile with intermittent confusion. CTA chest yesterday showed no PE, extensive consolidation right lung. 09/02 Patient was intubated yesterday and s/p bronch. Sedated with Diprivan and Fentanyl infusion. Afebrile. 09/03 No events overnight. Sedated with Diprivan and Fentanyl infusion. Afebrile. 09/04: Remains intubated, sedated with propofol. Eyes open, do not follow commands. Bilateral wheezing on exam. FiO2 remains high at 60%, O2 sat 92-94% 09/05: Remains sedated heavily for vent synchrony, FiO2 remains at 60%, will wean. Sputum cx negative. ETT advanced due to leak, will repeat CXR. Patient do not follow commands, but get agitated when sedation held 09/06: Remains sedated for ventilator synchrony. Oxygen saturation improved FiO2 down to 50%. Chest x-ray on my review shows pulmonary edema. Started scheduled Lasix scheduled Lasix yesterday, urine output excellent 5.5 L in 24 hours 09/07: Afebrile. Remains on propofol and fentanyl drips due to his significant agitation. 2 bite block placed overnight/Guedel airways related secondary to patient attempted to bite through ET tube.. One bowel movement yesterday 09/08 No events overnight. Sedated with Diprivan and Fentanyl drip. Afebrile. 09/09: Extubated yesterday without complication. Currently on 6 L nasal cannula. Swallow evaluation failed 2. Dobbhoff tube is in place. No bowel movement since 09/02. 09/10: Intubated overnight due to respiratory failure. Currently on PEEP of 12 and FiO2 90%. Ventilator is been adjusted. 2 feeds of been resumed. 09/11 Patient remains intubated and sedated, on PRVC with PEEP:10, FIO2 40% 09/12: Afebrile. Remains on 40% FiO2. Propofol drip at 50 mcg/kg/min. PEEP is still at 10. Subjective 09/13: Afebrile. Abdominal x-ray yesterday revealed likely adynamic ileus. Will check CT abdomen and pelvis today. Patient is currently being decompressed from above. Will receive methylnaltrexone and enema today.. Was tolerating tube feeds at goal. Objective Vital Signs / I&O: Vital Signs 09/12/17 14:00 09/12/17 15:12 09/12/17 16:00 Temperature 99.2 F Pulse Rate 76 72 Respiratory Rate 18 18 Blood Pressure 114/75 Pulse Oximetry 98 99 09/12/17 18:00 09/12/17 20:00 09/12/17 20:32 Temperature 98.9 F Pulse Rate 64 71 Respiratory Rate 18 18 Blood Pressure 128/71 Pulse Oximetry 100 99 09/12/17 22:00 09/12/17 23:37 09/13/17 00:00 Temperature 97.9 F Pulse Rate 62 75 Respiratory Rate 18 18 Blood Pressure 107/60 Pulse Oximetry 98 100 09/13/17 02:00 09/13/17 03:45 09/13/17 04:00 Temperature 97.9 F Pulse Rate 67 87 80 Respiratory Rate 18 18 Blood Pressure 117/65 Pulse Oximetry 100 09/13/17 04:23 09/13/17 05:31 09/13/17 08:00 Temperature 98.9 F Pulse Rate 72 75 Respiratory Rate 18 18 Blood Pressure 127/76 Pulse Oximetry 98 98 09/13/17 09:13 09/13/17 10:00 09/13/17 12:00 Temperature 98.4 F Pulse Rate 77 84 Respiratory Rate 18 18 Blood Pressure 132/90 Pulse Oximetry 98 99 Intake & Output 09/12/17 09/13/17 09/13/17 18:59 06:59 18:59 Intake Total 709 / 709 875 / 875 210 / 210 Output Total 525 / 525 650 / 650 Balance 184 / 184 225 / 225 210 / 210 Weight 97 kg Intake: IV 450 / 450 280 / 280 210 / 210 Diprivan 1000 mg/100 ml Inj 1, 300 / 300 280 / 280 110 / 110 000 mg In 100 ml @ 5 MCG/KG/MIN 3.105 mls/hr IV.CONT TITRATE PRN Rx#:[id number] Levaquin 750 mg Premix Inj 150 150 / 150 ML @ 100 mls/hr IV.SIG Q24H ABENA Rx#:[id number] KCl 20 mEq Premix Inj 20 meq In 100 / 100 100 ml @ 50 mls/hr IV.SIG Q2H PRN Rx#:[id number] Tube Feeding 234 / 234 395 / 395 Tube Irrigant 200 / 200 Water Bolus Amount 25 / 25 Output: Urine 650 / 650 Urine Amount (Catheter) 525 / 525 Indwelling Urethral Catheter 525 / 525 Other: Date of Last Bowel Movement 09/12/17 09/13/17 09/12/17 # Bowel Movements 2 3 # Incontinent Bowel Movements 3 Result Diagrams: 09/13/17 05:04 09/13/17 05:04 Other Results: Microbiology 09/10/17 11:16 Blood - Peripheral Aerobic Blood Culture - Preliminary No growth in 3 days 09/10/17 11:16 Blood - Peripheral Anaerobic Blood Culture - Preliminary No growth in 3 days 09/10/17 11:10 Blood - Peripheral Aerobic Blood Culture - Preliminary No growth in 3 days 09/10/17 11:10 Blood - Peripheral Anaerobic Blood Culture - Preliminary No growth in 3 days 09/10/17 11:15 Catheterized Urine Urine Culture - Final No growth in 48 hours 09/10/17 09:30 Sputum - Endotracheal Gram Stain - Final 09/10/17 09:30 Sputum - Endotracheal Sputum Culture - Final Heavy growth normal respiratory cher 09/10/17 11:00 Nasal Wash Influenza Types A,B Antigen - Final Negative for FLU A and B antigen Infection due to influenza A or B cannot be ruled out since the antigen present in the sample may be below the detection limit of the test. 09/06/17 10:45 Sputum - Endotracheal Gram Stain - Final 09/06/17 10:45 Sputum - Endotracheal Sputum Culture - Final Rare growth normal respiratory cher 08/31/17 00:25 Blood - Peripheral Aerobic Blood Culture - Final No growth in 5 days 08/31/17 00:25 Blood - Peripheral Anaerobic Blood Culture - Final No growth in 5 days 08/31/17 00:30 Blood - Peripheral Aerobic Blood Culture - Final No growth in 5 days 08/31/17 00:30 Blood - Peripheral Anaerobic Blood Culture - Final No growth in 5 days 09/01/17 09:30 Bronchial - Right Lower Lobe Gram Stain - Final 09/01/17 09:30 Bronchial - Right Lower Lobe Bronchial Culture - Final No growth in 48 hours 08/31/17 02:50 Catheterized Urine Urine Culture - Final 50-100,000 cfu/mL mixed cher (probable contaminants ) 08/31/17 02:50 Urine - Catheterized Urine Streptococcus pneumoniae Antigen ( M - Final Presumptive negative for streptococcus pneumoniae antigen, suggesting no current or recent infection. Infection due to Streptococcus pneumoniae cannot be ruled out since the antigen present in the sample may be below the detection limit of the test. 08/31/17 02:50 Urine - Catheterized Urine Legionella Antigen - Final Presumptive negative for Legionella pneumophila serogroup 1 antigen in urine, suggesting no recent or recurrent infection. Infection due to Legionella cannot be ruled out since other serogroups and species may cause disease, antigen may not be present in urine in early infection, and the level of antigen present in the urine may be below the detection limit of the test. Imaging: ITS Impressions Abdomen/Bladder Ultrasound 08/31/17 00:00 CONCLUSION: 1. 11 mm left midlung calculus. 2. No evidence of hydronephrosis. 3. Otherwise normal appearing kidneys. Chest CTA 08/31/17 00:00 CONCLUSION: 1. No evidence of pulmonary embolism. 2. Extensive consolidation in the right lung and patchy infiltrates elsewhere in both lungs. 3. Moderately enlarged mediastinal lymph node. Abdomen X-Ray 09/12/17 00:00 CONCLUSION: Gaseous distention of multiple loops of small and large bowel. Study would suggest adynamic ileus. Follow-up for resolution would be warranted. Chest X-Ray 09/13/17 06:00 CONCLUSION: Endotracheal tube and feeding tube in good position. Mild basilar airspace disease. Objective Remarks: GENERAL: 52 yo male currently resting in bed in no acute distress orotracheally intubated SKIN: Warm and dry. No rash HEAD: Normocephalic. EYES: No scleral icterus. No injection or drainage. ENT: Mucous members are moist and pink. Oropharynx without erythema NECK: Supple, trachea midline. No JVD or lymphadenopathy. CARDIOVASCULAR: RRR, NL S1, S2 without murmurs, gallops, or rubs. RESPIRATORY: Breath sounds equal bilaterally. No accessory muscle use. Bilateral end expiratory wheeze. Transmitted upper airway sounds are noted. Coarse crackles anteriorly and posterior bases. GASTROINTESTINAL: Abdomen distended and firm. Hypoactive bowel sounds are appreciated. There are high-pitched today. MUSCULOSKELETAL: Anasarca/1+ upper lower extremity edema Neuro: Cranial nerves II through XII grossly intact. Strength is 3 out of 5 bilateral upper extremity's. 2 out of 5 bilateral lower extremity's. Assessment and Plan - Assessment and Plan Plan: Neuro/Psych: Mood disorder with depression Paraplegia with mobility Acute metabolic encephalopathy Dementia disorder NOS Currently on propofol drip at 50 m/kg/min and midazolam drip at 2 mg an hour for sedation while intubated Goal of RASS -2 Daily sedation vacation EEG-encephalopathy, some burst suppression pattern. On valproic acid 250 mg twice daily, follow up on Valproic acid level 16 on 09/10 Continue baclofen 20 mg 3 times daily/home medication Continue citalopram 20 mg daily/home medication for depression Continue gabapentin 100 mg 3 times daily/home medication Acetaminophen 650 mg by tube every 6 hours as needed fever Holding meloxicam/home medication Holding dantrolene unknown dosage. Pulm: Acute Respiratory Failure -hypoxic and hypercapnic PRVC 18/600///40, decrease PEEP:8 and tried PSV trials today Ventilator bundle Albuterol/ipratropium aerosols every 4 hours with albuterol aerosols every 2 hours as needed for dyspnea Methylprednisolone succinate 40 mg IV every 12 hours Patient s/p bronch 09/01 showed thick cormier like secretions/mucous plugs suctioned to clear BAL performed RLL-cultures negative to date CXR basilar airspace disease CV: Hypertension Hyperlipidemia Monitor HR and BP keep MAP>65mmHg Currently not requiring vasopressors and/or antihypertensives simvastatin 40 mg daily at home. Hospital substitution is pravastatin 80 mg daily Renal/FEN/: Neurogenic bladder Hypokalemia Monitor renal function, electrolytes replacement per protocol. d/c Lasix D5 LR with 20 mEq KCl at 84 cc an hour GI: Gastroesophageal reflux disease Hypoalbuminemia History of external hemorrhoids Hyperammonia Elevated AST/ALT likely secondary congestion Possibly adynamic ileus Glucerna 1.5 to goal 60 cc an hour goal rate. Currently n.p.o. with NG tube to low wall suction secondary to ileus. Lansoprazole for GI prophylaxis Lactulose 30 cc twice daily, Xifaxan [address] abdomen/pelvis secondary to ileus.. Methylnaltrexone 1 now. 12 mg. Mineral oil enema 1 now. ID: [id number] Continue with abx (p levofloxacin,)monitor for signs of infections ( fever, WBC) ID is following. Follow up on BAL 09/01 cxs- NGTD BC 08/31: NGTD Strep pneumonia and Legionella Ag negative Sputum 09/06 no growth to date 09/10 blood cultures 2, urine culture and sputum no growth to date Heme: Leukocytosis Monitor CBC and follow trend Endo: Hyperglycemia SSI with Novulin R with Accu-Cheks to maintain euglycemia for glycemic control MSK Paraplegia PT evaluate and treat DVT GI prophylaxis -Teds SCDs -Subcu heparin -Lansoprazole Level 3 follow-up
--- NOTE | 2017-09-13 14:04 | XR ---
EXAM DATE: 09/13/2017 1:36 PM EDT AGE/SEX: 52 years / Male INDICATIONS: Abdominal distention. CLINICAL DATA: This is the patient's subsequent encounter. Patient reports that signs and symptoms h ave been present for 1 day and indicates a pain score of Nonresponsive. MEDICAL/SURGICAL HISTORY: Non-responsive. Non-responsive. COMPARISON: [facility], ABDOMEN 1V KUB, 09/12/2017. . FINDINGS: Today's exam is compared to the prior study. There is an NG tube in the stomach. There continues to be gaseous distention of the large and small bowel without significant change compared to the prior s tudy. CONCLUSION: No significant change in the gaseous distention of multiple loops of small and large bowel. Electronically signed by: Wilber Mcginnis MD 09/13/2017 2:03 PM EDT
[2017-09-13] MEDS: KCL 20 mEq/D5W/LR Inj 1,000 ML IV.CONT SCH (14:46)
--- NOTE | 2017-09-13 20:42 | CT ---
EXAM DATE: 09/13/2017 6:43 PM EDT AGE/SEX: 52 years / Male INDICATIONS: Abdominal distention. CLINICAL DATA: This is the patient's initial encounter. Patient reports that signs and symptoms have been present for 1 day and indicates a pain score of Nonresponsive. MEDICAL/SURGICAL HISTORY: Gastroesophageal reflux disease. Dementia. Cholecystectomy. Explorat ory laparoscopy. RADIATION DOSE: 12.88 CTDI (mGy) COMPARISON: No prior exams available for comparison. TECHNIQUE: Multiple contiguous axial images were obtained through the abdomen. Images were obtained using multiple row detector helical technique. Using automated exposure control and adjustment of the mA and/or kV according to patient size, radiation dose was kept as low as reasonably achievable to o btain optimal diagnostic quality images. DICOM format image data is available electronically for rev iew and comparison. FINDINGS: Lower Lungs: Bibasilar atelectasis. Liver: The liver has a homogeneous density without space-occupying lesion for noncontrast technique. There is no dilation of the biliary tree. Cholecystectomy. Spleen: Homogeneous density without enlargement. Pancreas: Unremarkable without mass or calcification. Kidneys: Normal in size and shape. No evidence of mass or hydronephrosis. There are 2 nonobstructing calcified stones midpole left kidney measuring up to 6 mm. Adrenal Glands: Unremarkable. Aorta: The aorta and proximal iliac vessels are grossly unremarkable without aneurysmal dilation. Bowel/Mesentery: Gastric tube is coiled within the stomach. No dilated loops of small bowel. Gas and fluid throughout the colon. No disproportionately dilated colon. No evidence of free fluid. Abdominal Wall: Intact. Retroperitoneum: No evidence of adenopathy in the retrocrural, para-aortic, or deep pelvic regions. Bladder: Nondistended. Vernon catheter. Reproductive Organs: No abnormal masses or calcifications seen. Inguinal: Bilateral fat-containing inguinal hernias. Bony Structures: Unremarkable. CONCLUSION: 1. Nonobstructing left renal stones. 2. No evidence of small bowel dilation. 3. Bibasilar atelectasis in the lower lungs. 4. Bilateral inguinal hernias containing fat. Electronically signed by: Quentin Dela Cruz MD 09/13/2017 8:40 PM EDT
[2017-09-13] MEDS: Polyethylene Glycol 3350 17 GM Packet PO SCH (20:57)
--- NOTE | 2017-09-14 04:40 | XR ---
EXAM DATE: 09/14/2017 4:13 AM EDT AGE/SEX: 52 years / Male INDICATIONS: . Short of breath. CLINICAL DATA: This is the patient's subsequent encounter. Patient reports that signs and symptoms h ave been present for 1 week and indicates a pain score of Nonresponsive. MEDICAL/SURGICAL HISTORY: Non-responsive. Non-responsive. COMPARISON: [facility], CHEST 1V SINGLE AP, 09/13/2017. . FINDINGS: Endotracheal tube in good position. NG enters stomach. Bilateral subsegmental basilar airspace diseas e similar to September 13. No pneumothorax. CONCLUSION: Subsegmental basilar airspace disease. No effusion or pneumothorax. Electronically signed by: Rajiv Parr MD 09/14/2017 4:39 AM EDT
[2017-09-14 04:41] LABS: Baso % (Auto) 0.1 % (0.0-2.0); Hematocrit 37.9 % (39.0-51.0); Lymph # (Auto) 0.9 th/mm3 (1.0-4.8); Lymph % (Auto) 10.2 % (9.0-44.0); Mean Corpuscular HGB Conc 34.4 % (32.0-36.0); Mean Corpuscular Hemoglobin 31.3 pg (27.0-34.0); Mean Corpuscular Volume 91.2 fL (80.0-100.0); Mean Platelet Volume 10.1 fL (7.0-11.0); Mono # (Auto) 0.8 th/mm3 (0.0-0.9); Mono % (Auto) 9.6 % (0.0-8.0); Neut % (Auto) 80.1 % (16.0-70.0); Platelet Count 168 th/mm3 (150-450); Red Blood Count 4.16 mil/mm3 (4.50-5.90); Red Cell Distribution Width 15.5 % (11.6-17.2); White Blood Count 8.7 th/mm3 (4.0-11.0)
[2017-09-14] MEDS: Propofol 1000 mg/100 ml Inj 1,000 MG/100 ML BOTTLE IV.CONT PRN ×6 (04:55→22:31)
[2017-09-14] MEDS: Midazolam 50 MG/50 ML Inj 50 MG/50 ML BAG IV.CONT PRN ×2 (04:57→22:33)
[2017-09-14] MEDS: Insulin NovoLIN Regular Correctional Sugar Inj SQ SCH ×5 (04:59→17:59)
[2017-09-14] MEDS: Oral Hygiene Kit OROPHARYNG SCH ×4 (05:00→18:00)
[2017-09-14 05:03] LABS: Alanine Aminotransferase 67 U/L (12-78); Albumin 2.8 g/dL (3.4-5.0); Alkaline Phosphatase 75 U/L (45-117); Anion Gap 10 meq/L (5-15); Aspartate Aminotransferase 21 U/L (15-37); Blood Urea Nitrogen 30 mg/dL (7-18); Calcium 8.6 mg/dL (8.5-10.1); Carbon Dioxide 27.1 meq/L (21.0-32.0); Chloride 101 meq/L (98-107); Glomerular Filtration Rate Greater Than 89 mL/min (>89); Glucose,Random 147 mg/dL (74-106); Magnesium 2.3 mg/dL (1.5-2.5); Phosphorus 3.2 mg/dL (2.5-4.9); Potassium 3.8 meq/L (3.5-5.1); Sodium 138 meq/L (136-145); Total Protein 6.3 g/dL (6.4-8.2)
[2017-09-14] MEDS: Heparin - SQ 10,000 UNITS/ML Vial SQ SCH ×3 (05:22→21:04)
[2017-09-14] MEDS: KCL 20 mEq/D5W/LR Inj 1,000 ML IV.CONT SCH ×2 (05:46→17:58)
[2017-09-14] MEDS: levoFLOXacin 750 MG Tablet PO SCH (08:22)
[2017-09-14] MEDS: Gabapentin 100 MG Capsule PO SCH ×3 (08:24→18:00)
[2017-09-14] MEDS: Divalproex 125 MG Sprinkles Capsule PO SCH ×2 (08:24→21:05)
[2017-09-14] MEDS: rifAXIMin 550 MG Tablet PO SCH ×2 (08:25→21:05)
[2017-09-14] MEDS: Collagenase Oint 30 GM Tube TOPICAL SCH (08:26)
[2017-09-14] MEDS: MethylPREDNISolone Sod Succinate Inj 40 MG/ML Vial IV.PUSH SCH ×2 (08:26→21:06)
[2017-09-14] MEDS: Polyethylene Glycol 3350 17 GM Packet PO SCH ×2 (08:27→21:06)
[2017-09-14] MEDS: Chlorhexidine 0.12% Oral Kit 15 ML UDC OROPHARYNG SCH (08:29)
[2017-09-14] MEDS: Hypromellose 0.3% Opth Gel 10 GM Bottle EACH EYE SCH ×2 (08:29→21:03)
--- NOTE | 2017-09-14 11:32 | P.PNID ---
Subjective Remarks: He is a 52-year-old male, who is a resident of the care home, brought to the hospital for evaluation of shortness of breath, hypoxemia, and tachycardic. According to the paramedics he had an elevated temp. Got some information from the nurse, patient did not have any Vernon when he presented, and a Vernon catheter was placed. Since admission he has required BiPAP for oxygenation. He has been febrile. Urinalysis showed significant pyuria. His blood pressures seem to be holding, and he is not requiring any pressors. His WBC is mildly elevated at 11.7. Lactic acid is normal. Creatinine is normal. Chest x -ray showing some infiltrates. Infectious disease consultation has been requested to assist with evaluation and treatment of patient with sepsis. Notes reviewed. Temps ok On the vent Last CXR with mild basilar disease Last sputum with normal resp cher BC negative UC negative WBC down to normal BP ok Antibiotics: Levaquin Lines: No evidence of infection Past Medical History: Dementia Depression GERD (gastroesophageal reflux disease) Hemorrhoids Hyperlipidemia Paraplegia UTI (urinary tract infection) H/O exploratory laparotomy History of cholecystectomy Allergies/Adverse Reactions: Allergies No Known Allergies Allergy (Verified 08/31/17 00:16) Objective Vital Signs 09/13/17 12:00 09/13/17 12:30 09/13/17 12:33 Temperature 98.4 F Pulse Rate 84 72 100 H Respiratory Rate 18 18 18 Blood Pressure 132/90 134/85 Pulse Oximetry 99 98 09/13/17 13:00 09/13/17 13:30 09/13/17 14:00 Temperature Pulse Rate 79 68 65 Respiratory Rate 19 18 18 Blood Pressure 132/78 114/70 113/69 Pulse Oximetry 98 99 98 09/13/17 14:30 09/13/17 15:00 09/13/17 15:30 Temperature Pulse Rate 61 65 59 L Respiratory Rate 18 18 18 Blood Pressure 114/68 113/68 111/67 Pulse Oximetry 98 98 98 09/13/17 16:00 09/13/17 16:30 09/13/17 16:45 Temperature 98.7 F Pulse Rate 68 64 Respiratory Rate 18 18 18 Blood Pressure 115/69 101/58 L Pulse Oximetry 98 98 98 09/13/17 16:49 09/13/17 17:00 09/13/17 17:30 Temperature Pulse Rate 62 58 L 53 L Respiratory Rate 18 18 18 Blood Pressure 105/62 110/65 Pulse Oximetry 98 98 09/13/17 18:00 09/13/17 20:00 09/13/17 20:53 Temperature Pulse Rate 53 L 47 L 48 L Respiratory Rate 18 18 Blood Pressure 109/62 Pulse Oximetry 98 99 09/13/17 21:00 09/13/17 21:30 09/13/17 22:00 Temperature Pulse Rate 61 47 L 50 L Respiratory Rate 19 18 18 Blood Pressure 114/75 104/59 L 98/57 L Pulse Oximetry 100 98 98 09/13/17 22:30 09/13/17 23:00 09/13/17 23:01 Temperature Pulse Rate 48 L 56 L 58 L Respiratory Rate 18 18 18 Blood Pressure 105/58 L 123/68 Pulse Oximetry 98 98 98 09/13/17 23:30 09/13/17 23:52 09/14/17 00:00 Temperature Pulse Rate 56 L 53 L Respiratory Rate 18 18 18 Blood Pressure 122/70 120/69 Pulse Oximetry 98 98 98 09/14/17 00:30 09/14/17 01:00 09/14/17 01:30 Temperature Pulse Rate 48 L 48 L 47 L Respiratory Rate 18 18 18 Blood Pressure 106/60 105/60 108/63 Pulse Oximetry 98 98 98 09/14/17 02:00 09/14/17 02:30 09/14/17 03:00 Temperature Pulse Rate 47 L 56 L 64 Respiratory Rate 18 18 18 Blood Pressure 105/63 143/74 H 131/75 Pulse Oximetry 99 09/14/17 03:23 09/14/17 03:30 09/14/17 04:00 Temperature Pulse Rate 54 L 66 69 Respiratory Rate 19 18 18 Blood Pressure 118/69 118/66 Pulse Oximetry 99 09/14/17 04:01 09/14/17 04:30 09/14/17 05:00 Temperature Pulse Rate 59 L 50 L Respiratory Rate 18 18 18 Blood Pressure 108/60 106/60 Pulse Oximetry 99 99 100 09/14/17 05:30 09/14/17 06:00 09/14/17 06:01 Temperature Pulse Rate 55 L 52 L 51 L Respiratory Rate 18 18 18 Blood Pressure 143/75 H 99/60 L Pulse Oximetry 98 98 98 09/14/17 06:30 09/14/17 07:00 09/14/17 07:30 Temperature Pulse Rate 48 L 47 L 47 L Respiratory Rate 18 Blood Pressure 97/56 L 101/57 L 98/58 L Pulse Oximetry 98 98 98 09/14/17 08:00 09/14/17 08:30 09/14/17 09:00 Temperature 97.6 F Pulse Rate 47 L 48 L Respiratory Rate 18 18 18 Blood Pressure 106/59 L 103/60 Pulse Oximetry 98 98 98 09/14/17 09:08 Temperature Pulse Rate 48 L Respiratory Rate 19 Blood Pressure Pulse Oximetry Intake & Output 09/13/17 09/14/17 09/14/17 18:59 06:59 18:59 Intake Total 310 / 310 1450 / 1450 100 / 100 Output Total 750 / 750 1350 / 1350 Balance -440 / -440 100 / 100 100 / 100 Weight 97.5 kg Intake: IV 310 / 310 1350 / 1350 100 / 100 D5W/LR + KCL 20 mEq Inj 1,000 1000 / 1000 ML @ 84 mls/hr IV.CONT .[id number] [facility] Rx#:[id number] Versed Inj 50 mg In 50 ml @ 2 50 / 50 MG/HR 2 mls/hr IV.CONT TITRATE PRN Rx#:[id number] Diprivan 1000 mg/100 ml Inj 1, 210 / 210 300 / 300 100 / 100 000 mg In 100 ml @ 5 MCG/KG/MIN 3.105 mls/hr IV.CONT TITRATE PRN Rx#:[id number] KCl 20 mEq Premix Inj 20 meq In 100 / 100 100 ml @ 50 mls/hr IV.SIG Q2H PRN Rx#:[id number] Oral 0 / 0 Tube Feeding 0 / 0 Water Bolus Amount 100 / 100 Output: Urine 1350 / 1350 Urine Amount (Catheter) 750 / 750 Indwelling Urethral Catheter 750 / 750 Other: Date of Last Bowel Movement 09/13/17 09/13/17 09/13/17 # Bowel Movements 3 2 09/10/17 11:16 Blood - Peripheral Aerobic Blood Culture - Preliminary No growth in 4 days 09/10/17 11:16 Blood - Peripheral Anaerobic Blood Culture - Preliminary No growth in 4 days 09/10/17 11:10 Blood - Peripheral Aerobic Blood Culture - Preliminary No growth in 4 days 09/10/17 11:10 Blood - Peripheral Anaerobic Blood Culture - Preliminary No growth in 4 days 09/10/17 11:15 Catheterized Urine Urine Culture - Final No growth in 48 hours 09/10/17 09:30 Sputum - Endotracheal Gram Stain - Final 09/10/17 09:30 Sputum - Endotracheal Sputum Culture - Final Heavy growth normal respiratory cher Lab - Hematology Results 09/13/17 09/14/17 05:04 04:04 WBC 11.2 H 8.7 RBC 4.29 L 4.16 L Hgb 13.3 13.0 Hct 39.3 37.9 L MCV 91.5 91.2 MCH 31.1 31.3 MCHC 34.0 34.4 RDW 15.7 15.5 Plt Count 187 168 MPV 10.1 10.1 Neut % (Auto) 71.1 H 80.1 H Lymph % (Auto) 16.1 10.2 [place] % (Auto) 11.9 H 9.6 H Eos % (Auto) 0.2 0.0 Baso % (Auto) 0.7 0.1 Neut # (Auto) 7.9 H 7.0 Lymph # (Auto) 1.8 0.9 L [place] # (Auto) 1.3 H 0.8 Eos # (Auto) 0.0 0.0 Baso # (Auto) 0.1 0.0 WBC Differential . . Differential Comment Auto diff final Auto diff final Lab - Chemistry Results 09/12/17 09/12/17 09/12/17 11:56 16:04 21:50 Sodium Potassium Chloride Carbon Dioxide Anion Gap BUN Creatinine Estimated GFR POC Glucose 131 H 163 H 123 H Random Glucose Lactic Acid Calcium Phosphorus Magnesium Total Bilirubin AST ALT Alkaline Phosphatase Ammonia Total Protein Albumin 09/13/17 09/13/17 09/13/17 01:32 04:49 05:04 Sodium Potassium Chloride Carbon Dioxide Anion Gap BUN Creatinine Estimated GFR POC Glucose 123 H 103 Random Glucose Lactic Acid Calcium Phosphorus Magnesium Total Bilirubin AST ALT Alkaline Phosphatase Ammonia 53 H Total Protein Albumin 09/13/17 09/13/17 09/13/17 05:04 07:40 11:44 Sodium 137 Potassium 3.4 L Chloride 98 Carbon Dioxide 30.4 Anion Gap 9 BUN 42 H Creatinine 0.67 Estimated GFR Greater than 89 POC Glucose 118 H 131 H Random Glucose 106 Lactic Acid Calcium 9.1 Phosphorus 2.7 Magnesium 2.5 Total Bilirubin 0.5 AST 38 H ALT 84 H Alkaline Phosphatase 81 Ammonia Total Protein 6.7 Albumin 3.0 L 09/13/17 09/13/17 09/13/17 13:40 15:05 15:36 Sodium Potassium 3.6 Chloride Carbon Dioxide Anion Gap BUN Creatinine Estimated GFR POC Glucose 122 H Random Glucose Lactic Acid 2.0 Calcium Phosphorus Magnesium Total Bilirubin AST ALT Alkaline Phosphatase Ammonia Total Protein Albumin 09/13/17 09/14/17 09/14/17 19:47 00:32 04:04 Sodium 138 Potassium 3.8 Chloride 101 Carbon Dioxide 27.1 Anion Gap 10 BUN 30 H Creatinine 0.65 Estimated GFR Greater than 89 POC Glucose 93 126 H Random Glucose 147 H Lactic Acid Calcium 8.6 Phosphorus 3.2 Magnesium 2.3 Total Bilirubin 0.5 AST 21 ALT 67 Alkaline Phosphatase 75 Ammonia Total Protein 6.3 L Albumin 2.8 L 09/14/17 07:47 Sodium Potassium Chloride Carbon Dioxide Anion Gap BUN Creatinine Estimated GFR POC Glucose 144 H Random Glucose Lactic Acid Calcium Phosphorus Magnesium Total Bilirubin AST ALT Alkaline Phosphatase Ammonia Total Protein Albumin Imaging: ITS Impressions Abdomen/Bladder Ultrasound 08/31/17 00:00 CONCLUSION: 1. 11 mm left midlung calculus. 2. No evidence of hydronephrosis. 3. Otherwise normal appearing kidneys. Chest CTA 08/31/17 00:00 CONCLUSION: 1. No evidence of pulmonary embolism. 2. Extensive consolidation in the right lung and patchy infiltrates elsewhere in both lungs. 3. Moderately enlarged mediastinal lymph node. Abdomen X-Ray 09/13/17 00:00 CONCLUSION: No significant change in the gaseous distention of multiple loops of small and large bowel. Abdomen/Pelvis CT 09/13/17 00:00 CONCLUSION: 1. Nonobstructing left renal stones. 2. No evidence of small bowel dilation. 3. Bibasilar atelectasis in the lower lungs. 4. Bilateral inguinal hernias containing fat. Chest X-Ray 09/14/17 06:00 CONCLUSION: Subsegmental basilar airspace disease. No effusion or pneumothorax. Physical Exam: GENERAL: Awake. Tracking. Comfortable on the vent SKIN: Cool and dry. No generalized rash. HEAD: Atraumatic. Normocephalic. No temporal wasting, or tenderness. EYES: [place] conjunctiva. No petechia or hemorrhage. Pupils equal, round and reactive to light. No scleral icterus. No injection or drainage. NECK: Trachea midline. Supple. CARDIOVASCULAR: Regular rate and rhythm. No murmurs, rubs or gallops. RESPIRATORY: Scattered rhonchi, decreased at bases ABDOMEN: obese, distended. Bowel sounds present and normoactive. He has a long midline incision which looks like an exp lap, and has a cholecystectomy scar in RUQ. EXTREMITIES: No clubbing, cyanosis. Has no pedal edema. No calf tenderness. NEUROLOGICAL: Awake and tracking : Vernon in place, Clear yellow urine. LINE: No evidence of infection Assessment and Plan - Plan Impression Sepsis on presentation, patient came from SNF - has lung infiltrates, and SOB, C/W HCAP - also with UTI HCAP, C/S bronch negative Leukocytosis Respiratory failure, recurrent Hx paraplegia Encephalopathy Recommendation Continue Levaquin - change to po - End date ordered Monitor temps Monitor progress Weaning per CCM as tolerated, ?may need trach
[2017-09-14] MEDS ORDERED: Potassium Chloride 20 MEQ Pwd Pkt NG/OG ONE (15:18)
--- NOTE | 2017-09-14 15:24 | P.PNCC ---
Subjective Subjective Remarks/Hospital Course: 52-year-old male presents from snf for an evaluation of hypoxemia, shortness of breath, and tachycardia and per paramedics elevated temperature with history of paraplegia with immobility, dyslipidemia, chronic cough, mood disorder with depression, pressure ulceration bilateral lower extremity knee contracture, prior Klebsiella pneumonia and morbid obesity. In the emergency department he appeared to be in respiratory distress and was placed by ED attending on the BiPAP. 09/01 Patient is on BIPAP 18/5 with 40% FIO2. Afebrile with intermittent confusion. CTA chest yesterday showed no PE, extensive consolidation right lung. 09/02 Patient was intubated yesterday and s/p bronch. Sedated with Diprivan and Fentanyl infusion. Afebrile. 09/03 No events overnight. Sedated with Diprivan and Fentanyl infusion. Afebrile. 09/04: Remains intubated, sedated with propofol. Eyes open, do not follow commands. Bilateral wheezing on exam. FiO2 remains high at 60%, O2 sat 92-94% 09/05: Remains sedated heavily for vent synchrony, FiO2 remains at 60%, will wean. Sputum cx negative. ETT advanced due to leak, will repeat CXR. Patient do not follow commands, but get agitated when sedation held 09/06: Remains sedated for ventilator synchrony. Oxygen saturation improved FiO2 down to 50%. Chest x-ray on my review shows pulmonary edema. Started scheduled Lasix scheduled Lasix yesterday, urine output excellent 5.5 L in 24 hours 09/07: Afebrile. Remains on propofol and fentanyl drips due to his significant agitation. 2 bite block placed overnight/Guedel airways related secondary to patient attempted to bite through ET tube.. One bowel movement yesterday 09/08 No events overnight. Sedated with Diprivan and Fentanyl drip. Afebrile. 09/09: Extubated yesterday without complication. Currently on 6 L nasal cannula. Swallow evaluation failed 2. Dobbhoff tube is in place. No bowel movement since 09/02. 09/10: Intubated overnight due to respiratory failure. Currently on PEEP of 12 and FiO2 90%. Ventilator is been adjusted. 2 feeds of been resumed. 09/11 Patient remains intubated and sedated, on PRVC with PEEP:10, FIO2 40% 09/12: Afebrile. Remains on 40% FiO2. Propofol drip at 50 mcg/kg/min. PEEP is still at 10. 09/13: Afebrile. Abdominal x-ray yesterday revealed likely adynamic ileus. Will check CT abdomen and pelvis today. Patient is currently being decompressed from above. Will receive methylnaltrexone and enema today.. Was tolerating tube feeds at goal. Subjective 09/14: Afebrile. Bowel movements overnight. White blood cell count is normalized. We will keep him potassium 40 and recheck abdominal x-ray in a.m. Objective Vital Signs / I&O: Vital Signs 09/13/17 15:30 09/13/17 16:00 09/13/17 16:30 Temperature 98.7 F Pulse Rate 59 L 68 64 Respiratory Rate 18 18 18 Blood Pressure 111/67 115/69 101/58 L Pulse Oximetry 98 98 98 09/13/17 16:45 09/13/17 16:49 09/13/17 17:00 Temperature Pulse Rate 62 58 L Respiratory Rate 18 18 18 Blood Pressure 105/62 Pulse Oximetry 98 98 09/13/17 17:30 09/13/17 18:00 09/13/17 20:00 Temperature Pulse Rate 53 L 53 L 47 L Respiratory Rate 18 18 Blood Pressure 110/65 109/62 Pulse Oximetry 98 98 09/13/17 20:53 09/13/17 21:00 09/13/17 21:30 Temperature Pulse Rate 48 L 61 47 L Respiratory Rate 18 19 18 Blood Pressure 114/75 104/59 L Pulse Oximetry 99 100 98 09/13/17 22:00 09/13/17 22:30 09/13/17 23:00 Temperature Pulse Rate 50 L 48 L 56 L Respiratory Rate 18 18 18 Blood Pressure 98/57 L 105/58 L Pulse Oximetry 98 98 98 09/13/17 23:01 09/13/17 23:30 09/13/17 23:52 Temperature Pulse Rate 58 L 56 L Respiratory Rate 18 18 18 Blood Pressure 123/68 122/70 Pulse Oximetry 98 98 98 09/14/17 00:00 09/14/17 00:30 09/14/17 01:00 Temperature Pulse Rate 53 L 48 L 48 L Respiratory Rate 18 18 18 Blood Pressure 120/69 106/60 105/60 Pulse Oximetry 98 98 98 09/14/17 01:30 09/14/17 02:00 09/14/17 02:30 Temperature Pulse Rate 47 L 47 L 56 L Respiratory Rate 18 18 18 Blood Pressure 108/63 105/63 143/74 H Pulse Oximetry 98 99 09/14/17 03:00 09/14/17 03:23 09/14/17 03:30 Temperature Pulse Rate 64 54 L 66 Respiratory Rate 18 19 18 Blood Pressure 131/75 118/69 Pulse Oximetry 09/14/17 04:00 09/14/17 04:01 09/14/17 04:30 Temperature Pulse Rate 69 59 L Respiratory Rate 18 18 18 Blood Pressure 118/66 108/60 Pulse Oximetry 99 99 99 09/14/17 05:00 09/14/17 05:30 09/14/17 06:00 Temperature Pulse Rate 50 L 55 L 52 L Respiratory Rate 18 18 18 Blood Pressure 106/60 143/75 H Pulse Oximetry 100 98 98 09/14/17 06:01 09/14/17 06:30 09/14/17 07:00 Temperature Pulse Rate 51 L 48 L 47 L Respiratory Rate 18 18 18 Blood Pressure 99/60 L 97/56 L 101/57 L Pulse Oximetry 98 98 98 09/14/17 07:30 09/14/17 08:00 09/14/17 08:30 Temperature 97.6 F Pulse Rate 47 L 47 L 48 L Respiratory Rate 18 18 18 Blood Pressure 98/58 L 106/59 L 103/60 Pulse Oximetry 98 98 98 09/14/17 09:00 09/14/17 09:08 09/14/17 09:30 Temperature Pulse Rate 55 L 48 L 55 L Respiratory Rate 18 19 18 Blood Pressure 112/68 98/58 L Pulse Oximetry 98 99 09/14/17 10:00 09/14/17 10:30 09/14/17 11:00 Temperature Pulse Rate 54 L 64 55 L Respiratory Rate 18 18 18 Blood Pressure 102/63 114/70 107/63 Pulse Oximetry 100 99 98 09/14/17 11:30 09/14/17 12:00 09/14/17 12:07 Temperature 98.6 F Pulse Rate 55 L 63 Respiratory Rate 18 18 18 Blood Pressure 103/60 114/73 Pulse Oximetry 97 96 97 09/14/17 12:09 09/14/17 12:30 09/14/17 13:00 Temperature Pulse Rate 64 57 L 57 L Respiratory Rate 18 18 Blood Pressure 109/62 119/70 Pulse Oximetry 97 97 Intake & Output 09/13/17 09/14/17 09/14/17 18:59 06:59 18:59 Intake Total 310 / 310 1450 / 1450 200 / 200 Output Total 750 / 750 1350 / 1350 Balance -440 / -440 100 / 100 200 / 200 Weight 97.5 kg Intake: IV 310 / 310 1350 / 1350 200 / 200 D5W/LR + KCL 20 mEq Inj 1,000 1000 / 1000 ML @ 84 mls/hr IV.CONT .[id number] ABENA Rx#:[id number] Versed Inj 50 mg In 50 ml @ 2 50 / 50 MG/HR 2 mls/hr IV.CONT TITRATE PRN Rx#:[id number] Diprivan 1000 mg/100 ml Inj 1, 210 / 210 300 / 300 200 / 200 000 mg In 100 ml @ 5 MCG/KG/MIN 3.105 mls/hr IV.CONT TITRATE PRN Rx#:[id number] KCl 20 mEq Premix Inj 20 meq In 100 / 100 100 ml @ 50 mls/hr IV.SIG Q2H PRN Rx#:[id number] Oral 0 / 0 Tube Feeding 0 / 0 Water Bolus Amount 100 / 100 Output: Urine 1350 / 1350 Urine Amount (Catheter) 750 / 750 Indwelling Urethral Catheter 750 / 750 Other: Date of Last Bowel Movement 09/13/17 09/13/17 09/13/17 # Bowel Movements 3 2 Result Diagrams: 09/14/17 04:04 09/14/17 04:04 Other Results: Microbiology 09/10/17 11:16 Blood - Peripheral Aerobic Blood Culture - Preliminary No growth in 4 days 09/10/17 11:16 Blood - Peripheral Anaerobic Blood Culture - Preliminary No growth in 4 days 09/10/17 11:10 Blood - Peripheral Aerobic Blood Culture - Preliminary No growth in 4 days 09/10/17 11:10 Blood - Peripheral Anaerobic Blood Culture - Preliminary No growth in 4 days 09/10/17 11:15 Catheterized Urine Urine Culture - Final No growth in 48 hours 09/10/17 09:30 Sputum - Endotracheal Gram Stain - Final 09/10/17 09:30 Sputum - Endotracheal Sputum Culture - Final Heavy growth normal respiratory cher 09/10/17 11:00 Nasal Wash Influenza Types A,B Antigen - Final Negative for FLU A and B antigen Infection due to influenza A or B cannot be ruled out since the antigen present in the sample may be below the detection limit of the test. 09/06/17 10:45 Sputum - Endotracheal Gram Stain - Final 09/06/17 10:45 Sputum - Endotracheal Sputum Culture - Final Rare growth normal respiratory cher 08/31/17 00:25 Blood - Peripheral Aerobic Blood Culture - Final No growth in 5 days 08/31/17 00:25 Blood - Peripheral Anaerobic Blood Culture - Final No growth in 5 days 08/31/17 00:30 Blood - Peripheral Aerobic Blood Culture - Final No growth in 5 days 08/31/17 00:30 Blood - Peripheral Anaerobic Blood Culture - Final No growth in 5 days 09/01/17 09:30 Bronchial - Right Lower Lobe Gram Stain - Final 09/01/17 09:30 Bronchial - Right Lower Lobe Bronchial Culture - Final No growth in 48 hours 08/31/17 02:50 Catheterized Urine Urine Culture - Final 50-100,000 cfu/mL mixed cher (probable contaminants ) 08/31/17 02:50 Urine - Catheterized Urine Streptococcus pneumoniae Antigen ( M - Final Presumptive negative for streptococcus pneumoniae antigen, suggesting no current or recent infection. Infection due to Streptococcus pneumoniae cannot be ruled out since the antigen present in the sample may be below the detection limit of the test. 08/31/17 02:50 Urine - Catheterized Urine Legionella Antigen - Final Presumptive negative for Legionella pneumophila serogroup 1 antigen in urine, suggesting no recent or recurrent infection. Infection due to Legionella cannot be ruled out since other serogroups and species may cause disease, antigen may not be present in urine in early infection, and the level of antigen present in the urine may be below the detection limit of the test. Imaging: Abdomen/Bladder Ultrasound 08/31/17 00:00 CONCLUSION: 1. 11 mm left midlung calculus. 2. No evidence of hydronephrosis. 3. Otherwise normal appearing kidneys. Chest CTA 08/31/17 00:00 CONCLUSION: 1. No evidence of pulmonary embolism. 2. Extensive consolidation in the right lung and patchy infiltrates elsewhere in both lungs. 3. Moderately enlarged mediastinal lymph node. Chest X-Ray 08/31/17 00:08 CONCLUSION: Elevation of the right hemidiaphragm and right lower lung consolidation. Patchy infiltrates in left lower lung. Cardiomegaly. Chest X-Ray 09/01/17 00:00 CONCLUSION: 1. The endotracheal tube and NG tube appear to be in good position. 2. No evidence of pneumothorax. 3. There is parenchymal consolidation in the right lung base with an increasing infiltrate in the right upper lung. Chest X-Ray 09/01/17 00:00 CONCLUSION: There are scattered bilateral pulmonary infiltrates. No evidence of pneumothorax. Abdomen X-Ray 09/03/17 08:04 CONCLUSION: Prominent loop of bowel in the right abdomen. Chest X-Ray 09/04/17 00:00 CONCLUSION: 1. No significant interval change. 2. Stable patchy bilateral mid to lower lung zone airspace disease. Chest X-Ray 09/05/17 00:00 CONCLUSION: No significant change with the bilateral pulmonary infiltrates compared to the prior study. Chest X-Ray 09/05/17 06:00 CONCLUSION: 1. ETT at the level of the clavicles. NGT beyond the GE junction. 2. Stable patchy diffuse bilateral airspace disease. Chest X-Ray 09/06/17 06:00 CONCLUSION: 1. No significant interval change. 2. Stable ETT and NGT. 3. Stable bilateral patchy airspace disease. Chest X-Ray 09/08/17 06:00 CONCLUSION: Lungs are better aerated. Minimal residual bibasilar densities. Abdomen X-Ray 09/09/17 00:00 CONCLUSION: Dobbhoff tube at the level of the pyloric channel Chest X-Ray 09/10/17 00:00 CONCLUSION: Interval intubation with improved aeration Chest X-Ray 09/10/17 00:00 CONCLUSION: Improved exam with resolution of the right lower lobe airspace consolidation. Chest X-Ray 09/10/17 06:00 CONCLUSION: Prominent hazy bilateral pleural parenchymal opacity right worse than left Chest X-Ray 09/11/17 06:00 CONCLUSION: Subsegmental basilar airspace disease with small effusions. Endotracheal tube and feeding tube in good position. Abdomen X-Ray 09/12/17 00:00 CONCLUSION: Gaseous distention of multiple loops of small and large bowel. Study would suggest adynamic ileus. Follow-up for resolution would be warranted. Abdomen X-Ray 09/13/17 00:00 CONCLUSION: No significant change in the gaseous distention of multiple loops of small and large bowel. Abdomen/Pelvis CT 09/13/17 00:00 CONCLUSION: 1. Nonobstructing left renal stones. 2. No evidence of small bowel dilation. 3. Bibasilar atelectasis in the lower lungs. 4. Bilateral inguinal hernias containing fat. Chest X-Ray 09/13/17 06:00 CONCLUSION: Endotracheal tube and feeding tube in good position. Mild basilar airspace disease. Chest X-Ray 09/14/17 06:00 CONCLUSION: Subsegmental basilar airspace disease. No effusion or pneumothorax. Objective Remarks: GENERAL: 52 yo male currently resting in bed in no acute distress orotracheally intubated SKIN: Warm and dry. No rash HEAD: Normocephalic. EYES: No scleral icterus. No injection or drainage. ENT: Mucous members are moist and pink. Oropharynx without erythema NECK: Supple, trachea midline. No JVD or lymphadenopathy. CARDIOVASCULAR: RRR, NL S1, S2 without murmurs, gallops, or rubs. RESPIRATORY: Breath sounds equal bilaterally. No accessory muscle use. Bilateral end expiratory wheeze. Transmitted upper airway sounds are noted. Coarse crackles anteriorly and posterior bases. GASTROINTESTINAL: Abdomen distended and firm. Hypoactive bowel sounds are appreciated. There are high-pitched today. MUSCULOSKELETAL: Anasarca/1+ upper lower extremity edema Neuro: Cranial nerves II through XII grossly intact. Strength is 3 out of 5 bilateral upper extremity's. 2 out of 5 bilateral lower extremities. Assessment and Plan - Assessment and Plan Plan: Neuro/Psych: Mood disorder with depression Paraplegia with mobility Acute metabolic encephalopathy Dementia disorder NOS Currently on propofol drip at 50 m/kg/min and midazolam drip at 2 mg an hour for sedation while intubated Goal of RASS -2 Daily sedation vacation EEG-encephalopathy, some burst suppression pattern. On valproic acid 250 mg twice daily, follow up on Valproic acid level 16 on 09/10 Continue baclofen 20 mg 3 times daily/home medication Continue citalopram 20 mg daily/home medication for depression Continue gabapentin 100 mg 3 times daily/home medication Acetaminophen 650 mg by tube every 6 hours as needed fever Holding meloxicam/home medication Holding dantrolene unknown dosage. Pulm: Acute Respiratory Failure -hypoxic and hypercapnic PRVC 18/600/1/10/40, decrease PEEP:8 and tried PSV trials today Ventilator bundle Albuterol/ipratropium aerosols every 4 hours with albuterol aerosols every 2 hours as needed for dyspnea Methylprednisolone succinate 40 mg IV every 12 hours Patient s/p bronch 09/01 showed thick cormier like secretions/mucous plugs suctioned to clear BAL performed RLL-cultures negative to date CXR basilar airspace disease CV: Hypertension Hyperlipidemia Monitor HR and BP keep MAP>65mmHg Currently not requiring vasopressors and/or antihypertensives simvastatin 40 mg daily at home. Hospital substitution is pravastatin 80 mg daily Renal/FEN/: Neurogenic bladder Nonobstructing renal stones Monitor renal function, electrolytes replacement per protocol. d/c furosemide D5 LR with 20 mEq KCl at 84 cc an hour GI: Gastroesophageal reflux disease Hypoalbuminemia History of external hemorrhoids Hyperammonia Elevated AST/ALT likely secondary congestion Possibly adynamic ileus Bilateral inguinal hernias Currently n.p.o. with NG tube to low wall suction secondary to ileus. Glucerna 1.5 to goal 60 cc an hour goal rate per nutrition recommendation. Lansoprazole for GI prophylaxis Lactulose 30 cc twice daily, Xifaxan [address] abdomen/pelvis- Nonobstructing left renal stones. No evidence of small bowel dilation. Bibasilar atelectasis in the lower lungs. Bilateral inguinal hernias containing fat Check KUB in a.m. 09/15. Likely restart tube feeds at that time if not extubated ID: [id number] Continue with abx (levofloxacin)monitor for signs of infections ( fever, WBC) ID is following. Follow up on BAL 09/01 cxs- NGTD BC 08/31: NGTD Strep pneumonia and Legionella Ag negative Sputum 09/06 no growth to date 09/10 blood cultures 2, urine culture and sputum no growth to date Heme: Leukocytosis Monitor CBC and follow trend Endo: Hyperglycemia SSI with Novulin R with Accu-Cheks to maintain euglycemia for glycemic control MSK Paraplegia PT evaluate and treat DVT GI prophylaxis -Teds SCDs -Subcu heparin -Lansoprazole Level 3 follow-up
--- NOTE | 2017-09-14 15:41 | P.DIET ---
Nutritional Evaluation Type of nutrition evaluation: follow-up Nutrition consult regarding: Tube Feeding ([facility] – [place] for Tube Feeding) Objective - Diagnosis Sepsis - Objective Spinal Cord Impairment: Paraplegia (5-10 lbs) Weight Subtracted: Other (Used 12.5#) % IBW: 124 (KMD=940.5#) Body Weight Used for Calculations: IBW (75.3kg) Energy Needs - Lower Range (kCal/kg): 25 Energy Needs - Upper Range (kCal/kg): 30 Lower Limit kCal/kg (kCals): 1,883 Upper Limit kCal/kg (kCals): 2,259 Lower Limit Protein Factor (Grams per Kg): 1.2 Upper Limit Protein Factor (Grams per Kg): 1.5 Lower Protein Needs (Protein): 90 Upper Protein Needs (Protein): 113 Dietitian Reviewed in Medical Record: Curent medications, Intake & Output, Labs , Medical history, Tube feeding Diet Order: NPO Objective Comments: Meds: Santyl, Lactulose, Solumedrol, Reglan, Xifaxan, Vitamin E Labs: Ammonia 53 on 09/13/17, AccuCheck 124 LBM 09/14 Assessment Assessment: Pt is now NPO 2/2 possible adynamic ileus. Currently decompressing. TF on hold, but pt was previously tolerating Glucerna 1.5 @ 60mls/hr. This regimen continues to be appropriate for when TFing is resumed. BG levels reviewed, pt is also on Solumedrol. Was originally extubated on 09/08, but reintubated on . Supposedly has chronic pressure injury, but no documentation in EMR. Dietitian following. Recommendations: Continue Glucerna 1.5 @ 60mls/hr when TFs can be reinitiated. Dietitian to Monitor: Lab values, Glucose level, Intake & Output, Tube feeding tolerance, Weight change, Residuals, Wound/skin status, Medical course
--- NOTE | 2017-09-14 18:01 | XR ---
EXAM DATE: 09/14/2017 5:02 PM EDT AGE/SEX: 52 years / Male INDICATIONS: Ileus CLINICAL DATA: This is the patient's subsequent encounter. Patient reports that signs and symptoms h ave been present for 4 - 6 days and indicates a pain score of Nonresponsive. MEDICAL/SURGICAL HISTORY: . Gastroesophageal reflux disease. Dementia. . Cholecystectomy. Exp loratory laparoscopy. COMPAR[place]: [facility] [place] 1V KUB, 09/13/2017. . FINDINGS: 2 frontal supine views of the abdomen demonstrate air distended and dilated: Similar to the prior st udy. There is also visualized with at least some small bowel segments but the dilated bowel appears t o be mainly the colon. No organomegaly is appreciated. Nasogastric tube is looped in the stomach. Cho lecystectomy clips are present. The bones demonstrate no acute finding. CONCLUSION: No significant change is identified. There is diffuse dilatation of the colon. The pattern could repr esent ileus. Electronically signed by: Cesario Feliciano MD 09/14/2017 5:59 PM EDT
[2017-09-15] MEDS: Insulin NovoLIN Regular Correctional Sugar Inj SQ SCH ×6 (03:08→20:58)
[2017-09-15] MEDS: Oral Hygiene Kit OROPHARYNG SCH ×4 (03:08→18:08)
[2017-09-15] MEDS: Chlorhexidine 0.12% Oral Kit 15 ML UDC OROPHARYNG SCH ×3 (03:08→21:00)
[2017-09-15] MEDS: KCL 20 mEq/D5W/LR Inj 1,000 ML IV.CONT SCH ×2 (03:37→18:07)
[2017-09-15 05:24] LABS: Baso % (Auto) 0.2 % (0.0-2.0); Eos % (Auto) 0.4 % (0.0-4.0); Hematocrit 37.7 % (39.0-51.0); Hemoglobin 12.9 gm/dL (13.0-17.0); Lymph # (Auto) 2.1 th/mm3 (1.0-4.8); Lymph % (Auto) 19.7 % (9.0-44.0); Mean Corpuscular HGB Conc 34.2 % (32.0-36.0); Mean Corpuscular Hemoglobin 31.2 pg (27.0-34.0); Mean Corpuscular Volume 91.3 fL (80.0-100.0); Mean Platelet Volume 10.4 fL (7.0-11.0); Mono # (Auto) 1.1 th/mm3 (0.0-0.9); Mono % (Auto) 10.6 % (0.0-8.0); Neut # (Auto) 7.3 th/mm3 (1.8-7.7); Neut % (Auto) 69.1 % (16.0-70.0); Platelet Count 188 th/mm3 (150-450); Red Blood Count 4.13 mil/mm3 (4.50-5.90); Red Cell Distribution Width 15.8 % (11.6-17.2); White Blood Count 10.5 th/mm3 (4.0-11.0)
[2017-09-15 05:54] LABS: Anion Gap 15 meq/L (5-15); Blood Urea Nitrogen 26 mg/dL (7-18); Calcium 9.3 mg/dL (8.5-10.1); Carbon Dioxide 23.7 meq/L (21.0-32.0); Chloride 102 meq/L (98-107); Glomerular Filtration Rate Greater Than 89 mL/min (>89); Glucose,Random 90 mg/dL (74-106); Potassium 3.7 meq/L (3.5-5.1); Sodium 141 meq/L (136-145)
[2017-09-15 05:55] LABS: Magnesium 2.5 mg/dL (1.5-2.5); Phosphorus 3.1 mg/dL (2.5-4.9)
[2017-09-15] MEDS: Heparin - SQ 10,000 UNITS/ML Vial SQ SCH ×3 (06:13→20:59)
--- NOTE | 2017-09-15 06:55 | XR ---
EXAM DATE: 09/15/2017 6:41 AM EDT AGE/SEX: 52 years / Male INDICATIONS: Shortness of breath. CLINICAL DATA: This is the patient's subsequent encounter. Patient reports that signs and symptoms h ave been present for 2 weeks and indicates a pain score of Nonresponsive. MEDICAL/SURGICAL HISTORY: . Gastroesophageal reflux disease. Dementia. . . Cholecystectomy. Ex ploratory laparoscopy. COMPARISON: [facility], CHEST 1V SINGLE AP, 09/14/2017. . FINDINGS: Mild left base atelectasis not significantly changed. Right lung remains clear. No pneumothorax seen. Heart size stable, within normal limits. Endotracheal tube tip approximately 5 cm above the alyce. Nasogastric tube courses into the stomach. CONCLUSION: No significant change mild left base atelectasis. Electronically signed by: Cesario Ball MD 09/15/2017 6:53 AM EDT
[2017-09-15] MEDS: Propofol 1000 mg/100 ml Inj 1,000 MG/100 ML BOTTLE IV.CONT PRN ×4 (08:41→22:36)
[2017-09-15] MEDS: levoFLOXacin 750 MG Tablet PO SCH (08:43)
[2017-09-15] MEDS: Divalproex 125 MG Sprinkles Capsule PO SCH ×2 (08:43→21:00)
[2017-09-15] MEDS: Collagenase Oint 30 GM Tube TOPICAL SCH (08:44)
[2017-09-15] MEDS: Hypromellose 0.3% Opth Gel 10 GM Bottle EACH EYE SCH ×2 (08:44→21:01)
[2017-09-15] MEDS: Polyethylene Glycol 3350 17 GM Packet PO SCH ×2 (08:44→21:02)
[2017-09-15] MEDS: Gabapentin 100 MG Capsule PO SCH ×3 (08:44→18:08)
[2017-09-15] MEDS: MethylPREDNISolone Sod Succinate Inj 40 MG/ML Vial IV.PUSH SCH ×2 (08:44→21:00)
[2017-09-15] MEDS: rifAXIMin 550 MG Tablet PO SCH ×2 (08:45→21:01)
--- NOTE | 2017-09-15 09:34 | P.PNID ---
Subjective Remarks: He is a 52-year-old male, who is a resident of the shelter, brought to the hospital for evaluation of shortness of breath, hypoxemia, and tachycardic. According to the paramedics he had an elevated temp. Got some information from the nurse, patient did not have any Vernon when he presented, and a Vernon catheter was placed. Since admission he has required BiPAP for oxygenation. He has been febrile. Urinalysis showed significant pyuria. His blood pressures seem to be holding, and he is not requiring any pressors. His WBC is mildly elevated at 11.7. Lactic acid is normal. Creatinine is normal. Chest x -ray showing some infiltrates. Infectious disease consultation has been requested to assist with evaluation and treatment of patient with sepsis. Notes reviewed. Temps ok BP ok On the vent Last CXR with mild basilar disease Last sputum 09/10 with normal resp cher BC negative UC negative WBC down to normal Antibiotics: Levaquin Lines: No evidence of infection Past Medical History: Dementia Depression GERD (gastroesophageal reflux disease) Hemorrhoids Hyperlipidemia Paraplegia UTI (urinary tract infection) H/O exploratory laparotomy History of cholecystectomy Allergies/Adverse Reactions: Allergies No Known Allergies Allergy (Verified 08/31/17 00:16) Objective Vital Signs 09/14/17 10:00 09/14/17 10:30 09/14/17 11:00 Temperature Pulse Rate 54 L 64 55 L Respiratory Rate 18 18 18 Blood Pressure 102/63 114/70 107/63 Pulse Oximetry 100 99 98 09/14/17 11:30 09/14/17 12:00 09/14/17 12:07 Temperature 98.6 F Pulse Rate 55 L 63 Respiratory Rate 18 18 18 Blood Pressure 103/60 114/73 Pulse Oximetry 97 96 97 09/14/17 12:09 09/14/17 12:30 09/14/17 13:00 Temperature Pulse Rate 64 57 L 57 L Respiratory Rate 18 18 18 Blood Pressure 109/62 119/70 Pulse Oximetry 97 97 09/14/17 13:30 09/14/17 14:00 09/14/17 14:30 Temperature Pulse Rate 52 L 50 L 59 L Respiratory Rate 18 18 18 Blood Pressure 107/61 112/64 119/70 Pulse Oximetry 97 96 98 09/14/17 15:00 09/14/17 15:30 09/14/17 16:00 Temperature 98.9 F Pulse Rate 51 L 50 L 48 L Respiratory Rate 18 18 16 Blood Pressure 111/65 111/61 108/62 Pulse Oximetry 97 96 96 09/14/17 16:30 09/14/17 16:49 09/14/17 17:00 Temperature Pulse Rate 51 L 60 53 L Respiratory Rate 18 18 18 Blood Pressure 108/62 107/59 L Pulse Oximetry 96 98 96 09/14/17 17:30 09/14/17 18:00 09/14/17 18:30 Temperature Pulse Rate 53 L 51 L 47 L Respiratory Rate 18 18 18 Blood Pressure 111/63 113/61 122/65 Pulse Oximetry 95 96 95 09/14/17 19:00 09/14/17 19:30 09/14/17 20:00 Temperature 98.4 F Pulse Rate 54 L 52 L 56 L Respiratory Rate 18 18 18 Blood Pressure 108/60 111/62 116/65 Pulse Oximetry 95 95 96 09/14/17 20:30 09/14/17 21:00 09/14/17 21:21 Temperature Pulse Rate 59 L 60 61 Respiratory Rate 18 18 18 Blood Pressure 119/66 118/65 Pulse Oximetry 96 95 97 09/14/17 21:31 09/14/17 22:00 09/14/17 22:31 Temperature Pulse Rate 68 74 85 Respiratory Rate 18 18 18 Blood Pressure 121/82 112/61 134/69 Pulse Oximetry 100 95 98 09/14/17 23:00 09/14/17 23:30 09/15/17 00:00 Temperature 97.7 F Pulse Rate 81 75 73 Respiratory Rate 18 18 18 Blood Pressure 107/63 107/61 112/65 Pulse Oximetry 95 96 95 09/15/17 00:24 09/15/17 00:30 09/15/17 01:00 Temperature Pulse Rate 74 70 72 Respiratory Rate 18 18 18 Blood Pressure 101/58 L 108/61 Pulse Oximetry 95 95 95 09/15/17 01:30 09/15/17 02:00 09/15/17 02:30 Temperature Pulse Rate 71 71 80 Respiratory Rate 18 18 18 Blood Pressure 106/60 105/61 113/68 Pulse Oximetry 95 95 98 09/15/17 03:00 09/15/17 03:30 09/15/17 03:58 Temperature Pulse Rate 74 73 76 Respiratory Rate 18 18 18 Blood Pressure 105/58 L 99/60 L Pulse Oximetry 98 95 95 09/15/17 04:00 09/15/17 04:30 09/15/17 05:00 Temperature Pulse Rate 76 77 73 Respiratory Rate 18 18 Blood Pressure 98/63 L 105/58 L 100/59 L Pulse Oximetry 95 95 98 09/15/17 05:30 09/15/17 06:00 09/15/17 06:30 Temperature Pulse Rate 65 71 74 Respiratory Rate 18 18 18 Blood Pressure 104/61 105/62 100/59 L Pulse Oximetry 98 98 98 09/15/17 08:53 Temperature Pulse Rate Respiratory Rate 18 Blood Pressure Pulse Oximetry 98 Intake & Output 09/14/17 09/15/17 09/15/17 18:59 06:59 18:59 Intake Total 1300 / 1300 1250 / 1250 Output Total 1100 / 1100 700 / 700 Balance 200 / 200 550 / 550 Intake: IV 1300 / 1300 1250 / 1250 D5W/LR + KCL 20 mEq Inj 1,000 1000 / 1000 1000 / 1000 ML @ 84 mls/hr IV.CONT .[id number] [facility] Rx#:[id number] Versed Inj 50 mg In 50 ml @ 2 50 / 50 MG/HR 2 mls/hr IV.CONT TITRATE PRN Rx#:[id number] Diprivan 1000 mg/100 ml Inj 1, 300 / 300 200 / 200 000 mg In 100 ml @ 5 MCG/KG/MIN 3.105 mls/hr IV.CONT TITRATE PRN Rx#:[id number] Output: Urine 700 / 700 Urine Amount (Catheter) 750 / 750 Indwelling Urethral Catheter 750 / 750 Gastric Drainage 350 / 350 Right Nare Small Bore Feeding 350 / 350 Tube Other: Date of Last Bowel Movement 09/13/17 09/13/17 09/10/17 11:16 Blood - Peripheral Aerobic Blood Culture - Preliminary No growth in 4 days 09/10/17 11:16 Blood - Peripheral Anaerobic Blood Culture - Preliminary No growth in 4 days 09/10/17 11:10 Blood - Peripheral Aerobic Blood Culture - Preliminary No growth in 4 days 09/10/17 11:10 Blood - Peripheral Anaerobic Blood Culture - Preliminary No growth in 4 days 09/10/17 11:15 Catheterized Urine Urine Culture - Final No growth in 48 hours 09/10/17 09:30 Sputum - Endotracheal Gram Stain - Final 09/10/17 09:30 Sputum - Endotracheal Sputum Culture - Final Heavy growth normal respiratory cher Lab - Hematology Results 09/14/17 09/15/17 04:04 04:46 WBC 8.7 10.5 RBC 4.16 L 4.13 L Hgb 13.0 12.9 L Hct 37.9 L 37.7 L MCV 91.2 91.3 MCH 31.3 31.2 MCHC 34.4 34.2 RDW 15.5 15.8 Plt Count 168 188 MPV 10.1 10.4 Neut % (Auto) 80.1 H 69.1 Lymph % (Auto) 10.2 19.7 [place] % (Auto) 9.6 H 10.6 H Eos % (Auto) 0.0 0.4 Baso % (Auto) 0.1 0.2 Neut # (Auto) 7.0 7.3 Lymph # (Auto) 0.9 L 2.1 [place] # (Auto) 0.8 1.1 H Eos # (Auto) 0.0 0.0 Baso # (Auto) 0.0 0.0 WBC Differential . . Differential Comment Auto diff final Auto diff final Lab - Chemistry Results 09/13/17 09/13/17 09/13/17 11:44 13:40 15:05 Sodium Potassium 3.6 Chloride Carbon Dioxide Anion Gap BUN Creatinine Estimated GFR POC Glucose 131 H Random Glucose Lactic Acid 2.0 Calcium Phosphorus Magnesium Total Bilirubin AST ALT Alkaline Phosphatase Total Protein Albumin 09/13/17 09/13/17 09/14/17 15:36 19:47 00:32 Sodium Potassium Chloride Carbon Dioxide Anion Gap BUN Creatinine Estimated GFR POC Glucose 122 H 93 126 H Random Glucose Lactic Acid Calcium Phosphorus Magnesium Total Bilirubin AST ALT Alkaline Phosphatase Total Protein Albumin 09/14/17 09/14/17 09/14/17 04:04 07:47 11:37 Sodium 138 Potassium 3.8 Chloride 101 Carbon Dioxide 27.1 Anion Gap 10 BUN 30 H Creatinine 0.65 Estimated GFR Greater than 89 POC Glucose 144 H 124 H Random Glucose 147 H Lactic Acid Calcium 8.6 Phosphorus 3.2 Magnesium 2.3 Total Bilirubin 0.5 AST 21 ALT 67 Alkaline Phosphatase 75 Total Protein 6.3 L Albumin 2.8 L 09/14/17 09/15/17 09/15/17 16:46 00:36 04:46 Sodium Potassium Chloride Carbon Dioxide Anion Gap BUN Creatinine Estimated GFR POC Glucose 111 H 104 Random Glucose Lactic Acid Calcium Phosphorus 3.1 Magnesium 2.5 Total Bilirubin AST ALT Alkaline Phosphatase Total Protein Albumin 09/15/17 09/15/17 04:46 08:40 Sodium 141 Potassium 3.7 Chloride 102 Carbon Dioxide 23.7 Anion Gap 15 BUN 26 H Creatinine 0.64 Estimated GFR Greater than 89 POC Glucose 92 Random Glucose 90 Lactic Acid Calcium 9.3 Phosphorus Magnesium Total Bilirubin AST ALT Alkaline Phosphatase Total Protein Albumin Imaging: ITS Impressions Abdomen/Bladder Ultrasound 08/31/17 00:00 CONCLUSION: 1. 11 mm left midlung calculus. 2. No evidence of hydronephrosis. 3. Otherwise normal appearing kidneys. Chest CTA 08/31/17 00:00 CONCLUSION: 1. No evidence of pulmonary embolism. 2. Extensive consolidation in the right lung and patchy infiltrates elsewhere in both lungs. 3. Moderately enlarged mediastinal lymph node. Abdomen/Pelvis CT 09/13/17 00:00 CONCLUSION: 1. Nonobstructing left renal stones. 2. No evidence of small bowel dilation. 3. Bibasilar atelectasis in the lower lungs. 4. Bilateral inguinal hernias containing fat. Abdomen X-Ray 09/14/17 00:00 CONCLUSION: No significant change is identified. There is diffuse dilatation of the colon. The pattern could represent ileus. Chest X-Ray 09/15/17 06:00 CONCLUSION: No significant change mild left base atelectasis. Physical Exam: GENERAL: Awake. Tracking. NAD on the vent SKIN: Cool and dry. No generalized rash. HEAD: Atraumatic. Normocephalic. No temporal wasting, or tenderness. EYES: Noank conjunctiva. No petechia or hemorrhage. Pupils equal, round and reactive to light. No scleral icterus. No injection or drainage. NECK: Trachea midline. Supple. CARDIOVASCULAR: Regular rate and rhythm. No murmurs, rubs or gallops. RESPIRATORY: Scattered rhonchi, decreased at bases ABDOMEN: obese, distended. Bowel sounds present and normoactive. He has a long midline incision which looks like an exp lap, and has a cholecystectomy scar in RUQ. EXTREMITIES: No clubbing, cyanosis. Has no pedal edema. No calf tenderness. NEUROLOGICAL: Awake and tracking : Vernon in place, Clear yellow urine. LINE: No evidence of infection Assessment and Plan - Plan Impression Sepsis on presentation, patient came from [facility] - has lung infiltrates, and SOB, C/W HCAP - also with UTI HCAP, C/S bronch negative Leukocytosis Respiratory failure, recurrent Hx paraplegia Encephalopathy Recommendation Continue Levaquin - change to po - End date ordered Monitor temps Monitor progress Weaning per CCM as tolerated, ?may need trach Seems clinically stable from ID standpoint
[2017-09-15] MEDS: Midazolam 50 MG/50 ML Inj 50 MG/50 ML BAG IV.CONT PRN (14:31)
--- NOTE | 2017-09-15 15:39 | P.PNCC ---
Subjective Subjective Remarks/Hospital Course: 52-year-old male presents from group home for an evaluation of hypoxemia, shortness of breath, and tachycardia and per paramedics elevated temperature with history of paraplegia with immobility, dyslipidemia, chronic cough, mood disorder with depression, pressure ulceration bilateral lower extremity knee contracture, prior Klebsiella pneumonia and morbid obesity. In the emergency department he appeared to be in respiratory distress and was placed by ED attending on the BiPAP. 09/01 Patient is on BIPAP 18/5 with 40% FIO2. Afebrile with intermittent confusion. CTA chest yesterday showed no PE, extensive consolidation right lung. 09/02 Patient was intubated yesterday and s/p bronch. Sedated with Diprivan and Fentanyl infusion. Afebrile. 09/03 No events overnight. Sedated with Diprivan and Fentanyl infusion. Afebrile. 09/04: Remains intubated, sedated with propofol. Eyes open, do not follow commands. Bilateral wheezing on exam. FiO2 remains high at 60%, O2 sat 92-94% 09/05: Remains sedated heavily for vent synchrony, FiO2 remains at 60%, will wean. Sputum cx negative. ETT advanced due to leak, will repeat CXR. Patient do not follow commands, but get agitated when sedation held 09/06: Remains sedated for ventilator synchrony. Oxygen saturation improved FiO2 down to 50%. Chest x-ray on my review shows pulmonary edema. Started scheduled Lasix scheduled Lasix yesterday, urine output excellent 5.5 L in 24 hours 09/07: Afebrile. Remains on propofol and fentanyl drips due to his significant agitation. 2 bite block placed overnight/Guedel airways related secondary to patient attempted to bite through ET tube.. One bowel movement yesterday 09/08 No events overnight. Sedated with Diprivan and Fentanyl drip. Afebrile. 09/09: Extubated yesterday without complication. Currently on 6 L nasal cannula. Swallow evaluation failed 2. Dobbhoff tube is in place. No bowel movement since 09/02. 09/10: Intubated overnight due to respiratory failure. Currently on PEEP of 12 and FiO2 90%. Ventilator is been adjusted. Tube feeds of been resumed. 09/11 Patient remains intubated and sedated, on PRVC with PEEP:10, FIO2 40% 09/12: Afebrile. Remains on 40% FiO2. Propofol drip at 50 mcg/kg/min. PEEP is still at 10. 09/13: Afebrile. Abdominal x-ray yesterday revealed likely adynamic ileus. Will check CT abdomen and pelvis today. Patient is currently being decompressed from above. Will receive methylnaltrexone and enema today.. Was tolerating tube feeds at goal. 09/14: Afebrile. Bowel movements overnight. White blood cell count is normalized. We will keep him potassium 40 and recheck abdominal x-ray in a.m. Subjective 09/15: Afebrile. Will check KUB and likely restart tube feedings today. No neurological change. Failed CPAP trials today. Objective Vital Signs / I&O: Vital Signs 09/14/17 16:00 09/14/17 16:30 09/14/17 16:49 Temperature 98.9 F Pulse Rate 48 L 51 L 60 Respiratory Rate 16 18 18 Blood Pressure 108/62 108/62 Pulse Oximetry 96 96 98 09/14/17 17:00 09/14/17 17:30 09/14/17 18:00 Temperature Pulse Rate 53 L 53 L 51 L Respiratory Rate 18 18 18 Blood Pressure 107/59 L 111/63 113/61 Pulse Oximetry 96 95 96 09/14/17 18:30 09/14/17 19:00 09/14/17 19:30 Temperature Pulse Rate 47 L 54 L 52 L Respiratory Rate 18 18 18 Blood Pressure 122/65 108/60 111/62 Pulse Oximetry 95 95 95 09/14/17 20:00 09/14/17 20:30 09/14/17 21:00 Temperature 98.4 F Pulse Rate 56 L 59 L 60 Respiratory Rate 18 18 18 Blood Pressure 116/65 119/66 118/65 Pulse Oximetry 96 96 95 09/14/17 21:21 09/14/17 21:31 09/14/17 22:00 Temperature Pulse Rate 61 68 74 Respiratory Rate 18 18 18 Blood Pressure 121/82 112/61 Pulse Oximetry 97 100 95 09/14/17 22:31 09/14/17 23:00 09/14/17 23:30 Temperature Pulse Rate 85 81 75 Respiratory Rate 18 18 18 Blood Pressure 134/69 107/63 107/61 Pulse Oximetry 98 95 96 09/15/17 00:00 09/15/17 00:24 09/15/17 00:30 Temperature 97.7 F Pulse Rate 73 74 70 Respiratory Rate 18 18 18 Blood Pressure 112/65 101/58 L Pulse Oximetry 95 95 95 09/15/17 01:00 09/15/17 01:30 09/15/17 02:00 Temperature Pulse Rate 72 71 71 Respiratory Rate 18 18 18 Blood Pressure 108/61 106/60 105/61 Pulse Oximetry 95 95 95 09/15/17 02:30 09/15/17 03:00 09/15/17 03:30 Temperature Pulse Rate 80 74 73 Respiratory Rate 18 18 18 Blood Pressure 113/68 105/58 L 99/60 L Pulse Oximetry 98 98 95 09/15/17 03:58 09/15/17 04:00 09/15/17 04:30 Temperature Pulse Rate 76 76 77 Respiratory Rate 18 18 18 Blood Pressure 98/63 L 105/58 L Pulse Oximetry 95 95 95 09/15/17 05:00 09/15/17 05:30 09/15/17 06:00 Temperature Pulse Rate 73 65 71 Respiratory Rate 18 18 18 Blood Pressure 100/59 L 104/61 105/62 Pulse Oximetry 98 98 98 09/15/17 06:30 09/15/17 08:53 09/15/17 12:36 Temperature Pulse Rate 74 54 L Respiratory Rate 18 18 18 Blood Pressure 100/59 L Pulse Oximetry 98 98 Intake & Output 09/14/17 09/15/17 09/15/17 18:59 06:59 18:59 Intake Total 1300 / 1300 1250 / 1250 150 / 150 Output Total 1100 / 1100 700 / 700 Balance 200 / 200 550 / 550 150 / 150 Intake: IV 1300 / 1300 1250 / 1250 150 / 150 D5W/LR + KCL 20 mEq Inj 1,000 1000 / 1000 1000 / 1000 ML @ 84 mls/hr IV.CONT .[id number] ABENA Rx#:[id number] Versed Inj 50 mg In 50 ml @ 2 50 / 50 50 / 50 MG/HR 2 mls/hr IV.CONT TITRATE PRN Rx#:[id number] Diprivan 1000 mg/100 ml Inj 1, 300 / 300 200 / 200 100 / 100 000 mg In 100 ml @ 5 MCG/KG/MIN 3.105 mls/hr IV.CONT TITRATE PRN Rx#:[id number] Output: Urine 700 / 700 Urine Amount (Catheter) 750 / 750 Indwelling Urethral Catheter 750 / 750 Gastric Drainage 350 / 350 Right Nare Small Bore Feeding 350 / 350 Tube Other: Date of Last Bowel Movement 09/13/17 09/13/17 Result Diagrams: 09/15/17 04:46 09/15/17 04:46 Other Results: Microbiology 09/10/17 11:16 Blood - Peripheral Aerobic Blood Culture - Final No growth in 5 days 09/10/17 11:16 Blood - Peripheral Anaerobic Blood Culture - Final No growth in 5 days 09/10/17 11:10 Blood - Peripheral Aerobic Blood Culture - Final No growth in 5 days 09/10/17 11:10 Blood - Peripheral Anaerobic Blood Culture - Final No growth in 5 days 09/10/17 11:15 Catheterized Urine Urine Culture - Final No growth in 48 hours 09/10/17 09:30 Sputum - Endotracheal Gram Stain - Final 09/10/17 09:30 Sputum - Endotracheal Sputum Culture - Final Heavy growth normal respiratory cher 09/10/17 11:00 Nasal Wash Influenza Types A,B Antigen - Final Negative for FLU A and B antigen Infection due to influenza A or B cannot be ruled out since the antigen present in the sample may be below the detection limit of the test. 09/06/17 10:45 Sputum - Endotracheal Gram Stain - Final 09/06/17 10:45 Sputum - Endotracheal Sputum Culture - Final Rare growth normal respiratory cher 08/31/17 00:25 Blood - Peripheral Aerobic Blood Culture - Final No growth in 5 days 08/31/17 00:25 Blood - Peripheral Anaerobic Blood Culture - Final No growth in 5 days 08/31/17 00:30 Blood - Peripheral Aerobic Blood Culture - Final No growth in 5 days 08/31/17 00:30 Blood - Peripheral Anaerobic Blood Culture - Final No growth in 5 days 09/01/17 09:30 Bronchial - Right Lower Lobe Gram Stain - Final 09/01/17 09:30 Bronchial - Right Lower Lobe Bronchial Culture - Final No growth in 48 hours 08/31/17 02:50 Catheterized Urine Urine Culture - Final 50-100,000 cfu/mL mixed cher (probable contaminants ) 08/31/17 02:50 Urine - Catheterized Urine Streptococcus pneumoniae Antigen ( M - Final Presumptive negative for streptococcus pneumoniae antigen, suggesting no current or recent infection. Infection due to Streptococcus pneumoniae cannot be ruled out since the antigen present in the sample may be below the detection limit of the test. 08/31/17 02:50 Urine - Catheterized Urine Legionella Antigen - Final Presumptive negative for Legionella pneumophila serogroup 1 antigen in urine, suggesting no recent or recurrent infection. Infection due to Legionella cannot be ruled out since other serogroups and species may cause disease, antigen may not be present in urine in early infection, and the level of antigen present in the urine may be below the detection limit of the test. Imaging: Abdomen/Bladder Ultrasound 08/31/17 00:00 CONCLUSION: 1. 11 mm left midlung calculus. 2. No evidence of hydronephrosis. 3. Otherwise normal appearing kidneys. Chest CTA 08/31/17 00:00 CONCLUSION: 1. No evidence of pulmonary embolism. 2. Extensive consolidation in the right lung and patchy infiltrates elsewhere in both lungs. 3. Moderately enlarged mediastinal lymph node. Chest X-Ray 08/31/17 00:08 CONCLUSION: Elevation of the right hemidiaphragm and right lower lung consolidation. Patchy infiltrates in left lower lung. Cardiomegaly. Chest X-Ray 09/01/17 00:00 CONCLUSION: 1. The endotracheal tube and NG tube appear to be in good position. 2. No evidence of pneumothorax. 3. There is parenchymal consolidation in the right lung base with an increasing infiltrate in the right upper lung. Chest X-Ray 09/01/17 00:00 CONCLUSION: There are scattered bilateral pulmonary infiltrates. No evidence of pneumothorax. Abdomen X-Ray 09/03/17 08:04 CONCLUSION: Prominent loop of bowel in the right abdomen. Chest X-Ray 09/04/17 00:00 CONCLUSION: 1. No significant interval change. 2. Stable patchy bilateral mid to lower lung zone airspace disease. Chest X-Ray 09/05/17 00:00 CONCLUSION: No significant change with the bilateral pulmonary infiltrates compared to the prior study. Chest X-Ray 09/05/17 06:00 CONCLUSION: 1. ETT at the level of the clavicles. NGT beyond the GE junction. 2. Stable patchy diffuse bilateral airspace disease. Chest X-Ray 09/06/17 06:00 CONCLUSION: 1. No significant interval change. 2. Stable ETT and NGT. 3. Stable bilateral patchy airspace disease. Chest X-Ray 09/08/17 06:00 CONCLUSION: Lungs are better aerated. Minimal residual bibasilar densities. Abdomen X-Ray 09/09/17 00:00 CONCLUSION: Dobbhoff tube at the level of the pyloric channel Chest X-Ray 09/10/17 00:00 CONCLUSION: Interval intubation with improved aeration Chest X-Ray 09/10/17 00:00 CONCLUSION: Improved exam with resolution of the right lower lobe airspace consolidation. Chest X-Ray 09/10/17 06:00 CONCLUSION: Prominent hazy bilateral pleural parenchymal opacity right worse than left Chest X-Ray 09/11/17 06:00 CONCLUSION: Subsegmental basilar airspace disease with small effusions. Endotracheal tube and feeding tube in good position. Abdomen X-Ray 09/12/17 00:00 CONCLUSION: Gaseous distention of multiple loops of small and large bowel. Study would suggest adynamic ileus. Follow-up for resolution would be warranted. Abdomen X-Ray 09/13/17 00:00 CONCLUSION: No significant change in the gaseous distention of multiple loops of small and large bowel. Abdomen/Pelvis CT 09/13/17 00:00 CONCLUSION: 1. Nonobstructing left renal stones. 2. No evidence of small bowel dilation. 3. Bibasilar atelectasis in the lower lungs. 4. Bilateral inguinal hernias containing fat. Chest X-Ray 09/13/17 06:00 CONCLUSION: Endotracheal tube and feeding tube in good position. Mild basilar airspace disease. Abdomen X-Ray 09/14/17 00:00 CONCLUSION: No significant change is identified. There is diffuse dilatation of the colon. The pattern could represent ileus. Chest X-Ray 09/14/17 06:00 CONCLUSION: Subsegmental basilar airspace disease. No effusion or pneumothorax. Chest X-Ray 09/15/17 06:00 CONCLUSION: No significant change mild left base atelectasis. Objective Remarks: GENERAL: 52 yo male currently resting in bed in no acute distress orotracheally intubated SKIN: Warm and dry. No rash HEAD: Normocephalic. EYES: No scleral icterus. No injection or drainage. ENT: Mucous members are moist and pink. Oropharynx without erythema NECK: Supple, trachea midline. No JVD or lymphadenopathy. CARDIOVASCULAR: RRR, NL S1, S2 without murmurs, gallops, or rubs. RESPIRATORY: Breath sounds equal bilaterally. No accessory muscle use. Bilateral end expiratory wheeze. Transmitted upper airway sounds are noted. Coarse crackles anteriorly and posterior bases. GASTROINTESTINAL: Abdomen obese but reducible and soft today.. Hypoactive bowel sounds are appreciated. MUSCULOSKELETAL: Anasarca/1+ upper lower extremity edema Neuro: Cranial nerves II through XII grossly intact. Strength is 3 out of 5 bilateral upper extremity's. 2 out of 5 bilateral lower extremities. Positive gag and cough. Assessment and Plan - Assessment and Plan Plan: Neuro/Psych: Mood disorder with depression Paraplegia with mobility Acute metabolic encephalopathy Dementia disorder NOS Currently on propofol drip at 50 m/kg/min and midazolam drip at 2 mg an hour for sedation while intubated Goal of RASS -2 Daily sedation vacation EEG-encephalopathy, some burst suppression pattern. On valproic acid 250 mg twice daily, follow up on Valproic acid level 16 on 09/10 Continue baclofen 20 mg 3 times daily/home medication Continue citalopram 20 mg daily/home medication for depression Continue gabapentin 100 mg 3 times daily/home medication Acetaminophen 650 mg by tube every 6 hours as needed fever Holding meloxicam/home medication Holding dantrolene unknown dosage. Pulm: Acute Respiratory Failure -hypoxic and hypercapnic PRVC 18/600/1/8/40, decrease PEEP:8 and tried PSV trials today Ventilator bundle Albuterol/ipratropium aerosols every 4 hours with albuterol aerosols every 2 hours as needed for dyspnea Methylprednisolone succinate 40 mg IV every 12 hours Patient s/p bronch 09/01 showed thick cormier like secretions/mucous plugs suctioned to clear BAL performed RLL-cultures negative to date CXR basilar airspace disease CV: Hypertension Hyperlipidemia Monitor HR and BP keep MAP>65mmHg Currently not requiring vasopressors and/or antihypertensives simvastatin 40 mg daily at home. Hospital substitution is pravastatin 80 mg daily Renal/FEN/: Neurogenic bladder Nonobstructing renal stones Monitor renal function, electrolytes replacement per protocol. d/c furosemide D5 LR with 20 mEq KCl at 84 cc an hour and likely discontinue in a.m. once tube feeds at goal GI: Gastroesophageal reflux disease Hypoalbuminemia History of external hemorrhoids Hyperammonia Elevated AST/ALT likely secondary congestion Possibly adynamic ileus Bilateral inguinal hernias Currently n.p.o. with NG tube to low wall suction secondary to ileus. Glucerna 1.5 to goal 60 cc an hour goal rate per nutrition recommendation. Lansoprazole for GI prophylaxis Lactulose 30 cc twice daily, Xifaxan [address] abdomen/pelvis- Nonobstructing left renal stones. No evidence of small bowel dilation. Bibasilar atelectasis in the lower lungs. Bilateral inguinal hernias containing fat Check KUB in a.m. 09/15. Likely restart tube feeds at that time if not extubated ID: [id number] Continue with abx (levofloxacin)monitor for signs of infections ( fever, WBC) ID is following. Follow up on BAL 09/01 cxs- NGTD BC 08/31: NGTD Strep pneumonia and Legionella Ag negative Sputum 09/06 no growth to date 09/10 blood cultures 2, urine culture and sputum no growth to date Heme: Normocytic anemia Monitor CBC and follow trend Endo: Hyperglycemia SSI with Novulin R with Accu-Cheks to maintain euglycemia for glycemic control MSK Paraplegia PT evaluate and treat DVT GI prophylaxis -Teds SCDs -Subcu heparin -Lansoprazole Level 3 follow-up
[2017-09-15] MEDS ORDERED: Potassium Chloride 20 MEQ Pwd Pkt NG/OG ONE (16:00)
--- NOTE | 2017-09-15 18:37 | XR ---
EXAM DATE: 09/15/2017 6:18 PM EDT AGE/SEX: 52 years / Male INDICATIONS: Ileus. CLINICAL DATA: This is the patient's subsequent encounter. Patient reports that signs and symptoms h ave been present for 2 weeks and indicates a pain score of Nonresponsive. MEDICAL/SURGICAL HISTORY: . Gastroesophageal reflux disease. Dementia . Cholecystectomy. Explo ratory laparoscopy. COMPARISON: [facility] [place], ABDOMEN 1V KUB, 09/14/2017. [facility] [place], CT ABDOMEN & PELVIS W/O CONTRAST, 09/13/2017. [facility] [place], ABDOMEN 1V KUB, 09/13/2017. . FINDINGS: There is one air-containing loop of bowel, right lower quadrant which is more prominent than on the prior examination, now measuring 9.6 cm in superior/inferior dimension (previously measured 6.8 cm. T here is no mucosal pattern to help differentiate between small and large bowel. There is a lesser deg ree of gaseous distention of other loops of bowel, and particularly colon. Gastric tube is coiled wit hin the stomach. Visualized lower lungs are clear. CONCLUSION: Solitary persistent loop of bowel in the right lower quadrant measures 9.6 cm. Cannot differentiate b etween small and large bowel given the absence of mucosal pattern.. Recommend serial films. Electronically signed by: Quentin Dela Cruz MD 09/15/2017 6:36 PM EDT
[2017-09-16] MEDS: Insulin NovoLIN Regular Correctional Sugar Inj SQ SCH ×4 (00:34→18:30)
[2017-09-16] MEDS: Oral Hygiene Kit OROPHARYNG SCH ×4 (00:35→22:16)
[2017-09-16] MEDS: Heparin - SQ 10,000 UNITS/ML Vial SQ SCH ×3 (05:47→22:05)
[2017-09-16] MEDS: KCL 20 mEq/D5W/LR Inj 1,000 ML IV.CONT SCH ×2 (05:48→18:29)
[2017-09-16] MEDS: Midazolam 50 MG/50 ML Inj 50 MG/50 ML BAG IV.CONT PRN ×2 (05:51→22:06)
[2017-09-16] MEDS: Propofol 1000 mg/100 ml Inj 1,000 MG/100 ML BOTTLE IV.CONT PRN ×6 (05:52→22:07)
[2017-09-16 06:44] LABS: Baso % (Auto) 0.2 % (0.0-2.0); Hematocrit 37.8 % (39.0-51.0); Hemoglobin 12.6 gm/dL (13.0-17.0); Lymph # (Auto) 1.1 th/mm3 (1.0-4.8); Lymph % (Auto) 10.4 % (9.0-44.0); Mean Corpuscular HGB Conc 33.4 % (32.0-36.0); Mean Corpuscular Volume 92.8 fL (80.0-100.0); Mean Platelet Volume 10.5 fL (7.0-11.0); Mono # (Auto) 0.7 th/mm3 (0.0-0.9); Mono % (Auto) 6.1 % (0.0-8.0); Neut # (Auto) 9.1 th/mm3 (1.8-7.7); Neut % (Auto) 83.3 % (16.0-70.0); Platelet Count 222 th/mm3 (150-450); Red Blood Count 4.07 mil/mm3 (4.50-5.90); Red Cell Distribution Width 16.1 % (11.6-17.2)
[2017-09-16 07:02] LABS: Anion Gap 13 meq/L (5-15); Blood Urea Nitrogen 19 mg/dL (7-18); Carbon Dioxide 19.3 meq/L (21.0-32.0); Chloride 108 meq/L (98-107); Glomerular Filtration Rate Greater Than 89 mL/min (>89); Glucose,Random 115 mg/dL (74-106); Magnesium 2.5 mg/dL (1.5-2.5); Phosphorus 3.5 mg/dL (2.5-4.9); Potassium 4.3 meq/L (3.5-5.1); Sodium 140 meq/L (136-145)
[2017-09-16] MEDS: MethylPREDNISolone Sod Succinate Inj 40 MG/ML Vial IV.PUSH SCH ×2 (08:21→22:05)
[2017-09-16] MEDS: rifAXIMin 550 MG Tablet PO SCH ×2 (08:23→22:04)
[2017-09-16] MEDS: levoFLOXacin 750 MG Tablet PO SCH (08:23)
[2017-09-16] MEDS: Divalproex 125 MG Sprinkles Capsule PO SCH ×2 (08:24→22:04)
[2017-09-16] MEDS: Gabapentin 100 MG Capsule PO SCH (08:29)
[2017-09-16] MEDS: Polyethylene Glycol 3350 17 GM Packet PO SCH ×2 (08:29→22:05)
[2017-09-16] MEDS: Hypromellose 0.3% Opth Gel 10 GM Bottle EACH EYE SCH ×2 (08:30→22:03)
[2017-09-16] MEDS: Collagenase Oint 30 GM Tube TOPICAL SCH (08:30)
--- NOTE | 2017-09-16 14:35 | P.PNCC ---
Subjective Subjective Remarks/Hospital Course: 52-year-old male presents from [facility] for an evaluation of hypoxemia, shortness of breath, and tachycardia and per paramedics elevated temperature with history of paraplegia with immobility, dyslipidemia, chronic cough, mood disorder with depression, pressure ulceration bilateral lower extremity knee contracture, prior Klebsiella pneumonia and morbid obesity. In the emergency department he appeared to be in respiratory distress and was placed by ED attending on the BiPAP. 09/01 Patient is on BIPAP 18/5 with 40% FIO2. Afebrile with intermittent confusion. CTA chest yesterday showed no PE, extensive consolidation right lung. 09/02 Patient was intubated yesterday and s/p bronch. Sedated with Diprivan and Fentanyl infusion. Afebrile. 09/03 No events overnight. Sedated with Diprivan and Fentanyl infusion. Afebrile. 09/04: Remains intubated, sedated with propofol. Eyes open, do not follow commands. Bilateral wheezing on exam. FiO2 remains high at 60%, O2 sat 92-94% 09/05: Remains sedated heavily for vent synchrony, FiO2 remains at 60%, will wean. Sputum cx negative. ETT advanced due to leak, will repeat CXR. Patient do not follow commands, but get agitated when sedation held 09/06: Remains sedated for ventilator synchrony. Oxygen saturation improved FiO2 down to 50%. Chest x-ray on my review shows pulmonary edema. Started scheduled Lasix scheduled Lasix yesterday, urine output excellent 5.5 L in 24 hours 09/07: Afebrile. Remains on propofol and fentanyl drips due to his significant agitation. 2 bite block placed overnight/Guedel airways related secondary to patient attempted to bite through ET tube.. One bowel movement yesterday 09/08 No events overnight. Sedated with Diprivan and Fentanyl drip. Afebrile. 09/09: Extubated yesterday without complication. Currently on 6 L nasal cannula. Swallow evaluation failed 2. Dobbhoff tube is in place. No bowel movement since 09/02. 09/10: Intubated overnight due to respiratory failure. Currently on PEEP of 12 and FiO2 90%. Ventilator is been adjusted. Tube feeds of been resumed. 09/11 Patient remains intubated and sedated, on PRVC with PEEP:10, FIO2 40% 09/12: Afebrile. Remains on 40% FiO2. Propofol drip at 50 mcg/kg/min. PEEP is still at 10. 09/13: Afebrile. Abdominal x-ray yesterday revealed likely adynamic ileus. Will check CT abdomen and pelvis today. Patient is currently being decompressed from above. Will receive methylnaltrexone and enema today.. Was tolerating tube feeds at goal. 09/14: Afebrile. Bowel movements overnight. White blood cell count is normalized. We will keep him potassium 40 and recheck abdominal x-ray in a.m. 09/15: Afebrile. Will check KUB and likely restart tube feedings today. No neurological change. Failed CPAP trials today. Subjective 09/16: Resting in bed in no acute distress. Continues to fail CPAP trials daily. Will attempt to contact healthcare proxy. Will need tracheostomy early next week. Objective Vital Signs / I&O: Vital Signs 09/15/17 15:00 09/15/17 15:30 09/15/17 16:00 Temperature 98.3 F Pulse Rate 63 65 56 L Respiratory Rate 18 18 18 Blood Pressure 121/70 120/77 119/67 Pulse Oximetry 97 97 97 09/15/17 16:30 09/15/17 17:00 09/15/17 17:03 Temperature Pulse Rate 61 55 L 63 Respiratory Rate 18 18 18 Blood Pressure 114/65 116/65 Pulse Oximetry 97 96 98 09/15/17 17:30 09/15/17 18:00 09/15/17 18:30 Temperature Pulse Rate 59 L 75 77 Respiratory Rate 18 18 18 Blood Pressure 110/59 L 118/72 126/76 Pulse Oximetry 97 98 98 09/15/17 19:00 09/15/17 19:30 09/15/17 20:00 Temperature 97.8 F Pulse Rate 55 L 63 59 L Respiratory Rate 18 18 18 Blood Pressure 130/74 143/84 H 146/81 H Pulse Oximetry 97 97 98 09/15/17 20:30 09/15/17 21:00 09/15/17 21:25 Temperature Pulse Rate 51 L 47 L 51 L Respiratory Rate 18 18 18 Blood Pressure 127/72 133/76 Pulse Oximetry 97 96 97 09/15/17 21:30 09/15/17 22:00 09/15/17 22:30 Temperature Pulse Rate 56 L 66 66 Respiratory Rate 18 18 18 Blood Pressure 116/69 117/70 146/82 H Pulse Oximetry 95 96 97 09/15/17 23:00 09/15/17 23:30 09/16/17 00:00 Temperature Pulse Rate 52 L 49 L 53 L Respiratory Rate 18 18 18 Blood Pressure 136/76 153/82 H 137/78 Pulse Oximetry 96 97 97 09/16/17 00:17 09/16/17 00:31 09/16/17 01:00 Temperature Pulse Rate 66 75 72 Respiratory Rate 18 18 18 Blood Pressure 142/91 H 140/82 Pulse Oximetry 100 98 98 09/16/17 01:30 09/16/17 02:00 09/16/17 02:30 Temperature Pulse Rate 72 59 L 60 Respiratory Rate 18 18 18 Blood Pressure 140/82 142/82 H 155/84 H Pulse Oximetry 98 98 98 09/16/17 03:00 09/16/17 03:30 09/16/17 04:00 Temperature Pulse Rate 60 62 59 L Respiratory Rate 18 18 18 Blood Pressure 144/84 H 153/87 H 147/82 H Pulse Oximetry 98 98 98 09/16/17 04:03 09/16/17 04:30 09/16/17 05:00 Temperature Pulse Rate 52 L 65 56 L Respiratory Rate 18 18 18 Blood Pressure 137/76 128/74 Pulse Oximetry 97 97 96 09/16/17 05:30 09/16/17 06:00 09/16/17 07:55 Temperature Pulse Rate 59 L 66 62 Respiratory Rate 18 18 18 Blood Pressure 117/65 124/75 Pulse Oximetry 97 97 09/16/17 08:00 09/16/17 08:42 09/16/17 10:00 Temperature Pulse Rate 68 52 L Respiratory Rate Blood Pressure Pulse Oximetry 97 09/16/17 11:44 09/16/17 12:00 09/16/17 14:00 Temperature Pulse Rate 103 H 82 Respiratory Rate 18 Blood Pressure Pulse Oximetry Intake & Output 09/15/17 09/16/17 09/16/17 18:59 06:59 18:59 Intake Total 1250 / 1250 1412 / 1412 200 / 200 Output Total 1250 / 1250 1350 / 1350 Balance 0 / 0 62 / 62 200 / 200 Weight 98.5 kg Intake: IV 1250 / 1250 1250 / 1250 200 / 200 D5W/LR + KCL 20 mEq Inj 1,000 1000 / 1000 1000 / 1000 ML @ 84 mls/hr IV.CONT .[id number] [facility] Rx#:[id number] Versed Inj 50 mg In 50 ml @ 2 50 / 50 50 / 50 MG/HR 2 mls/hr IV.CONT TITRATE PRN Rx#:[id number] Diprivan 1000 mg/100 ml Inj 1, 200 / 200 200 / 200 200 / 200 000 mg In 100 ml @ 5 MCG/KG/MIN 3.105 mls/hr IV.CONT TITRATE PRN Rx#:[id number] Tube Feeding 102 / 102 Tube Irrigant 60 / 60 Output: Urine 1250 / 1250 Urine Amount (Catheter) 1350 / 1350 Indwelling Urethral Catheter 1350 / 1350 Other: Date of Last Bowel Movement 09/13/17 09/13/17 Result Diagrams: 09/16/17 05:42 09/16/17 05:42 Other Results: Microbiology 09/10/17 11:16 Blood - Peripheral Aerobic Blood Culture - Final No growth in 5 days 09/10/17 11:16 Blood - Peripheral Anaerobic Blood Culture - Final No growth in 5 days 09/10/17 11:10 Blood - Peripheral Aerobic Blood Culture - Final No growth in 5 days 09/10/17 11:10 Blood - Peripheral Anaerobic Blood Culture - Final No growth in 5 days 09/10/17 11:15 Catheterized Urine Urine Culture - Final No growth in 48 hours 09/10/17 09:30 Sputum - Endotracheal Gram Stain - Final 09/10/17 09:30 Sputum - Endotracheal Sputum Culture - Final Heavy growth normal respiratory cher 09/10/17 11:00 Nasal Wash Influenza Types A,B Antigen - Final Negative for FLU A and B antigen Infection due to influenza A or B cannot be ruled out since the antigen present in the sample may be below the detection limit of the test. 09/06/17 10:45 Sputum - Endotracheal Gram Stain - Final 09/06/17 10:45 Sputum - Endotracheal Sputum Culture - Final Rare growth normal respiratory cher 08/31/17 00:25 Blood - Peripheral Aerobic Blood Culture - Final No growth in 5 days 08/31/17 00:25 Blood - Peripheral Anaerobic Blood Culture - Final No growth in 5 days 08/31/17 00:30 Blood - Peripheral Aerobic Blood Culture - Final No growth in 5 days 08/31/17 00:30 Blood - Peripheral Anaerobic Blood Culture - Final No growth in 5 days 09/01/17 09:30 Bronchial - Right Lower Lobe Gram Stain - Final 09/01/17 09:30 Bronchial - Right Lower Lobe Bronchial Culture - Final No growth in 48 hours 08/31/17 02:50 Catheterized Urine Urine Culture - Final 50-100,000 cfu/mL mixed cher (probable contaminants ) 08/31/17 02:50 Urine - Catheterized Urine Streptococcus pneumoniae Antigen ( M - Final Presumptive negative for streptococcus pneumoniae antigen, suggesting no current or recent infection. Infection due to Streptococcus pneumoniae cannot be ruled out since the antigen present in the sample may be below the detection limit of the test. 08/31/17 02:50 Urine - Catheterized Urine Legionella Antigen - Final Presumptive negative for Legionella pneumophila serogroup 1 antigen in urine, suggesting no recent or recurrent infection. Infection due to Legionella cannot be ruled out since other serogroups and species may cause disease, antigen may not be present in urine in early infection, and the level of antigen present in the urine may be below the detection limit of the test. Imaging: Abdomen/Bladder Ultrasound 08/31/17 00:00 CONCLUSION: 1. 11 mm left midlung calculus. 2. No evidence of hydronephrosis. 3. Otherwise normal appearing kidneys. Chest CTA 08/31/17 00:00 CONCLUSION: 1. No evidence of pulmonary embolism. 2. Extensive consolidation in the right lung and patchy infiltrates elsewhere in both lungs. 3. Moderately enlarged mediastinal lymph node. Chest X-Ray 08/31/17 00:08 CONCLUSION: Elevation of the right hemidiaphragm and right lower lung consolidation. Patchy infiltrates in left lower lung. Cardiomegaly. Chest X-Ray 09/01/17 00:00 CONCLUSION: 1. The endotracheal tube and NG tube appear to be in good position. 2. No evidence of pneumothorax. 3. There is parenchymal consolidation in the right lung base with an increasing infiltrate in the right upper lung. Chest X-Ray 09/01/17 00:00 CONCLUSION: There are scattered bilateral pulmonary infiltrates. No evidence of pneumothorax. Abdomen X-Ray 09/03/17 08:04 CONCLUSION: Prominent loop of bowel in the right abdomen. Chest X-Ray 09/04/17 00:00 CONCLUSION: 1. No significant interval change. 2. Stable patchy bilateral mid to lower lung zone airspace disease. Chest X-Ray 09/05/17 00:00 CONCLUSION: No significant change with the bilateral pulmonary infiltrates compared to the prior study. Chest X-Ray 09/05/17 06:00 CONCLUSION: 1. ETT at the level of the clavicles. NGT beyond the GE junction. 2. Stable patchy diffuse bilateral airspace disease. Chest X-Ray 09/06/17 06:00 CONCLUSION: 1. No significant interval change. 2. Stable ETT and NGT. 3. Stable bilateral patchy airspace disease. Chest X-Ray 09/08/17 06:00 CONCLUSION: Lungs are better aerated. Minimal residual bibasilar densities. Abdomen X-Ray 09/09/17 00:00 CONCLUSION: Dobbhoff tube at the level of the pyloric channel Chest X-Ray 09/10/17 00:00 CONCLUSION: Interval intubation with improved aeration Chest X-Ray 09/10/17 00:00 CONCLUSION: Improved exam with resolution of the right lower lobe airspace consolidation. Chest X-Ray 09/10/17 06:00 CONCLUSION: Prominent hazy bilateral pleural parenchymal opacity right worse than left Chest X-Ray 09/11/17 06:00 CONCLUSION: Subsegmental basilar airspace disease with small effusions. Endotracheal tube and feeding tube in good position. Abdomen X-Ray 09/12/17 00:00 CONCLUSION: Gaseous distention of multiple loops of small and large bowel. Study would suggest adynamic ileus. Follow-up for resolution would be warranted. Abdomen X-Ray 09/13/17 00:00 CONCLUSION: No significant change in the gaseous distention of multiple loops of small and large bowel. Abdomen/Pelvis CT 09/13/17 00:00 CONCLUSION: 1. Nonobstructing left renal stones. 2. No evidence of small bowel dilation. 3. Bibasilar atelectasis in the lower lungs. 4. Bilateral inguinal hernias containing fat. Chest X-Ray 09/13/17 06:00 CONCLUSION: Endotracheal tube and feeding tube in good position. Mild basilar airspace disease. Abdomen X-Ray 09/14/17 00:00 CONCLUSION: No significant change is identified. There is diffuse dilatation of the colon. The pattern could represent ileus. Chest X-Ray 09/14/17 06:00 CONCLUSION: Subsegmental basilar airspace disease. No effusion or pneumothorax. Abdomen X-Ray 09/15/17 00:00 CONCLUSION: Solitary persistent loop of bowel in the right lower quadrant measures 9.6 cm. Cannot differentiate between small and large bowel given the absence of mucosal pattern.. Recommend serial films. Chest X-Ray 09/15/17 06:00 CONCLUSION: No significant change mild left base atelectasis. Objective Remarks: GENERAL: 52 yo male currently resting in bed in no acute distress orotracheally intubated SKIN: Warm and dry. No rash HEAD: Normocephalic. EYES: No scleral icterus. No injection or drainage. ENT: Mucous members are moist and pink. Oropharynx without erythema NECK: Supple, trachea midline. No JVD or lymphadenopathy. CARDIOVASCULAR: RRR, NL S1, S2 without murmurs, gallops, or rubs. RESPIRATORY: Breath sounds equal bilaterally. No accessory muscle use. Bilateral end expiratory wheeze. Transmitted upper airway sounds are noted. Coarse crackles anteriorly and posterior bases. GASTROINTESTINAL: Abdomen obese but reducible and softer today.. Hypoactive bowel sounds are appreciated. MUSCULOSKELETAL: Anasarca/1+ upper lower extremity edema Neuro: Cranial nerves II through XII grossly intact. Strength is 3 out of 5 bilateral upper extremity's. 2 out of 5 bilateral lower extremities. Positive gag and cough. Assessment and Plan - Assessment and Plan Plan: Neuro/Psych: Mood disorder with depression Paraplegia with mobility Acute metabolic encephalopathy Dementia disorder NOS Currently on propofol drip at 40 m/kg/min and midazolam drip at 2 mg an hour for sedation while intubated Goal of RASS -2 Daily sedation vacation EEG-encephalopathy, some burst suppression pattern. On valproic acid 250 mg twice daily, follow up on Valproic acid level 16 on 09/10 Continue baclofen 20 mg 3 times daily/home medication Continue citalopram 20 mg daily/home medication for depression Continue gabapentin 100 mg 3 times daily/home medication Acetaminophen 650 mg by tube every 6 hours as needed fever Holding meloxicam/home medication Holding dantrolene unknown dosage. Pulm: Acute Respiratory Failure -hypoxic and hypercapnic PRVC 18/600/03/06/39, Ventilator bundle Albuterol/ipratropium aerosols every 4 hours with albuterol aerosols every 2 hours as needed for dyspnea Methylprednisolone succinate 40 mg IV every 12 hours Spontaneous breathing trials as clinically indicated Patient s/p bronch 09/01 showed thick cormier like secretions/mucous plugs suctioned to clear BAL performed RLL-cultures negative to date CXR basilar airspace disease CV: Hypertension Hyperlipidemia Monitor HR and BP keep MAP>65mmHg Currently not requiring vasopressors and/or antihypertensives simvastatin 40 mg daily at home. Hospital substitution is pravastatin 80 mg daily Renal/FEN/: Neurogenic bladder Nonobstructing renal stones Monitor renal function, electrolytes replacement per protocol. d/c furosemide D5 LR with 20 mEq KCl at 84 cc an hour GI: Gastroesophageal reflux disease Hypoalbuminemia History of external hemorrhoids Hyperammonia Elevated AST/ALT likely secondary congestion Possibly adynamic ileus Bilateral inguinal hernias Currently n.p.o. with NG tube to low wall suction secondary to ileus. Did not tolerate trickle feeds overnight Glucerna 1.5 to goal 60 cc an hour goal rate per nutrition recommendation. Lansoprazole for GI prophylaxis Lactulose 30 cc twice daily, Xifaxan [address] abdomen/pelvis- Nonobstructing left renal stones. No evidence of small bowel dilation. Bibasilar atelectasis in the lower lungs. Bilateral inguinal hernias containing fat Check KUB in a.m. 09/16. ID: [id number] Continue with abx (levofloxacin)monitor for signs of infections ( fever, WBC) ID is following. Follow up on BAL 09/01 cxs- NGTD BC 08/31: NGTD Strep pneumonia and Legionella Ag negative Sputum 09/06 no growth to date 09/10 blood cultures 2, urine culture and sputum no growth to date Heme: Normocytic anemia Monitor CBC and follow trend Endo: Hyperglycemia SSI with Novulin R with Accu-Cheks to maintain euglycemia for glycemic control MSK Paraplegia PT evaluate and treat DVT GI prophylaxis -Teds SCDs -Subcu heparin -Lansoprazole Level 3 follow-up
--- NOTE | 2017-09-16 15:06 | XR ---
EXAM DATE: 09/16/2017 2:58 PM EDT AGE/SEX: 52 years / Male INDICATIONS: Abdominal pain. CLINICAL DATA: This is the patient's subsequent encounter. Patient reports that signs and symptoms h ave been present for 2 weeks and indicates a pain score of 8/10. MEDICAL/SURGICAL HISTORY: Gastroesophageal reflux disease. Cholecystectomy. COMPARISON: [facility] [place], ABDOMEN 1V KUB, 09/15/2017. . FINDINGS: There is gas in mildly prominent loops of colon. There is one loop of bowel in the right lower quadr ant which does not demonstrate mucosal pattern cannot differentiate between small and large bowel, ho wever, this lesion is smaller than on prior examination, now measuring 5.2 cm (previously measured 9. 6 cm). Moderate degenerative changes throughout the lumbar spine. Gastric tube tip in side-port proje ct within the stomach. CONCLUSION: Moderate amount of gas throughout the colon. The solitary loop of bowel in the right lower quadrant h as decreased in size and compared to yesterday's exam. Electronically signed by: Quentin Dela Cruz MD 09/16/2017 3:05 PM EDT
[2017-09-16] MEDS: Chlorhexidine 0.12% Oral Kit 15 ML UDC OROPHARYNG SCH ×2 (15:19→22:04)
[2017-09-17] MEDS: Insulin NovoLIN Regular Correctional Sugar Inj SQ SCH ×9 (00:49→20:55)
[2017-09-17] MEDS: Oral Hygiene Kit OROPHARYNG SCH ×4 (00:50→17:59)
[2017-09-17] MEDS: Heparin - SQ 10,000 UNITS/ML Vial SQ SCH ×3 (03:29→20:52)
[2017-09-17 04:34] LABS: Baso % (Auto) 0.4 % (0.0-2.0); Eos % (Auto) 0.3 % (0.0-4.0); Hematocrit 37.5 % (39.0-51.0); Hemoglobin 12.3 gm/dL (13.0-17.0); Lymph % (Auto) 16.2 % (9.0-44.0); Mean Corpuscular HGB Conc 32.8 % (32.0-36.0); Mean Corpuscular Hemoglobin 30.6 pg (27.0-34.0); Mean Corpuscular Volume 93.2 fL (80.0-100.0); Mean Platelet Volume 10.5 fL (7.0-11.0); Mono % (Auto) 7.9 % (0.0-8.0); Neut # (Auto) 9.2 th/mm3 (1.8-7.7); Neut % (Auto) 75.2 % (16.0-70.0); Platelet Count 209 th/mm3 (150-450); Red Blood Count 4.03 mil/mm3 (4.50-5.90); Red Cell Distribution Width 16.3 % (11.6-17.2); White Blood Count 12.3 th/mm3 (4.0-11.0)
[2017-09-17 04:52] LABS: Anion Gap 10 meq/L (5-15); Blood Urea Nitrogen 15 mg/dL (7-18); Calcium 8.6 mg/dL (8.5-10.1); Carbon Dioxide 22.4 meq/L (21.0-32.0); Chloride 110 meq/L (98-107); Glomerular Filtration Rate Greater Than 89 mL/min (>89); Glucose,Random 75 mg/dL (74-106); Magnesium 2.3 mg/dL (1.5-2.5); Phosphorus 3.3 mg/dL (2.5-4.9); Potassium 4.4 meq/L (3.5-5.1); Sodium 142 meq/L (136-145); Valproic Acid 8 mcg/mL (50-100)
[2017-09-17] MEDS: KCL 20 mEq/D5W/LR Inj 1,000 ML IV.CONT SCH ×4 (05:15→17:59)
[2017-09-17] MEDS: Propofol 1000 mg/100 ml Inj 1,000 MG/100 ML BOTTLE IV.CONT PRN ×5 (05:16→22:31)
--- NOTE | 2017-09-17 05:34 | XR ---
EXAM DATE: 09/17/2017 5:30 AM EDT AGE/SEX: 52 years / Male INDICATIONS: Follow up respiratory failure. CLINICAL DATA: This is the patient's subsequent encounter. Patient reports that signs and symptoms h ave been present for 2 weeks and indicates a pain score of Nonresponsive. MEDICAL/SURGICAL HISTORY: . Gastroesophageal reflux disease. Dementia . . Cholecystectomy. Ex ploratory laparoscopy. COMPARISON: [facility] [place], CHEST 1V SINGLE AP, 09/15/2017. . FINDINGS: Single AP view of the chest. Endotracheal tube and nasogastric tube remain in place. Left lung base o pacity unchanged. Small left pleural effusion now seen. No evidence of pneumothorax. Cardiomediastin al silhouette unchanged. CONCLUSION: Small left pleural effusion now seen. Mild patchy left lung base atelectasis unchanged. Electronically signed by: Anuel Lord MD 09/17/2017 5:33 AM EDT
[2017-09-17 06:34] LABS: Platelet Estimate Normal (Normal)
[2017-09-17] MEDS: MethylPREDNISolone Sod Succinate Inj 40 MG/ML Vial IV.PUSH SCH (08:36)
[2017-09-17] MEDS: Divalproex 125 MG Sprinkles Capsule PO SCH ×2 (08:36→20:52)
[2017-09-17] MEDS: levoFLOXacin 750 MG Tablet PO SCH (08:36)
[2017-09-17] MEDS: Chlorhexidine 0.12% Oral Kit 15 ML UDC OROPHARYNG SCH ×2 (08:37→20:51)
[2017-09-17] MEDS: Collagenase Oint 30 GM Tube TOPICAL SCH (08:37)
[2017-09-17] MEDS: Polyethylene Glycol 3350 17 GM Packet PO SCH ×2 (08:37→20:53)
[2017-09-17] MEDS: rifAXIMin 550 MG Tablet PO SCH ×2 (08:37→20:53)
[2017-09-17] MEDS: Gabapentin 100 MG Capsule PO SCH ×5 (08:39→17:59)
[2017-09-17] MEDS: Hypromellose 0.3% Opth Gel 10 GM Bottle EACH EYE SCH ×2 (11:52→20:52)
--- NOTE | 2017-09-17 12:05 | P.PNCC ---
Subjective Subjective Remarks/Hospital Course: 52-year-old male presents from correction for an evaluation of hypoxemia, shortness of breath, and tachycardia and per paramedics elevated temperature with history of paraplegia with immobility, dyslipidemia, chronic cough, mood disorder with depression, pressure ulceration bilateral lower extremity knee contracture, prior Klebsiella pneumonia and morbid obesity. In the emergency department he appeared to be in respiratory distress and was placed by ED attending on the BiPAP. 09/01 Patient is on BIPAP 18/5 with 40% FIO2. Afebrile with intermittent confusion. CTA chest yesterday showed no PE, extensive consolidation right lung. 09/02 Patient was intubated yesterday and s/p bronch. Sedated with Diprivan and Fentanyl infusion. Afebrile. 09/03 No events overnight. Sedated with Diprivan and Fentanyl infusion. Afebrile. 09/04: Remains intubated, sedated with propofol. Eyes open, do not follow commands. Bilateral wheezing on exam. FiO2 remains high at 60%, O2 sat 92-94% 09/05: Remains sedated heavily for vent synchrony, FiO2 remains at 60%, will wean. Sputum cx negative. ETT advanced due to leak, will repeat CXR. Patient do not follow commands, but get agitated when sedation held 09/06: Remains sedated for ventilator synchrony. Oxygen saturation improved FiO2 down to 50%. Chest x-ray on my review shows pulmonary edema. Started scheduled Lasix scheduled Lasix yesterday, urine output excellent 5.5 L in 24 hours 09/07: Afebrile. Remains on propofol and fentanyl drips due to his significant agitation. 2 bite block placed overnight/Guedel airways related secondary to patient attempted to bite through ET tube.. One bowel movement yesterday 09/08 No events overnight. Sedated with Diprivan and Fentanyl drip. Afebrile. 09/09: Extubated yesterday without complication. Currently on 6 L nasal cannula. Swallow evaluation failed 2. Dobbhoff tube is in place. No bowel movement since 09/02. 09/10: Intubated overnight due to respiratory failure. Currently on PEEP of 12 and FiO2 90%. Ventilator is been adjusted. Tube feeds of been resumed. 09/11 Patient remains intubated and sedated, on PRVC with PEEP:10, FIO2 40% 09/12: Afebrile. Remains on 40% FiO2. Propofol drip at 50 mcg/kg/min. PEEP is still at 10. 09/13: Afebrile. Abdominal x-ray yesterday revealed likely adynamic ileus. Will check CT abdomen and pelvis today. Patient is currently being decompressed from above. Will receive methylnaltrexone and enema today.. Was tolerating tube feeds at goal. 09/14: Afebrile. Bowel movements overnight. White blood cell count is normalized. We will keep him potassium 40 and recheck abdominal x-ray in a.m. 09/15: Afebrile. Will check KUB and likely restart tube feedings today. No neurological change. Failed CPAP trials today. 09/16: Resting in bed in no acute distress. Continues to fail CPAP trials daily. Will attempt to contact healthcare proxy. Will need tracheostomy early next week. Subjective 09/17: Resting in bed in no acute distress. PEEP is down to 5. Failing spontaneous breathing trials will require tracheostomy. Discussed with father yesterday and agreeable. Objective Vital Signs / I&O: Vital Signs 09/16/17 14:00 09/16/17 15:35 09/16/17 16:00 Temperature 97.9 F Pulse Rate 82 96 H 80 Respiratory Rate 18 18 Blood Pressure 110/58 L Pulse Oximetry 80 L 09/16/17 16:09 09/16/17 21:09 09/16/17 21:10 Temperature Pulse Rate 72 Respiratory Rate 18 18 Blood Pressure Pulse Oximetry 96 98 09/16/17 22:55 09/16/17 23:00 09/16/17 23:30 Temperature 98.9 F Pulse Rate 84 84 91 H Respiratory Rate 18 18 18 Blood Pressure 109/84 89/55 L 94/54 L Pulse Oximetry 100 99 99 09/16/17 23:45 09/16/17 23:46 09/17/17 00:00 Temperature Pulse Rate 94 H 96 H Respiratory Rate 19 18 18 Blood Pressure 88/51 L Pulse Oximetry 99 99 09/17/17 00:30 09/17/17 01:00 09/17/17 01:30 Temperature Pulse Rate 97 H 102 H 97 H Respiratory Rate 18 18 18 Blood Pressure 89/52 L 95/53 L 89/52 L Pulse Oximetry 99 99 99 09/17/17 02:00 09/17/17 02:30 09/17/17 02:48 Temperature Pulse Rate 98 H 99 H 96 H Respiratory Rate 18 18 Blood Pressure 110/63 111/68 Pulse Oximetry 98 99 09/17/17 03:00 09/17/17 03:15 09/17/17 03:30 Temperature Pulse Rate 95 H 90 91 H Respiratory Rate 18 18 18 Blood Pressure 98/59 L 107/68 Pulse Oximetry 99 97 09/17/17 04:00 09/17/17 04:25 09/17/17 04:30 Temperature Pulse Rate 93 H 96 H Respiratory Rate 18 20 18 Blood Pressure 117/67 117/66 Pulse Oximetry 97 98 96 09/17/17 05:00 09/17/17 05:30 09/17/17 05:58 Temperature Pulse Rate 91 H 88 77 Respiratory Rate 18 18 Blood Pressure 122/70 119/68 Pulse Oximetry 96 97 09/17/17 06:00 09/17/17 06:05 09/17/17 06:30 Temperature Pulse Rate 79 80 79 Respiratory Rate 18 18 18 Blood Pressure 115/66 115/66 117/66 Pulse Oximetry 97 97 97 09/17/17 07:00 09/17/17 07:29 09/17/17 07:30 Temperature Pulse Rate 72 67 Respiratory Rate 18 18 18 Blood Pressure 108/62 109/62 Pulse Oximetry 97 97 97 09/17/17 08:00 09/17/17 08:30 09/17/17 09:00 Temperature 98.6 F Pulse Rate 65 78 71 Respiratory Rate 18 18 18 Blood Pressure 110/61 120/69 109/62 Pulse Oximetry 97 97 97 09/17/17 09:30 09/17/17 10:00 09/17/17 10:30 Temperature Pulse Rate 72 66 79 Respiratory Rate 18 18 18 Blood Pressure 106/63 109/63 118/71 Pulse Oximetry 97 97 95 09/17/17 11:00 09/17/17 11:47 Temperature Pulse Rate 65 Respiratory Rate 18 16 Blood Pressure 118/69 Pulse Oximetry 97 97 Intake & Output 09/16/17 09/17/17 09/17/17 18:59 06:59 18:59 Intake Total 1400 / 1400 3258 / 3258 200 / 200 Output Total 1290 / 1290 Balance 1400 / 1400 1967 200 / 200 Weight 101 kg Intake: IV 1400 / 1400 3138 / 3138 200 / 200 D5W/LR + KCL 20 mEq Inj 1,000 1000 / 1000 2900 / 2900 ML @ 84 mls/hr IV.CONT .[id number] [facility] Rx#:[id number] Versed Inj 50 mg In 50 ml @ 2 50 / 50 MG/HR 2 mls/hr IV.CONT TITRATE PRN Rx#:[id number] Diprivan 1000 mg/100 ml Inj 1, 400 / 400 188 / 188 200 / 200 000 mg In 100 ml @ 5 MCG/KG/MIN 3.105 mls/hr IV.CONT TITRATE PRN Rx#:[id number] Oral 0 / 0 Tube Irrigant 120 / 120 Output: Urine Amount (Catheter) 1290 / 1290 Indwelling Urethral Catheter 1290 / 1290 Other: Date of Last Bowel Movement 09/13/17 09/17/17 09/17/17 # Bowel Movements 1 # Incontinent Bowel Movements 1 Result Diagrams: 09/17/17 03:25 09/17/17 03:25 Other Results: Microbiology 09/10/17 11:16 Blood - Peripheral Aerobic Blood Culture - Final No growth in 5 days 09/10/17 11:16 Blood - Peripheral Anaerobic Blood Culture - Final No growth in 5 days 09/10/17 11:10 Blood - Peripheral Aerobic Blood Culture - Final No growth in 5 days 09/10/17 11:10 Blood - Peripheral Anaerobic Blood Culture - Final No growth in 5 days 09/10/17 11:15 Catheterized Urine Urine Culture - Final No growth in 48 hours 09/10/17 09:30 Sputum - Endotracheal Gram Stain - Final 09/10/17 09:30 Sputum - Endotracheal Sputum Culture - Final Heavy growth normal respiratory cher 09/10/17 11:00 Nasal Wash Influenza Types A,B Antigen - Final Negative for FLU A and B antigen Infection due to influenza A or B cannot be ruled out since the antigen present in the sample may be below the detection limit of the test. 09/06/17 10:45 Sputum - Endotracheal Gram Stain - Final 09/06/17 10:45 Sputum - Endotracheal Sputum Culture - Final Rare growth normal respiratory cher 08/31/17 00:25 Blood - Peripheral Aerobic Blood Culture - Final No growth in 5 days 08/31/17 00:25 Blood - Peripheral Anaerobic Blood Culture - Final No growth in 5 days 08/31/17 00:30 Blood - Peripheral Aerobic Blood Culture - Final No growth in 5 days 08/31/17 00:30 Blood - Peripheral Anaerobic Blood Culture - Final No growth in 5 days 09/01/17 09:30 Bronchial - Right Lower Lobe Gram Stain - Final 09/01/17 09:30 Bronchial - Right Lower Lobe Bronchial Culture - Final No growth in 48 hours 08/31/17 02:50 Catheterized Urine Urine Culture - Final 50-100,000 cfu/mL mixed cher (probable contaminants ) 08/31/17 02:50 Urine - Catheterized Urine Streptococcus pneumoniae Antigen ( M - Final Presumptive negative for streptococcus pneumoniae antigen, suggesting no current or recent infection. Infection due to Streptococcus pneumoniae cannot be ruled out since the antigen present in the sample may be below the detection limit of the test. 08/31/17 02:50 Urine - Catheterized Urine Legionella Antigen - Final Presumptive negative for Legionella pneumophila serogroup 1 antigen in urine, suggesting no recent or recurrent infection. Infection due to Legionella cannot be ruled out since other serogroups and species may cause disease, antigen may not be present in urine in early infection, and the level of antigen present in the urine may be below the detection limit of the test. Imaging: Abdomen/Bladder Ultrasound 08/31/17 00:00 CONCLUSION: 1. 11 mm left midlung calculus. 2. No evidence of hydronephrosis. 3. Otherwise normal appearing kidneys. Chest CTA 08/31/17 00:00 CONCLUSION: 1. No evidence of pulmonary embolism. 2. Extensive consolidation in the right lung and patchy infiltrates elsewhere in both lungs. 3. Moderately enlarged mediastinal lymph node. Chest X-Ray 08/31/17 00:08 CONCLUSION: Elevation of the right hemidiaphragm and right lower lung consolidation. Patchy infiltrates in left lower lung. Cardiomegaly. Chest X-Ray 09/01/17 00:00 CONCLUSION: 1. The endotracheal tube and NG tube appear to be in good position. 2. No evidence of pneumothorax. 3. There is parenchymal consolidation in the right lung base with an increasing infiltrate in the right upper lung. Chest X-Ray 09/01/17 00:00 CONCLUSION: There are scattered bilateral pulmonary infiltrates. No evidence of pneumothorax. Abdomen X-Ray 09/03/17 08:04 CONCLUSION: Prominent loop of bowel in the right abdomen. Chest X-Ray 09/04/17 00:00 CONCLUSION: 1. No significant interval change. 2. Stable patchy bilateral mid to lower lung zone airspace disease. Chest X-Ray 09/05/17 00:00 CONCLUSION: No significant change with the bilateral pulmonary infiltrates compared to the prior study. Chest X-Ray 09/05/17 06:00 CONCLUSION: 1. ETT at the level of the clavicles. NGT beyond the GE junction. 2. Stable patchy diffuse bilateral airspace disease. Chest X-Ray 09/06/17 06:00 CONCLUSION: 1. No significant interval change. 2. Stable ETT and NGT. 3. Stable bilateral patchy airspace disease. Chest X-Ray 09/08/17 06:00 CONCLUSION: Lungs are better aerated. Minimal residual bibasilar densities. Abdomen X-Ray 09/09/17 00:00 CONCLUSION: Dobbhoff tube at the level of the pyloric channel Chest X-Ray 09/10/17 00:00 CONCLUSION: Interval intubation with improved aeration Chest X-Ray 09/10/17 00:00 CONCLUSION: Improved exam with resolution of the right lower lobe airspace consolidation. Chest X-Ray 09/10/17 06:00 CONCLUSION: Prominent hazy bilateral pleural parenchymal opacity right worse than left Chest X-Ray 09/11/17 06:00 CONCLUSION: Subsegmental basilar airspace disease with small effusions. Endotracheal tube and feeding tube in good position. Abdomen X-Ray 09/12/17 00:00 CONCLUSION: Gaseous distention of multiple loops of small and large bowel. Study would suggest adynamic ileus. Follow-up for resolution would be warranted. Abdomen X-Ray 09/13/17 00:00 CONCLUSION: No significant change in the gaseous distention of multiple loops of small and large bowel. Abdomen/Pelvis CT 09/13/17 00:00 CONCLUSION: 1. Nonobstructing left renal stones. 2. No evidence of small bowel dilation. 3. Bibasilar atelectasis in the lower lungs. 4. Bilateral inguinal hernias containing fat. Chest X-Ray 09/13/17 06:00 CONCLUSION: Endotracheal tube and feeding tube in good position. Mild basilar airspace disease. Abdomen X-Ray 09/14/17 00:00 CONCLUSION: No significant change is identified. There is diffuse dilatation of the colon. The pattern could represent ileus. Chest X-Ray 09/14/17 06:00 CONCLUSION: Subsegmental basilar airspace disease. No effusion or pneumothorax. Abdomen X-Ray 09/15/17 00:00 CONCLUSION: Solitary persistent loop of bowel in the right lower quadrant measures 9.6 cm. Cannot differentiate between small and large bowel given the absence of mucosal pattern.. Recommend serial films. Chest X-Ray 09/15/17 06:00 CONCLUSION: No significant change mild left base atelectasis. Abdomen X-Ray 09/16/17 00:00 CONCLUSION: Moderate amount of gas throughout the colon. The solitary loop of bowel in the right lower quadrant has decreased in size and compared to yesterday's exam. Chest X-Ray 09/17/17 06:00 CONCLUSION: Small left pleural effusion now seen. Mild patchy left lung base atelectasis unchanged. Objective Remarks: GENERAL: 52 yo male currently resting in bed in no acute distress orotracheally intubated SKIN: Warm and dry. No rash HEAD: Normocephalic. EYES: No scleral icterus. No injection or drainage. ENT: Mucous members are moist and pink. Oropharynx without erythema NECK: Supple, trachea midline. No JVD or lymphadenopathy. CARDIOVASCULAR: RRR, NL S1, S2 without murmurs, gallops, or rubs. RESPIRATORY: Breath sounds equal bilaterally. No accessory muscle use. Bilateral end expiratory wheeze. Transmitted upper airway sounds are noted. Coarse crackles anteriorly and posterior bases. GASTROINTESTINAL: Abdomen obese but reducible and soft.. Hypoactive bowel sounds are appreciated. MUSCULOSKELETAL: Anasarca/1+ upper lower extremity edema Neuro: Cranial nerves II through XII grossly intact. Strength is 3 out of 5 bilateral upper extremity's. 2 out of 5 bilateral lower extremities. Positive gag and cough. Assessment and Plan - Assessment and Plan Plan: Neuro/Psych: Mood disorder with depression Paraplegia with mobility Acute metabolic encephalopathy Dementia disorder NOS Currently on propofol drip at 40 m/kg/min and midazolam drip at 2 mg an hour for sedation while intubated Goal of RASS -2 Daily sedation vacation EEG-encephalopathy, some burst suppression pattern. On valproic acid 250 mg twice daily, follow up on Valproic acid level 16 on 09/10 Continue baclofen 20 mg 3 times daily/home medication Continue citalopram 20 mg daily/home medication for depression Continue gabapentin 100 mg 3 times daily/home medication Acetaminophen 650 mg by tube every 6 hours as needed fever Holding meloxicam/home medication Holding dantrolene unknown dosage. Pulm: Acute Respiratory Failure -hypoxic and hypercapnic PRVC 18/600/1/5/40, Ventilator bundle Albuterol/ipratropium aerosols every 4 hours with albuterol aerosols every 2 hours as needed for dyspnea Methylprednisolone succinate 40 mg IV every 12 hours Spontaneous breathing trials as clinically indicated Patient s/p bronch 09/01 showed thick cormier like secretions/mucous plugs suctioned to clear BAL performed RLL-cultures negative to date CXR 09/17 basilar airspace disease/small left pleural effusion CV: Hypertension Hyperlipidemia Monitor HR and BP keep MAP>65mmHg Currently not requiring vasopressors and/or antihypertensives simvastatin 40 mg daily at home. Hospital substitution is pravastatin 80 mg daily Renal/FEN/: Neurogenic bladder Nonobstructing renal stones Monitor renal function, electrolytes replacement per protocol. d/c furosemide D5 LR with 20 mEq KCl at 84 cc an hour while tube feeds are not at goal GI: Gastroesophageal reflux disease Hypoalbuminemia History of external hemorrhoids Hyperammonia Elevated AST/ALT likely secondary congestion Possibly adynamic ileus Bilateral inguinal hernias N.p.o. overnight. Will restart tube feeds at 20 cc an hour Glucerna 1.5 to goal 60 cc an hour goal rate per nutrition recommendation. Lansoprazole for GI prophylaxis Lactulose 30 cc twice daily, Xifaxan 550 milligrams twice daily. Check CT abdomen/pelvis- Nonobstructing left renal stones. No evidence of small bowel dilation. Bibasilar atelectasis in the lower lungs. Bilateral inguinal hernias containing fat Check KUB in a.m. 09/18. ID: [id number] Continue with abx (levofloxacin stop date 09/19)monitor for signs of infections ( fever, WBC) ID is following. Follow up on BAL 09/01 cxs- NGTD BC 08/31: NGTD Strep pneumonia and Legionella Ag negative Sputum 09/06 no growth to date 09/10 blood cultures 2, urine culture and sputum no growth to date Heme: Normocytic anemia Monitor CBC and follow trend Endo: Hyperglycemia SSI with Novulin R with Accu-Cheks to maintain euglycemia for glycemic control MSK Paraplegia PT evaluate and treat DVT GI prophylaxis -Teds SCDs -Subcu heparin -Lansoprazole Level 3 follow-up
[2017-09-17] MEDS: Midazolam 50 MG/50 ML Inj 50 MG/50 ML BAG IV.CONT PRN (12:52)
[2017-09-18] MEDS: Insulin NovoLIN Regular Correctional Sugar Inj SQ SCH ×7 (00:24→23:46)
[2017-09-18] MEDS: Oral Hygiene Kit OROPHARYNG SCH ×5 (00:24→23:47)
[2017-09-18] MEDS: Propofol 1000 mg/100 ml Inj 1,000 MG/100 ML BOTTLE IV.CONT PRN ×5 (02:11→22:05)
[2017-09-18] MEDS: Heparin - SQ 10,000 UNITS/ML Vial SQ SCH ×3 (03:11→20:30)
[2017-09-18] MEDS: Midazolam 50 MG/50 ML Inj 50 MG/50 ML BAG IV.CONT PRN ×2 (03:59→17:52)
[2017-09-18] MEDS: KCL 20 mEq/D5W/LR Inj 1,000 ML IV.CONT SCH ×2 (04:40→17:51)
--- NOTE | 2017-09-18 06:50 | XR ---
EXAM DATE: 09/18/2017 5:40 AM EDT AGE/SEX: 52 years / Male INDICATIONS: Abdominal distention. CLINICAL DATA: This is the patient's subsequent encounter. Patient reports that signs and symptoms h ave been present for 2 weeks and indicates a pain score of Nonresponsive. MEDICAL/SURGICAL HISTORY: Gastroesophageal reflux disease. Cholecystectomy. Laparoscopy COMPARISON: C, ABDOMEN 1V KUB, 09/16/2017. . FINDINGS: The abdominal bowel gas pattern again shows air distention predominantly of the colon. A loop of sma ll bowel is seen in the right upper abdominal quadrant. No pneumothorax. Osseous structures are intac t. CONCLUSION: Basically stable bowel gas pattern suggesting a hypodynamic ileus. Electronically signed by: Lopez Russell MD 09/18/2017 6:48 AM EDT
[2017-09-18 06:57] LABS: Baso % (Auto) 0.4 % (0.0-2.0); Eos # (Auto) 0.1 th/mm3 (0.0-0.4); Eos % (Auto) 0.9 % (0.0-4.0); Hematocrit 37.7 % (39.0-51.0); Hemoglobin 12.6 gm/dL (13.0-17.0); Lymph # (Auto) 1.9 th/mm3 (1.0-4.8); Lymph % (Auto) 16.9 % (9.0-44.0); Mean Corpuscular HGB Conc 33.5 % (32.0-36.0); Mean Corpuscular Hemoglobin 31.3 pg (27.0-34.0); Mean Corpuscular Volume 93.5 fL (80.0-100.0); Mean Platelet Volume 10.5 fL (7.0-11.0); Mono # (Auto) 1.1 th/mm3 (0.0-0.9); Neut # (Auto) 7.9 th/mm3 (1.8-7.7); Neut % (Auto) 71.8 % (16.0-70.0); Platelet Count 212 th/mm3 (150-450); Red Blood Count 4.04 mil/mm3 (4.50-5.90); Red Cell Distribution Width 16.4 % (11.6-17.2)
[2017-09-18 07:20] LABS: Anion Gap 12 meq/L (5-15); Blood Urea Nitrogen 14 mg/dL (7-18); Calcium 9.1 mg/dL (8.5-10.1); Chloride 107 meq/L (98-107); Glomerular Filtration Rate Greater Than 89 mL/min (>89); Glucose,Random 72 mg/dL (74-106); Potassium 4.2 meq/L (3.5-5.1); Sodium 141 meq/L (136-145)
--- NOTE | 2017-09-18 09:40 | P.PNID ---
Subjective Remarks: He is a 52-year-old male, who is a resident of the longterm, brought to the hospital for evaluation of shortness of breath, hypoxemia, and tachycardic. According to the paramedics he had an elevated temp. Got some information from the nurse, patient did not have any Vernon when he presented, and a Vernon catheter was placed. Since admission he has required BiPAP for oxygenation. He has been febrile. Urinalysis showed significant pyuria. His blood pressures seem to be holding, and he is not requiring any pressors. His WBC is mildly elevated at 11.7. Lactic acid is normal. Creatinine is normal. Chest x -ray showing some infiltrates. Infectious disease consultation has been requested to assist with evaluation and treatment of patient with sepsis. Notes reviewed. D/W RN Temps ok BP ok On the vent, failing CPAP trials Trach plans for tomorrow Has a lot of ligt yellow secretions Last sputum 09/10 with normal resp cher BC negative UC negative WBC down to normal Antibiotics: Levaquin Lines: No evidence of infection Past Medical History: Dementia Depression GERD (gastroesophageal reflux disease) Hemorrhoids Hyperlipidemia Paraplegia UTI (urinary tract infection) H/O exploratory laparotomy History of cholecystectomy Allergies/Adverse Reactions: Allergies No Known Allergies Allergy (Verified 08/31/17 00:16) Objective Vital Signs 09/17/17 10:00 09/17/17 10:30 09/17/17 11:00 Temperature Pulse Rate 66 79 65 Respiratory Rate 18 18 18 Blood Pressure 109/63 118/71 118/69 Pulse Oximetry 97 95 97 09/17/17 11:30 09/17/17 11:47 09/17/17 12:00 Temperature 98.7 F Pulse Rate 67 74 Respiratory Rate 16 16 16 Blood Pressure 115/66 125/70 Pulse Oximetry 96 97 97 09/17/17 12:30 09/17/17 13:00 09/17/17 13:30 Temperature Pulse Rate 82 76 72 Respiratory Rate 16 16 16 Blood Pressure 119/65 115/65 108/59 L Pulse Oximetry 97 96 97 09/17/17 14:00 09/17/17 14:30 09/17/17 15:00 Temperature Pulse Rate 65 62 60 Respiratory Rate 16 16 16 Blood Pressure 108/61 108/61 109/59 L Pulse Oximetry 97 97 97 09/17/17 15:30 09/17/17 16:00 09/17/17 16:12 Temperature 98.9 F Pulse Rate 67 63 77 Respiratory Rate 16 16 16 Blood Pressure 109/58 L 112/64 Pulse Oximetry 97 97 09/17/17 16:30 09/17/17 18:00 09/17/17 19:57 Temperature Pulse Rate 74 54 L Respiratory Rate 16 16 Blood Pressure 109/56 L Pulse Oximetry 97 97 09/17/17 19:59 09/17/17 20:00 09/17/17 22:00 Temperature 98.2 F Pulse Rate 56 L 57 L 74 Respiratory Rate 17 18 Blood Pressure 111/64 Pulse Oximetry 100 09/18/17 00:00 09/18/17 00:33 09/18/17 00:34 Temperature 97.9 F Pulse Rate 68 70 Respiratory Rate 16 17 16 Blood Pressure 101/58 L Pulse Oximetry 100 100 09/18/17 02:00 09/18/17 03:55 09/18/17 04:00 Temperature Pulse Rate 72 88 80 Respiratory Rate 17 16 Blood Pressure 100/56 L Pulse Oximetry 100 100 09/18/17 05:44 09/18/17 08:11 Temperature Pulse Rate 80 74 Respiratory Rate 16 Blood Pressure Pulse Oximetry 100 Intake & Output 09/17/17 09/18/17 09/18/17 18:59 06:59 18:59 Intake Total 1627 / 1627 1598 / 1598 Output Total 1900 / 1900 1650 / 1650 Balance -273 / -273 -52 / -52 Weight 101 kg Intake: IV 1350 / 1350 1430 / 1430 D5W/LR + KCL 20 mEq Inj 1,000 1000 / 1000 1000 / 1000 ML @ 84 mls/hr IV.CONT .[id number] [facility], [facility] Rx#:[id number] Versed Inj 50 mg In 50 ml @ 2 50 / 50 50 / 50 MG/HR 2 mls/hr IV.CONT TITRATE PRN Rx#:[id number] Diprivan 1000 mg/100 ml Inj 1, 300 / 300 380 / 380 000 mg In 100 ml @ 5 MCG/KG/MIN 3.105 mls/hr IV.CONT TITRATE PRN Rx#:[id number] Oral 0 / 0 0 / 0 Tube Feeding 187 / 187 48 / 48 Tube Irrigant 90 / 90 120 / 120 Output: Urine Amount (Catheter) 1900 / 1900 1650 / 1650 Indwelling Urethral Catheter 1899 165 / 1650 Other: Date of Last Bowel Movement 09/17/17 09/17/17 # Bowel Movements 1 # Incontinent Bowel Movements 1 09/10/17 11:16 Blood - Peripheral Aerobic Blood Culture - Final No growth in 5 days 09/10/17 11:16 Blood - Peripheral Anaerobic Blood Culture - Final No growth in 5 days 09/10/17 11:10 Blood - Peripheral Aerobic Blood Culture - Final No growth in 5 days 09/10/17 11:10 Blood - Peripheral Anaerobic Blood Culture - Final No growth in 5 days Lab - Hematology Results 09/17/17 09/18/17 03:25 04:40 WBC 12.3 H 11.0 RBC 4.03 L 4.04 L Hgb 12.3 L 12.6 L Hct 37.5 L 37.7 L MCV 93.2 93.5 MCH 30.6 31.3 MCHC 32.8 33.5 RDW 16.3 16.4 Plt Count 209 212 MPV 10.5 10.5 Prelim Diff (Auto) Slide review pending Slide review pending Neut % (Auto) 75.2 H 71.8 H Lymph % (Auto) 16.2 16.9 [place] % (Auto) 7.9 10.0 H Eos % (Auto) 0.3 0.9 Baso % (Auto) 0.4 0.4 Neut # (Auto) 9.2 H 7.9 H Lymph # (Auto) 2.0 1.9 [place] # (Auto) 1.0 H 1.1 H Eos # (Auto) 0.0 0.1 Baso # (Auto) 0.0 0.0 WBC Differential . Diff Scan Auto diff confirmed Differential Comment . . Platelet Estimate Normal Platelet Morphology Enlarged H Lab - Chemistry Results 09/16/17 09/17/17 09/17/17 22:12 03:12 03:25 Sodium 142 Potassium 4.4 Chloride 110 H Carbon Dioxide 22.4 Anion Gap 10 BUN 15 Creatinine 0.46 L Estimated GFR Greater than 89 POC Glucose 103 86 Random Glucose 75 Calcium 8.6 Phosphorus 3.3 Magnesium 2.3 09/17/17 09/17/17 09/17/17 04:56 08:35 17:04 Sodium Potassium Chloride Carbon Dioxide Anion Gap BUN Creatinine Estimated GFR POC Glucose 93 89 100 Random Glucose Calcium Phosphorus Magnesium 09/17/17 09/18/17 09/18/17 20:55 00:23 04:40 Sodium 141 Potassium 4.2 Chloride 107 Carbon Dioxide 22.0 Anion Gap 12 BUN 14 Creatinine 0.42 L Estimated GFR Greater than 89 POC Glucose 107 97 Random Glucose 72 L Calcium 9.1 Phosphorus Magnesium 09/18/17 09/18/17 05:36 08:54 Sodium Potassium Chloride Carbon Dioxide Anion Gap BUN Creatinine Estimated GFR POC Glucose 79 85 Random Glucose Calcium Phosphorus Magnesium Imaging: ITS Impressions Abdomen/Bladder Ultrasound 08/31/17 00:00 CONCLUSION: 1. 11 mm left midlung calculus. 2. No evidence of hydronephrosis. 3. Otherwise normal appearing kidneys. Chest CTA 08/31/17 00:00 CONCLUSION: 1. No evidence of pulmonary embolism. 2. Extensive consolidation in the right lung and patchy infiltrates elsewhere in both lungs. 3. Moderately enlarged mediastinal lymph node. Abdomen/Pelvis CT 09/13/17 00:00 CONCLUSION: 1. Nonobstructing left renal stones. 2. No evidence of small bowel dilation. 3. Bibasilar atelectasis in the lower lungs. 4. Bilateral inguinal hernias containing fat. Chest X-Ray 09/17/17 06:00 CONCLUSION: Small left pleural effusion now seen. Mild patchy left lung base atelectasis unchanged. Abdomen X-Ray 09/18/17 00:01 CONCLUSION: Basically stable bowel gas pattern suggesting a hypodynamic ileus. Physical Exam: GENERAL: Sedated, NAD on the vent SKIN: Cool and dry. No generalized rash. HEAD: Atraumatic. Normocephalic. No temporal wasting, or tenderness. EYES: [place] conjunctiva. No petechia or hemorrhage. Pupils equal, round and reactive to light. No scleral icterus. No injection or drainage. NECK: Trachea midline. Supple. CARDIOVASCULAR: Regular rate and rhythm. No murmurs, rubs or gallops. RESPIRATORY: Rhonchi on R , decreased breath sounds at bases ABDOMEN: obese, distended. Bowel sounds present and normoactive. He has a long midline incision which looks like an exp lap, and has a cholecystectomy scar in RUQ. EXTREMITIES: No clubbing, cyanosis. Has no pedal edema. No calf tenderness. NEUROLOGICAL: Sedated. PSYCH: Unable to assess : Vernon in place, Clear yellow urine. LINE: No evidence of infection Assessment and Plan - Plan Impression Sepsis on presentation, patient came from SNF, better - has lung infiltrates, and SOB, C/W HCAP - also with UTI HCAP, C/S bronch negative Leukocytosis Respiratory failure, recurrent - not tolerating CPAP - trach plans for tomorrow Hx paraplegia Encephalopathy Recommendation Continue Levaquin - to complete 09/19 Monitor temps Monitor progress Weaning per CCM as tolerated Trach plans for tomorrow Seems clinically stable from ID standpoint D/W RN
[2017-09-18 10:06] LABS: Lymphocytes 9 % (9-44); Monocytes 10 % (0-8); Promyelocyte 1 % (0-0)
[2017-09-18 10:07] LABS: Platelet Estimate Normal (Normal); Platelet Morphology Normal (Normal)
[2017-09-18] MEDS: levoFLOXacin 750 MG Tablet PO SCH (11:27)
[2017-09-18] MEDS: Polyethylene Glycol 3350 17 GM Packet PO SCH ×2 (11:27→20:31)
[2017-09-18] MEDS: Gabapentin 100 MG Capsule PO SCH ×3 (11:27→17:36)
[2017-09-18] MEDS: Hypromellose 0.3% Opth Gel 10 GM Bottle EACH EYE SCH ×2 (11:27→20:31)
[2017-09-18] MEDS: Divalproex 125 MG Sprinkles Capsule PO SCH ×2 (11:27→20:30)
[2017-09-18] MEDS: Chlorhexidine 0.12% Oral Kit 15 ML UDC OROPHARYNG SCH ×2 (11:27→20:31)
[2017-09-18] MEDS: rifAXIMin 550 MG Tablet PO SCH ×2 (11:28→20:30)
[2017-09-18] MEDS: MethylPREDNISolone Sod Succinate Inj 40 MG/ML Vial IV.PUSH SCH (11:28)
[2017-09-18] MEDS: Collagenase Oint 30 GM Tube TOPICAL SCH (17:00)
--- NOTE | 2017-09-18 21:20 | P.PNCC ---
Subjective Subjective Remarks/Hospital Course: 52-year-old male presents from [facility] for an evaluation of hypoxemia, shortness of breath, and tachycardia and per paramedics elevated temperature with history of paraplegia with immobility, dyslipidemia, chronic cough, mood disorder with depression, pressure ulceration bilateral lower extremity knee contracture, prior Klebsiella pneumonia and morbid obesity. In the emergency department he appeared to be in respiratory distress and was placed by ED attending on the BiPAP. 09/01 Patient is on BIPAP 18/5 with 40% FIO2. Afebrile with intermittent confusion. CTA chest yesterday showed no PE, extensive consolidation right lung. 09/02 Patient was intubated yesterday and s/p bronch. Sedated with Diprivan and Fentanyl infusion. Afebrile. 09/03 No events overnight. Sedated with Diprivan and Fentanyl infusion. Afebrile. 09/04: Remains intubated, sedated with propofol. Eyes open, do not follow commands. Bilateral wheezing on exam. FiO2 remains high at 60%, O2 sat 92-94% 09/05: Remains sedated heavily for vent synchrony, FiO2 remains at 60%, will wean. Sputum cx negative. ETT advanced due to leak, will repeat CXR. Patient do not follow commands, but get agitated when sedation held 09/06: Remains sedated for ventilator synchrony. Oxygen saturation improved FiO2 down to 50%. Chest x-ray on my review shows pulmonary edema. Started scheduled Lasix scheduled Lasix yesterday, urine output excellent 5.5 L in 24 hours 09/07: Afebrile. Remains on propofol and fentanyl drips due to his significant agitation. 2 bite block placed overnight/Guedel airways related secondary to patient attempted to bite through ET tube.. One bowel movement yesterday 09/08 No events overnight. Sedated with Diprivan and Fentanyl drip. Afebrile. 09/09: Extubated yesterday without complication. Currently on 6 L nasal cannula. Swallow evaluation failed 2. Dobbhoff tube is in place. No bowel movement since 09/02. 09/10: Intubated overnight due to respiratory failure. Currently on PEEP of 12 and FiO2 90%. Ventilator is been adjusted. Tube feeds of been resumed. 09/11 Patient remains intubated and sedated, on PRVC with PEEP:10, FIO2 40% 09/12: Afebrile. Remains on 40% FiO2. Propofol drip at 50 mcg/kg/min. PEEP is still at 10. 09/13: Afebrile. Abdominal x-ray yesterday revealed likely adynamic ileus. Will check CT abdomen and pelvis today. Patient is currently being decompressed from above. Will receive methylnaltrexone and enema today.. Was tolerating tube feeds at goal. 09/14: Afebrile. Bowel movements overnight. White blood cell count is normalized. We will keep him potassium 40 and recheck abdominal x-ray in a.m. 09/15: Afebrile. Will check KUB and likely restart tube feedings today. No neurological change. Failed CPAP trials today. 09/16: Resting in bed in no acute distress. Continues to fail CPAP trials daily. Will attempt to contact healthcare proxy. Will need tracheostomy early next week. 09/17: Resting in bed in no acute distress. PEEP is down to 5. Failing spontaneous breathing trials will require tracheostomy. Discussed with father yesterday and agreeable. Subjective 09/18 - plan for percutaneous tracheostomy in a.m. Continues to have an ileus. NG tube was placed to suction. Remains on IV fluids. Objective Vital Signs / I&O: Vital Signs 09/17/17 22:00 09/17/17 22:30 09/17/17 23:00 Temperature Pulse Rate 74 81 73 Respiratory Rate 16 16 Blood Pressure 99/60 L 99/57 L Pulse Oximetry 100 09/17/17 23:30 09/18/17 00:00 09/18/17 00:30 Temperature 97.9 F Pulse Rate 68 68 69 Respiratory Rate 16 16 16 Blood Pressure 105/60 101/58 L 101/60 Pulse Oximetry 100 100 100 09/18/17 00:33 09/18/17 00:34 09/18/17 01:00 Temperature Pulse Rate 70 74 Respiratory Rate 17 16 16 Blood Pressure 103/62 Pulse Oximetry 100 100 09/18/17 01:30 09/18/17 02:00 09/18/17 02:30 Temperature Pulse Rate 74 71 74 Respiratory Rate 16 16 16 Blood Pressure 97/56 L 98/61 L 94/57 L Pulse Oximetry 100 100 100 09/18/17 03:00 09/18/17 03:30 09/18/17 03:55 Temperature Pulse Rate 73 70 88 Respiratory Rate 16 16 17 Blood Pressure 95/52 L 95/57 L Pulse Oximetry 100 100 100 09/18/17 04:00 09/18/17 04:30 09/18/17 05:00 Temperature Pulse Rate 90 91 H 89 Respiratory Rate 16 16 16 Blood Pressure 124/83 108/67 99/65 L Pulse Oximetry 100 100 100 09/18/17 05:30 09/18/17 05:44 09/18/17 06:00 Temperature Pulse Rate 72 80 77 Respiratory Rate 16 16 Blood Pressure 100/56 L 95/58 L Pulse Oximetry 100 100 09/18/17 06:30 09/18/17 07:00 09/18/17 07:30 Temperature Pulse Rate 75 77 73 Respiratory Rate 16 16 16 Blood Pressure 90/50 L 87/53 L 88/54 L Pulse Oximetry 100 100 100 09/18/17 08:00 09/18/17 08:11 09/18/17 08:30 Temperature 98.7 F Pulse Rate 76 74 83 Respiratory Rate 16 16 16 Blood Pressure 82/51 L 87/56 L Pulse Oximetry 100 100 100 09/18/17 09:00 09/18/17 09:30 09/18/17 10:00 Temperature Pulse Rate 91 H 85 110 H Respiratory Rate 24 22 0 L Blood Pressure 95/64 L 107/65 96/51 L Pulse Oximetry 100 100 97 09/18/17 10:30 09/18/17 11:00 09/18/17 11:30 Temperature Pulse Rate 100 H 104 H 107 H Respiratory Rate 0 L 16 17 Blood Pressure 92/53 L 97/59 L 104/66 Pulse Oximetry 98 98 98 09/18/17 11:42 09/18/17 12:00 09/18/17 12:30 Temperature 98.3 F Pulse Rate 96 H 85 Respiratory Rate 17 16 16 Blood Pressure 106/65 108/65 Pulse Oximetry 99 99 99 09/18/17 13:00 09/18/17 13:30 09/18/17 14:00 Temperature Pulse Rate 79 79 86 Respiratory Rate 16 16 16 Blood Pressure 111/66 108/62 106/63 Pulse Oximetry 99 98 98 09/18/17 14:30 09/18/17 15:00 09/18/17 15:30 Temperature Pulse Rate 86 97 H 82 Respiratory Rate 16 16 16 Blood Pressure 107/60 108/65 109/60 Pulse Oximetry 99 99 99 09/18/17 15:59 09/18/17 16:00 09/18/17 16:30 Temperature 98.8 F Pulse Rate 79 73 73 Respiratory Rate 16 16 16 Blood Pressure 108/65 109/66 Pulse Oximetry 100 99 09/18/17 17:00 09/18/17 17:30 09/18/17 18:00 Temperature Pulse Rate 99 H 91 H 76 Respiratory Rate 16 16 16 Blood Pressure 115/69 123/74 130/83 Pulse Oximetry 99 99 100 09/18/17 18:30 Temperature Pulse Rate 76 Respiratory Rate 16 Blood Pressure 133/81 Pulse Oximetry 99 Intake & Output 09/18/17 09/18/17 09/19/17 06:59 18:59 06:59 Intake Total 1598 / 1598 1490 / 1490 Output Total 1650 / 1650 1500 / 1500 Balance -52 / -52 -10 / -10 Weight 101 kg Intake: IV 1430 / 1430 1250 / 1250 D5W/LR + KCL 20 mEq Inj 1,000 1000 / 1000 1000 / 1000 ML @ 84 mls/hr IV.CONT .[id number] [facility] Rx#:[id number] Versed Inj 50 mg In 50 ml @ 2 50 / 50 50 / 50 MG/HR 2 mls/hr IV.CONT TITRATE PRN Rx#:[id number] Diprivan 1000 mg/100 ml Inj 1, 380 / 380 200 / 200 000 mg In 100 ml @ 5 MCG/KG/MIN 3.105 mls/hr IV.CONT TITRATE PRN Rx#:[id number] Oral 0 / 0 Tube Feeding 48 / 48 Tube Irrigant 120 / 120 Other 240 / 240 Output: Urine Amount (Catheter) 1650 / 1650 1500 / 1500 Indwelling Urethral Catheter 1650 / 1650 1500 / 1500 Other: Date of Last Bowel Movement 09/17/17 09/18/17 # Bowel Movements 1 2 # Incontinent Bowel Movements 1 Result Diagrams: 09/18/17 04:40 09/18/17 04:40 Other Results: Microbiology 09/10/17 11:16 Blood - Peripheral Aerobic Blood Culture - Final No growth in 5 days 09/10/17 11:16 Blood - Peripheral Anaerobic Blood Culture - Final No growth in 5 days 09/10/17 11:10 Blood - Peripheral Aerobic Blood Culture - Final No growth in 5 days 09/10/17 11:10 Blood - Peripheral Anaerobic Blood Culture - Final No growth in 5 days 09/10/17 11:15 Catheterized Urine Urine Culture - Final No growth in 48 hours 09/10/17 09:30 Sputum - Endotracheal Gram Stain - Final 09/10/17 09:30 Sputum - Endotracheal Sputum Culture - Final Heavy growth normal respiratory cher 09/10/17 11:00 Nasal Wash Influenza Types A,B Antigen - Final Negative for FLU A and B antigen Infection due to influenza A or B cannot be ruled out since the antigen present in the sample may be below the detection limit of the test. 09/06/17 10:45 Sputum - Endotracheal Gram Stain - Final 09/06/17 10:45 Sputum - Endotracheal Sputum Culture - Final Rare growth normal respiratory cher 08/31/17 00:25 Blood - Peripheral Aerobic Blood Culture - Final No growth in 5 days 08/31/17 00:25 Blood - Peripheral Anaerobic Blood Culture - Final No growth in 5 days 08/31/17 00:30 Blood - Peripheral Aerobic Blood Culture - Final No growth in 5 days 08/31/17 00:30 Blood - Peripheral Anaerobic Blood Culture - Final No growth in 5 days 09/01/17 09:30 Bronchial - Right Lower Lobe Gram Stain - Final 09/01/17 09:30 Bronchial - Right Lower Lobe Bronchial Culture - Final No growth in 48 hours 08/31/17 02:50 Catheterized Urine Urine Culture - Final 50-100,000 cfu/mL mixed cher (probable contaminants ) 08/31/17 02:50 Urine - Catheterized Urine Streptococcus pneumoniae Antigen ( M - Final Presumptive negative for streptococcus pneumoniae antigen, suggesting no current or recent infection. Infection due to Streptococcus pneumoniae cannot be ruled out since the antigen present in the sample may be below the detection limit of the test. 08/31/17 02:50 Urine - Catheterized Urine Legionella Antigen - Final Presumptive negative for Legionella pneumophila serogroup 1 antigen in urine, suggesting no recent or recurrent infection. Infection due to Legionella cannot be ruled out since other serogroups and species may cause disease, antigen may not be present in urine in early infection, and the level of antigen present in the urine may be below the detection limit of the test. Imaging: Abdomen/Bladder Ultrasound 08/31/17 00:00 CONCLUSION: 1. 11 mm left midlung calculus. 2. No evidence of hydronephrosis. 3. Otherwise normal appearing kidneys. Chest CTA 08/31/17 00:00 CONCLUSION: 1. No evidence of pulmonary embolism. 2. Extensive consolidation in the right lung and patchy infiltrates elsewhere in both lungs. 3. Moderately enlarged mediastinal lymph node. Chest X-Ray 08/31/17 00:08 CONCLUSION: Elevation of the right hemidiaphragm and right lower lung consolidation. Patchy infiltrates in left lower lung. Cardiomegaly. Chest X-Ray 09/01/17 00:00 CONCLUSION: 1. The endotracheal tube and NG tube appear to be in good position. 2. No evidence of pneumothorax. 3. There is parenchymal consolidation in the right lung base with an increasing infiltrate in the right upper lung. Chest X-Ray 09/01/17 00:00 CONCLUSION: There are scattered bilateral pulmonary infiltrates. No evidence of pneumothorax. Abdomen X-Ray 09/03/17 08:04 CONCLUSION: Prominent loop of bowel in the right abdomen. Chest X-Ray 09/04/17 00:00 CONCLUSION: 1. No significant interval change. 2. Stable patchy bilateral mid to lower lung zone airspace disease. Chest X-Ray 09/05/17 00:00 CONCLUSION: No significant change with the bilateral pulmonary infiltrates compared to the prior study. Chest X-Ray 09/05/17 06:00 CONCLUSION: 1. ETT at the level of the clavicles. NGT beyond the GE junction. 2. Stable patchy diffuse bilateral airspace disease. Chest X-Ray 09/06/17 06:00 CONCLUSION: 1. No significant interval change. 2. Stable ETT and NGT. 3. Stable bilateral patchy airspace disease. Chest X-Ray 09/08/17 06:00 CONCLUSION: Lungs are better aerated. Minimal residual bibasilar densities. Abdomen X-Ray 09/09/17 00:00 CONCLUSION: Dobbhoff tube at the level of the pyloric channel Chest X-Ray 09/10/17 00:00 CONCLUSION: Interval intubation with improved aeration Chest X-Ray 09/10/17 00:00 CONCLUSION: Improved exam with resolution of the right lower lobe airspace consolidation. Chest X-Ray 09/10/17 06:00 CONCLUSION: Prominent hazy bilateral pleural parenchymal opacity right worse than left Chest X-Ray 09/11/17 06:00 CONCLUSION: Subsegmental basilar airspace disease with small effusions. Endotracheal tube and feeding tube in good position. Abdomen X-Ray 09/12/17 00:00 CONCLUSION: Gaseous distention of multiple loops of small and large bowel. Study would suggest adynamic ileus. Follow-up for resolution would be warranted. Abdomen X-Ray 09/13/17 00:00 CONCLUSION: No significant change in the gaseous distention of multiple loops of small and large bowel. Abdomen/Pelvis CT 09/13/17 00:00 CONCLUSION: 1. Nonobstructing left renal stones. 2. No evidence of small bowel dilation. 3. Bibasilar atelectasis in the lower lungs. 4. Bilateral inguinal hernias containing fat. Chest X-Ray 09/13/17 06:00 CONCLUSION: Endotracheal tube and feeding tube in good position. Mild basilar airspace disease. Abdomen X-Ray 09/14/17 00:00 CONCLUSION: No significant change is identified. There is diffuse dilatation of the colon. The pattern could represent ileus. Chest X-Ray 09/14/17 06:00 CONCLUSION: Subsegmental basilar airspace disease. No effusion or pneumothorax. Abdomen X-Ray 09/15/17 00:00 CONCLUSION: Solitary persistent loop of bowel in the right lower quadrant measures 9.6 cm. Cannot differentiate between small and large bowel given the absence of mucosal pattern.. Recommend serial films. Chest X-Ray 09/15/17 06:00 CONCLUSION: No significant change mild left base atelectasis. Abdomen X-Ray 09/16/17 00:00 CONCLUSION: Moderate amount of gas throughout the colon. The solitary loop of bowel in the right lower quadrant has decreased in size and compared to yesterday's exam. Chest X-Ray 09/17/17 06:00 CONCLUSION: Small left pleural effusion now seen. Mild patchy left lung base atelectasis unchanged. Abdomen X-Ray 09/18/17 00:01 CONCLUSION: Basically stable bowel gas pattern suggesting a hypodynamic ileus. Objective Remarks: GENERAL: 52 yo male currently resting in bed in no acute distress orotracheally intubated SKIN: Warm and dry. No rash HEAD: Normocephalic. Atraumatic. EYES: No scleral icterus. No injection or drainage. ENT: Mucous members are moist and pink. Oropharynx without erythema NECK: Supple, trachea midline. No JVD or lymphadenopathy. CARDIOVASCULAR: RRR, NL S1, S2 without murmurs, gallops, or rubs. RESPIRATORY: Breath sounds equal bilaterally. No accessory muscle use. Bilateral end expiratory wheeze. Transmitted upper airway sounds are noted. Coarse crackles anteriorly and posterior bases. GASTROINTESTINAL: Abdomen obese but reducible and soft.. Hypoactive bowel sounds are appreciated. MUSCULOSKELETAL: Anasarca/1+ upper lower extremity edema Neuro: Cranial nerves II through XII grossly intact. Strength is 3 out of 5 bilateral upper extremity's. 2 out of 5 bilateral lower extremities. Positive gag and cough. Assessment and Plan - Assessment and Plan Plan: Neuro/Psych: Mood disorder with depression Paraplegia with mobility Acute metabolic encephalopathy Dementia disorder NOS Currently on propofol drip at 40 m/kg/min and midazolam drip at 2 mg an hour for sedation while intubated Goal of RASS -2 Daily sedation vacation EEG-encephalopathy, some burst suppression pattern. On valproic acid 250 mg twice daily, follow up on Valproic acid level 16 on 09/10 Continue baclofen 20 mg 3 times daily/home medication Continue citalopram 20 mg daily/home medication for depression Continue gabapentin 100 mg 3 times daily/home medication Acetaminophen 650 mg by tube every 6 hours as needed fever Holding meloxicam/home medication Holding dantrolene unknown dosage. Pulm: Acute Respiratory Failure -hypoxic and hypercapnic PRVC 18/600/03/03/39, Ventilator bundle Albuterol/ipratropium aerosols every 4 hours with albuterol aerosols every 2 hours as needed for dyspnea Methylprednisolone succinate 40 mg IV every 12 hours Spontaneous breathing trials as clinically indicated Patient s/p bronch 09/01 showed thick cormier like secretions/mucous plugs suctioned to clear BAL performed RLL-cultures negative to date CXR 09/17 basilar airspace disease/small left pleural effusion 'Plan for percutaneous tracheostomy in a.m. CV: Hypertension Hyperlipidemia Monitor HR and BP keep MAP>65mmHg Currently not requiring vasopressors and/or antihypertensives simvastatin 40 mg daily at home. Hospital substitution is pravastatin 80 mg daily Renal/FEN/: Neurogenic bladder Nonobstructing renal stones Monitor renal function, electrolytes replacement per protocol. d/c furosemide D5 LR with 20 mEq KCl at 84 cc an hour while tube feeds are not at goal GI: Gastroesophageal reflux disease Hypoalbuminemia History of external hemorrhoids Hyperammonia Elevated AST/ALT likely secondary congestion Possibly adynamic ileus Bilateral inguinal hernias N.p.o. overnight. Will restart tube feeds at 20 cc an hour Glucerna 1.5 to goal 60 cc an hour goal rate per nutrition recommendation. Lansoprazole for GI prophylaxis Lactulose 30 cc twice daily, Xifaxan 550 milligrams twice daily. Check CT abdomen/pelvis- Nonobstructing left renal stones. No evidence of small bowel dilation. Bibasilar atelectasis in the lower lungs. Bilateral inguinal hernias containing fat Check KUB in a.m. 09/18. ID: [id number] Continue with abx (levofloxacin stop date 09/19)monitor for signs of infections ( fever, WBC) ID is following. Follow up on BAL 09/01 cxs- NGTD BC 08/31: NGTD Strep pneumonia and Legionella Ag negative Sputum 09/06 no growth to date 09/10 blood cultures 2, urine culture and sputum no growth to date Heme: Normocytic anemia Monitor CBC and follow trend Endo: Hyperglycemia SSI with Novulin R with Accu-Cheks to maintain euglycemia for glycemic control MSK Paraplegia PT evaluate and treat DVT GI prophylaxis -Teds SCDs -Subcu heparin -Lansoprazole Level 3 follow-up
[2017-09-19] MEDS: Propofol 1000 mg/100 ml Inj 1,000 MG/100 ML BOTTLE IV.CONT PRN ×4 (01:25→16:56)
[2017-09-19] MEDS: Oral Hygiene Kit OROPHARYNG SCH ×4 (03:17→23:57)
[2017-09-19] MEDS: Heparin - SQ 10,000 UNITS/ML Vial SQ SCH ×3 (03:20→20:07)
[2017-09-19] MEDS: Insulin NovoLIN Regular Correctional Sugar Inj SQ SCH ×6 (03:20→23:57)
[2017-09-19 04:36] LABS: Baso # (Auto) 0.1 th/mm3 (0.0-0.2); Baso % (Auto) 0.7 % (0.0-2.0); Eos # (Auto) 0.1 th/mm3 (0.0-0.4); Eos % (Auto) 0.7 % (0.0-4.0); Hematocrit 36.8 % (39.0-51.0); Hemoglobin 12.4 gm/dL (13.0-17.0); Lymph # (Auto) 1.7 th/mm3 (1.0-4.8); Lymph % (Auto) 18.4 % (9.0-44.0); Mean Corpuscular HGB Conc 33.8 % (32.0-36.0); Mean Corpuscular Hemoglobin 31.5 pg (27.0-34.0); Mean Corpuscular Volume 93.3 fL (80.0-100.0); Mean Platelet Volume 9.2 fL (7.0-11.0); Mono # (Auto) 0.8 th/mm3 (0.0-0.9); Mono % (Auto) 8.9 % (0.0-8.0); Neut # (Auto) 6.5 th/mm3 (1.8-7.7); Neut % (Auto) 71.3 % (16.0-70.0); Platelet Count 217 th/mm3 (150-450); Red Blood Count 3.94 mil/mm3 (4.50-5.90); Red Cell Distribution Width 16.5 % (11.6-17.2); White Blood Count 9.1 th/mm3 (4.0-11.0)
[2017-09-19] MEDS: Midazolam 50 MG/50 ML Inj 50 MG/50 ML BAG IV.CONT PRN ×4 (04:58→23:58)
[2017-09-19] MEDS: KCL 20 mEq/D5W/LR Inj 1,000 ML IV.CONT SCH ×2 (04:59→16:39)
[2017-09-19 05:02] LABS: Albumin 2.8 g/dL (3.4-5.0); Anion Gap 10 meq/L (5-15); Aspartate Aminotransferase 22 U/L (15-37); Blood Urea Nitrogen 10 mg/dL (7-18); Calcium 8.6 mg/dL (8.5-10.1); Carbon Dioxide 23.5 meq/L (21.0-32.0); Chloride 108 meq/L (98-107); Glomerular Filtration Rate Greater Than 89 mL/min (>89); Glucose,Random 89 mg/dL (74-106); Magnesium 2.2 mg/dL (1.5-2.5); Sodium 141 meq/L (136-145)
[2017-09-19 05:03] LABS: Alanine Aminotransferase 52 U/L (12-78)
[2017-09-19 05:05] LABS: Alkaline Phosphatase 97 U/L (45-117); Total Protein 6.2 g/dL (6.4-8.2)
--- NOTE | 2017-09-19 06:26 | XR ---
EXAM DATE: 09/19/2017 6:22 AM EDT AGE/SEX: 52 years / Male INDICATIONS: Evaluate for ileus. CLINICAL DATA: This is the patient's subsequent encounter. Patient reports that signs and symptoms h ave been present for 2 weeks and indicates a pain score of Nonresponsive. MEDICAL/SURGICAL HISTORY: . Gastroesophageal reflux disease. . Cholecystectomy. Laparoscopy COMPARISON: C, ABDOMEN 1V KUB, 09/18/2017. . FINDINGS: Again, there is mild air distention of colon and a few scattered small bowel loops in a nonobstructi ve pattern. I do think there is some interval improvement, however. No pneumoperitoneum. Stable eleva tion of the right hemidiaphragm. Surgical clips in the right upper abdominal quadrant are characteris tic of prior cholecystectomy. Nasogastric tube projects over the expected location of the stomach. CONCLUSION: 1. Mild air distention of colon and scattered small bowel loops characteristic of a mild hypodynamic ileus. I do think there is some interval improvement from the prior, however. 2. No pneumoperitoneum. Stable elevation of the right hemidiaphragm. Electronically signed by: Lopez Russell MD 09/19/2017 6:24 AM EDT
[2017-09-19] MEDS: levoFLOXacin 750 MG Tablet PO SCH (08:10)
[2017-09-19] MEDS: rifAXIMin 550 MG Tablet PO SCH ×2 (08:10→20:07)
[2017-09-19] MEDS: Divalproex 125 MG Sprinkles Capsule PO SCH ×2 (08:10→20:06)
[2017-09-19] MEDS: MethylPREDNISolone Sod Succinate Inj 40 MG/ML Vial IV.PUSH SCH (08:10)
[2017-09-19] MEDS: Chlorhexidine 0.12% Oral Kit 15 ML UDC OROPHARYNG SCH ×2 (08:11→20:07)
[2017-09-19] MEDS: Hypromellose 0.3% Opth Gel 10 GM Bottle EACH EYE SCH ×2 (08:11→20:07)
[2017-09-19] MEDS: Gabapentin 100 MG Capsule PO SCH ×3 (08:12→17:42)
[2017-09-19] MEDS: Polyethylene Glycol 3350 17 GM Packet PO SCH ×2 (08:12→20:05)
[2017-09-19] MEDS: Collagenase Oint 30 GM Tube TOPICAL SCH (08:12)
[2017-09-19 08:18] LABS: Eosinophils 1 % (0-4); Lymphocytes 16 % (9-44); Metamyelocytes 2 % (0-1); Monocytes 3 % (0-8)
[2017-09-19 08:19] LABS: Platelet Estimate Normal (Normal); Platelet Morphology Normal (Normal); RBC Morphology Normal (Normal)
[2017-09-19] MEDS ORDERED: fentaNYL Citrate Inj 100 MCG/2 ML Ampul IV.PUSH ONE ×2 (08:28→09:00)
[2017-09-19] MEDS ORDERED: Midazolam Inj 5 MG/ML 1 ML Vial IV.PUSH ONE (09:00)
[2017-09-19] MEDS ORDERED: ceFAZolin 2 GM Premix Inj 2 GM/50 ML PIGGYBACK IV.SIG PRN (09:09)
--- NOTE | 2017-09-19 09:10 | P.CONGI ---
History of Present Illness Consult date: 09/19/17 Consult reason: PEG consult Chief complaint: Sepsis; RLL Pneumonia; Resp Acidosis w/ Hypoxia History of Present Illness: This is a 52 yo M who is currently admitted to [facility] and has been unable to be weaned from the vent, planned for tracheostomy today. Our service has been consulted for PEG tube placement. Pt currently receiving nutrition through OG tube, dietary recommending Glucerna 1.5 with goal rate of 60 mL/hr. <Luann Og - Last Filed: 09/19/17 09:04> Review of Systems unobtainable due to endotracheal tube <Luann Og - Last Filed: 09/19/17 09:04> PMFSH - History History Provided By: Order Tracer / EMT - Medical / Surgical Hx Neg / Unobtainable Medical Problems Denied: Unable to Obtain - Medical History Medical History: Medical History (Last Reviewed 09/11/17 @ 07:53 by Opal Li, ACID CUTTER) Dementia Depression GERD (gastroesophageal reflux disease) Hemorrhoids Hyperlipidemia Paraplegia UTI (urinary tract infection) - Surgical History Surgical History: Surgical History (Last Updated 08/31/17 @ 08:33 by Cari Reveles MD) H/O exploratory laparotomy History of cholecystectomy - Tobacco History Second Hand Smoke Exposure: No Tobacco Use In Past 30 Days: No Smoking Status: Unknown if ever smoked Tobacco Type: Cigarettes - Alcohol History How Often Do You Have a Drink Containing Alcohol: Unable to Obtain - Substance Use History Substance History: Unable to Obtain - Travel History Recent Travel in the [place] Within the Last 8 Weeks: No Recent Travel Out of the Country Within the Last 8 Weeks: No - Immunization History Tetanus Immunization: Unable to Assess Hx Influenza Vaccine This Season: Unable to Assess <Luann Og - Last Filed: 09/19/17 09:04> - Medical History Medical History: Medical History (Last Reviewed 09/11/17 @ 07:53 by Opal Li, ACID CUTTER) Dementia Depression GERD (gastroesophageal reflux disease) Hemorrhoids Hyperlipidemia Paraplegia UTI (urinary tract infection) - Surgical History Surgical History: Surgical History (Last Updated 08/31/17 @ 08:33 by Cari Reveles MD) H/O exploratory laparotomy History of cholecystectomy <Lisa Hartman - Last Filed: 09/19/17 14:36> Medications and Allergies Active Medications: Active Medications Acetaminophen (Tylenol Liq) 650 mg PO Q6H PRN PRN Reason: HEADACHE OR TEMP > 101 F Last Admin: 09/13/17 06:01 Dose: 650 mg Albuterol (Albuterol Neb (Prn)) 2.5 mg NEB Q2HR NEB PRN PRN Reason: DYSPNEA Albuterol (Duoneb Neb (Volodymyr)) 1 ampul NEB Q4HR NEB [facility] Last Admin: 09/19/17 08:35 Dose: 1 ampul Artificial Tears (Genteal Severe Dry Eye Relief 0.3% Opth Gel) 1 drops EACH EYE BID [facility] Last Admin: 09/19/17 08:11 Dose: 1 drops Baclofen (Lioresal) 20 mg PO Q8HR [facility] Last Admin: 09/19/17 05:10 Dose: 20 mg Bisacodyl (Dulcolax Supp) 10 mg RECTAL DAILY PRN PRN Reason: SEVERE CONSITIPATION Last Admin: 09/12/17 00:25 Dose: 10 mg Chlorhexidine Gluconate (Peridex 0.12% Oral Kit) 15 ml OROPHARYNG BID@0800, 2000 [facility] Last Admin: 09/19/17 08:11 Dose: 15 ml Collagenase (Santyl Oint) 1 applicatio TOPICAL DAILY [facility] Last Admin: 09/19/17 08:12 Dose: Not Given Dextrose (D50w Vial) 50 ml IV.PUSH UNSCH PRN PRN Reason: PER HYPOGLYCEMIA PROTOCOL Divalproex Sodium (Depakote Sprinkles) 250 mg PO BID [facility] Last Admin: 09/19/17 08:10 Dose: 250 mg Escitalopram Oxalate (Lexapro) 20 mg PO HS [facility] Last Admin: 09/18/17 20:30 Dose: 20 mg Gabapentin (Neurontin) 100 mg PO TID [facility] Last Admin: 09/19/17 08:12 Dose: 100 mg Glucagon (Glucagon Inj) 1 mg OTHER PRN PRN PRN Reason: for Hypoglycemia Protocol Heparin Sodium (Porcine) (Heparin Inj) 5,000 units SQ Q8H [facility] Last Admin: 09/19/17 03:20 Dose: Not Given Potassium Chloride (Kcl 40 Meq Premix Inj) 40 meq in 100 mls @ 25 mls/hr IV.SIG UNSCH PRN PRN Reason: For Potassium 3.3 - 3.5 mEq/L Potassium Phosphate 30 mmol/ (Sodium Chloride) 260 mls @ 42 mls/hr IV.SIG UNSCH PRN PRN Reason: SEE LABEL COMMENTS Sodium Phosphate 30 mmol/ (Sodium Chloride) 260 mls @ 42 mls/hr IV.SIG UNSCH PRN PRN Reason: For Phosphorus < 2.5 mg/dL Potassium Chloride (Kcl 40 Meq Premix Inj) 40 meq in 100 mls @ 25 mls/hr IV.SIG Q2H PRN PRN Reason: For Potassium 2.8 - 3.2 mEq/L Propofol (Diprivan 1000 Mg/100 Ml Inj) 1,000 mg in 100 mls @ 3.105 mls/hr IV.CONT TITRATE PRN; Protocol PRN Reason: Per Protocol Last Admin: 09/19/17 08:41 Dose: 50 mcg/kg/min, 31.05 mls/hr Midazolam HCl (Versed Inj) 50 mg in 50 mls @ 2 mls/hr IV.CONT TITRATE PRN; Protocol PRN Reason: Per Protocol Last Admin: 09/19/17 04:58 Dose: 3 mg/hr, 3 mls/hr Potassium Cl/Dextrose/Lact Ringer's (D5w/Lr + Kcl 20 Meq Inj) 1,000 mls @ 84 mls/hr IV.CONT .[id number] [facility] Last Admin: 09/19/17 04:59 Dose: 84 mls/hr Insulin Human Regular (Novolin R Supplemental Scale) 0 units SQ Q4HR [facility]; Protocol Last Admin: 09/19/17 08:08 Dose: Not Given Lactulose (Lactulose Liq) 30 ml PO BID [facility] Last Admin: 09/19/17 08:11 Dose: Not Given Levofloxacin (Levaquin) 750 mg PO DAILY [facility] Stop: 09/19/17 11:59 Last Admin: 09/19/17 08:10 Dose: 750 mg Methylprednisolone Sodium Succinate (Solumedrol Inj) 40 mg IV.PUSH DAILY [facility] Stop: 09/20/17 23:59 Last Admin: 09/19/17 08:10 Dose: 40 mg Metoclopramide HCl (Reglan Inj) 5 mg IV.PUSH Q8HR [facility]; Protocol Last Admin: 09/19/17 05:10 Dose: 5 mg Metoprolol Tartrate (Lopressor Inj) 5 mg IV.PUSH ONCE [facility] Last Admin: 09/09/17 21:38 Dose: 5 mg Ondansetron HCl (Zofran Inj) 4 mg IV.PUSH Q6H PRN PRN Reason: NAUSEA OR VOMITING Oxybutynin Chloride (Ditropan) 5 mg PO DAILY [facility] Last Admin: 09/19/17 08:10 Dose: 5 mg Polyethylene Glycol (Miralax) 17 gm PO BID [facility] Last Admin: 09/19/17 08:12 Dose: Not Given Potassium Bicarb/Potassium Chloride (K-Lyte Cl Eff) 50 meq PO UNSCH PRN PRN Reason: For Potassium 3.3 - 3.5 mEq/L Potassium Phosphate (K-Phos Original) 2,000 mg PO UNSCH PRN PRN Reason: SEE LABEL COMMENTS Potassium Phosphate (K-Phos Original) 2,000 mg PO Q4H PRN PRN Reason: Phosphorus Less Than 2.5 mg/dL Pravastatin Sodium (Pravachol) 80 mg PO DAILY [facility] Last Admin: 09/19/17 08:10 Dose: 80 mg Rifaximin (Xifaxan) 550 mg PO Q12HR [facility] Last Admin: 09/19/17 08:10 Dose: 550 mg Sennosides (Senokot) 17.2 mg PO Q12H PRN PRN Reason: Moderate Constipation Last Admin: 09/12/17 00:52 Dose: 17.2 mg Sodium Chloride (Ns Flush) 2 ml IV.FLUSH BID [facility] Last Admin: 09/19/17 08:11 Dose: 2 ml Sodium Chloride (Ns Flush) 2 ml IV.FLUSH PRN PRN PRN Reason: FLUSH AFTER USING IV ACCESS Vitamin E (Vitamin E) 400 unit PO DAILY [facility] Last Admin: 09/19/17 08:10 Dose: 400 unit <Luann Og - Last Filed: 09/19/17 09:04> Active Medications: Active Medications Acetaminophen (Tylenol Liq) 650 mg PO Q6H PRN PRN Reason: HEADACHE OR TEMP > 101 F Last Admin: 09/13/17 06:01 Dose: 650 mg Albuterol (Albuterol Neb (Prn)) 2.5 mg NEB Q2HR NEB PRN PRN Reason: DYSPNEA Albuterol (Duoneb Neb (Volodymyr)) 1 ampul NEB Q4HR NEB [facility] Last Admin: 09/19/17 11:39 Dose: 1 ampul Artificial Tears (Genteal Severe Dry Eye Relief 0.3% Opth Gel) 1 drops EACH EYE BID [facility] Last Admin: 09/19/17 08:11 Dose: 1 drops Baclofen (Lioresal) 20 mg PO Q8HR [facility] Last Admin: 09/19/17 05:10 Dose: 20 mg Bisacodyl (Dulcolax Supp) 10 mg RECTAL DAILY PRN PRN Reason: SEVERE CONSITIPATION Last Admin: 09/12/17 00:25 Dose: 10 mg Chlorhexidine Gluconate (Peridex 0.12% Oral Kit) 15 ml OROPHARYNG BID@08, 1999 [facility] Last Admin: 09/19/17 08:11 Dose: 15 ml Collagenase (Santyl Oint) 1 applicatio TOPICAL DAILY [facility] Last Admin: 09/19/17 08:12 Dose: Not Given Dextrose (D50w Vial) 50 ml IV.PUSH UNSCH PRN PRN Reason: PER HYPOGLYCEMIA PROTOCOL Divalproex Sodium (Depakote Sprinkles) 250 mg PO BID [facility] Last Admin: 09/19/17 08:10 Dose: 250 mg Escitalopram Oxalate (Lexapro) 20 mg PO HS [facility] Last Admin: 09/18/17 20:30 Dose: 20 mg Gabapentin (Neurontin) 100 mg PO TID [facility] Last Admin: 09/19/17 08:12 Dose: 100 mg Glucagon (Glucagon Inj) 1 mg OTHER PRN PRN PRN Reason: for Hypoglycemia Protocol Heparin Sodium (Porcine) (Heparin Inj) 5,000 units SQ Q8H [facility] Last Admin: 09/19/17 03:20 Dose: Not Given Cefazolin Sodium/Dextrose (Ancef 2 Gm Premix Inj) 2 gm in 50 mls @ 100 mls/hr IV.SIG [place] PRN PRN Reason: ON-CALL Potassium Chloride (Kcl 40 Meq Premix Inj) 40 meq in 100 mls @ 25 mls/hr IV.SIG UNSCH PRN PRN Reason: For Potassium 3.3 - 3.5 mEq/L Potassium Phosphate 30 mmol/ (Sodium Chloride) 260 mls @ 42 mls/hr IV.SIG UNSCH PRN PRN Reason: SEE LABEL COMMENTS Sodium Phosphate 30 mmol/ (Sodium Chloride) 260 mls @ 42 mls/hr IV.SIG UNSCH PRN PRN Reason: For Phosphorus < 2.5 mg/dL Potassium Chloride (Kcl 40 Meq Premix Inj) 40 meq in 100 mls @ 25 mls/hr IV.SIG Q2H PRN PRN Reason: For Potassium 2.8 - 3.2 mEq/L Propofol (Diprivan 1000 Mg/100 Ml Inj) 1,000 mg in 100 mls @ 3.105 mls/hr IV.CONT TITRATE PRN; Protocol PRN Reason: Per Protocol Last Admin: 09/19/17 08:41 Dose: 50 mcg/kg/min, 31.05 mls/hr Midazolam HCl (Versed Inj) 50 mg in 50 mls @ 2 mls/hr IV.CONT TITRATE PRN; Protocol PRN Reason: Per Protocol Last Admin: 09/19/17 14:16 Dose: 3 mg/hr, 3 mls/hr Potassium Cl/Dextrose/Lact Ringer's (D5w/Lr + Kcl 20 Meq Inj) 1,000 mls @ 84 mls/hr IV.CONT .[id number] [facility] Last Admin: 09/19/17 04:59 Dose: 84 mls/hr Insulin Human Regular (Novolin R Supplemental Scale) 0 units SQ Q4HR [facility]; Protocol Last Admin: 09/19/17 08:08 Dose: Not Given Lactulose (Lactulose Liq) 30 ml PO BID [facility] Last Admin: 09/19/17 08:11 Dose: Not Given Methylprednisolone Sodium Succinate (Solumedrol Inj) 40 mg IV.PUSH DAILY [facility] Stop: 09/20/17 23:59 Last Admin: 09/19/17 08:10 Dose: 40 mg Metoclopramide HCl (Reglan Inj) 5 mg IV.PUSH Q8HR [facility]; Protocol Last Admin: 09/19/17 05:10 Dose: 5 mg Metoprolol Tartrate (Lopressor Inj) 5 mg IV.PUSH ONCE [facility] Last Admin: 09/09/17 21:38 Dose: 5 mg Ondansetron HCl (Zofran Inj) 4 mg IV.PUSH Q6H PRN PRN Reason: NAUSEA OR VOMITING Oxybutynin Chloride (Ditropan) 5 mg PO DAILY [facility] Last Admin: 09/19/17 08:10 Dose: 5 mg Polyethylene Glycol (Miralax) 17 gm PO BID [facility] Last Admin: 09/19/17 08:12 Dose: Not Given Potassium Bicarb/Potassium Chloride (K-Lyte Cl Eff) 50 meq PO UNSCH PRN PRN Reason: For Potassium 3.3 - 3.5 mEq/L Potassium Phosphate (K-Phos Original) 2,000 mg PO UNSCH PRN PRN Reason: SEE LABEL COMMENTS Potassium Phosphate (K-Phos Original) 2,000 mg PO Q4H PRN PRN Reason: Phosphorus Less Than 2.5 mg/dL Pravastatin Sodium (Pravachol) 80 mg PO DAILY [facility] Last Admin: 09/19/17 08:10 Dose: 80 mg Rifaximin (Xifaxan) 550 mg PO Q12HR [facility] Last Admin: 09/19/17 08:10 Dose: 550 mg Sennosides (Senokot) 17.2 mg PO Q12H PRN PRN Reason: Moderate Constipation Last Admin: 09/12/17 00:52 Dose: 17.2 mg Sodium Chloride (Ns Flush) 2 ml IV.FLUSH BID [facility] Last Admin: 09/19/17 08:11 Dose: 2 ml Sodium Chloride (Ns Flush) 2 ml IV.FLUSH PRN PRN PRN Reason: FLUSH AFTER USING IV ACCESS Terbutaline Sulfate (Brethine Inj) 1 mg SQ ONCE PRN PRN Reason: Extravasation Vitamin E (Vitamin E) 400 unit PO DAILY [facility] Last Admin: 09/19/17 08:10 Dose: 400 unit <Lisa Hartman - Last Filed: 09/19/17 14:36> Allergies Allergy/AdvReac Type Severity Reaction Status Date / Time No Known Allergies Allergy Verified 08/31/17 00:16 Home Medications Medication Instructions Recorded Confirmed Type baclofen 08/31/17 08/31/17 History baclofen 08/31/17 08/31/17 History cetirizine 08/31/17 08/31/17 History collagenase clostridium histo. 08/31/17 08/31/17 History [Santyl] dantrolene 08/31/17 08/31/17 History divalproex 08/31/17 08/31/17 History escitalopram oxalate 08/31/17 08/31/17 History escitalopram oxalate 08/31/17 08/31/17 History gabapentin 08/31/17 08/31/17 History gabapentin 08/31/17 08/31/17 History gabapentin 08/31/17 08/31/17 History hydrochlorothiazide 08/31/17 08/31/17 History hydrochlorothiazide 08/31/17 08/31/17 History lactulose 08/31/17 08/31/17 History meloxicam 08/31/17 08/31/17 History metronidazole 08/31/17 08/31/17 History metronidazole 08/31/17 08/31/17 History omeprazole 08/31/17 08/31/17 History oxybutynin chloride 08/31/17 08/31/17 History simvastatin 08/31/17 08/31/17 History simvastatin 08/31/17 08/31/17 History simvastatin 08/31/17 08/31/17 History vitamin E (dl, acetate) 08/31/17 08/31/17 History vitamin E (dl, acetate) 08/31/17 08/31/17 History Exam Vital signs: Vital Signs 09/18/17 09:30 09/18/17 10:00 09/18/17 10:30 Temperature Pulse Rate 85 110 H 100 H Respiratory Rate 22 0 L 0 L Blood Pressure 107/65 96/51 L 92/53 L Pulse Oximetry 100 97 98 09/18/17 11:00 09/18/17 11:30 09/18/17 11:42 Temperature Pulse Rate 104 H 107 H Respiratory Rate 16 17 17 Blood Pressure 97/59 L 104/66 Pulse Oximetry 98 98 99 09/18/17 12:00 09/18/17 12:30 09/18/17 13:00 Temperature 98.3 F Pulse Rate 96 H 85 79 Respiratory Rate 16 16 16 Blood Pressure 106/65 108/65 111/66 Pulse Oximetry 99 99 99 09/18/17 13:30 09/18/17 14:00 09/18/17 14:30 Temperature Pulse Rate 79 86 86 Respiratory Rate 16 16 16 Blood Pressure 108/62 106/63 107/60 Pulse Oximetry 98 98 99 09/18/17 15:00 09/18/17 15:30 09/18/17 15:59 Temperature Pulse Rate 97 H 82 79 Respiratory Rate 16 16 16 Blood Pressure 108/65 109/60 Pulse Oximetry 99 99 09/18/17 16:00 09/18/17 16:30 09/18/17 17:00 Temperature 98.8 F Pulse Rate 73 73 99 H Respiratory Rate 16 16 16 Blood Pressure 108/65 109/66 115/69 Pulse Oximetry 100 99 99 09/18/17 17:30 09/18/17 18:00 09/18/17 18:30 Temperature Pulse Rate 91 H 76 76 Respiratory Rate 16 16 16 Blood Pressure 123/74 130/83 133/81 Pulse Oximetry 99 100 99 09/18/17 20:00 09/18/17 21:23 09/18/17 22:00 Temperature 98.4 F Pulse Rate 62 53 L 63 Respiratory Rate 16 19 Blood Pressure 120/73 Pulse Oximetry 100 09/18/17 22:33 09/18/17 23:34 09/19/17 00:00 Temperature 97.8 F Pulse Rate 55 L 64 Respiratory Rate 16 18 16 Blood Pressure 120/77 Pulse Oximetry 100 100 09/19/17 02:00 09/19/17 03:48 09/19/17 04:00 Temperature 98 F Pulse Rate 53 L 48 L 54 L Respiratory Rate 16 16 Blood Pressure 126/78 Pulse Oximetry 100 09/19/17 04:31 09/19/17 06:00 09/19/17 08:32 Temperature Pulse Rate 84 74 Respiratory Rate 16 20 Blood Pressure Pulse Oximetry 100 100 Intake & Output 09/18/17 09/19/17 09/19/17 18:59 06:59 18:59 Intake Total 1490 / 1490 1350 / 1350 100 / 100 Output Total 1500 / 1500 1750 / 1750 Balance -10 / -10 -400 / -400 100 / 100 Weight 102.285 kg Intake: IV 1250 / 1250 1350 / 1350 100 / 100 D5W/LR + KCL 20 mEq Inj 1,000 1000 / 1000 1000 / 1000 ML @ 84 mls/hr IV.CONT .[id number] [facility] Rx#:[id number] Versed Inj 50 mg In 50 ml @ 2 50 / 50 50 / 50 MG/HR 2 mls/hr IV.CONT TITRATE PRN Rx#:[id number] Diprivan 1000 mg/100 ml Inj 1, 200 / 200 300 / 300 100 / 100 000 mg In 100 ml @ 5 MCG/KG/MIN 3.105 mls/hr IV.CONT TITRATE PRN Rx#:[id number] Other 240 / 240 Output: Urine Amount (Catheter) 1500 / 1500 1300 / 1300 Indwelling Urethral Catheter 1500 / 1500 1300 / 1300 Gastric Drainage 450 / 450 Orogastric Tube 450 / 450 Other: Date of Last Bowel Movement 09/18/17 09/19/17 # Bowel Movements 2 1 - Constitutional no acute distress - Routine HEENT Exam Head: Present: normocephalic, atraumatic - Routine Respiratory Exam Present: patient mechanically ventilated - Routine Abdominal Exam Present: soft, normoactive bowel sounds - Routine Skin Exam Present: dry, warm - Routine Neurological Exam Pt sedated and unresponsive <Luann Og - Last Filed: 09/19/17 09:04> Vital signs: Vital Signs 09/18/17 15:00 09/18/17 15:30 09/18/17 15:59 Temperature Pulse Rate 97 H 82 79 Respiratory Rate 16 16 16 Blood Pressure 108/65 109/60 Pulse Oximetry 99 99 09/18/17 16:00 09/18/17 16:30 09/18/17 17:00 Temperature 98.8 F Pulse Rate 73 73 99 H Respiratory Rate 16 16 16 Blood Pressure 108/65 109/66 115/69 Pulse Oximetry 100 99 99 09/18/17 17:30 09/18/17 18:00 09/18/17 18:30 Temperature Pulse Rate 91 H 76 76 Respiratory Rate 16 16 16 Blood Pressure 123/74 130/83 133/81 Pulse Oximetry 99 100 99 09/18/17 20:00 09/18/17 21:23 09/18/17 22:00 Temperature 98.4 F Pulse Rate 62 53 L 63 Respiratory Rate 16 19 Blood Pressure 120/73 Pulse Oximetry 100 09/18/17 22:33 09/18/17 23:34 09/19/17 00:00 Temperature 97.8 F Pulse Rate 55 L 64 Respiratory Rate 16 18 16 Blood Pressure 120/77 Pulse Oximetry 100 100 09/19/17 02:00 09/19/17 03:48 09/19/17 04:00 Temperature 98 F Pulse Rate 53 L 48 L 54 L Respiratory Rate 16 16 Blood Pressure 126/78 Pulse Oximetry 100 09/19/17 04:31 09/19/17 06:00 09/19/17 06:30 Temperature Pulse Rate 84 70 Respiratory Rate 16 16 Blood Pressure 111/71 Pulse Oximetry 100 100 09/19/17 07:00 09/19/17 07:30 09/19/17 08:00 Temperature 97.9 F Pulse Rate 64 76 74 Respiratory Rate 16 17 16 Blood Pressure 108/70 139/90 123/82 Pulse Oximetry 100 100 100 09/19/17 08:30 09/19/17 08:32 09/19/17 09:00 Temperature Pulse Rate 74 74 55 L Respiratory Rate 7 L 20 20 Blood Pressure 142/85 H 120/82 Pulse Oximetry 100 100 100 09/19/17 09:30 09/19/17 09:56 09/19/17 09:57 Temperature Pulse Rate 58 L 70 54 L Respiratory Rate 20 20 20 Blood Pressure 128/85 151/90 H 153/91 H Pulse Oximetry 100 99 99 09/19/17 09:58 09/19/17 09:59 09/19/17 10:00 Temperature Pulse Rate 56 L 62 62 Respiratory Rate 20 29 H 20 Blood Pressure 156/91 H 158/102 H 164/103 H Pulse Oximetry 99 98 98 09/19/17 10:01 09/19/17 10:02 09/19/17 10:03 Temperature Pulse Rate 64 66 68 Respiratory Rate 20 23 20 Blood Pressure 183/93 H 190/95 H 193/95 H Pulse Oximetry 98 98 97 09/19/17 10:04 09/19/17 10:05 09/19/17 10:06 Temperature Pulse Rate 71 74 76 Respiratory Rate 22 27 H 21 Blood Pressure 198/99 H 197/98 H 194/95 H Pulse Oximetry 97 97 97 09/19/17 10:07 09/19/17 10:08 09/19/17 10:09 Temperature Pulse Rate 82 89 91 H Respiratory Rate 21 20 22 Blood Pressure 202/99 H 191/101 H 185/103 H Pulse Oximetry 97 98 98 09/19/17 10:10 09/19/17 10:12 09/19/17 10:29 Temperature Pulse Rate 92 H 120 H Respiratory Rate 25 H 37 H Blood Pressure 178/106 H 184/111 H Pulse Oximetry 98 98 99 09/19/17 10:31 09/19/17 11:00 Temperature Pulse Rate 101 H 75 Respiratory Rate 20 20 Blood Pressure 95/60 L 114/75 Pulse Oximetry 100 100 Intake & Output 09/18/17 09/19/17 09/19/17 18:59 06:59 18:59 Intake Total 1490 / 1490 1350 / 1350 150 / 150 Output Total 1500 / 1500 1750 / 1750 Balance -10 / -10 -400 / -400 150 / 150 Weight 102.285 kg Intake: IV 1250 / 1250 1350 / 1350 150 / 150 D5W/LR + KCL 20 mEq Inj 1,000 1000 / 1000 1000 / 1000 ML @ 84 mls/hr IV.CONT .[id number] [facility] Rx#:[id number] Versed Inj 50 mg In 50 ml @ 2 50 / 50 50 / 50 50 / 50 MG/HR 2 mls/hr IV.CONT TITRATE PRN Rx#:[id number] Diprivan 1000 mg/100 ml Inj 1, 200 / 200 300 / 300 100 / 100 000 mg In 100 ml @ 5 MCG/KG/MIN 3.105 mls/hr IV.CONT TITRATE PRN Rx#:[id number] Other 240 / 240 Output: Urine Amount (Catheter) 1500 / 1500 1300 / 1300 Indwelling Urethral Catheter 1500 / 1500 1300 / 1300 Gastric Drainage 450 / 450 Orogastric Tube 450 / 450 Other: Date of Last Bowel Movement 09/18/17 09/19/17 09/19/17 # Bowel Movements 2 1 <Lisa Hartman - Last Filed: 09/19/17 14:36> Results - Labs CBC & Chem 7: 09/19/17 03:59 09/19/17 03:59 Labs: Laboratory Results - last 24 hr 09/18/17 09/18/17 09/18/17 04:40 08:54 12:45 WBC RBC Hgb Hct MCV MCH MCHC RDW Plt Count MPV Prelim Diff (Auto) Neut % (Auto) Lymph % (Auto) [place] % (Auto) Eos % (Auto) Baso % (Auto) Neut # (Auto) Lymph # (Auto) [place] # (Auto) Eos # (Auto) Baso # (Auto) WBC Differential Manual diff final Seg Neuts % (Manual) 79 H Band Neuts % (Manual) 1 Lymphocytes % (Manual) 9 Monocytes % (Manual) 10 H Eosinophils % (Manual) Metamyelocytes % (Man) Promyelocytes % (Man) 1 H Abs Neuts (Manual) 8.9 H Differential Comment Platelet Estimate Normal Platelet Morphology Normal RBC Morphology APTT Sodium Potassium Chloride Carbon Dioxide Anion Gap BUN Creatinine Estimated GFR POC Glucose 85 108 Random Glucose Calcium Phosphorus Magnesium Total Bilirubin AST ALT Alkaline Phosphatase Total Protein Albumin 09/18/17 09/18/17 09/18/17 16:58 20:21 23:42 WBC RBC Hgb Hct MCV MCH MCHC RDW Plt Count MPV Prelim Diff (Auto) Neut % (Auto) Lymph % (Auto) [place] % (Auto) Eos % (Auto) Baso % (Auto) Neut # (Auto) Lymph # (Auto) Churchill # (Auto) Eos # (Auto) Baso # (Auto) WBC Differential Seg Neuts % (Manual) Band Neuts % (Manual) Lymphocytes % (Manual) Monocytes % (Manual) Eosinophils % (Manual) Metamyelocytes % (Man) Promyelocytes % (Man) Abs Neuts (Manual) Differential Comment Platelet Estimate Platelet Morphology RBC Morphology APTT Sodium Potassium Chloride Carbon Dioxide Anion Gap BUN Creatinine Estimated GFR POC Glucose 120 H 106 92 Random Glucose Calcium Phosphorus Magnesium Total Bilirubin AST ALT Alkaline Phosphatase Total Protein Albumin 09/19/17 09/19/17 09/19/17 03:19 03:59 03:59 WBC 9.1 RBC 3.94 L Hgb 12.4 L Hct 36.8 L MCV 93.3 MCH 31.5 MCHC 33.8 RDW 16.5 Plt Count 217 MPV 9.2 Prelim Diff (Auto) Slide review pending Neut % (Auto) 71.3 H Lymph % (Auto) 18.4 Churchill % (Auto) 8.9 H Eos % (Auto) 0.7 Baso % (Auto) 0.7 Neut # (Auto) 6.5 Lymph # (Auto) 1.7 Churchill # (Auto) 0.8 Eos # (Auto) 0.1 Baso # (Auto) 0.1 WBC Differential Manual diff final Seg Neuts % (Manual) 75 H Band Neuts % (Manual) 3 Lymphocytes % (Manual) 16 Monocytes % (Manual) 3 Eosinophils % (Manual) 1 Metamyelocytes % (Man) 2 H Promyelocytes % (Man) Abs Neuts (Manual) 7.3 Differential Comment . Platelet Estimate Normal Platelet Morphology Normal RBC Morphology Normal APTT 22.2 L Sodium Potassium Chloride Carbon Dioxide Anion Gap BUN Creatinine Estimated GFR POC Glucose 92 Random Glucose Calcium Phosphorus Magnesium Total Bilirubin AST ALT Alkaline Phosphatase Total Protein Albumin 09/19/17 09/19/17 03:59 07:45 WBC RBC Hgb Hct MCV MCH MCHC RDW Plt Count MPV Prelim Diff (Auto) Neut % (Auto) Lymph % (Auto) [place] % (Auto) Eos % (Auto) Baso % (Auto) Neut # (Auto) Lymph # (Auto) [place] # (Auto) Eos # (Auto) Baso # (Auto) WBC Differential Seg Neuts % (Manual) Band Neuts % (Manual) Lymphocytes % (Manual) Monocytes % (Manual) Eosinophils % (Manual) Metamyelocytes % (Man) Promyelocytes % (Man) Abs Neuts (Manual) Differential Comment Platelet Estimate Platelet Morphology RBC Morphology APTT Sodium 141 Potassium 4.0 Chloride 108 H Carbon Dioxide 23.5 Anion Gap 10 BUN 10 Creatinine 0.36 L Estimated GFR Greater than 89 POC Glucose 75 Random Glucose 89 Calcium 8.6 Phosphorus 3.0 Magnesium 2.2 Total Bilirubin 0.4 AST 22 ALT 52 Alkaline Phosphatase 97 Total Protein 6.2 L Albumin 2.8 L - Imaging Impressions Abdomen X-Ray 09/19/17 00:00 CONCLUSION: 1. Mild air distention of colon and scattered small bowel loops characteristic of a mild hypodynamic ileus. I do think there is some interval improvement from the prior, however. 2. No pneumoperitoneum. Stable elevation of the right hemidiaphragm. <Luann Og - Last Filed: 09/19/17 09:04> - Labs CBC & Chem 7: 09/19/17 03:59 09/19/17 03:59 Labs: Laboratory Results - last 24 hr 09/18/17 09/18/17 09/18/17 16:58 20:21 23:42 WBC RBC Hgb Hct MCV MCH MCHC RDW Plt Count MPV Prelim Diff (Auto) Neut % (Auto) Lymph % (Auto) [place] % (Auto) Eos % (Auto) Baso % (Auto) Neut # (Auto) Lymph # (Auto) [place] # (Auto) Eos # (Auto) Baso # (Auto) WBC Differential Seg Neuts % (Manual) Band Neuts % (Manual) Lymphocytes % (Manual) Monocytes % (Manual) Eosinophils % (Manual) Metamyelocytes % (Man) Abs Neuts (Manual) Differential Comment Platelet Estimate Platelet Morphology RBC Morphology APTT Sodium Potassium Chloride Carbon Dioxide Anion Gap BUN Creatinine Estimated GFR POC Glucose 120 H 106 92 Random Glucose Calcium Phosphorus Magnesium Total Bilirubin AST ALT Alkaline Phosphatase Total Protein Albumin 09/19/17 09/19/17 09/19/17 03:19 03:59 03:59 WBC 9.1 RBC 3.94 L Hgb 12.4 L Hct 36.8 L MCV 93.3 MCH 31.5 MCHC 33.8 RDW 16.5 Plt Count 217 MPV 9.2 Prelim Diff (Auto) Slide review pending Neut % (Auto) 71.3 H Lymph % (Auto) 18.4 [place] % (Auto) 8.9 H Eos % (Auto) 0.7 Baso % (Auto) 0.7 Neut # (Auto) 6.5 Lymph # (Auto) 1.7 [place] # (Auto) 0.8 Eos # (Auto) 0.1 Baso # (Auto) 0.1 WBC Differential Manual diff final Seg Neuts % (Manual) 75 H Band Neuts % (Manual) 3 Lymphocytes % (Manual) 16 Monocytes % (Manual) 3 Eosinophils % (Manual) 1 Metamyelocytes % (Man) 2 H Abs Neuts (Manual) 7.3 Differential Comment . Platelet Estimate Normal Platelet Morphology Normal RBC Morphology Normal APTT 22.2 L Sodium Potassium Chloride Carbon Dioxide Anion Gap BUN Creatinine Estimated GFR POC Glucose 92 Random Glucose Calcium Phosphorus Magnesium Total Bilirubin AST ALT Alkaline Phosphatase Total Protein Albumin 09/19/17 09/19/17 09/19/17 03:59 07:45 12:47 WBC RBC Hgb Hct MCV MCH MCHC RDW Plt Count MPV Prelim Diff (Auto) Neut % (Auto) Lymph % (Auto) [place] % (Auto) Eos % (Auto) Baso % (Auto) Neut # (Auto) Lymph # (Auto) [place] # (Auto) Eos # (Auto) Baso # (Auto) WBC Differential Seg Neuts % (Manual) Band Neuts % (Manual) Lymphocytes % (Manual) Monocytes % (Manual) Eosinophils % (Manual) Metamyelocytes % (Man) Abs Neuts (Manual) Differential Comment Platelet Estimate Platelet Morphology RBC Morphology APTT Sodium 141 Potassium 4.0 Chloride 108 H Carbon Dioxide 23.5 Anion Gap 10 BUN 10 Creatinine 0.36 L Estimated GFR Greater than 89 POC Glucose 75 107 Random Glucose 89 Calcium 8.6 Phosphorus 3.0 Magnesium 2.2 Total Bilirubin 0.4 AST 22 ALT 52 Alkaline Phosphatase 97 Total Protein 6.2 L Albumin 2.8 L - Imaging Impressions Abdomen X-Ray 09/19/17 00:00 CONCLUSION: 1. Mild air distention of colon and scattered small bowel loops characteristic of a mild hypodynamic ileus. I do think there is some interval improvement from the prior, however. 2. No pneumoperitoneum. Stable elevation of the right hemidiaphragm. Chest X-Ray 09/19/17 10:36 CONCLUSION: 1. Interval removal of endotracheal tube placement of nasogastric tube. 2. Rotated study with no definite acute cardiopulmonary disease. <Lisa Hartman - Last Filed: 09/19/17 14:36> Assessment and Plan - Plan Assessment: - PEG tube consult- This is a 52 yo M who is currently admitted to [facility] and has been unable to be weaned from the vent, planned for tracheostomy today. Our service has been consulted for PEG tube placement. Pt currently receiving nutrition through OG tube, dietary recommending Glucerna 1.5 with goal rate of 60 mL/hr. Plan: EGD with PEG tube placement tomorrow Tube feeding should stay on hold from trach today Obtain consent Ancef marketing communications manager Appreciate dietary recommendations- Glucerna 1.5 @ 60 mL/hr Further recommendations to follow Pt has been seen and examined by myself and Dr. Hartman and this note is written on his behalf <Luann Og - Last Filed: 09/19/17 09:04> - Attending Attestation Patient was seen and examined, agree with above note, plan on PEG tube tomorrow since we could not get a consent for it today <Lisa Hartman - Last Filed: 09/19/17 14:36>
[2017-09-19] MEDS ORDERED: Atropine Inj 1 MG/10 ML Syringe ONE (09:49)
--- NOTE | 2017-09-19 10:29 | P.PCN ---
Date of procedure: 09/19/17 Pre-op diagnosis: Acute respiratory failure, inability to wean from vent Post-op diagnosis: same Procedure: Procedure: Percutaneous tracheostomy with bronchoscopic guidance Operators: Dr. Leopoldo Nassar for percutaneous tracheostomy, Dr. Marin for bronchoscopy Informed consent obtained from family. Preoperative diagnosis: Acute respiratory failure, severe COPD, severe myasthenia gravis, severe debility Postoperative diagnosis: Same Anesthesia used: Midazolam 5 mg IV, fentanyl 200 IV, Rocuronium 50 mg IV and propofol drip at 20 mcg/kg/min IV gtt, Versed drip at 10 mg per hour. 1% lidocaine for local infiltration anesthesia Procedure: After ensuring adequate sedation/analgesia neuromuscular blockade, patient was positioned appropriately. After sterile prepping and draping, 1% lidocaine was used for local infiltration anesthesia. Dr. Marin proceeded bronchoscopy and withdrawing ET tube. Introducer needle was inserted into the trachea under bronchoscopic guidance and guidewire was advanced into the trachea and was visualized passing down into the trachea following which needle was removed. Punch dilator was used to dilate the tracheal ring following which tracheostomy dilator assembly was mounted over the guidewire and advanced to dilate the trachea. The dilator was visualized via bronchoscopic guidance entering the trachea during dilation without injuring the posterior tracheal wall. Following this dilator assembly was removed and percutaneous tracheostomy mounted over dilator was advanced over the guidewire into the trachea under direct visualization. Following this guidewire/dilator were removed. Bronchoscope was inserted at this point by Dr. Marin via newly inserted tracheostomy and appropriate placement was confirmed by visualizing tracheal rings, alyce. After this bronchoscope was withdrawn and inner cannula was placed via tracheostomy. After inflating cuff, patient was connected to mechanical ventilation via tracheostomy. 4 interrupted sutures were used to secure tracheostomy to neck. Patient tolerated the procedure well with no immediate complications noted. Good hemostasis was achieved at the end of procedure. Postprocedure chest x-ray was ordered and was pending at the time of this dictation and will be reviewed when available. Anesthesia: MARYCRUZA, regional Surgeon: Leopoldo Nassar Estimated blood loss (mL): 2 Pathology: none sent Condition: critical Disposition: ICU
--- NOTE | 2017-09-19 11:10 | P.PNID ---
Subjective Remarks: He is a 52-year-old male, who is a resident of the assisted, brought to the hospital for evaluation of shortness of breath, hypoxemia, and tachycardic. According to the paramedics he had an elevated temp. Got some information from the nurse, patient did not have any Vernon when he presented, and a Vernon catheter was placed. Since admission he has required BiPAP for oxygenation. He has been febrile. Urinalysis showed significant pyuria. His blood pressures seem to be holding, and he is not requiring any pressors. His WBC is mildly elevated at 11.7. Lactic acid is normal. Creatinine is normal. Chest x -ray showing some infiltrates. Infectious disease consultation has been requested to assist with evaluation and treatment of patient with sepsis. Notes reviewed. D/W RN Temps ok BP ok Just had trach done this morning Plans for PEG tomorrow To finish ABx today Antibiotics: Levaquin Lines: No evidence of infection Past Medical History: Dementia Depression GERD (gastroesophageal reflux disease) Hemorrhoids Hyperlipidemia Paraplegia UTI (urinary tract infection) H/O exploratory laparotomy History of cholecystectomy Allergies/Adverse Reactions: Allergies No Known Allergies Allergy (Verified 08/31/17 00:16) Objective Vital Signs 09/18/17 11:30 09/18/17 11:42 09/18/17 12:00 Temperature 98.3 F Pulse Rate 107 H 96 H Respiratory Rate 17 17 16 Blood Pressure 104/66 106/65 Pulse Oximetry 98 99 99 09/18/17 12:30 09/18/17 13:00 09/18/17 13:30 Temperature Pulse Rate 85 79 79 Respiratory Rate 16 16 16 Blood Pressure 108/65 111/66 108/62 Pulse Oximetry 99 99 98 09/18/17 14:00 09/18/17 14:30 09/18/17 15:00 Temperature Pulse Rate 86 86 97 H Respiratory Rate 16 16 16 Blood Pressure 106/63 107/60 108/65 Pulse Oximetry 98 99 99 09/18/17 15:30 09/18/17 15:59 09/18/17 16:00 Temperature 98.8 F Pulse Rate 82 79 73 Respiratory Rate 16 16 16 Blood Pressure 109/60 108/65 Pulse Oximetry 99 100 09/18/17 16:30 09/18/17 17:00 09/18/17 17:30 Temperature Pulse Rate 73 99 H 91 H Respiratory Rate 16 16 16 Blood Pressure 109/66 115/69 123/74 Pulse Oximetry 99 99 99 09/18/17 18:00 09/18/17 18:30 09/18/17 20:00 Temperature 98.4 F Pulse Rate 76 76 62 Respiratory Rate 16 16 16 Blood Pressure 130/83 133/81 120/73 Pulse Oximetry 100 99 100 09/18/17 21:23 09/18/17 22:00 09/18/17 22:33 Temperature Pulse Rate 53 L 63 Respiratory Rate 19 16 Blood Pressure Pulse Oximetry 100 09/18/17 23:34 09/19/17 00:00 09/19/17 02:00 Temperature 97.8 F Pulse Rate 55 L 64 53 L Respiratory Rate 18 16 Blood Pressure 120/77 Pulse Oximetry 100 09/19/17 03:48 09/19/17 04:00 09/19/17 04:31 Temperature 98 F Pulse Rate 48 L 54 L Respiratory Rate 16 16 16 Blood Pressure 126/78 Pulse Oximetry 100 100 09/19/17 06:00 09/19/17 08:32 09/19/17 10:29 Temperature Pulse Rate 84 74 Respiratory Rate 20 Blood Pressure Pulse Oximetry 100 99 Intake & Output 09/18/17 09/19/17 09/19/17 18:59 06:59 18:59 Intake Total 1490 / 1490 1350 / 1350 100 / 100 Output Total 1500 / 1500 1750 / 1750 Balance -10 / -10 -400 / -400 100 / 100 Weight 102.285 kg Intake: IV 1250 / 1250 1350 / 1350 100 / 100 D5W/LR + KCL 20 mEq Inj 1,000 1000 / 1000 1000 / 1000 ML @ 84 mls/hr IV.CONT .[id number] [facility] Rx#:[id number] Versed Inj 50 mg In 50 ml @ 2 50 / 50 50 / 50 MG/HR 2 mls/hr IV.CONT TITRATE PRN Rx#:[id number] Diprivan 1000 mg/100 ml Inj 1, 200 / 200 300 / 300 100 / 100 000 mg In 100 ml @ 5 MCG/KG/MIN 3.105 mls/hr IV.CONT TITRATE PRN Rx#:[id number] Other 240 / 240 Output: Urine Amount (Catheter) 1500 / 1500 1300 / 1300 Indwelling Urethral Catheter 1500 / 1500 1300 / 1300 Gastric Drainage 450 / 450 Orogastric Tube 450 / 450 Other: Date of Last Bowel Movement 09/18/17 09/19/17 # Bowel Movements 2 1 Lab - Hematology Results 09/18/17 09/19/17 04:40 03:59 WBC 11.0 9.1 RBC 4.04 L 3.94 L Hgb 12.6 L 12.4 L Hct 37.7 L 36.8 L MCV 93.5 93.3 MCH 31.3 31.5 MCHC 33.5 33.8 RDW 16.4 16.5 Plt Count 212 217 MPV 10.5 9.2 Prelim Diff (Auto) Slide review pending Slide review pending Neut % (Auto) 71.8 H 71.3 H Lymph % (Auto) 16.9 18.4 [place] % (Auto) 10.0 H 8.9 H Eos % (Auto) 0.9 0.7 Baso % (Auto) 0.4 0.7 Neut # (Auto) 7.9 H 6.5 Lymph # (Auto) 1.9 1.7 [place] # (Auto) 1.1 H 0.8 Eos # (Auto) 0.1 0.1 Baso # (Auto) 0.0 0.1 WBC Differential Manual diff final Manual diff final Seg Neuts % (Manual) 79 H 75 H Band Neuts % (Manual) 1 3 Lymphocytes % (Manual) 9 16 Monocytes % (Manual) 10 H 3 Eosinophils % (Manual) 1 Metamyelocytes % (Man) 2 H Promyelocytes % (Man) 1 H Abs Neuts (Manual) 8.9 H 7.3 Differential Comment . . Platelet Estimate Normal Normal Platelet Morphology Normal Normal RBC Morphology Normal Lab - Chemistry Results 09/17/17 09/17/17 09/18/17 17:04 20:55 00:23 Sodium Potassium Chloride Carbon Dioxide Anion Gap BUN Creatinine Estimated GFR POC Glucose 100 107 97 Random Glucose Calcium Phosphorus Magnesium Total Bilirubin AST ALT Alkaline Phosphatase Total Protein Albumin 09/18/17 09/18/17 09/18/17 04:40 05:36 08:54 Sodium 141 Potassium 4.2 Chloride 107 Carbon Dioxide 22.0 Anion Gap 12 BUN 14 Creatinine 0.42 L Estimated GFR Greater than 89 POC Glucose 79 85 Random Glucose 72 L Calcium 9.1 Phosphorus Magnesium Total Bilirubin AST ALT Alkaline Phosphatase Total Protein Albumin 09/18/17 09/18/17 09/18/17 12:45 16:58 20:21 Sodium Potassium Chloride Carbon Dioxide Anion Gap BUN Creatinine Estimated GFR POC Glucose 108 120 H 106 Random Glucose Calcium Phosphorus Magnesium Total Bilirubin AST ALT Alkaline Phosphatase Total Protein Albumin 09/18/17 09/19/17 09/19/17 23:42 03:19 03:59 Sodium 141 Potassium 4.0 Chloride 108 H Carbon Dioxide 23.5 Anion Gap 10 BUN 10 Creatinine 0.36 L Estimated GFR Greater than 89 POC Glucose 92 92 Random Glucose 89 Calcium 8.6 Phosphorus 3.0 Magnesium 2.2 Total Bilirubin 0.4 AST 22 ALT 52 Alkaline Phosphatase 97 Total Protein 6.2 L Albumin 2.8 L 09/19/17 07:45 Sodium Potassium Chloride Carbon Dioxide Anion Gap BUN Creatinine Estimated GFR POC Glucose 75 Random Glucose Calcium Phosphorus Magnesium Total Bilirubin AST ALT Alkaline Phosphatase Total Protein Albumin Imaging: ITS Impressions Abdomen/Bladder Ultrasound 08/31/17 00:00 CONCLUSION: 1. 11 mm left midlung calculus. 2. No evidence of hydronephrosis. 3. Otherwise normal appearing kidneys. Chest CTA 08/31/17 00:00 CONCLUSION: 1. No evidence of pulmonary embolism. 2. Extensive consolidation in the right lung and patchy infiltrates elsewhere in both lungs. 3. Moderately enlarged mediastinal lymph node. Abdomen/Pelvis CT 09/13/17 00:00 CONCLUSION: 1. Nonobstructing left renal stones. 2. No evidence of small bowel dilation. 3. Bibasilar atelectasis in the lower lungs. 4. Bilateral inguinal hernias containing fat. Chest X-Ray 09/17/17 06:00 CONCLUSION: Small left pleural effusion now seen. Mild patchy left lung base atelectasis unchanged. Abdomen X-Ray 09/19/17 00:00 CONCLUSION: 1. Mild air distention of colon and scattered small bowel loops characteristic of a mild hypodynamic ileus. I do think there is some interval improvement from the prior, however. 2. No pneumoperitoneum. Stable elevation of the right hemidiaphragm. Physical Exam: GENERAL: Sedated, NAD on the vent SKIN: Cool and dry. No generalized rash. HEAD: Atraumatic. Normocephalic. No temporal wasting, or tenderness. EYES: [place] conjunctiva. No petechia or hemorrhage. Pupils equal, round and reactive to light. No scleral icterus. No injection or drainage. NECK: S/P trach today. Supple. CARDIOVASCULAR: Regular rate and rhythm. No murmurs, rubs or gallops. RESPIRATORY: Rhonchi on R , decreased breath sounds at bases ABDOMEN: obese, distended. Bowel sounds present and normoactive. He has a long midline incision which looks like an exp lap, and has a cholecystectomy scar in RUQ. EXTREMITIES: No clubbing, cyanosis. Has no pedal edema. No calf tenderness. NEUROLOGICAL: Sedated. PSYCH: Unable to assess : Vernon in place, Clear yellow urine. LINE: No evidence of infection Assessment and Plan - Plan Impression Sepsis on presentation, patient came from SNF, better - has lung infiltrates, and SOB, C/W HCAP - also with UTI HCAP, C/S bronch negative Leukocytosis, resolved Respiratory failure, recurrent - S/P trach 09/19 Hx paraplegia Encephalopathy Recommendation Continue Levaquin - to complete today Monitor temps Monitor progress For PEG tomorrow Seems clinically stable from ID standpoint D/W BAUTISTA
--- NOTE | 2017-09-19 11:47 | XR ---
EXAM DATE: 09/19/2017 11:44 AM EDT AGE/SEX: 52 years / Male INDICATIONS: Post tracheostomy placement. CLINICAL DATA: This is the patient's subsequent encounter. Patient reports that signs and symptoms h ave been present for 2 weeks and indicates a pain score of Nonresponsive. MEDICAL/SURGICAL HISTORY: . Gastroesophageal reflux disease. Cholecystectomy. . [place] [facility] [place]. . FINDINGS: A single AP semierect portable view the chest was obtained and demonstrates interval removal of the e ndotracheal tube and placement of a tracheostomy tube. The nasogastric tube remains in place. There i s overlying artifact from oxygen tubing and electrocardiogram leads. No confluent infiltrates or effu sions are identified. The heart size is at the upper limits of normal. The patient is mildly rotated. CONCLUSION: 1. Interval removal of endotracheal tube placement of nasogastric tube. 2. Rotated study with no definite acute cardiopulmonary disease. Electronically signed by: Sid Roberto MD 09/19/2017 11:46 AM EDT
--- NOTE | 2017-09-19 13:07 | P.PNCC ---
Subjective Subjective Remarks/Hospital Course: 52-year-old male presents from care home for an evaluation of hypoxemia, shortness of breath, and tachycardia and per paramedics elevated temperature with history of paraplegia with immobility, dyslipidemia, chronic cough, mood disorder with depression, pressure ulceration bilateral lower extremity knee contracture, prior Klebsiella pneumonia and morbid obesity. In the emergency department he appeared to be in respiratory distress and was placed by ED attending on the BiPAP. 09/01 Patient is on BIPAP 18/5 with 40% FIO2. Afebrile with intermittent confusion. CTA chest yesterday showed no PE, extensive consolidation right lung. 09/02 Patient was intubated yesterday and s/p bronch. Sedated with Diprivan and Fentanyl infusion. Afebrile. 09/03 No events overnight. Sedated with Diprivan and Fentanyl infusion. Afebrile. 09/04: Remains intubated, sedated with propofol. Eyes open, do not follow commands. Bilateral wheezing on exam. FiO2 remains high at 60%, O2 sat 92-94% 09/05: Remains sedated heavily for vent synchrony, FiO2 remains at 60%, will wean. Sputum cx negative. ETT advanced due to leak, will repeat CXR. Patient do not follow commands, but get agitated when sedation held 09/06: Remains sedated for ventilator synchrony. Oxygen saturation improved FiO2 down to 50%. Chest x-ray on my review shows pulmonary edema. Started scheduled Lasix scheduled Lasix yesterday, urine output excellent 5.5 L in 24 hours 09/07: Afebrile. Remains on propofol and fentanyl drips due to his significant agitation. 2 bite block placed overnight/Guedel airways related secondary to patient attempted to bite through ET tube.. One bowel movement yesterday 09/08 No events overnight. Sedated with Diprivan and Fentanyl drip. Afebrile. 09/09: Extubated yesterday without complication. Currently on 6 L nasal cannula. Swallow evaluation failed 2. Dobbhoff tube is in place. No bowel movement since 09/02. 09/10: Intubated overnight due to respiratory failure. Currently on PEEP of 12 and FiO2 90%. Ventilator is been adjusted. Tube feeds of been resumed. 09/11 Patient remains intubated and sedated, on PRVC with PEEP:10, FIO2 40% 09/12: Afebrile. Remains on 40% FiO2. Propofol drip at 50 mcg/kg/min. PEEP is still at 10. 09/13: Afebrile. Abdominal x-ray yesterday revealed likely adynamic ileus. Will check CT abdomen and pelvis today. Patient is currently being decompressed from above. Will receive methylnaltrexone and enema today.. Was tolerating tube feeds at goal. 09/14: Afebrile. Bowel movements overnight. White blood cell count is normalized. We will keep him potassium 40 and recheck abdominal x-ray in a.m. 09/15: Afebrile. Will check KUB and likely restart tube feedings today. No neurological change. Failed CPAP trials today. 09/16: Resting in bed in no acute distress. Continues to fail CPAP trials daily. Will attempt to contact healthcare proxy. Will need tracheostomy early next week. 09/17: Resting in bed in no acute distress. PEEP is down to 5. Failing spontaneous breathing trials will require tracheostomy. Discussed with father yesterday and agreeable. 09/18 - plan for percutaneous tracheostomy in a.m. Continues to have an ileus. NG tube was placed to suction. Remains on IV fluids. Subjective 09/19: Status post percutaneous tracheostomy today. Plan for percutaneous gastrostomy tube placement tomorrow. Remains on IV fluids. NG tube to suction. Afebrile. White blood cell count normal. Antibiotics stopped today Objective Vital Signs / I&O: Vital Signs 09/18/17 13:30 09/18/17 14:00 09/18/17 14:30 Temperature Pulse Rate 79 86 86 Respiratory Rate 16 16 16 Blood Pressure 108/62 106/63 107/60 Pulse Oximetry 98 98 99 09/18/17 15:00 09/18/17 15:30 09/18/17 15:59 Temperature Pulse Rate 97 H 82 79 Respiratory Rate 16 16 16 Blood Pressure 108/65 109/60 Pulse Oximetry 99 99 09/18/17 16:00 09/18/17 16:30 09/18/17 17:00 Temperature 98.8 F Pulse Rate 73 73 99 H Respiratory Rate 16 16 16 Blood Pressure 108/65 109/66 115/69 Pulse Oximetry 100 99 99 09/18/17 17:30 09/18/17 18:00 09/18/17 18:30 Temperature Pulse Rate 91 H 76 76 Respiratory Rate 16 16 16 Blood Pressure 123/74 130/83 133/81 Pulse Oximetry 99 100 99 09/18/17 20:00 09/18/17 21:23 09/18/17 22:00 Temperature 98.4 F Pulse Rate 62 53 L 63 Respiratory Rate 16 19 Blood Pressure 120/73 Pulse Oximetry 100 09/18/17 22:33 09/18/17 23:34 09/19/17 00:00 Temperature 97.8 F Pulse Rate 55 L 64 Respiratory Rate 16 18 16 Blood Pressure 120/77 Pulse Oximetry 100 100 09/19/17 02:00 09/19/17 03:48 09/19/17 04:00 Temperature 98 F Pulse Rate 53 L 48 L 54 L Respiratory Rate 16 16 Blood Pressure 126/78 Pulse Oximetry 100 09/19/17 04:31 09/19/17 06:00 09/19/17 06:30 Temperature Pulse Rate 84 70 Respiratory Rate 16 16 Blood Pressure 111/71 Pulse Oximetry 100 100 09/19/17 07:00 09/19/17 07:30 09/19/17 08:00 Temperature 97.9 F Pulse Rate 64 76 74 Respiratory Rate 16 17 16 Blood Pressure 108/70 139/90 123/82 Pulse Oximetry 100 100 100 09/19/17 08:30 09/19/17 08:32 09/19/17 09:00 Temperature Pulse Rate 74 74 55 L Respiratory Rate 7 L 20 20 Blood Pressure 142/85 H 120/82 Pulse Oximetry 100 100 100 09/19/17 09:30 09/19/17 09:56 09/19/17 09:57 Temperature Pulse Rate 58 L 70 54 L Respiratory Rate 20 20 20 Blood Pressure 128/85 151/90 H 153/91 H Pulse Oximetry 100 99 99 09/19/17 09:58 09/19/17 09:59 09/19/17 10:00 Temperature Pulse Rate 56 L 62 62 Respiratory Rate 20 29 H 20 Blood Pressure 156/91 H 158/102 H 164/103 H Pulse Oximetry 99 98 98 09/19/17 10:01 09/19/17 10:02 09/19/17 10:03 Temperature Pulse Rate 64 66 68 Respiratory Rate 20 23 20 Blood Pressure 183/93 H 190/95 H 193/95 H Pulse Oximetry 98 98 97 09/19/17 10:04 09/19/17 10:05 09/19/17 10:06 Temperature Pulse Rate 71 74 76 Respiratory Rate 22 27 H 21 Blood Pressure 198/99 H 197/98 H 194/95 H Pulse Oximetry 97 97 97 09/19/17 10:07 09/19/17 10:08 09/19/17 10:09 Temperature Pulse Rate 82 89 91 H Respiratory Rate 21 20 22 Blood Pressure 202/99 H 191/101 H 185/103 H Pulse Oximetry 97 98 98 09/19/17 10:10 09/19/17 10:12 09/19/17 10:29 Temperature Pulse Rate 92 H 120 H Respiratory Rate 25 H 37 H Blood Pressure 178/106 H 184/111 H Pulse Oximetry 98 98 99 09/19/17 10:31 09/19/17 11:00 Temperature Pulse Rate 101 H 75 Respiratory Rate 20 20 Blood Pressure 95/60 L 114/75 Pulse Oximetry 100 100 Intake & Output 09/18/17 09/19/17 09/19/17 18:59 06:59 18:59 Intake Total 1490 / 1490 1350 / 1350 100 / 100 Output Total 1500 / 1500 1750 / 1750 Balance -10 / -10 -400 / -400 100 / 100 Weight 102.285 kg Intake: IV 1250 / 1250 1350 / 1350 100 / 100 D5W/LR + KCL 20 mEq Inj 1,000 1000 / 1000 1000 / 1000 ML @ 84 mls/hr IV.CONT .[id number] [facility] Rx#:[id number] Versed Inj 50 mg In 50 ml @ 2 50 / 50 50 / 50 MG/HR 2 mls/hr IV.CONT TITRATE PRN Rx#:[id number] Diprivan 1000 mg/100 ml Inj 1, 200 / 200 300 / 300 100 / 100 000 mg In 100 ml @ 5 MCG/KG/MIN 3.105 mls/hr IV.CONT TITRATE PRN Rx#:[id number] Other 240 / 240 Output: Urine Amount (Catheter) 1500 / 1500 1300 / 1300 Indwelling Urethral Catheter 1500 / 1500 1300 / 1300 Gastric Drainage 450 / 450 Orogastric Tube 450 / 450 Other: Date of Last Bowel Movement 09/18/17 09/19/17 09/19/17 # Bowel Movements 2 1 Result Diagrams: 09/19/17 03:59 09/19/17 03:59 Other Results: Microbiology 07/15/18 11:16 Blood - Peripheral Aerobic Blood Culture - Final No growth in 5 days 09/10/17 11:16 Blood - Peripheral Anaerobic Blood Culture - Final No growth in 5 days 09/10/17 11:10 Blood - Peripheral Aerobic Blood Culture - Final No growth in 5 days 09/10/17 11:10 Blood - Peripheral Anaerobic Blood Culture - Final No growth in 5 days 09/10/17 11:15 Catheterized Urine Urine Culture - Final No growth in 48 hours 09/10/17 09:30 Sputum - Endotracheal Gram Stain - Final 09/10/17 09:30 Sputum - Endotracheal Sputum Culture - Final Heavy growth normal respiratory cher 09/10/17 11:00 Nasal Wash Influenza Types A,B Antigen - Final Negative for FLU A and B antigen Infection due to influenza A or B cannot be ruled out since the antigen present in the sample may be below the detection limit of the test. 09/06/17 10:45 Sputum - Endotracheal Gram Stain - Final 09/06/17 10:45 Sputum - Endotracheal Sputum Culture - Final Rare growth normal respiratory cher 08/31/17 00:25 Blood - Peripheral Aerobic Blood Culture - Final No growth in 5 days 08/31/17 00:25 Blood - Peripheral Anaerobic Blood Culture - Final No growth in 5 days 08/31/17 00:30 Blood - Peripheral Aerobic Blood Culture - Final No growth in 5 days 08/31/17 00:30 Blood - Peripheral Anaerobic Blood Culture - Final No growth in 5 days 09/01/17 09:30 Bronchial - Right Lower Lobe Gram Stain - Final 09/01/17 09:30 Bronchial - Right Lower Lobe Bronchial Culture - Final No growth in 48 hours 08/31/17 02:50 Catheterized Urine Urine Culture - Final 50-100,000 cfu/mL mixed cher (probable contaminants ) 08/31/17 02:50 Urine - Catheterized Urine Streptococcus pneumoniae Antigen ( M - Final Presumptive negative for streptococcus pneumoniae antigen, suggesting no current or recent infection. Infection due to Streptococcus pneumoniae cannot be ruled out since the antigen present in the sample may be below the detection limit of the test. 08/31/17 02:50 Urine - Catheterized Urine Legionella Antigen - Final Presumptive negative for Legionella pneumophila serogroup 1 antigen in urine, suggesting no recent or recurrent infection. Infection due to Legionella cannot be ruled out since other serogroups and species may cause disease, antigen may not be present in urine in early infection, and the level of antigen present in the urine may be below the detection limit of the test. Imaging: ITS Impressions Abdomen/Bladder Ultrasound 08/31/17 00:00 CONCLUSION: 1. 11 mm left midlung calculus. 2. No evidence of hydronephrosis. 3. Otherwise normal appearing kidneys. Chest CTA 08/31/17 00:00 CONCLUSION: 1. No evidence of pulmonary embolism. 2. Extensive consolidation in the right lung and patchy infiltrates elsewhere in both lungs. 3. Moderately enlarged mediastinal lymph node. Abdomen/Pelvis CT 09/13/17 00:00 CONCLUSION: 1. Nonobstructing left renal stones. 2. No evidence of small bowel dilation. 3. Bibasilar atelectasis in the lower lungs. 4. Bilateral inguinal hernias containing fat. Abdomen X-Ray 09/19/17 00:00 CONCLUSION: 1. Mild air distention of colon and scattered small bowel loops characteristic of a mild hypodynamic ileus. I do think there is some interval improvement from the prior, however. 2. No pneumoperitoneum. Stable elevation of the right hemidiaphragm. Chest X-Ray 09/19/17 10:36 CONCLUSION: 1. Interval removal of endotracheal tube placement of nasogastric tube. 2. Rotated study with no definite acute cardiopulmonary disease. Objective Remarks: GENERAL: 52 yo male currently resting in bed in no acute distress orotracheally intubated SKIN: Warm and dry. No rash HEAD: Normocephalic. Atraumatic. EYES: No scleral icterus. No injection or drainage. ENT: Mucous members are moist and pink. Oropharynx without erythema NECK: Supple, trachea midline. No JVD or lymphadenopathy. Percutaneous tracheostomy tube is clean dry and intact CARDIOVASCULAR: Bradycardic, RR, NL S1, S2 without murmurs, gallops, or rubs. RESPIRATORY: Breath sounds equal bilaterally. No accessory muscle use. Bilateral end expiratory wheeze. Transmitted upper airway sounds are noted. Coarse crackles anteriorly and posterior bases. GASTROINTESTINAL: Abdomen obese but reducible and soft.. Hypoactive bowel sounds are appreciated. MUSCULOSKELETAL: Anasarca/1+ upper lower extremity edema Neuro: Cranial nerves II through XII grossly intact. Strength is 3 out of 5 bilateral upper extremity's. 2 out of 5 bilateral lower extremities. Positive gag and cough. Assessment and Plan - Assessment and Plan Plan: Neuro/Psych: Mood disorder with depression Paraplegia with mobility Acute metabolic encephalopathy Dementia disorder NOS Currently on propofol drip at 25 m/kg/min and midazolam drip at 5 mg an hour for sedation while intubated Goal of RASS -2 Daily sedation vacation EEG-encephalopathy, some burst suppression pattern. On valproic acid 250 mg twice daily, follow up on Valproic acid level 16 on 09/10 Continue baclofen 20 mg 3 times daily/home medication Continue citalopram 20 mg daily/home medication for depression Continue gabapentin 100 mg 3 times daily/home medication Acetaminophen 650 mg by tube every 6 hours as needed fever Holding meloxicam/home medication Holding dantrolene unknown dosage. Pulm: Acute Respiratory Failure -hypoxic and hypercapnic PRVC 18/600/03/03/39, Ventilator bundle Albuterol/ipratropium aerosols every 4 hours with albuterol aerosols every 2 hours as needed for dyspnea Methylprednisolone succinate 40 mg IV every 12 hours Spontaneous breathing trials as clinically indicated Patient s/p bronch 09/01 showed thick cormier like secretions/mucous plugs suctioned to clear BAL performed RLL-cultures negative to date CXR 09/17 basilar airspace disease/small left pleural effusion Dr. Nassar status post percutaneous tracheostomy 09/19 CV: Hypertension Hyperlipidemia Monitor HR and BP keep MAP>65mmHg Currently not requiring vasopressors and/or antihypertensives simvastatin 40 mg daily at home. Hospital substitution is pravastatin 80 mg daily Renal/FEN/: Neurogenic bladder Nonobstructing renal stones Monitor renal function, electrolytes replacement per protocol. d/c furosemide D5 LR with 20 mEq KCl at 84 cc an hour while tube feeds are not at goal GI: Gastroesophageal reflux disease Hypoalbuminemia History of external hemorrhoids Hyperammonia Elevated AST/ALT likely secondary congestion Possibly adynamic ileus Bilateral inguinal hernias N.p.o. overnight. For PEG tube placement tomorrow Glucerna 1.5 to goal 60 cc an hour goal rate per nutrition recommendation. Lansoprazole for GI prophylaxis Lactulose 30 cc twice daily, Xifaxan 550 milligrams twice daily. Check CT abdomen/pelvis- Nonobstructing left renal stones. No evidence of small bowel dilation. Bibasilar atelectasis in the lower lungs. Bilateral inguinal hernias containing fat Plan for PEG tube in a.m. 09/20 by GI ID: [id number] Continue with abx (levofloxacin stop date 09/19)monitor for signs of infections ( fever, WBC) ID is following. Follow up on BAL 09/01 cxs- NGTD BC 08/31: NGTD Strep pneumonia and Legionella Ag negative Sputum 09/06 no growth to date 09/10 blood cultures 2, urine culture and sputum no growth to date Heme: Normocytic anemia Monitor CBC and follow trend Endo: Hyperglycemia SSI with Novulin R with Accu-Cheks to maintain euglycemia for glycemic control MSK Paraplegia PT evaluate and treat DVT GI prophylaxis -Teds SCDs -Subcu heparin -Lansoprazole Level 3 follow-up
--- NOTE | 2017-09-19 15:06 | P.PCN ---
Procedure: Preop diagnosis: Hypoxemic respiratory failure Postop diagnosis: Same Procedure: Therapeutic flexible fiberoptic bronchoscopy Operation: Timeout performed and suitable patient identification accomplished. The patient is orotracheally intubated and on controlled rate mechanical ventilation. The usual ICU invasive monitoring are in place. Sedation administered by the operative team. The flexible bronchoscope was delivered through a sealed side-port in the ventilator circuit near the endotracheal tube. The tracheobronchial tree was inspected and found to be filled with numerous amounts of tenacious white plugs which required repetitive irrigation and suctioning. The tracheobronchial tree is otherwise normal in appearance without edema or inflammation. The branching pattern is anatomically normal. At this point the endotracheal tube and bronchoscope were withdrawn to the level of the cricoid cartilage in this location was used to visualize the percutaneous tracheostomy procedure performed by separate team. Following the insertion of the percutaneous tracheostomy tube the bronchoscope was immediately delivered through the new tracheostomy tube and confirmed position in the mid trachea safely above the alyce. Inner cannula was placed and mechanical ventilation was once again accomplished with good return of mechanical breath volumes. Bilateral breath sounds were auscultated. Oxygen saturation remained greater than 96% throughout the procedure.
[2017-09-20] MEDS: Insulin NovoLIN Regular Correctional Sugar Inj SQ SCH ×4 (03:20→20:54)
[2017-09-20] MEDS: Oral Hygiene Kit OROPHARYNG SCH ×3 (03:21→15:56)
[2017-09-20] MEDS: KCL 20 mEq/D5W/LR Inj 1,000 ML IV.CONT SCH ×2 (04:15→13:30)
[2017-09-20 05:03] LABS: Baso % (Auto) 0.5 % (0.0-2.0); Eos # (Auto) 0.1 th/mm3 (0.0-0.4); Eos % (Auto) 0.7 % (0.0-4.0); Hematocrit 37.1 % (39.0-51.0); Hemoglobin 12.3 gm/dL (13.0-17.0); Lymph # (Auto) 1.6 th/mm3 (1.0-4.8); Lymph % (Auto) 17.4 % (9.0-44.0); Mean Corpuscular HGB Conc 33.2 % (32.0-36.0); Mean Corpuscular Hemoglobin 30.7 pg (27.0-34.0); Mean Corpuscular Volume 92.3 fL (80.0-100.0); Mean Platelet Volume 9.6 fL (7.0-11.0); Mono # (Auto) 0.8 th/mm3 (0.0-0.9); Neut # (Auto) 6.6 th/mm3 (1.8-7.7); Neut % (Auto) 72.4 % (16.0-70.0); Platelet Count 209 th/mm3 (150-450); Red Blood Count 4.02 mil/mm3 (4.50-5.90); Red Cell Distribution Width 16.8 % (11.6-17.2); White Blood Count 9.1 th/mm3 (4.0-11.0)
[2017-09-20 05:05] LABS: Anion Gap 13 meq/L (5-15); Blood Urea Nitrogen 12 mg/dL (7-18); Calcium 8.6 mg/dL (8.5-10.1); Carbon Dioxide 20.3 meq/L (21.0-32.0); Chloride 109 meq/L (98-107); Glomerular Filtration Rate Greater Than 89 mL/min (>89); Glucose,Random 81 mg/dL (74-106); Potassium 3.7 meq/L (3.5-5.1); Sodium 142 meq/L (136-145)
[2017-09-20] MEDS: Midazolam 50 MG/50 ML Inj 50 MG/50 ML BAG IV.CONT PRN ×3 (05:56→20:59)
[2017-09-20] MEDS: Propofol 1000 mg/100 ml Inj 1,000 MG/100 ML BOTTLE IV.CONT PRN (07:18)
[2017-09-20 08:12] LABS: Eosinophils 2 % (0-4); Lymphocytes 11 % (9-44); Metamyelocytes 2 % (0-1); Monocytes 7 % (0-8); Plasma Cells 1 % (0-0)
[2017-09-20 08:13] LABS: Platelet Estimate Normal (Normal); Platelet Morphology Normal (Normal); RBC Morphology Normal (Normal)
--- NOTE | 2017-09-20 08:20 | P.PNID ---
Subjective Remarks: He is a 52-year-old male, who is a resident of the shelter, brought to the hospital for evaluation of shortness of breath, hypoxemia, and tachycardic. According to the paramedics he had an elevated temp. Got some information from the nurse, patient did not have any Vernon when he presented, and a Vernon catheter was placed. Since admission he has required BiPAP for oxygenation. He has been febrile. Urinalysis showed significant pyuria. His blood pressures seem to be holding, and he is not requiring any pressors. His WBC is mildly elevated at 11.7. Lactic acid is normal. Creatinine is normal. Chest x -ray showing some infiltrates. Infectious disease consultation has been requested to assist with evaluation and treatment of patient with sepsis. Notes reviewed. Temps ok BP ok S/P trach 09/19 On the vent Finished Abx 09/19 Plans for PEG noted Antibiotics: None Lines: PIV No evidence of infection Past Medical History: Dementia Depression GERD (gastroesophageal reflux disease) Hemorrhoids Hyperlipidemia Paraplegia UTI (urinary tract infection) H/O exploratory laparotomy History of cholecystectomy Allergies/Adverse Reactions: Allergies No Known Allergies Allergy (Verified 08/31/17 00:16) Objective Vital Signs 09/19/17 08:30 09/19/17 08:32 09/19/17 09:00 Temperature Pulse Rate 74 74 55 L Respiratory Rate 7 L 20 20 Blood Pressure 142/85 H 120/82 Pulse Oximetry 100 100 100 09/19/17 09:30 09/19/17 09:56 09/19/17 09:57 Temperature Pulse Rate 58 L 70 54 L Respiratory Rate 20 20 20 Blood Pressure 128/85 151/90 H 153/91 H Pulse Oximetry 100 99 99 09/19/17 09:58 09/19/17 09:59 09/19/17 10:00 Temperature Pulse Rate 56 L 62 62 Respiratory Rate 20 29 H 20 Blood Pressure 156/91 H 158/102 H 164/103 H Pulse Oximetry 99 98 98 09/19/17 10:01 09/19/17 10:02 09/19/17 10:03 Temperature Pulse Rate 64 66 68 Respiratory Rate 20 23 20 Blood Pressure 183/93 H 190/95 H 193/95 H Pulse Oximetry 98 98 97 09/19/17 10:04 09/19/17 10:05 09/19/17 10:06 Temperature Pulse Rate 71 74 76 Respiratory Rate 22 27 H 21 Blood Pressure 198/99 H 197/98 H 194/95 H Pulse Oximetry 97 97 97 09/19/17 10:07 09/19/17 10:08 09/19/17 10:09 Temperature Pulse Rate 82 89 91 H Respiratory Rate 21 20 22 Blood Pressure 202/99 H 191/101 H 185/103 H Pulse Oximetry 97 98 98 09/19/17 10:10 09/19/17 10:12 09/19/17 10:29 Temperature Pulse Rate 92 H 120 H Respiratory Rate 25 H 37 H Blood Pressure 178/106 H 184/111 H Pulse Oximetry 98 98 99 09/19/17 10:31 09/19/17 11:00 09/19/17 11:30 Temperature Pulse Rate 101 H 75 83 Respiratory Rate 20 20 20 Blood Pressure 95/60 L 114/75 122/85 Pulse Oximetry 100 100 100 09/19/17 12:00 09/19/17 12:30 09/19/17 13:00 Temperature 98.0 F Pulse Rate 69 61 63 Respiratory Rate 20 20 20 Blood Pressure 115/77 122/78 117/77 Pulse Oximetry 100 100 100 09/19/17 13:30 09/19/17 14:00 09/19/17 14:30 Temperature Pulse Rate 63 84 91 H Respiratory Rate 20 20 20 Blood Pressure 111/79 121/83 132/84 Pulse Oximetry 100 100 100 09/19/17 15:00 09/19/17 15:30 09/19/17 15:42 Temperature Pulse Rate 80 66 66 Respiratory Rate 20 20 20 Blood Pressure 107/73 102/69 Pulse Oximetry 100 100 100 09/19/17 16:00 09/19/17 16:30 09/19/17 17:00 Temperature 97.7 F Pulse Rate 63 62 63 Respiratory Rate 20 20 20 Blood Pressure 104/69 109/71 107/70 Pulse Oximetry 100 100 100 09/19/17 17:30 09/19/17 18:00 09/19/17 19:58 Temperature Pulse Rate 87 62 Respiratory Rate 20 21 20 Blood Pressure 124/76 Pulse Oximetry 100 92 L 100 09/19/17 20:00 09/19/17 20:01 09/19/17 22:00 Temperature 98.4 F Pulse Rate 93 H 80 88 Respiratory Rate 20 20 Blood Pressure 118/91 H Pulse Oximetry 100 09/19/17 23:21 09/19/17 23:24 09/20/17 00:00 Temperature 98.1 F Pulse Rate 66 67 Respiratory Rate 20 20 20 Blood Pressure 136/84 Pulse Oximetry 100 100 09/20/17 02:00 09/20/17 03:20 09/20/17 04:00 Temperature 98.2 F Pulse Rate 62 85 91 H Respiratory Rate 20 20 Blood Pressure 106/70 Pulse Oximetry 100 09/20/17 04:38 09/20/17 06:00 09/20/17 07:45 Temperature Pulse Rate 80 99 H Respiratory Rate 20 20 Blood Pressure Pulse Oximetry 100 100 Intake & Output 09/19/17 09/20/17 09/20/17 18:59 06:59 18:59 Intake Total 1540 / 1540 1200 / 1200 Output Total 1650 / 1650 650 / 650 Balance -110 / -110 550 / 550 Weight 102.5 kg Intake: IV 1300 / 1300 1200 / 1200 D5W/LR + KCL 20 mEq Inj 1,000 1000 / 1000 1000 / 1000 ML @ 84 mls/hr IV.CONT .[id number] [facility] Rx#:[id number] Versed Inj 50 mg In 50 ml @ 2 100 / 100 100 / 100 MG/HR 2 mls/hr IV.CONT TITRATE PRN Rx#:[id number] Diprivan 1000 mg/100 ml Inj 1, 200 / 200 100 / 100 000 mg In 100 ml @ 5 MCG/KG/MIN 3.105 mls/hr IV.CONT TITRATE PRN Rx#:[id number] Tube Feeding 0 / 0 Other 240 / 240 Output: Urine 1500 / 1500 Urine Amount (Catheter) 650 / 650 Indwelling Urethral Catheter 650 / 650 Gastric Drainage 150 / 150 0 / 0 Orogastric Tube 150 / 150 0 / 0 Other: Date of Last Bowel Movement 09/19/17 09/19/17 # Bowel Movements 1 1 Lab - Hematology Results 09/18/17 09/19/17 09/20/17 04:40 03:59 03:33 WBC 9.1 9.1 RBC 3.94 L 4.02 L Hgb 12.4 L 12.3 L Hct 36.8 L 37.1 L MCV 93.3 92.3 MCH 31.5 30.7 MCHC 33.8 33.2 RDW 16.5 16.8 Plt Count 217 209 MPV 9.2 9.6 Prelim Diff (Auto) Slide review pending Slide review pending Neut % (Auto) 71.3 H 72.4 H Lymph % (Auto) 18.4 17.4 [place] % (Auto) 8.9 H 9.0 H Eos % (Auto) 0.7 0.7 Baso % (Auto) 0.7 0.5 Neut # (Auto) 6.5 6.6 Lymph # (Auto) 1.7 1.6 [place] # (Auto) 0.8 0.8 Eos # (Auto) 0.1 0.1 Baso # (Auto) 0.1 0.0 WBC Differential Manual diff final Manual diff final Manual diff final Seg Neuts % (Manual) 79 H 75 H 74 H Band Neuts % (Manual) 1 3 3 Lymphocytes % (Manual) 9 16 11 Monocytes % (Manual) 10 H 3 7 Eosinophils % (Manual) 1 2 Metamyelocytes % (Man) 2 H 2 H Promyelocytes % (Man) 1 H Plasma Cell % (Manual) 1 H Abs Neuts (Manual) 8.9 H 7.3 7.2 Differential Comment . . Platelet Estimate Normal Normal Normal Platelet Morphology Normal Normal Normal RBC Morphology Normal Normal Lab - Chemistry Results 09/18/17 09/18/17 09/18/17 08:54 12:45 16:58 Sodium Potassium Chloride Carbon Dioxide Anion Gap BUN Creatinine Estimated GFR POC Glucose 85 108 120 H Random Glucose Calcium Phosphorus Magnesium Total Bilirubin AST ALT Alkaline Phosphatase Total Protein Albumin 09/18/17 09/18/17 09/19/17 20:21 23:42 03:19 Sodium Potassium Chloride Carbon Dioxide Anion Gap BUN Creatinine Estimated GFR POC Glucose 106 92 92 Random Glucose Calcium Phosphorus Magnesium Total Bilirubin AST ALT Alkaline Phosphatase Total Protein Albumin 09/19/17 09/19/17 09/19/17 03:59 07:45 12:47 Sodium 141 Potassium 4.0 Chloride 108 H Carbon Dioxide 23.5 Anion Gap 10 BUN 10 Creatinine 0.36 L Estimated GFR Greater than 89 POC Glucose 75 107 Random Glucose 89 Calcium 8.6 Phosphorus 3.0 Magnesium 2.2 Total Bilirubin 0.4 AST 22 ALT 52 Alkaline Phosphatase 97 Total Protein 6.2 L Albumin 2.8 L 09/19/17 09/19/17 09/19/17 17:12 19:50 23:53 Sodium Potassium Chloride Carbon Dioxide Anion Gap BUN Creatinine Estimated GFR POC Glucose 119 H 109 105 Random Glucose Calcium Phosphorus Magnesium Total Bilirubin AST ALT Alkaline Phosphatase Total Protein Albumin 09/20/17 09/20/17 09/20/17 03:15 03:33 07:19 Sodium 142 Potassium 3.7 Chloride 109 H Carbon Dioxide 20.3 L Anion Gap 13 BUN 12 Creatinine 0.32 L Estimated GFR Greater than 89 POC Glucose 82 90 Random Glucose 81 Calcium 8.6 Phosphorus Magnesium Total Bilirubin AST ALT Alkaline Phosphatase Total Protein Albumin Imaging: ITS Impressions Abdomen/Bladder Ultrasound 08/31/17 00:00 CONCLUSION: 1. 11 mm left midlung calculus. 2. No evidence of hydronephrosis. 3. Otherwise normal appearing kidneys. Chest CTA 08/31/17 00:00 CONCLUSION: 1. No evidence of pulmonary embolism. 2. Extensive consolidation in the right lung and patchy infiltrates elsewhere in both lungs. 3. Moderately enlarged mediastinal lymph node. Abdomen/Pelvis CT 09/13/17 00:00 CONCLUSION: 1. Nonobstructing left renal stones. 2. No evidence of small bowel dilation. 3. Bibasilar atelectasis in the lower lungs. 4. Bilateral inguinal hernias containing fat. Abdomen X-Ray 09/19/17 00:00 CONCLUSION: 1. Mild air distention of colon and scattered small bowel loops characteristic of a mild hypodynamic ileus. I do think there is some interval improvement from the prior, however. 2. No pneumoperitoneum. Stable elevation of the right hemidiaphragm. Chest X-Ray 09/19/17 10:36 CONCLUSION: 1. Interval removal of endotracheal tube placement of nasogastric tube. 2. Rotated study with no definite acute cardiopulmonary disease. Physical Exam: GENERAL: Sedated, NAD on the vent SKIN: Cool and dry. No generalized rash. HEAD: Atraumatic. Normocephalic. No temporal wasting, or tenderness. EYES: [place] conjunctiva. No petechia or hemorrhage. Pupils equal, round and reactive to light. No scleral icterus. No injection or drainage. NECK: S/P trach, has some blood at site. CARDIOVASCULAR: Regular rate and rhythm. No murmurs, rubs or gallops. RESPIRATORY: Coarse breath sounds, decreased at bases. ABDOMEN: obese, distended. Bowel sounds present and normoactive. He has a long midline incision which looks like an exp lap, and has a cholecystectomy scar in RUQ. EXTREMITIES: No clubbing, cyanosis. Has no pedal edema. No calf tenderness. NEUROLOGICAL: Sedated. PSYCH: Unable to assess : Vernon in place, Clear yellow urine. LINE: No evidence of infection Assessment and Plan - Plan Impression Sepsis on presentation, patient came from SNF, better - has lung infiltrates, and SOB, C/W HCAP - also with UTI HCAP, C/S bronch negative Leukocytosis, resolved Respiratory failure, recurrent - S/P trach 09/19 Hx paraplegia Encephalopathy Recommendation Monitor off Abx Monitor temps Monitor progress For PEG Seems clinically stable from ID standpoint
--- NOTE | 2017-09-20 11:18 | GIPROC ---
[facility] [address] [facility]. [facility], [address] EGD PROCEDURE REPORT EXAM DATE: 09/20/2017 PATIENT NAME: Tapan Rizzo MR #: [id number] BIRTHDATE: 1965 ATTENDING: Lisa Hartman MD ORDER #: [id number] SCALE INSTALLER: Brett Ewing Jones, Julie, and Jocelyn Wood STATUS: inpatient INDICATIONS: The patient is a 52 yr old male here for an EGD due to dysphagia PROCEDURE PERFORMED: EGD w/ biopsy MEDICATIONS: None and Per Anesthesia. TOPICAL ANESTHETIC: none CONSENT: The patient understands the risks and benefits of the procedure and understands that these risks include, but are not limited to: sedation, allergic reaction, infection, perforation and/or bleeding. Alternative means of evaluation and treatment include, among others: physical exam, x-rays, and/or surgical intervention. The patient elects to proceed with this endoscopic procedure. medical equipment was checked for proper function. Hand hygiene and appropriate measures for infection prevention was taken. After the risks, benefits and alternatives of the procedure were thoroughly explained, Informed consent was verified, confirmed and timeout was successfully executed by the treatment team. The patient was anesthetized with topical anesthesia and the Pentax [id number] endoscope was introduced through the mouth and advanced to the second portion of the duodenum. Retroflexed views revealed no abnormalities The gastroscope was then slowly withdrawn and removed. Patient has large duodenal ulcer in the bulb, no active bleeding Patient has large gastric ulcer in the body of the stomach biopsy was done with gastritis biopsy from the antrum Patient was supposed to have a PEG tube placement the area for the PEG tube was identified by patient because I was not able to see illumination so the area was sterilized with Betadine injected with lidocaine, the needle for the lidocaine was passed through the abdominal wall to try to see if it will proceed into the stomach with aspiration to ensure that it is not going through a colon or small bowel, because of the patient's body habitus I use the catheter needle but with the same technique, again unable to reach the stomach with the catheter so the procedure terminated at this time, no incision was performed. The endoscopy was otherwise normal. ADVERSE EVENTS: There were no complications. IMPRESSIONS: 1. Patient has large duodenal ulcer in the bulb, no active bleeding Patient has large gastric ulcer in the body of the stomach biopsy was done with gastritis biopsy from the antrum Patient was supposed to have a PEG tube placement the area for the PEG tube was identified by patient because I was not able to see illumination so the area was sterilized with Betadine injected with lidocaine, the needle for the lidocaine was passed through the abdominal wall to try to see if it will proceed into the stomach with aspiration to ensure that it is not going through a colon or small bowel, because of the patient's body habitus I use the catheter needle but with the same technique, again unable to reach the stomach with the catheter so the procedure terminated at this time, no incision was performed 2. Normal endoscopy otherwise 3. Retroflexed views revealed no abnormalities RECOMMENDATIONS: 1. Await biopsy results. Biopsy results will not be ready for 7-10 days. If you don't hear from us in two weeks, call our office for biopsy results. 2. Anti-reflux regimen 3. Avoid NSAIDS 4. Start PPI 5. I contact interventional radiology to perform PEG tube if possible with radiology and we will obtain a KUB to make sure that the patient does not have ileus or distention of the bowel if that is the case then the PEG tube will be placed tomorrow PATIENT CONDITION: fair DISPOSITION: Inpatient REPEAT EXAM: NONE Lisa Hartman MD eSigned: Lisa Hartman MD 09/20/2017 11:18 AM cc: PATIENT NAME: Tapan Rizzo Gareth MR#: [id number]
--- NOTE | 2017-09-20 11:55 | XR ---
EXAM DATE: 09/20/2017 11:40 AM EDT AGE/SEX: 52 years / Male INDICATIONS: Abdominal distention; obstruction. CLINICAL DATA: This is the patient's subsequent encounter. Patient reports that signs and symptoms h ave been present for 2 weeks and indicates a pain score of Nonresponsive. MEDICAL/SURGICAL HISTORY: . Gastroesophageal reflux disease. Cholecystectomy. [place] [facility] [place] 1V KUB[place]/19/2017. . FINDINGS: Multiple AP views of the abdomen were obtained and demonstrate an interval increase in the gaseous di stention throughout the colon. The colon is now moderately distended with the cecum measuring up to 1 1 cm. There is no free air or mass effect. The nasogastric tube remains in place. There are surgical clips in the right upper abdomen. The bony structures are intact. CONCLUSION: 1. Increasing gaseous distention throughout the colon. 2. No evidence of free air. Electronically signed by: Sid Roberto MD 09/20/2017 11:53 AM EDT
--- NOTE | 2017-09-20 12:35 | P.PNGI ---
Subjective Interval history: Patient still intubated, not responsive, attempted to place PEG tube today was not successful because of abdominal distention and most likely scarring tissue and body habitus Physical Exam Vital signs: Vital Signs 09/19/17 13:00 09/19/17 13:30 09/19/17 14:00 Temperature Pulse Rate 63 63 84 Respiratory Rate 20 20 20 Blood Pressure 117/77 111/79 121/83 Pulse Oximetry 100 100 100 09/19/17 14:30 09/19/17 15:00 09/19/17 15:30 Temperature Pulse Rate 91 H 80 66 Respiratory Rate 20 20 20 Blood Pressure 132/84 107/73 102/69 Pulse Oximetry 100 100 100 09/19/17 15:42 09/19/17 16:00 09/19/17 16:30 Temperature 97.7 F Pulse Rate 66 63 62 Respiratory Rate 20 20 20 Blood Pressure 104/69 109/71 Pulse Oximetry 100 100 100 09/19/17 17:00 09/19/17 17:30 09/19/17 18:00 Temperature Pulse Rate 63 87 62 Respiratory Rate 20 20 21 Blood Pressure 107/70 124/76 Pulse Oximetry 100 100 92 L 09/19/17 19:58 09/19/17 20:00 09/19/17 20:01 Temperature 98.4 F Pulse Rate 93 H 80 Respiratory Rate 20 20 20 Blood Pressure 118/91 H Pulse Oximetry 100 100 09/19/17 22:00 09/19/17 23:21 09/19/17 23:24 Temperature Pulse Rate 88 66 Respiratory Rate 20 20 Blood Pressure Pulse Oximetry 100 09/20/17 00:00 09/20/17 02:00 09/20/17 03:20 Temperature 98.1 F Pulse Rate 67 62 85 Respiratory Rate 20 20 Blood Pressure 136/84 Pulse Oximetry 100 09/20/17 04:00 09/20/17 04:38 09/20/17 06:00 Temperature 98.2 F Pulse Rate 91 H 80 Respiratory Rate 20 20 Blood Pressure 106/70 Pulse Oximetry 100 100 09/20/17 07:45 09/20/17 08:00 09/20/17 10:00 Temperature 98.1 F Pulse Rate 99 H 105 H 110 H Respiratory Rate 20 Blood Pressure Pulse Oximetry 100 09/20/17 11:08 Temperature Pulse Rate 115 H Respiratory Rate 20 Blood Pressure Pulse Oximetry 96 Intake & Output 09/19/17 09/20/17 09/20/17 18:59 06:59 18:59 Intake Total 1540 / 1540 1200 / 1200 Output Total 1650 / 1650 650 / 650 Balance -110 / -110 550 / 550 Weight 102.5 kg Intake: IV 1300 / 1300 1200 / 1200 D5W/LR + KCL 20 mEq Inj 1,000 1000 / 1000 1000 / 1000 ML @ 84 mls/hr IV.CONT .[id number] [facility] Rx#:[id number] Versed Inj 50 mg In 50 ml @ 2 100 / 100 100 / 100 MG/HR 2 mls/hr IV.CONT TITRATE PRN Rx#:[id number] Diprivan 1000 mg/100 ml Inj 1, 200 / 200 100 / 100 000 mg In 100 ml @ 5 MCG/KG/MIN 3.105 mls/hr IV.CONT TITRATE PRN Rx#:[id number] Tube Feeding 0 / 0 Other 240 / 240 Output: Urine 1500 / 1500 Urine Amount (Catheter) 650 / 650 Indwelling Urethral Catheter 650 / 650 Gastric Drainage 150 / 150 0 / 0 Orogastric Tube 150 / 150 0 / 0 Other: Date of Last Bowel Movement 09/19/17 09/19/17 09/19/17 # Bowel Movements 1 1 - Constitutional no acute distress, somnolent - Routine HEENT Exam Head: Present: normocephalic Eye: Present: EOMI - Routine Neck Exam Present: supple, full ROM - Routine Cardiovascular Exam Present: RRR, S1, S2 - Routine Abdominal Exam Present: soft, distended - Urinary Catheter Management Indwelling Urethral Catheter Cath placed during this visit: yes Reason for continuing: Acute urinary retention Insertion date: 08/31/17 Insertion time: 02:45 Results - Labs CBC & Chem 7: 09/20/17 03:33 09/20/17 03:33 Laboratory Results - last 24 hr 09/19/17 09/19/17 09/19/17 12:47 17:12 19:50 WBC RBC Hgb Hct MCV MCH MCHC RDW Plt Count MPV Prelim Diff (Auto) Neut % (Auto) Lymph % (Auto) [place] % (Auto) Eos % (Auto) Baso % (Auto) Neut # (Auto) Lymph # (Auto) [place] # (Auto) Eos # (Auto) Baso # (Auto) WBC Differential Seg Neuts % (Manual) Band Neuts % (Manual) Lymphocytes % (Manual) Monocytes % (Manual) Eosinophils % (Manual) Metamyelocytes % (Man) Plasma Cell % (Manual) Abs Neuts (Manual) Differential Comment Platelet Estimate Platelet Morphology RBC Morphology Sodium Potassium Chloride Carbon Dioxide Anion Gap BUN Creatinine Estimated GFR POC Glucose 107 119 H 109 Random Glucose Calcium 09/19/17 09/20/17 09/20/17 23:53 03:15 03:33 WBC 9.1 RBC 4.02 L Hgb 12.3 L Hct 37.1 L MCV 92.3 MCH 30.7 MCHC 33.2 RDW 16.8 Plt Count 209 MPV 9.6 Prelim Diff (Auto) Slide review pending Neut % (Auto) 72.4 H Lymph % (Auto) 17.4 [place] % (Auto) 9.0 H Eos % (Auto) 0.7 Baso % (Auto) 0.5 Neut # (Auto) 6.6 Lymph # (Auto) 1.6 [place] # (Auto) 0.8 Eos # (Auto) 0.1 Baso # (Auto) 0.0 WBC Differential Manual diff final Seg Neuts % (Manual) 74 H Band Neuts % (Manual) 3 Lymphocytes % (Manual) 11 Monocytes % (Manual) 7 Eosinophils % (Manual) 2 Metamyelocytes % (Man) 2 H Plasma Cell % (Manual) 1 H Abs Neuts (Manual) 7.2 Differential Comment . Platelet Estimate Normal Platelet Morphology Normal RBC Morphology Normal Sodium Potassium Chloride Carbon Dioxide Anion Gap BUN Creatinine Estimated GFR POC Glucose 105 82 Random Glucose Calcium 09/20/17 09/20/17 03:33 07:19 WBC RBC Hgb Hct MCV MCH MCHC RDW Plt Count MPV Prelim Diff (Auto) Neut % (Auto) Lymph % (Auto) [place] % (Auto) Eos % (Auto) Baso % (Auto) Neut # (Auto) Lymph # (Auto) [place] # (Auto) Eos # (Auto) Baso # (Auto) WBC Differential Seg Neuts % (Manual) Band Neuts % (Manual) Lymphocytes % (Manual) Monocytes % (Manual) Eosinophils % (Manual) Metamyelocytes % (Man) Plasma Cell % (Manual) Abs Neuts (Manual) Differential Comment Platelet Estimate Platelet Morphology RBC Morphology Sodium 142 Potassium 3.7 Chloride 109 H Carbon Dioxide 20.3 L Anion Gap 13 BUN 12 Creatinine 0.32 L Estimated GFR Greater than 89 POC Glucose 90 Random Glucose 81 Calcium 8.6 - Imaging Impressions Abdomen X-Ray 09/20/17 00:00 CONCLUSION: 1. Increasing gaseous distention throughout the colon. 2. No evidence of free air. Assessment and Plan - Plan Assessment: - PEG tube consult- This is a 52 yo M who is currently admitted to [place] ICU and has been unable to be weaned from the vent, planned for tracheostomy today. Our service has been consulted for PEG tube placement. Pt currently receiving nutrition through OG tube, dietary recommending Glucerna 1.5 with goal rate of 60 mL/hr. \ 09/20/2017 patient has distended abdomen, EGD showed large ulcer in the duodenum and stomach, biopsy to rule out H. pylori, and able to perform the PEG tube safely so the procedure was not done, a KUB showed distended colon, no free air Plan: Start Protonix 40 mg daily for peptic ulcer disease IR to perform PEG tube tomorrow I discussed this with Dr. Tristan We will follow-up as needed
[2017-09-20] MEDS: Divalproex 125 MG Sprinkles Capsule PO SCH ×2 (13:28→20:56)
[2017-09-20] MEDS: Hypromellose 0.3% Opth Gel 10 GM Bottle EACH EYE SCH ×2 (13:28→20:58)
[2017-09-20] MEDS: Chlorhexidine 0.12% Oral Kit 15 ML UDC OROPHARYNG SCH ×2 (13:28→20:55)
[2017-09-20] MEDS: MethylPREDNISolone Sod Succinate Inj 40 MG/ML Vial IV.PUSH SCH (13:29)
[2017-09-20] MEDS: Gabapentin 100 MG Capsule PO SCH ×2 (13:29→18:17)
[2017-09-20] MEDS: Collagenase Oint 30 GM Tube TOPICAL SCH (13:29)
[2017-09-20] MEDS: Polyethylene Glycol 3350 17 GM Packet PO SCH ×2 (13:29→22:36)
[2017-09-20] MEDS: rifAXIMin 550 MG Tablet PO SCH ×2 (13:31→20:57)
[2017-09-20] MEDS ORDERED: Lidocaine PF 1% Inj 5 ML Syringe INFILTRATN ONE (13:34)
[2017-09-20] MEDS ORDERED: Phenylephrine/NS 1000 MCG/10ML Syringe IV.PUSH ONE (13:34)
[2017-09-20] MEDS ORDERED: Potassium Chloride 25 MEQ Effervescent Tablet PO ONE (14:27)
[2017-09-20] MEDS ORDERED: Potassium Chloride 20 MEQ Pwd Pkt NG/OG ONE (14:32)
--- NOTE | 2017-09-20 14:37 | P.PNCC ---
Subjective Subjective Remarks/Hospital Course: 52-year-old male presents from [facility] for an evaluation of hypoxemia, shortness of breath, and tachycardia and per paramedics elevated temperature with history of paraplegia with immobility, dyslipidemia, chronic cough, mood disorder with depression, pressure ulceration bilateral lower extremity knee contracture, prior Klebsiella pneumonia and morbid obesity. In the emergency department he appeared to be in respiratory distress and was placed by ED attending on the BiPAP. 09/01 Patient is on BIPAP 18/5 with 40% FIO2. Afebrile with intermittent confusion. CTA chest yesterday showed no PE, extensive consolidation right lung. 09/02 Patient was intubated yesterday and s/p bronch. Sedated with Diprivan and Fentanyl infusion. Afebrile. 09/03 No events overnight. Sedated with Diprivan and Fentanyl infusion. Afebrile. 09/04: Remains intubated, sedated with propofol. Eyes open, do not follow commands. Bilateral wheezing on exam. FiO2 remains high at 60%, O2 sat 92-94% 09/05: Remains sedated heavily for vent synchrony, FiO2 remains at 60%, will wean. Sputum cx negative. ETT advanced due to leak, will repeat CXR. Patient do not follow commands, but get agitated when sedation held 09/06: Remains sedated for ventilator synchrony. Oxygen saturation improved FiO2 down to 50%. Chest x-ray on my review shows pulmonary edema. Started scheduled Lasix scheduled Lasix yesterday, urine output excellent 5.5 L in 24 hours 09/07: Afebrile. Remains on propofol and fentanyl drips due to his significant agitation. 2 bite block placed overnight/Guedel airways related secondary to patient attempted to bite through ET tube.. One bowel movement yesterday 09/08 No events overnight. Sedated with Diprivan and Fentanyl drip. Afebrile. 09/09: Extubated yesterday without complication. Currently on 6 L nasal cannula. Swallow evaluation failed 2. Dobbhoff tube is in place. No bowel movement since 09/02. 09/10: Intubated overnight due to respiratory failure. Currently on PEEP of 12 and FiO2 90%. Ventilator is been adjusted. Tube feeds of been resumed. 09/11 Patient remains intubated and sedated, on PRVC with PEEP:10, FIO2 40% 09/12: Afebrile. Remains on 40% FiO2. Propofol drip at 50 mcg/kg/min. PEEP is still at 10. 09/13: Afebrile. Abdominal x-ray yesterday revealed likely adynamic ileus. Will check CT abdomen and pelvis today. Patient is currently being decompressed from above. Will receive methylnaltrexone and enema today.. Was tolerating tube feeds at goal. 09/14: Afebrile. Bowel movements overnight. White blood cell count is normalized. We will keep him potassium 40 and recheck abdominal x-ray in a.m. 09/15: Afebrile. Will check KUB and likely restart tube feedings today. No neurological change. Failed CPAP trials today. 09/16: Resting in bed in no acute distress. Continues to fail CPAP trials daily. Will attempt to contact healthcare proxy. Will need tracheostomy early next week. 09/17: Resting in bed in no acute distress. PEEP is down to 5. Failing spontaneous breathing trials will require tracheostomy. Discussed with father yesterday and agreeable. 09/18 - plan for percutaneous tracheostomy in a.m. Continues to have an ileus. NG tube was placed to suction. Remains on IV fluids. 09/19: Status post percutaneous tracheostomy today. Plan for percutaneous gastrostomy tube placement tomorrow. Remains on IV fluids. NG tube to suction. Afebrile. White blood cell count normal. Antibiotics stopped today Subjective 09/20: Afebrile. Status post percutaneous tracheostomy by Dr. Nassar 09/19. Unable to place PEG tube today. Large gastric and duodenal ulcers. Biopsy. Plan for IR to place tomorrow. Objective Vital Signs / I&O: Vital Signs 09/19/17 15:00 09/19/17 15:30 09/19/17 15:42 Temperature Pulse Rate 80 66 66 Respiratory Rate 20 20 20 Blood Pressure 107/73 102/69 Pulse Oximetry 100 100 100 09/19/17 16:00 09/19/17 16:30 09/19/17 17:00 Temperature 97.7 F Pulse Rate 63 62 63 Respiratory Rate 20 20 20 Blood Pressure 104/69 109/71 107/70 Pulse Oximetry 100 100 100 09/19/17 17:30 09/19/17 18:00 09/19/17 19:58 Temperature Pulse Rate 87 62 Respiratory Rate 20 21 20 Blood Pressure 124/76 Pulse Oximetry 100 92 L 100 09/19/17 20:00 09/19/17 20:01 09/19/17 22:00 Temperature 98.4 F Pulse Rate 93 H 80 88 Respiratory Rate 20 20 Blood Pressure 118/91 H Pulse Oximetry 100 09/19/17 23:21 09/19/17 23:24 09/20/17 00:00 Temperature 98.1 F Pulse Rate 66 67 Respiratory Rate 20 20 20 Blood Pressure 136/84 Pulse Oximetry 100 100 09/20/17 02:00 09/20/17 03:20 09/20/17 04:00 Temperature 98.2 F Pulse Rate 62 85 91 H Respiratory Rate 20 20 Blood Pressure 106/70 Pulse Oximetry 100 09/20/17 04:38 09/20/17 06:00 09/20/17 07:45 Temperature Pulse Rate 80 99 H Respiratory Rate 20 20 Blood Pressure Pulse Oximetry 100 100 09/20/17 08:00 09/20/17 10:00 09/20/17 11:08 Temperature 98.1 F Pulse Rate 105 H 110 H 115 H Respiratory Rate 20 Blood Pressure Pulse Oximetry 96 09/20/17 12:00 Temperature 98.4 F Pulse Rate 115 H Respiratory Rate 16 Blood Pressure Pulse Oximetry Intake & Output 09/19/17 09/20/17 09/20/17 18:59 06:59 18:59 Intake Total 1540 / 1540 1200 / 1200 1050 / 1050 Output Total 1650 / 1650 650 / 650 Balance -110 / -110 550 / 550 1050 / 1050 Weight 102.5 kg Intake: IV 1300 / 1300 1200 / 1200 1050 / 1050 D5W/LR + KCL 20 mEq Inj 1,000 1000 / 1000 1000 / 1000 1000 / 1000 ML @ 84 mls/hr IV.CONT .[id number] ABENA Rx#:[id number] Versed Inj 50 mg In 50 ml @ 2 100 / 100 100 / 100 50 / 50 MG/HR 2 mls/hr IV.CONT TITRATE PRN Rx#:[id number] Diprivan 1000 mg/100 ml Inj 1, 200 / 200 100 / 100 000 mg In 100 ml @ 5 MCG/KG/MIN 3.105 mls/hr IV.CONT TITRATE PRN Rx#:[id number] Tube Feeding 0 / 0 Other 240 / 240 Output: Urine 1500 / 1500 Urine Amount (Catheter) 650 / 650 Indwelling Urethral Catheter 650 / 650 Gastric Drainage 150 / 150 0 / 0 Orogastric Tube 150 / 150 0 / 0 Other: Date of Last Bowel Movement 09/19/17 09/19/17 09/19/17 # Bowel Movements 1 1 Result Diagrams: 09/20/17 03:33 09/20/17 03:33 Other Results: Microbiology 09/10/17 11:16 Blood - Peripheral Aerobic Blood Culture - Final No growth in 5 days 09/10/17 11:16 Blood - Peripheral Anaerobic Blood Culture - Final No growth in 5 days 09/10/17 11:10 Blood - Peripheral Aerobic Blood Culture - Final No growth in 5 days 09/10/17 11:10 Blood - Peripheral Anaerobic Blood Culture - Final No growth in 5 days 09/10/17 11:15 Catheterized Urine Urine Culture - Final No growth in 48 hours 09/10/17 09:30 Sputum - Endotracheal Gram Stain - Final 09/10/17 09:30 Sputum - Endotracheal Sputum Culture - Final Heavy growth normal respiratory chre 09/10/17 11:00 Nasal Wash Influenza Types A,B Antigen - Final Negative for FLU A and B antigen Infection due to influenza A or B cannot be ruled out since the antigen present in the sample may be below the detection limit of the test. 09/06/17 10:45 Sputum - Endotracheal Gram Stain - Final 09/06/17 10:45 Sputum - Endotracheal Sputum Culture - Final Rare growth normal respiratory cher 08/31/17 00:25 Blood - Peripheral Aerobic Blood Culture - Final No growth in 5 days 08/31/17 00:25 Blood - Peripheral Anaerobic Blood Culture - Final No growth in 5 days 08/31/17 00:30 Blood - Peripheral Aerobic Blood Culture - Final No growth in 5 days 08/31/17 00:30 Blood - Peripheral Anaerobic Blood Culture - Final No growth in 5 days 09/01/17 09:30 Bronchial - Right Lower Lobe Gram Stain - Final 09/01/17 09:30 Bronchial - Right Lower Lobe Bronchial Culture - Final No growth in 48 hours 08/31/17 02:50 Catheterized Urine Urine Culture - Final 50-100,000 cfu/mL mixed cher (probable contaminants ) 08/31/17 02:50 Urine - Catheterized Urine Streptococcus pneumoniae Antigen ( M - Final Presumptive negative for streptococcus pneumoniae antigen, suggesting no current or recent infection. Infection due to Streptococcus pneumoniae cannot be ruled out since the antigen present in the sample may be below the detection limit of the test. 08/31/17 02:50 Urine - Catheterized Urine Legionella Antigen - Final Presumptive negative for Legionella pneumophila serogroup 1 antigen in urine, suggesting no recent or recurrent infection. Infection due to Legionella cannot be ruled out since other serogroups and species may cause disease, antigen may not be present in urine in early infection, and the level of antigen present in the urine may be below the detection limit of the test. Imaging: Abdomen/Bladder Ultrasound 08/31/17 00:00 CONCLUSION: 1. 11 mm left midlung calculus. 2. No evidence of hydronephrosis. 3. Otherwise normal appearing kidneys. Chest CTA 08/31/17 00:00 CONCLUSION: 1. No evidence of pulmonary embolism. 2. Extensive consolidation in the right lung and patchy infiltrates elsewhere in both lungs. 3. Moderately enlarged mediastinal lymph node. Chest X-Ray 08/31/17 00:08 CONCLUSION: Elevation of the right hemidiaphragm and right lower lung consolidation. Patchy infiltrates in left lower lung. Cardiomegaly. Chest X-Ray 09/01/17 00:00 CONCLUSION: 1. The endotracheal tube and NG tube appear to be in good position. 2. No evidence of pneumothorax. 3. There is parenchymal consolidation in the right lung base with an increasing infiltrate in the right upper lung. Chest X-Ray 09/01/17 00:00 CONCLUSION: There are scattered bilateral pulmonary infiltrates. No evidence of pneumothorax. Abdomen X-Ray 09/03/17 08:04 CONCLUSION: Prominent loop of bowel in the right abdomen. Chest X-Ray 09/04/17 00:00 CONCLUSION: 1. No significant interval change. 2. Stable patchy bilateral mid to lower lung zone airspace disease. Chest X-Ray 09/05/17 00:00 CONCLUSION: No significant change with the bilateral pulmonary infiltrates compared to the prior study. Chest X-Ray 09/05/17 06:00 CONCLUSION: 1. ETT at the level of the clavicles. NGT beyond the GE junction. 2. Stable patchy diffuse bilateral airspace disease. Chest X-Ray 09/06/17 06:00 CONCLUSION: 1. No significant interval change. 2. Stable ETT and NGT. 3. Stable bilateral patchy airspace disease. Chest X-Ray 09/08/17 06:00 CONCLUSION: Lungs are better aerated. Minimal residual bibasilar densities. Abdomen X-Ray 09/09/17 00:00 CONCLUSION: Dobbhoff tube at the level of the pyloric channel Chest X-Ray 09/10/17 00:00 CONCLUSION: Interval intubation with improved aeration Chest X-Ray 09/10/17 00:00 CONCLUSION: Improved exam with resolution of the right lower lobe airspace consolidation. Chest X-Ray 09/10/17 06:00 CONCLUSION: Prominent hazy bilateral pleural parenchymal opacity right worse than left Chest X-Ray 09/11/17 06:00 CONCLUSION: Subsegmental basilar airspace disease with small effusions. Endotracheal tube and feeding tube in good position. Abdomen X-Ray 09/12/17 00:00 CONCLUSION: Gaseous distention of multiple loops of small and large bowel. Study would suggest adynamic ileus. Follow-up for resolution would be warranted. Abdomen X-Ray 09/13/17 00:00 CONCLUSION: No significant change in the gaseous distention of multiple loops of small and large bowel. Abdomen/Pelvis CT 09/13/17 00:00 CONCLUSION: 1. Nonobstructing left renal stones. 2. No evidence of small bowel dilation. 3. Bibasilar atelectasis in the lower lungs. 4. Bilateral inguinal hernias containing fat. Chest X-Ray 09/13/17 06:00 CONCLUSION: Endotracheal tube and feeding tube in good position. Mild basilar airspace disease. Abdomen X-Ray 09/14/17 00:00 CONCLUSION: No significant change is identified. There is diffuse dilatation of the colon. The pattern could represent ileus. Chest X-Ray 09/14/17 06:00 CONCLUSION: Subsegmental basilar airspace disease. No effusion or pneumothorax. Abdomen X-Ray 09/15/17 00:00 CONCLUSION: Solitary persistent loop of bowel in the right lower quadrant measures 9.6 cm. Cannot differentiate between small and large bowel given the absence of mucosal pattern.. Recommend serial films. Chest X-Ray 09/15/17 06:00 CONCLUSION: No significant change mild left base atelectasis. Abdomen X-Ray 09/16/17 00:00 CONCLUSION: Moderate amount of gas throughout the colon. The solitary loop of bowel in the right lower quadrant has decreased in size and compared to yesterday's exam. Chest X-Ray 09/17/17 06:00 CONCLUSION: Small left pleural effusion now seen. Mild patchy left lung base atelectasis unchanged. Abdomen X-Ray 09/18/17 00:01 CONCLUSION: Basically stable bowel gas pattern suggesting a hypodynamic ileus. Abdomen X-Ray 09/19/17 00:00 CONCLUSION: 1. Mild air distention of colon and scattered small bowel loops characteristic of a mild hypodynamic ileus. I do think there is some interval improvement from the prior, however. 2. No pneumoperitoneum. Stable elevation of the right hemidiaphragm. Chest X-Ray 09/19/17 10:36 CONCLUSION: 1. Interval removal of endotracheal tube placement of nasogastric tube. 2. Rotated study with no definite acute cardiopulmonary disease. Abdomen X-Ray 09/20/17 00:00 CONCLUSION: 1. Increasing gaseous distention throughout the colon. 2. No evidence of free air. Objective Remarks: GENERAL: 52 yo male currently resting in bed in no acute distress orotracheally intubated SKIN: Warm and dry. No rash HEAD: Normocephalic. Atraumatic. EYES: No scleral icterus. No injection or drainage. ENT: Mucous members are moist and pink. Oropharynx without erythema NECK: Supple, trachea midline. No JVD or lymphadenopathy. Percutaneous tracheostomy tube #8 [place] is clean dry and intact CARDIOVASCULAR: Bradycardic, RR, NL S1, S2 without murmurs, gallops, or rubs. RESPIRATORY: Breath sounds equal bilaterally. No accessory muscle use. Bilateral end expiratory wheeze. Transmitted upper airway sounds are noted. Coarse crackles anteriorly and posterior bases. GASTROINTESTINAL: Abdomen obese but reducible and soft.. Hypoactive bowel sounds are appreciated. MUSCULOSKELETAL: Anasarca/1+ upper lower extremity edema Neuro: Cranial nerves II through XII grossly intact. Strength is 3 out of 5 bilateral upper extremity's. 2 out of 5 bilateral lower extremities. Positive gag and cough. Assessment and Plan - Assessment and Plan Plan: Neuro/Psych: Mood disorder with depression Paraplegia with mobility Acute metabolic encephalopathy Dementia disorder NOS Currently on propofol drip at 15 m/kg/min and midazolam drip at 7 mg an hour for sedation while intubated Goal of RASS -2 Daily sedation vacation EEG-encephalopathy, some burst suppression pattern. On valproic acid 250 mg twice daily Continue baclofen 20 mg 3 times daily/home medication Continue citalopram 20 mg daily/home medication for depression Continue gabapentin 100 mg 3 times daily/home medication Acetaminophen 650 mg by tube every 6 hours as needed fever Holding meloxicam/home medication Holding dantrolene unknown dosage. Pulm: Acute Respiratory Failure -hypoxic and hypercapnic PRVC 18/600/1//40, Ventilator bundle Albuterol/ipratropium aerosols every 4 hours with albuterol aerosols every 2 hours as needed for dyspnea Methylprednisolone succinate 40 mg IV every 12 hours Spontaneous breathing trials as clinically indicated Patient s/p bronch 09/01 showed thick cormier like secretions/mucous plugs suctioned to clear BAL performed RLL-cultures negative to date CXR 09/17 basilar airspace disease/small left pleural effusion Dr. Nassar status post percutaneous tracheostomy 09/19 CV: Hypertension Hyperlipidemia Monitor HR and BP keep MAP>65mmHg Currently not requiring vasopressors and/or antihypertensives simvastatin 40 mg daily at home. Hospital substitution is pravastatin 80 mg daily Renal/FEN/: Neurogenic bladder Nonobstructing renal stones Monitor renal function, electrolytes replacement per protocol. d/c furosemide D5 LR with 20 mEq KCl at 84 cc an hour while tube feeds are not at goal GI: Gastroesophageal reflux disease Hypoalbuminemia History of external hemorrhoids Hyperammonia Elevated AST/ALT likely secondary congestion Possibly adynamic ileus Bilateral inguinal hernias Duodenal/gastric ulcer N.p.o. overnight. For PEG tube placement tomorrow interventional radiology EGD 09/20 revealed large gastric/duodenal ulcers. Unable to place PEG tube. Glucerna 1.5 to goal 60 cc an hour goal rate per nutrition recommendation currently on hold. Pantoprazole 40 mg IV every 12 hours for GI prophylaxis Lactulose 30 cc twice daily, Xifaxan [address] abdomen/pelvis- Nonobstructing left renal stones. No evidence of small bowel dilation. Bibasilar atelectasis in the lower lungs. Bilateral inguinal hernias containing fat ID: HAP Continue with abx (levofloxacin stop date 09/19)monitor for signs of infections ( fever, WBC) ID is following. Follow up on BAL 09/01 cxs- NGTD BC 08/31: NGTD Strep pneumonia and Legionella Ag negative Sputum 09/06 no growth to date 09/10 blood cultures 2, urine culture and sputum no growth to date Heme: Normocytic anemia Monitor CBC and follow trend Endo: Hyperglycemia SSI with Novulin R with Accu-Cheks to maintain euglycemia for glycemic control MSK Paraplegia PT evaluate and treat DVT GI prophylaxis -Teds SCDs -Subcu heparin -Lansoprazole Level 3 follow-up
[2017-09-20] MEDS ORDERED: Pantoprazole Inj 40 MG Vial IV.PUSH SCH (15:00)
[2017-09-20] MEDS: Pantoprazole Inj 40 MG Vial IV.PUSH SCH (15:55)
[2017-09-21] MEDS: Insulin NovoLIN Regular Correctional Sugar Inj SQ SCH ×6 (01:03→20:03)
[2017-09-21] MEDS: Oral Hygiene Kit OROPHARYNG SCH ×4 (01:04→17:15)
[2017-09-21] MEDS: KCL 20 mEq/D5W/LR Inj 1,000 ML IV.CONT SCH ×2 (02:53→17:14)
[2017-09-21] MEDS: Midazolam 50 MG/50 ML Inj 50 MG/50 ML BAG IV.CONT PRN ×2 (02:54→18:03)
[2017-09-21] MEDS: Propofol 1000 mg/100 ml Inj 1,000 MG/100 ML BOTTLE IV.CONT PRN (02:56)
[2017-09-21] MEDS: Pantoprazole Inj 40 MG Vial IV.PUSH SCH ×2 (03:08→17:14)
--- NOTE | 2017-09-21 05:17 | XR ---
EXAM DATE: 09/21/2017 4:15 AM EDT AGE/SEX: 52 years / Male INDICATIONS: Shortness of breath, possible pulmonary disease. CLINICAL DATA: This is the patient's subsequent encounter. Patient reports that signs and symptoms h ave been present for 2 weeks and indicates a pain score of Nonresponsive. MEDICAL/SURGICAL HISTORY: Gastroesophageal reflux disease. Cholecystectomy. Tracheostomy. COMPARISON: [facility] [place], CHEST 1V SINGLE AP, 09/19/2017. . FINDINGS: A single AP view of the chest demonstrates the lungs to be symmetrically hypo-aerated with persistent left basilar consolidation/effusion. Worsening atelectatic changes above the right hemidiaphragm. Tr acheostomy and nasogastric tubes are stable in position. Accounting for low lung volumes, the heart s ize is upper limits of normal. Osseous structures are intact CONCLUSION: 1. Persistent left basilar consolidation/effusion. 2. Hypoinflation with worsening atelectatic changes above the right hemidiaphragm. Electronically signed by: Lopez Russell MD 09/21/2017 5:16 AM EDT
[2017-09-21 06:41] LABS: Baso % (Auto) 0.5 % (0.0-2.0); Eos # (Auto) 0.1 th/mm3 (0.0-0.4); Eos % (Auto) 0.7 % (0.0-4.0); Hemoglobin 12.1 gm/dL (13.0-17.0); Lymph # (Auto) 1.1 th/mm3 (1.0-4.8); Lymph % (Auto) 10.9 % (9.0-44.0); Mean Corpuscular HGB Conc 33.7 % (32.0-36.0); Mean Corpuscular Hemoglobin 31.4 pg (27.0-34.0); Mean Platelet Volume 8.8 fL (7.0-11.0); Mono # (Auto) 0.8 th/mm3 (0.0-0.9); Mono % (Auto) 8.4 % (0.0-8.0); Neut % (Auto) 79.5 % (16.0-70.0); Platelet Count 191 th/mm3 (150-450); Red Blood Count 3.87 mil/mm3 (4.50-5.90); Red Cell Distribution Width 16.7 % (11.6-17.2)
[2017-09-21 07:14] LABS: Albumin 2.6 g/dL (3.4-5.0); Anion Gap 10 meq/L (5-15); Aspartate Aminotransferase 20 U/L (15-37); Blood Urea Nitrogen 16 mg/dL (7-18); Calcium 8.3 mg/dL (8.5-10.1); Carbon Dioxide 22.1 meq/L (21.0-32.0); Chloride 111 meq/L (98-107); Glomerular Filtration Rate Greater Than 89 mL/min (>89); Glucose,Random 73 mg/dL (74-106); Magnesium 1.9 mg/dL (1.5-2.5); Potassium 3.8 meq/L (3.5-5.1); Sodium 143 meq/L (136-145)
[2017-09-21 07:18] LABS: Alanine Aminotransferase 38 U/L (12-78); Alkaline Phosphatase 94 U/L (45-117); Phosphorus 3.3 mg/dL (2.5-4.9); Total Protein 5.8 g/dL (6.4-8.2)
[2017-09-21 10:43] LABS: Activated Partial Thrombo Time 24.5 sec (24.3-30.1)
[2017-09-21] MEDS ORDERED: CEFAZOLIN IV.SIG ONE (12:00)
[2017-09-21] MEDS ORDERED: DEXTROSE IV.SIG ONE (12:00)
--- NOTE | 2017-09-21 12:11 | P.RAD ---
Post Procedure Progress Note - Pre Procedure Diagnosis (1) Hypoxic encephalopathy - Post Procedure Diagnosis (1) Hypoxic encephalopathy - Procedure Information Procedure Date: 09/21/17 Supervising Radiologist: Quentin Kiran Jr, MD Estimated blood loss (mL): 0 Anesthesia: Conscious Sedation - Plan of Activity Patient to Unit: Critical Care Patient Condition: Fair See PACS Report for procedural detail/treatment. Feeding Tube Feeding Tube: Gastrostomy Procedure: Placement [place] Tube Size: 18 Findings: G tube in good position.
[2017-09-21] MEDS ORDERED: Iohexol 350 MG/ML 50 ML Vial (for Rad Diag) G-TUBE ONE (12:13)
[2017-09-21] MEDS: Chlorhexidine 0.12% Oral Kit 15 ML UDC OROPHARYNG SCH ×2 (13:11→20:03)
[2017-09-21] MEDS: Divalproex 125 MG Sprinkles Capsule PO SCH ×2 (13:11→20:03)
[2017-09-21] MEDS: Gabapentin 100 MG Capsule PO SCH ×3 (13:20→18:03)
[2017-09-21] MEDS: Polyethylene Glycol 3350 17 GM Packet PO SCH ×2 (13:20→20:04)
[2017-09-21] MEDS: Hypromellose 0.3% Opth Gel 10 GM Bottle EACH EYE SCH ×2 (13:20→20:03)
[2017-09-21] MEDS: rifAXIMin 550 MG Tablet PO SCH ×2 (13:21→20:03)
[2017-09-21] MEDS: Collagenase Oint 30 GM Tube TOPICAL SCH (13:21)
--- NOTE | 2017-09-21 13:45 | IR ---
EXAM DATE: 09/21/2017 12:28 PM EDT AGE/SEX: 52 years / Male INDICATIONS: Patient presents with dysphagia in need of gastrostomy tube placement for medication ad ministration. CLINICAL DATA: This is the patient's initial encounter. Patient reports that signs and symptoms have been present for 3 weeks and indicates a pain score of Nonresponsive. MEDICAL/SURGICAL HISTORY: . Dementia Depression GERD Hemorrhoids Paraplegia UTI . H/o explorat ory laparotomy Cholecystectomy COMPARISON: No prior exams available for comparison. FLUORO TIME (min): 1.32 IMAGE SERIES: 2 CONTRAST (cc): 10cc Omnipaque (iohexol) 350 MEDICATION(S): 2g cefazolin (Ancef) IV 1mg Glucagon Vancomycin within 2 hrs of procedure, Ancef (or alternative) within 1 hr of procedure. DEVICE(S): 18 [place] gastrostomy tube . . PROCEDURE: 1. Fluoroscopically guided gastrostomy tube placement. 2. Conscious sedation with continuous EKG and oximetry monitoring. The risks, benefits and alternatives to the procedure were explained and verbal and written consent w as obtained. The site was prepped in sterile fashion. Full sterile technique was used, including ca p, mask, sterile gloves and gown and a large sterile sheet. Hand hygiene and 2% chlorhexidine and/or betadine/alcohol prep was utilized per protocol for cutaneous antisepsis. The skin and subcutaneous tissues were infiltrated with local anesthetic solution. Fluoroscopy was used to clover the position of the liver.. The stomach was insufflated with room air. Three percutaneous fasteners were placed to secure the anterior gastric wall. A small incision was made between the fasteners. The stomach was accessed with an 18 gauge needle. A n 0.035 wire was advanced into the small bowel. The tract was dilated. The gastrostomy tube was int roduced through a peel-away sheath. The position was confirmed with an injection of contrast. Conscious sedation was performed with the prescribed dosages and duration as above in the presence of an independent trained radiology nurse to assist in the monitoring of the patient. EKG and oximetry remained stable throughout the procedure. The patient tolerated the procedure well and there were n o complications. The patient was sent to post anesthesia recovery in stable condition. 1. Uncomplicated gastrostomy tube placement as above. Electronically signed by: Quentin Kiran MD 09/21/2017 1:44 PM EDT
--- NOTE | 2017-09-21 17:42 | P.PNCC ---
Subjective Subjective Remarks/Hospital Course: 52-year-old male presents from [facility] for an evaluation of hypoxemia, shortness of breath, and tachycardia and per paramedics elevated temperature with history of paraplegia with immobility, dyslipidemia, chronic cough, mood disorder with depression, pressure ulceration bilateral lower extremity knee contracture, prior Klebsiella pneumonia and morbid obesity. In the emergency department he appeared to be in respiratory distress and was placed by ED attending on the BiPAP. 09/01 Patient is on BIPAP 18/5 with 40% FIO2. Afebrile with intermittent confusion. CTA chest yesterday showed no PE, extensive consolidation right lung. 09/02 Patient was intubated yesterday and s/p bronch. Sedated with Diprivan and Fentanyl infusion. Afebrile. 09/03 No events overnight. Sedated with Diprivan and Fentanyl infusion. Afebrile. 09/04: Remains intubated, sedated with propofol. Eyes open, do not follow commands. Bilateral wheezing on exam. FiO2 remains high at 60%, O2 sat 92-94% 09/05: Remains sedated heavily for vent synchrony, FiO2 remains at 60%, will wean. Sputum cx negative. ETT advanced due to leak, will repeat CXR. Patient do not follow commands, but get agitated when sedation held 09/06: Remains sedated for ventilator synchrony. Oxygen saturation improved FiO2 down to 50%. Chest x-ray on my review shows pulmonary edema. Started scheduled Lasix scheduled Lasix yesterday, urine output excellent 5.5 L in 24 hours 09/07: Afebrile. Remains on propofol and fentanyl drips due to his significant agitation. 2 bite block placed overnight/Guedel airways related secondary to patient attempted to bite through ET tube.. One bowel movement yesterday 09/08 No events overnight. Sedated with Diprivan and Fentanyl drip. Afebrile. 09/09: Extubated yesterday without complication. Currently on 6 L nasal cannula. Swallow evaluation failed 2. Dobbhoff tube is in place. No bowel movement since 09/02. 09/10: Intubated overnight due to respiratory failure. Currently on PEEP of 12 and FiO2 90%. Ventilator is been adjusted. Tube feeds of been resumed. 09/11 Patient remains intubated and sedated, on PRVC with PEEP:10, FIO2 40% 09/12: Afebrile. Remains on 40% FiO2. Propofol drip at 50 mcg/kg/min. PEEP is still at 10. 09/13: Afebrile. Abdominal x-ray yesterday revealed likely adynamic ileus. Will check CT abdomen and pelvis today. Patient is currently being decompressed from above. Will receive methylnaltrexone and enema today.. Was tolerating tube feeds at goal. 09/14: Afebrile. Bowel movements overnight. White blood cell count is normalized. We will keep him potassium 40 and recheck abdominal x-ray in a.m. 09/15: Afebrile. Will check KUB and likely restart tube feedings today. No neurological change. Failed CPAP trials today. 09/16: Resting in bed in no acute distress. Continues to fail CPAP trials daily. Will attempt to contact healthcare proxy. Will need tracheostomy early next week. 09/17: Resting in bed in no acute distress. PEEP is down to 5. Failing spontaneous breathing trials will require tracheostomy. Discussed with father yesterday and agreeable. 09/18 - plan for percutaneous tracheostomy in a.m. Continues to have an ileus. NG tube was placed to suction. Remains on IV fluids. 09/19: Status post percutaneous tracheostomy today. Plan for percutaneous gastrostomy tube placement tomorrow. Remains on IV fluids. NG tube to suction. Afebrile. White blood cell count normal. Antibiotics stopped today Subjective 09/20: Afebrile. Status post percutaneous tracheostomy by Dr. Nassar 09/19. Unable to place PEG tube today. Large gastric and duodenal ulcers. Biopsy. Plan for IR to place tomorrow. 09/21: no changes or improvements. off sedation. s/p PEG placement. Objective Vital Signs / I&O: Vital Signs 09/20/17 18:00 09/20/17 19:38 09/20/17 19:42 Temperature Pulse Rate 86 92 H Respiratory Rate 20 20 Blood Pressure Pulse Oximetry 99 09/20/17 20:00 09/20/17 22:00 09/21/17 00:00 Temperature 37.4 C 37.4 C Pulse Rate 92 H 96 H 112 H Respiratory Rate 20 20 Blood Pressure Pulse Oximetry 09/21/17 00:26 09/21/17 02:00 09/21/17 03:48 Temperature Pulse Rate 96 H 99 H 97 H Respiratory Rate 20 20 Blood Pressure Pulse Oximetry 99 100 09/21/17 04:00 09/21/17 06:00 09/21/17 08:00 Temperature 37.3 C 37.3 C Pulse Rate 99 H 113 H Respiratory Rate 20 Blood Pressure Pulse Oximetry 09/21/17 08:46 09/21/17 10:00 09/21/17 12:00 Temperature 37.3 C Pulse Rate 104 H 109 H 110 H Respiratory Rate 20 20 Blood Pressure 108/58 L Pulse Oximetry 100 09/21/17 12:44 09/21/17 12:45 09/21/17 14:00 Temperature Pulse Rate 109 H 110 H Respiratory Rate 20 Blood Pressure Pulse Oximetry 95 100 09/21/17 16:00 09/21/17 16:01 Temperature 37.3 C Pulse Rate 105 H 100 H Respiratory Rate 16 20 Blood Pressure 112/79 Pulse Oximetry 94 L Intake & Output 09/20/17 09/21/17 09/21/17 18:59 06:59 18:59 Intake Total 1610 / 1610 1100 / 1100 1000 / 1000 Output Total 3000 / 3000 Balance -1390 / -1390 1100 / 1100 1000 / 1000 Intake: IV 1150 / 1150 1100 / 1100 1000 / 1000 D5W/LR + KCL 20 mEq Inj 1,000 1000 / 1000 1000 / 1000 1000 / 1000 ML @ 84 mls/hr IV.CONT .[id number] [facility] Rx#:[id number] Versed Inj 50 mg In 50 ml @ 2 50 / 50 100 / 100 MG/HR 2 mls/hr IV.CONT TITRATE PRN Rx#:[id number] Diprivan 1000 mg/100 ml Inj 1, 100 / 100 000 mg In 100 ml @ 5 MCG/KG/MIN 3.105 mls/hr IV.CONT TITRATE PRN Rx#:[id number] Oral 0 / 0 Tube Feeding 0 / 0 Tube Irrigant 120 / 120 Water Bolus Amount 100 / 100 Other 240 / 240 Output: Urine 1500 / 1500 Stool 0 / 0 Urine Amount (Catheter) 500 / 500 Indwelling Urethral Catheter 500 / 500 Gastric Drainage 1000 / 1000 Left Nare Nasogastric Tube 1000 / 1000 Orogastric Tube 0 / 0 Other: Date of Last Bowel Movement 09/19/17 09/20/17 09/21/17 # Bowel Movements 1 1 # Incontinent Bowel Movements 1 1 Result Diagrams: 09/21/17 05:23 09/21/17 05:23 Objective Remarks: GENERAL: 52 yo male currently resting in bed in no acute distress orotracheally intubated SKIN: Warm and dry. No rash HEAD: Normocephalic. Atraumatic. EYES: No scleral icterus. No injection or drainage. ENT: Mucous members are moist and pink. Oropharynx without erythema NECK: Supple, trachea midline. No JVD. Percutaneous tracheostomy tube #8 Shiley is clean dry and intact CARDIOVASCULAR: Bradycardic, RR, NL. sinus. RESPIRATORY: Breath sounds equal bilaterally. No accessory muscle use. Coarse crackles anteriorly and posterior bases. GASTROINTESTINAL: Abdomen obese but reducible and soft.. MUSCULOSKELETAL: Anasarca/1+ upper lower extremity edema Neuro: Cranial nerves II through XII grossly intact. Strength is 3 out of 5 bilateral upper extremity's. 2 out of 5 bilateral lower extremities. Positive gag and cough. Assessment and Plan - Assessment and Plan Plan: Neuro/Psych: Mood disorder with depression Paraplegia with mobility Acute metabolic encephalopathy Dementia disorder NOS Goal RASS 0. prn haldol and oxycodone. Daily sedation vacation EEG-encephalopathy, some burst suppression pattern. On valproic acid 250 mg twice daily Continue baclofen 20 mg 3 times daily/home medication Continue citalopram 20 mg daily/home medication for depression Continue gabapentin 100 mg 3 times daily/home medication Acetaminophen 650 mg by tube every 6 hours as needed fever Holding meloxicam/home medication Holding dantrolene unknown dosage. Pulm: Acute Respiratory Failure -hypoxic and hypercapnic Ventilator bundle Albuterol/ipratropium aerosols every 4 hours with albuterol aerosols every 2 hours as needed for dyspnea Methylprednisolone succinate 40 mg IV every 12 hours Spontaneous breathing trials as clinically indicated Patient s/p bronch 09/01 showed thick cormier like secretions/mucous plugs suctioned to clear BAL performed RLL-cultures negative to date CXR 09/17 basilar airspace disease/small left pleural effusion Dr. Nassar status post percutaneous tracheostomy 09/19 needs aggressive PT and OOB to stretcher chair daily. CV: Hypertension Hyperlipidemia Monitor HR and BP keep MAP>65mmHg Currently not requiring vasopressors and/or antihypertensives simvastatin 40 mg daily at home. Hospital substitution is pravastatin 80 mg daily Renal/FEN/: Neurogenic bladder Nonobstructing renal stones Monitor renal function, electrolytes replacement per protocol. GI: Gastroesophageal reflux disease Hypoalbuminemia History of external hemorrhoids Hyperammonia Elevated AST/ALT likely secondary congestion Possibly adynamic ileus Bilateral inguinal hernias Duodenal/gastric ulcer N.p.o. overnight. For PEG tube placement tomorrow interventional radiology EGD 09/20 revealed large gastric/duodenal ulcers. Unable to place PEG tube. Glucerna 1.5 to goal 60 cc an hour goal rate per nutrition recommendation currently on hold. Pantoprazole 40 mg IV every 12 hours for GI prophylaxis Lactulose 30 cc twice daily, Xifaxan [address] abdomen/pelvis- Nonobstructing left renal stones. No evidence of small bowel dilation. Bibasilar atelectasis in the lower lungs. Bilateral inguinal hernias containing fat ID: HAP (levofloxacin stop date 09/19)monitor for signs of infections ( fever, WBC) ID is following. Follow up on BAL 09/01 cxs- NGTD BC 08/31: NGTD Strep pneumonia and Legionella Ag negative Sputum 09/06 no growth to date 09/10 blood cultures 2, urine culture and sputum no growth to date Heme: Normocytic anemia Monitor CBC and follow trend Endo: Hyperglycemia SSI with Novulin R with Accu-Cheks to maintain euglycemia for glycemic control MSK Paraplegia PT evaluate and treat DVT GI prophylaxis -Teds SCDs -Subcu heparin -Lansoprazole
--- NOTE | 2017-09-21 18:03 | P.DIET ---
Nutritional Evaluation Type of nutrition evaluation: follow-up Nutrition consult regarding: Tube Feeding ([facility] – [place] for Tube Feeding) Nutrition screening: Poor PO Intake Objective - Diagnosis Sepsis - Objective Spinal Cord Impairment: Paraplegia (5-10 lbs) Weight Subtracted: Other (Used 12.5#) % IBW: 124 (WRO=884.5#) Body Weight Used for Calculations: IBW (75.3kg) Energy Needs - Lower Range (kCal/kg): 25 Energy Needs - Upper Range (kCal/kg): 30 Lower Limit kCal/kg (kCals): 1,883 Upper Limit kCal/kg (kCals): 2,259 Lower Limit Protein Factor (Grams per Kg): 1.2 Upper Limit Protein Factor (Grams per Kg): 1.5 Lower Protein Needs (Protein): 90 Upper Protein Needs (Protein): 113 Dietitian Reviewed in Medical Record: Curent medications, Intake & Output, Labs , Medical history, Tube feeding Diet Order: NPO Objective Comments: Meds include Propofol, Versed, Reglan, Xifaxan, Vitamin E Labs include: Glucose 81, POC Glucose 82, 90, 87, 82 Assessment Assessment: Pt remains at nutritional risk r/t current clinical status. Pt s/p trach 09/19, had PEG placed today by IR. Noted pt is no longer on Solumedrol (d/c'd 09/20) and glucose levels are in normal range. Pt has no history of diabetes, recommend when TF restarts; Jevity 1.5 with goal rate of 60 ml/hr to provide 2160 kcals, 92 gms protein and 1094 mls free water. Reviewed MD notes, labs, wts. Will monitor TF tolerance, clinical course. Recommendations: TF recommend Jevity 1.5 with goal rate 60 ml/hr (see above). Dietitian to Monitor: Lab values, Intake & Output, Tube feeding tolerance, Weight change, Residuals, Wound/skin status, Medical course
[2017-09-21] MEDS ORDERED: Haloperidol Inj 5 MG/ML Ampul IV.PUSH PRN (18:13)
[2017-09-22] MEDS: Insulin NovoLIN Regular Correctional Sugar Inj SQ SCH ×6 (00:27→20:57)
[2017-09-22 04:29] LABS: Hematocrit 38.5 % (39.0-51.0); Hemoglobin 12.8 gm/dL (13.0-17.0); Mean Corpuscular HGB Conc 33.3 % (32.0-36.0); Mean Corpuscular Hemoglobin 30.9 pg (27.0-34.0); Mean Platelet Volume 8.5 fL (7.0-11.0); Platelet Count 181 th/mm3 (150-450); Red Blood Count 4.13 mil/mm3 (4.50-5.90); Red Cell Distribution Width 16.4 % (11.6-17.2); White Blood Count 12.3 th/mm3 (4.0-11.0)
[2017-09-22] MEDS: Pantoprazole Inj 40 MG Vial IV.PUSH SCH ×2 (04:47→15:51)
[2017-09-22] MEDS: Oral Hygiene Kit OROPHARYNG SCH ×3 (04:47→16:51)
[2017-09-22] MEDS: KCL 20 mEq/D5W/LR Inj 1,000 ML IV.CONT SCH (04:47)
[2017-09-22 05:06] LABS: Anion Gap 11 meq/L (5-15); Blood Urea Nitrogen 14 mg/dL (7-18); Calcium 9.1 mg/dL (8.5-10.1); Carbon Dioxide 19.9 meq/L (21.0-32.0); Chloride 109 meq/L (98-107); Glomerular Filtration Rate Greater Than 89 mL/min (>89); Glucose,Random 95 mg/dL (74-106); Potassium 3.8 meq/L (3.5-5.1); Sodium 140 meq/L (136-145)
--- NOTE | 2017-09-22 06:28 | P.PNCC ---
Subjective Subjective Remarks/Hospital Course: 52-year-old male presents from [facility] for an evaluation of hypoxemia, shortness of breath, and tachycardia and per paramedics elevated temperature with history of paraplegia with immobility, dyslipidemia, chronic cough, mood disorder with depression, pressure ulceration bilateral lower extremity knee contracture, prior Klebsiella pneumonia and morbid obesity. In the emergency department he appeared to be in respiratory distress and was placed by ED attending on the BiPAP. 09/01 Patient is on BIPAP 18/5 with 40% FIO2. Afebrile with intermittent confusion. CTA chest yesterday showed no PE, extensive consolidation right lung. 09/02 Patient was intubated yesterday and s/p bronch. Sedated with Diprivan and Fentanyl infusion. Afebrile. 09/03 No events overnight. Sedated with Diprivan and Fentanyl infusion. Afebrile. 09/04: Remains intubated, sedated with propofol. Eyes open, do not follow commands. Bilateral wheezing on exam. FiO2 remains high at 60%, O2 sat 92-94% 09/05: Remains sedated heavily for vent synchrony, FiO2 remains at 60%, will wean. Sputum cx negative. ETT advanced due to leak, will repeat CXR. Patient do not follow commands, but get agitated when sedation held 09/06: Remains sedated for ventilator synchrony. Oxygen saturation improved FiO2 down to 50%. Chest x-ray on my review shows pulmonary edema. Started scheduled Lasix scheduled Lasix yesterday, urine output excellent 5.5 L in 24 hours 09/07: Afebrile. Remains on propofol and fentanyl drips due to his significant agitation. 2 bite block placed overnight/Guedel airways related secondary to patient attempted to bite through ET tube.. One bowel movement yesterday 09/08 No events overnight. Sedated with Diprivan and Fentanyl drip. Afebrile. 09/09: Extubated yesterday without complication. Currently on 6 L nasal cannula. Swallow evaluation failed 2. Dobbhoff tube is in place. No bowel movement since 09/02. 09/10: Intubated overnight due to respiratory failure. Currently on PEEP of 12 and FiO2 90%. Ventilator is been adjusted. Tube feeds of been resumed. 09/11 Patient remains intubated and sedated, on PRVC with PEEP:10, FIO2 40% 09/12: Afebrile. Remains on 40% FiO2. Propofol drip at 50 mcg/kg/min. PEEP is still at 10. 09/13: Afebrile. Abdominal x-ray yesterday revealed likely adynamic ileus. Will check CT abdomen and pelvis today. Patient is currently being decompressed from above. Will receive methylnaltrexone and enema today.. Was tolerating tube feeds at goal. 09/14: Afebrile. Bowel movements overnight. White blood cell count is normalized. We will keep him potassium 40 and recheck abdominal x-ray in a.m. 09/15: Afebrile. Will check KUB and likely restart tube feedings today. No neurological change. Failed CPAP trials today. 09/16: Resting in bed in no acute distress. Continues to fail CPAP trials daily. Will attempt to contact healthcare proxy. Will need tracheostomy early next week. 09/17: Resting in bed in no acute distress. PEEP is down to 5. Failing spontaneous breathing trials will require tracheostomy. Discussed with father yesterday and agreeable. 09/18 - plan for percutaneous tracheostomy in a.m. Continues to have an ileus. NG tube was placed to suction. Remains on IV fluids. 09/19: Status post percutaneous tracheostomy today. Plan for percutaneous gastrostomy tube placement tomorrow. Remains on IV fluids. NG tube to suction. Afebrile. White blood cell count normal. Antibiotics stopped today Subjective 09/20: Afebrile. Status post percutaneous tracheostomy by Dr. Nassar 09/19. Unable to place PEG tube today. Large gastric and duodenal ulcers. Biopsy. Plan for IR to place tomorrow. 09/21: no changes or improvements. off sedation. s/p PEG placement. 09/22: abdominal distension is worse. copious diarrhea secondary to bowel regimen. appears clinically to be adynamic ileus. PEG tube placement may have complicated ileus. no changes in respiratory status: still not able to wean off mechanical ventilation. Objective Vital Signs / I&O: Vital Signs 09/21/17 08:00 09/21/17 08:46 09/21/17 10:00 Temperature 37.3 C Pulse Rate 104 H 109 H Respiratory Rate 20 Blood Pressure Pulse Oximetry 100 09/21/17 12:00 09/21/17 12:44 09/21/17 12:45 Temperature 37.3 C Pulse Rate 110 H 109 H Respiratory Rate 20 20 Blood Pressure 108/58 L Pulse Oximetry 95 100 09/21/17 14:00 09/21/17 16:00 09/21/17 16:01 Temperature 37.3 C Pulse Rate 110 H 105 H 100 H Respiratory Rate 16 20 Blood Pressure 112/79 Pulse Oximetry 94 L 09/21/17 18:00 09/21/17 20:00 09/21/17 20:31 Temperature 37.7 C H Pulse Rate 105 H 110 H 103 H Respiratory Rate 20 20 Blood Pressure 121/76 Pulse Oximetry 94 L 09/21/17 22:00 09/21/17 23:36 09/22/17 00:00 Temperature 37.3 C Pulse Rate 114 H 114 H 114 H Respiratory Rate 20 20 Blood Pressure 116/76 Pulse Oximetry 09/22/17 00:20 09/22/17 02:00 09/22/17 04:00 Temperature 37.4 C Pulse Rate 110 H 110 H Respiratory Rate 20 20 Blood Pressure 102/62 Pulse Oximetry 93 L 09/22/17 04:24 09/22/17 06:00 Temperature Pulse Rate 103 H 107 H Respiratory Rate 20 Blood Pressure Pulse Oximetry 100 Intake & Output 09/21/17 09/21/17 09/22/17 06:59 18:59 06:59 Intake Total 1100 / 1100 1170 / 1170 1000 / 1000 Output Total 400 / 400 Balance 1100 / 1100 770 / 770 1000 / 1000 Intake: IV 1100 / 1100 1050 / 1050 1000 / 1000 D5W/LR + KCL 20 mEq Inj 1,000 1000 / 1000 1000 / 1000 1000 / 1000 ML @ 50 mls/hr IV.CONT .Q20H [facility] Rx#:[id number] Versed Inj 50 mg In 50 ml @ 2 100 / 100 50 / 50 MG/HR 2 mls/hr IV.CONT TITRATE PRN Rx#:[id number] Oral 0 / 0 Tube Feeding 0 / 0 Tube Irrigant 120 / 120 Water Bolus Amount 0 / 0 Other 0 / 0 Output: Urine 400 / 400 Stool 0 / 0 Gastric Drainage 0 / 0 Left Nare Nasogastric Tube 0 / 0 Orogastric Tube 0 / 0 Other: Date of Last Bowel Movement 09/20/17 09/21/17 09/22/17 # Bowel Movements 1 4 # Incontinent Bowel Movements 1 4 Result Diagrams: 09/22/17 04:05 09/22/17 04:05 Objective Remarks: GENERAL: 52 yo male currently resting in bed s/p trach. SKIN: Warm and dry. No rash HEAD: Normocephalic. Atraumatic. EYES: No scleral icterus. No injection or drainage. ENT: Mucous members are moist and pink. Oropharynx without erythema NECK: Supple, trachea midline. No JVD. Percutaneous tracheostomy tube #8 Shiley is clean dry and intact CARDIOVASCULAR: Bradycardic, RR, NL. sinus. RESPIRATORY: Breath sounds equal bilaterally. No accessory muscle use. Coarse crackles anteriorly and posterior bases. GASTROINTESTINAL: Abdomen obese but reducible and soft.. MUSCULOSKELETAL: Anasarca/1+ upper lower extremity edema Neuro: Cranial nerves II through XII grossly intact. Strength is 3 out of 5 bilateral upper extremity's. 2 out of 5 bilateral lower extremities. Positive gag and cough. Assessment and Plan - Assessment and Plan Plan: Neuro/Psych: Mood disorder with depression Paraplegia with mobility Acute metabolic encephalopathy Dementia disorder NOS Goal RASS 0. prn haldol and oxycodone. Daily sedation vacation EEG-encephalopathy, some burst suppression pattern. On valproic acid 250 mg twice daily Continue baclofen 20 mg 3 times daily/home medication Continue citalopram 20 mg daily/home medication for depression Continue gabapentin 100 mg 3 times daily/home medication Acetaminophen 650 mg by tube every 6 hours as needed fever Holding meloxicam/home medication Holding dantrolene unknown dosage. Pulm: Acute Respiratory Failure -hypoxic and hypercapnic Ventilator bundle Albuterol/ipratropium aerosols every 4 hours with albuterol aerosols every 2 hours as needed for dyspnea Spontaneous breathing trials as clinically indicated Patient s/p bronch 09/01 showed thick cormier like secretions/mucous plugs suctioned to clear BAL performed RLL-cultures negative to date CXR 09/17 basilar airspace disease/small left pleural effusion Dr. Nassar status post percutaneous tracheostomy 09/19 needs aggressive PT and OOB to stretcher chair daily. daily SBTs. CV: Hypertension Hyperlipidemia Monitor HR and BP keep MAP>65mmHg Currently not requiring vasopressors and/or antihypertensives simvastatin 40 mg daily at home. Hospital substitution is pravastatin 80 mg daily Renal/FEN/: Neurogenic bladder Nonobstructing renal stones Monitor renal function, electrolytes replacement per protocol. GI: Adynamic ileus Gastroesophageal reflux disease Hypoalbuminemia History of external hemorrhoids Hyperammonia Elevated AST/ALT likely secondary congestion Bilateral inguinal hernias Duodenal/gastric ulcer restart tube feeds. EGD 09/20 revealed large gastric/duodenal ulcers. Unable to place PEG tube. Glucerna 1.5 to goal 60 cc an hour goal rate restart Pantoprazole 40 mg IV every 12 hours for GI prophylaxis Lactulose 30 cc twice daily, Xifaxan [address] abdomen/pelvis- Nonobstructing left renal stones. No evidence of small bowel dilation. Bibasilar atelectasis in the lower lungs. Bilateral inguinal hernias containing fat repeat CT abd/pelvis today. appears that adynamic ileus is worsening. may be secondary to recent PEG placement/procedure. ID: [id number] (levofloxacin stop date 09/19)monitor for signs of infections ( fever, WBC) ID is following. Follow up on BAL 09/01 cxs- NGTD BC 08/31: NGTD Strep pneumonia and Legionella Ag negative Sputum 09/06 no growth to date 09/10 blood cultures 2, urine culture and sputum no growth to date Heme: Normocytic anemia Monitor CBC and follow trend Endo: Hyperglycemia SSI with Novulin R with Accu-Cheks to maintain euglycemia for glycemic control MSK Paraplegia PT evaluate and treat DVT GI prophylaxis -Teds SCDs -Subcu heparin -Lansoprazole OVERALL IMPRESSION: deconditioned. needs aggressive PT. CT to re-eval ileus which may be hurting our weaning efforts.
[2017-09-22] MEDS: rifAXIMin 550 MG Tablet PO SCH ×2 (08:11→20:56)
[2017-09-22] MEDS: Divalproex 125 MG Sprinkles Capsule PO SCH ×2 (08:11→20:57)
[2017-09-22] MEDS: Gabapentin 100 MG Capsule PO SCH ×3 (08:13→18:43)
[2017-09-22] MEDS: Polyethylene Glycol 3350 17 GM Packet PO SCH ×2 (08:13→20:56)
[2017-09-22] MEDS: Hypromellose 0.3% Opth Gel 10 GM Bottle EACH EYE SCH ×2 (08:14→20:57)
[2017-09-22] MEDS: Chlorhexidine 0.12% Oral Kit 15 ML UDC OROPHARYNG SCH ×2 (08:14→20:57)
[2017-09-22] MEDS: Collagenase Oint 30 GM Tube TOPICAL SCH (08:16)
--- NOTE | 2017-09-22 08:19 | P.PNID ---
Subjective Remarks: He is a 52-year-old male, who is a [facility] the [facility], brought to the hospital for evaluation of shortness of breath, hypoxemia, and tachycardic. According to the paramedics he had an elevated temp. Got some information from the nurse, patient did not have any Vernon when he presented, and a Vernon catheter was placed. Since admission he has required BiPAP for oxygenation. He has been febrile. Urinalysis showed significant pyuria. His blood pressures seem to be holding, and he is not requiring any pressors. His WBC is mildly elevated at 11.7. Lactic acid is normal. Creatinine is normal. Chest x -ray showing some infiltrates. Infectious disease consultation has been requested to assist with evaluation and treatment of patient with sepsis. Notes reviewed. D/W RN Temps ok BP ok S/P trach 09/19 On the vent Finished Abx 09/19 S/P PEG 09/20 HAs developed abdominal distension since yesterday C/O abdominal pain (+) loose stool Antibiotics: None Lines: PIV No evidence of infection Past Medical History: Dementia Depression GERD (gastroesophageal reflux disease) Hemorrhoids Hyperlipidemia Paraplegia UTI (urinary tract infection) H/O exploratory laparotomy History of cholecystectomy Allergies/Adverse Reactions: Allergies No Known Allergies Allergy (Verified 08/31/17 00:16) Objective Vital Signs 09/21/17 08:46 09/21/17 10:00 09/21/17 12:00 Temperature 99.2 F Pulse Rate 104 H 109 H 110 H Respiratory Rate 20 20 Blood Pressure 108/58 L Pulse Oximetry 100 09/21/17 12:44 09/21/17 12:45 09/21/17 14:00 Temperature Pulse Rate 109 H 110 H Respiratory Rate 20 Blood Pressure Pulse Oximetry 95 100 09/21/17 16:00 09/21/17 16:01 09/21/17 18:00 Temperature 99.2 F Pulse Rate 105 H 100 H 105 H Respiratory Rate 16 20 Blood Pressure 112/79 Pulse Oximetry 94 L 09/21/17 20:00 09/21/17 20:31 09/21/17 22:00 Temperature 99.8 F H Pulse Rate 110 H 103 H 114 H Respiratory Rate 20 20 Blood Pressure 121/76 Pulse Oximetry 94 L 09/21/17 23:36 09/22/17 00:00 09/22/17 00:20 Temperature 99.2 F Pulse Rate 114 H 114 H Respiratory Rate 20 20 20 Blood Pressure 116/76 Pulse Oximetry 93 L 09/22/17 02:00 09/22/17 04:00 09/22/17 04:24 Temperature 99.4 F Pulse Rate 110 H 110 H 103 H Respiratory Rate 20 20 Blood Pressure 102/62 Pulse Oximetry 100 09/22/17 06:00 09/22/17 07:58 Temperature Pulse Rate 107 H 112 H Respiratory Rate 20 Blood Pressure Pulse Oximetry 100 Intake & Output 09/21/17 09/22/17 09/22/17 18:59 06:59 18:59 Intake Total 1170 / 1170 1000 / 1000 Output Total 400 / 400 Balance 770 / 770 1000 / 1000 Intake: IV 1050 / 1050 1000 / 1000 D5W/LR + KCL 20 mEq Inj 1,000 1000 / 1000 1000 / 1000 ML @ 50 mls/hr IV.CONT .Q20H ABENA Rx#:[id number] Versed Inj 50 mg In 50 ml @ 2 50 / 50 MG/HR 2 mls/hr IV.CONT TITRATE PRN Rx#:[id number] Oral 0 / 0 Tube Feeding 0 / 0 Tube Irrigant 120 / 120 Water Bolus Amount 0 / 0 Other 0 / 0 Output: Urine 400 / 400 Stool 0 / 0 Gastric Drainage 0 / 0 Left Nare Nasogastric Tube 0 / 0 Orogastric Tube 0 / 0 Other: Date of Last Bowel Movement 09/21/17 09/22/17 # Bowel Movements 4 # Incontinent Bowel Movements 4 Lab - Hematology Results 09/21/17 09/22/17 05:23 04:05 WBC 10.0 12.3 H RBC 3.87 L 4.13 L Hgb 12.1 L 12.8 L Hct 36.0 L 38.5 L MCV 93.0 93.0 MCH 31.4 30.9 MCHC 33.7 33.3 RDW 16.7 16.4 Plt Count 191 181 MPV 8.8 8.5 Neut % (Auto) 79.5 H Lymph % (Auto) 10.9 [place] % (Auto) 8.4 H Eos % (Auto) 0.7 Baso % (Auto) 0.5 Neut # (Auto) 8.0 H Lymph # (Auto) 1.1 [place] # (Auto) 0.8 Eos # (Auto) 0.1 Baso # (Auto) 0.0 WBC Differential . Differential Comment Auto diff final Lab - Chemistry Results 09/20/17 09/20/17 09/21/17 12:57 20:53 01:03 Sodium Potassium Chloride Carbon Dioxide Anion Gap BUN Creatinine Estimated GFR POC Glucose 87 82 88 Random Glucose Calcium Phosphorus Magnesium Total Bilirubin AST ALT Alkaline Phosphatase Total Protein Albumin 09/21/17 09/21/17 09/21/17 03:07 05:23 07:54 Sodium 143 Potassium 3.8 Chloride 111 H Carbon Dioxide 22.1 Anion Gap 10 BUN 16 Creatinine 0.44 L Estimated GFR Greater than 89 POC Glucose 95 83 Random Glucose 73 L Calcium 8.3 L Phosphorus 3.3 Magnesium 1.9 Total Bilirubin 0.7 AST 20 ALT 38 Alkaline Phosphatase 94 Total Protein 5.8 L Albumin 2.6 L 09/21/17 09/21/17 09/21/17 13:19 15:35 20:00 Sodium Potassium Chloride Carbon Dioxide Anion Gap BUN Creatinine Estimated GFR POC Glucose 85 92 93 Random Glucose Calcium Phosphorus Magnesium Total Bilirubin AST ALT Alkaline Phosphatase Total Protein Albumin 09/21/17 09/22/17 09/22/17 23:21 04:05 04:51 Sodium 140 Potassium 3.8 Chloride 109 H Carbon Dioxide 19.9 L Anion Gap 11 BUN 14 Creatinine 0.41 L Estimated GFR Greater than 89 POC Glucose 108 97 Random Glucose 95 Calcium 9.1 D Phosphorus Magnesium Total Bilirubin AST ALT Alkaline Phosphatase Total Protein Albumin Imaging: ITS Impressions Abdomen/Bladder Ultrasound 08/31/17 00:00 CONCLUSION: 1. 11 mm left midlung calculus. 2. No evidence of hydronephrosis. 3. Otherwise normal appearing kidneys. Chest CTA 08/31/17 00:00 CONCLUSION: 1. No evidence of pulmonary embolism. 2. Extensive consolidation in the right lung and patchy infiltrates elsewhere in both lungs. 3. Moderately enlarged mediastinal lymph node. Abdomen/Pelvis CT 09/13/17 00:00 CONCLUSION: 1. Nonobstructing left renal stones. 2. No evidence of small bowel dilation. 3. Bibasilar atelectasis in the lower lungs. 4. Bilateral inguinal hernias containing fat. Abdomen X-Ray 09/20/17 00:00 CONCLUSION: 1. Increasing gaseous distention throughout the colon. 2. No evidence of free air. Chest X-Ray 09/21/17 06:00 CONCLUSION: 1. Persistent left basilar consolidation/effusion. 2. Hypoinflation with worsening atelectatic changes above the right hemidiaphragm. Physical Exam: GENERAL: Awake, and alert, NAD on the vent SKIN: Cool and dry. No generalized rash. HEAD: Atraumatic. Normocephalic. No temporal wasting, or tenderness. EYES: [place] conjunctiva. No petechia or hemorrhage. Pupils equal, round and reactive to light. No scleral icterus. No injection or drainage. NECK: S/P trach, site looks ok. CARDIOVASCULAR: Regular rate and rhythm. No murmurs, rubs or gallops. RESPIRATORY: Coarse breath sounds, decreased at bases. ABDOMEN: obese, more distended. Bowel sounds present and hypoactive. Midline scar. Ecchymoses at SQ sites, no guarding, no rebound EXTREMITIES: No clubbing, cyanosis. Has [place] pedal edema. No calf tenderness. NEUROLOGICAL: Awake and following commands. PSYCH: Cooperative : Vernon in place, Clear yellow urine. LINE: No evidence of infection Assessment and Plan - Plan Impression Sepsis on presentation, patient came from SNF, better - has lung infiltrates, and SOB, C/W HCAP - also with UTI, S/P Rx HCAP, C/S bronch negative, S/P Rx Leukocytosis, resolved Respiratory failure, recurrent - S/P trach 09/19 Hx paraplegia Encephalopathy Abdominal distension, ?ileus post gastrostomy Recommendation Monitor off Abx Monitor temps Monitor progress Work-up for abdominal distension Weaning per [facility] Seems clinically stable from ID standpoint D/W RN
--- NOTE | 2017-09-22 17:36 | CT ---
EXAM DATE: 09/22/2017 4:27 PM EDT AGE/SEX: 52 years / Male INDICATIONS: Abdominal distension CLINICAL DATA: This is the patient's initial encounter. Patient reports that signs and symptoms have been present for 1 day and indicates a pain score of 0/10. MEDICAL/SURGICAL HISTORY: Gastroesophageal reflux disease. Paraplegic Cholecystectomy. RADIATION DOSE: 16.84 CTDI (mGy) COMPARISON: . TECHNIQUE: Multiple contiguous axial images were obtained through the abdomen. Images were obtained using multiple row detector helical technique. Using automated exposure control and adjustment of the mA and/or kV according to patient size, radiation dose was kept as low as reasonably achievable to o btain optimal diagnostic quality images. DICOM format image data is available electronically for rev iew and comparison. FINDINGS: There is bibasilar edema versus pneumonia. Small bilateral pleural effusions are identified. There is gaseous distention of the colon and to a lesser degree the small bowel characteristic of ileus. The findings are similar to the prior exam. The liver and spleen are normal in size and no focal defects are identified. Air is in the biliary tree in this patient status post cholecystectomy. The pancreas demonstrates no evidence of mass and there is no dilatation of the pancreatic duct. The adrenal glan ds are unremarkable. The right kidney is unremarkable. There are multiple stones within the left kid becki without hydronephrosis the largest measuring 3 mm No abnormally enlarged lymph nodes are identifi ed. Examination of the pelvis demonstrates no evidence of free fluid or pelvic mass. No abnormally enlarg ed inguinal or retroperitoneal lymph nodes are present. The bladder is unremarkable. Bilateral noninc arcerated inguinal hernias are present containing fat. CONCLUSION: Findings of generalized ileus. The findings are similar to the prior exam. Bilateral lower lobe atelectasis versus pneumonia. Electronically signed by: Manjeet Tristan MD 09/22/2017 5:35 PM EDT
[2017-09-23] MEDS: Dextrose 50% in Water 50 ML Vial IV.PUSH PRN ×3 (00:34→08:10)
[2017-09-23] MEDS: Insulin NovoLIN Regular Correctional Sugar Inj SQ SCH ×3 (00:34→09:27)
[2017-09-23] MEDS: Oral Hygiene Kit OROPHARYNG SCH ×2 (00:35→03:20)
[2017-09-23] MEDS: Pantoprazole Inj 40 MG Vial IV.PUSH SCH (03:20)
[2017-09-23 05:21] LABS: Hematocrit 32.3 % (39.0-51.0); Hemoglobin 10.8 gm/dL (13.0-17.0); Mean Corpuscular HGB Conc 33.4 % (32.0-36.0); Mean Corpuscular Hemoglobin 31.3 pg (27.0-34.0); Mean Corpuscular Volume 93.7 fL (80.0-100.0); Mean Platelet Volume 8.7 fL (7.0-11.0); Platelet Count 128 th/mm3 (150-450); Red Blood Count 3.45 mil/mm3 (4.50-5.90); Red Cell Distribution Width 16.7 % (11.6-17.2); White Blood Count 6.8 th/mm3 (4.0-11.0)
[2017-09-23 05:36] LABS: Anion Gap 10 meq/L (5-15); Blood Urea Nitrogen 13 mg/dL (7-18); Calcium 8.3 mg/dL (8.5-10.1); Carbon Dioxide 22.2 meq/L (21.0-32.0); Chloride 107 meq/L (98-107); Glomerular Filtration Rate Greater Than 89 mL/min (>89); Glucose,Random 128 mg/dL (74-106); Potassium 3.3 meq/L (3.5-5.1); Sodium 139 meq/L (136-145)
[2017-09-23] MEDS ORDERED: Dextrose 10% in Water Inj 1,000 ML IV.CONT SCH (07:15)
[2017-09-23] MEDS: Hypromellose 0.3% Opth Gel 10 GM Bottle EACH EYE SCH (08:10)
[2017-09-23] MEDS: Collagenase Oint 30 GM Tube TOPICAL SCH (08:10)
[2017-09-23] MEDS: Polyethylene Glycol 3350 17 GM Packet PO SCH (08:20)
[2017-09-23] MEDS: Divalproex 125 MG Sprinkles Capsule PO SCH (08:20)
[2017-09-23] MEDS: rifAXIMin 550 MG Tablet PO SCH (08:20)
[2017-09-23] MEDS: Gabapentin 100 MG Capsule PO SCH (08:20)
[2017-09-23] MEDS: Chlorhexidine 0.12% Oral Kit 15 ML UDC OROPHARYNG SCH (09:28)
--- NOTE | 2017-09-23 11:01 | XR ---
EXAM DATE: 09/23/2017 10:52 AM EDT AGE/SEX: 52 years / Male INDICATIONS: Respiratory Disease. CLINICAL DATA: This is the patient's subsequent encounter. Patient reports that signs and symptoms h ave been present for 3 weeks and indicates a pain score of Nonresponsive. MEDICAL/SURGICAL HISTORY: . Gastroesophageal reflux disease . Cholecystectomy. Tracheostomy COMPARISON: [facility], CHEST 1V SINGLE AP, 09/21/2017. . FINDINGS: Tracheostomy tube is present in satisfactory position. NG tube is present with tip in the stomach has been removed. There is improvement in the aeration of lungs. Residual infiltrate remains in right yum[place] ng base. CONCLUSION: Significant improvement in aeration of the lungs. Electronically signed by: Javier Chen MD 09/23/2017 11:00 AM EDT
--- NOTE | 2017-09-23 11:05 | P.DS ---
Date of admission: 08/31/17 02:10 Primary care physician: UNKNOWN Attending physician on discharge: Shivam Naqvi Anticipated date of discharge: 09/23/17 Brief History from admission: 52-year-old male presents from long term for an evaluation of hypoxemia, shortness of breath, and tachycardia and per paramedics elevated temperature with history of paraplegia with immobility, dyslipidemia, chronic cough, mood disorder with depression, pressure ulceration bilateral lower extremity knee contracture, prior Klebsiella pneumonia and morbid obesity. In the emergency department he appeared to be in respiratory distress and was placed by ED attending on the BiPAP. DS: Diagnosis - Discharge Diagnosis (1) Hypoxic encephalopathy Status: Acute (2) Acute and chronic respiratory failure with hypoxia Status: Acute DS: Summary Hospital Course: 52-year-old male presents from long term for an evaluation of hypoxemia, shortness of breath, and tachycardia and per paramedics elevated temperature with history of paraplegia with immobility, dyslipidemia, chronic cough, mood disorder with depression, pressure ulceration bilateral lower extremity knee contracture, prior Klebsiella pneumonia and morbid obesity. In the emergency department he appeared to be in respiratory distress and was placed by ED attending on the BiPAP. 09/01 Patient is on BIPAP 18/ with 40% FIO2. Afebrile with intermittent confusion. CTA chest yesterday showed no PE, extensive consolidation right lung. 09/02 Patient was intubated yesterday and s/p bronch. Sedated with Diprivan and Fentanyl infusion. Afebrile. 09/03 No events overnight. Sedated with Diprivan and Fentanyl infusion. Afebrile. 09/04: Remains intubated, sedated with propofol. Eyes open, do not follow commands. Bilateral wheezing on exam. FiO2 remains high at 60%, O2 sat 92-94% 09/05: Remains sedated heavily for vent synchrony, FiO2 remains at 60%, will wean. Sputum cx negative. ETT advanced due to leak, will repeat CXR. Patient do not follow commands, but get agitated when sedation held 09/06: Remains sedated for ventilator synchrony. Oxygen saturation improved FiO2 down to 50%. Chest x-ray on my review shows pulmonary edema. Started scheduled Lasix scheduled Lasix yesterday, urine output excellent 5.5 L in 24 hours 09/07: Afebrile. Remains on propofol and fentanyl drips due to his significant agitation. 2 bite block placed overnight/[place] airways related secondary to patient attempted to bite through ET tube.. One bowel movement yesterday 09/08 No events overnight. Sedated with Diprivan and Fentanyl drip. Afebrile. 09/09: Extubated yesterday without complication. Currently on 6 L nasal cannula. Swallow evaluation failed 2. Dobbhoff tube is in place. No bowel movement since 09/02. 09/10: Intubated overnight due to respiratory failure. Currently on PEEP of 12 and FiO2 90%. Ventilator is been adjusted. Tube feeds of been resumed. 09/11 Patient remains intubated and sedated, on PRVC with PEEP:10, FIO2 40% 09/12: Afebrile. Remains on 40% FiO2. Propofol drip at 50 mcg/kg/min. PEEP is still at 10. 09/13: Afebrile. Abdominal x-ray yesterday revealed likely adynamic ileus. Will check CT abdomen and pelvis today. Patient is currently being decompressed from above. Will receive methylnaltrexone and enema today.. Was tolerating tube feeds at goal. 09/14: Afebrile. Bowel movements overnight. White blood cell count is normalized. We will keep him potassium 40 and recheck abdominal x-ray in a.m. 09/15: Afebrile. Will check KUB and likely restart tube feedings today. No neurological change. Failed CPAP trials today. 09/16: Resting in bed in no acute distress. Continues to fail CPAP trials daily. Will attempt to contact healthcare proxy. Will need tracheostomy early next week. 09/17: Resting in bed in no acute distress. PEEP is down to 5. Failing spontaneous breathing trials will require tracheostomy. Discussed with father yesterday and agreeable. 09/18 - plan for percutaneous tracheostomy in a.m. Continues to have an ileus. NG tube was placed to suction. Remains on IV fluids. 09/19: Status post percutaneous tracheostomy today. Plan for percutaneous gastrostomy tube placement tomorrow. Remains on IV fluids. NG tube to suction. Afebrile. White blood cell count normal. Antibiotics stopped today 09/20: Afebrile. Status post percutaneous tracheostomy by Dr. Nassar 09/19. Unable to place PEG tube today. Large gastric and duodenal ulcers. Biopsy. Plan for IR to place tomorrow. 09/21: no changes or improvements. off sedation. s/p PEG placement. 09/22: abdominal distension is worse. copious diarrhea secondary to bowel regimen. appears clinically to be adynamic ileus. PEG tube placement may have complicated ileus. no changes in respiratory status: still not able to wean off mechanical ventilation. 09/23: ileus resolving. rectal tube placed yesterday and abdomen decompressing. tube feeds still on hold, and hypoglycemic this AM, requiring addition of d10w until tolerating tube feeds. GI signed off. stable for transfer to LTAC. - Time Spent with Patient Total time spent providing and/or coordinating discharge services: Greater than 30 minutes - Quality: VTE Deep Vein Thrombosis/Pulmonary Embolism Present on Admission: No Exam Vital signs: Vital Signs 09/22/17 12:00 09/22/17 12:58 09/22/17 14:00 Temperature 37.3 C Pulse Rate 108 H 110 H 105 H Respiratory Rate 21 19 20 Blood Pressure 136/86 Pulse Oximetry 94 L 83 L 97 09/22/17 16:00 09/22/17 16:28 09/22/17 16:30 Temperature 37.3 C Pulse Rate 109 H 108 H 108 H Respiratory Rate 60 H 21 20 Blood Pressure 126/79 109/74 Pulse Oximetry 93 L 84 L 09/22/17 17:00 09/22/17 17:12 09/22/17 17:13 Temperature Pulse Rate 103 H 101 H Respiratory Rate 21 20 20 Blood Pressure 152/84 H Pulse Oximetry 100 99 09/22/17 17:30 09/22/17 18:00 09/22/17 20:00 Temperature Pulse Rate 108 H 105 H 99 H Respiratory Rate 13 20 13 Blood Pressure 130/81 116/69 137/80 Pulse Oximetry 100 99 100 09/22/17 20:41 09/22/17 22:00 09/23/17 00:00 Temperature Pulse Rate 101 H 95 H 99 H Respiratory Rate 20 19 Blood Pressure 138/85 Pulse Oximetry 100 100 09/23/17 00:42 09/23/17 02:00 09/23/17 04:00 Temperature Pulse Rate 97 H 88 97 H Respiratory Rate 20 10 L Blood Pressure 125/81 Pulse Oximetry 100 100 09/23/17 04:52 09/23/17 06:00 09/23/17 07:45 Temperature Pulse Rate 91 H 79 91 H Respiratory Rate 20 20 Blood Pressure Pulse Oximetry 100 100 Intake & Output 09/22/17 09/23/17 09/23/17 18:59 06:59 18:59 Intake Total 0 / 0 0 / 0 Output Total 1500 / 1500 850 / 850 Balance -1500 / -1500 -850 / -850 Weight 89.3 kg Intake: Oral 0 / 0 0 / 0 Tube Feeding 0 / 0 0 / 0 Tube Irrigant 0 / 0 0 / 0 Water Bolus Amount 0 / 0 0 / 0 Other 0 / 0 Output: Urine 250 / 250 850 / 850 Stool 800 / 800 Urine Amount (Catheter) 50 / 50 Indwelling Urethral Catheter 50 / 50 Gastric Drainage 400 / 400 Gastrostomy Tube (PEG) 400 / 400 Left Nare Nasogastric Tube 0 / 0 Orogastric Tube 0 / 0 Other: Date of Last Bowel Movement 09/22/17 09/22/17 # Bowel Movements 0 0 # Incontinent Bowel Movements 0 Narrative: GENERAL: 52 yo male currently resting in bed s/p trach. SKIN: Warm and dry. No rash HEAD: Normocephalic. Atraumatic. EYES: No scleral icterus. No injection or drainage. ENT: Mucous members are moist and pink. Oropharynx without erythema NECK: Supple, trachea midline. No JVD. Percutaneous tracheostomy tube #8 [place] is clean dry and intact CARDIOVASCULAR: Bradycardic, RR, NL. sinus. RESPIRATORY: Breath sounds equal bilaterally. No accessory muscle use. Coarse crackles anteriorly and posterior bases. GASTROINTESTINAL: Abdomen obese but soft.. mildly distended. MUSCULOSKELETAL: Anasarca/1+ upper lower extremity edema Neuro: Cranial nerves II through XII grossly intact. Strength is 3 out of 5 bilateral upper extremity's. 2 out of 5 bilateral lower extremities. Positive gag and cough. Results Procedures completed during hospitalization: s/p trach and PEG Labs on day of discharge: Labs from last 24 hours 09/23/17 09/23/17 09/23/17 08:12 07:07 03:58 WBC RBC Hgb Hct MCV MCH MCHC RDW Plt Count MPV APTT 24.2 L Sodium Potassium Chloride Carbon Dioxide Anion Gap BUN Creatinine Estimated GFR POC Glucose 103 68 Random Glucose Calcium 09/23/17 09/23/17 09/23/17 03:58 03:56 03:22 WBC 6.8 RBC 3.45 L Hgb 10.8 L D Hct 32.3 L MCV 93.7 MCH 31.3 MCHC 33.4 RDW 16.7 Plt Count 128 L MPV 8.7 APTT Sodium Potassium Chloride Carbon Dioxide Anion Gap BUN Creatinine Estimated GFR POC Glucose 132 H 57 L Random Glucose Calcium 09/23/17 09/23/17 09/23/17 02:58 01:00 00:28 WBC RBC Hgb Hct MCV MCH MCHC RDW Plt Count MPV APTT Sodium 139 Potassium 3.3 L Chloride 107 Carbon Dioxide 22.2 Anion Gap 10 BUN 13 Creatinine 0.30 L Estimated GFR Greater than 89 POC Glucose 141 H 68 Random Glucose 128 H Calcium 8.3 L D 09/22/17 09/22/17 09/22/17 20:51 17:39 12:09 WBC RBC Hgb Hct MCV MCH MCHC RDW Plt Count MPV APTT Sodium Potassium Chloride Carbon Dioxide Anion Gap BUN Creatinine Estimated GFR POC Glucose 76 80 86 Random Glucose Calcium - Impressions ITS Impressions Abdomen/Bladder Ultrasound 08/31/17 00:00 CONCLUSION: 1. 11 mm left midlung calculus. 2. No evidence of hydronephrosis. 3. Otherwise normal appearing kidneys. Chest CTA 08/31/17 00:00 CONCLUSION: 1. No evidence of pulmonary embolism. 2. Extensive consolidation in the right lung and patchy infiltrates elsewhere in both lungs. 3. Moderately enlarged mediastinal lymph node. Abdomen X-Ray 09/20/17 00:00 CONCLUSION: 1. Increasing gaseous distention throughout the colon. 2. No evidence of free air. Gastrostomy Tube Placement 09/21/17 00:00 CONCLUSION: Abdomen/Pelvis CT 09/22/17 06:19 CONCLUSION: Findings of generalized ileus. The findings are similar to the prior exam. Bilateral lower lobe atelectasis versus pneumonia. Discharge Plan - Discharge Disposition Patient Disposition: 70 Transfer To Other Facility - Discharge Condition Condition: Stable - Discharge Order Discharge Orders: Discharge Order (Routine); Ordered 09/23/17 Ordered By: Shivam Naqvi - Discharge Details Anticipated Discharge Date: 09/23/17 Discharge Comment: to [facility] - Physicians Team Primary Care Provider: UNKNOWN, Attending Provider: Brian Morton Other Providers: Cari Reveles MD ; [facility] ; Lisa Hartman MD
--- NOTE | 2017-09-23 11:07 | P.PNID ---
Subjective Remarks: He is a 52-year-old male, who is a resident of the [facility], brought to the hospital for evaluation of shortness of breath, hypoxemia, and tachycardic. According to the paramedics he had an elevated temp. Got some information from the nurse, patient did not have any Vernon when he presented, and a Vernon catheter was placed. Since admission he has required BiPAP for oxygenation. He has been febrile. Urinalysis showed significant pyuria. His blood pressures seem to be holding, and he is not requiring any pressors. His WBC is mildly elevated at 11.7. Lactic acid is normal. Creatinine is normal. Chest x -ray showing some infiltrates. Infectious disease consultation has been requested to assist with evaluation and treatment of patient with sepsis. Notes reviewed. D/W RN Temps ok BP ok Has tube to rectum, has liquid stool Abdominal distensuion is improving S/P trach 09/19 On the vent Finished Abx 09/19 S/P PEG 09/20 Patient is going to [facility] today Antibiotics: None Lines: PIV No evidence of infection Past Medical History: Dementia Depression GERD (gastroesophageal reflux disease) Hemorrhoids Hyperlipidemia Paraplegia UTI (urinary tract infection) H/O exploratory laparotomy History of cholecystectomy Allergies/Adverse Reactions: Allergies No Known Allergies Allergy (Verified 08/31/17 00:16) Objective Vital Signs 09/22/17 12:00 09/22/17 12:58 09/22/17 14:00 Temperature 99.2 F Pulse Rate 108 H 110 H 105 H Respiratory Rate 21 19 20 Blood Pressure 136/86 Pulse Oximetry 94 L 83 L 97 09/22/17 16:00 09/22/17 16:28 09/22/17 16:30 Temperature 99.2 F Pulse Rate 109 H 108 H 108 H Respiratory Rate 60 H 21 20 Blood Pressure 126/79 109/74 Pulse Oximetry 93 L 84 L 09/22/17 17:00 09/22/17 17:12 09/22/17 17:13 Temperature Pulse Rate 103 H 101 H Respiratory Rate 21 20 20 Blood Pressure 152/84 H Pulse Oximetry 100 99 09/22/17 17:30 09/22/17 18:00 09/22/17 20:00 Temperature Pulse Rate 108 H 105 H 99 H Respiratory Rate 13 20 13 Blood Pressure 130/81 116/69 137/80 Pulse Oximetry 100 99 100 09/22/17 20:41 09/22/17 22:00 09/23/17 00:00 Temperature Pulse Rate 101 H 95 H 99 H Respiratory Rate 20 19 Blood Pressure 138/85 Pulse Oximetry 100 100 09/23/17 00:42 09/23/17 02:00 09/23/17 04:00 Temperature Pulse Rate 97 H 88 97 H Respiratory Rate 20 10 L Blood Pressure 125/81 Pulse Oximetry 100 100 09/23/17 04:52 09/23/17 06:00 09/23/17 07:45 Temperature Pulse Rate 91 H 79 91 H Respiratory Rate 20 20 Blood Pressure Pulse Oximetry 100 100 Intake & Output 09/22/17 09/23/17 09/23/17 18:59 06:59 18:59 Intake Total 0 / 0 0 / 0 Output Total 1500 / 1500 850 / 850 Balance -1500 / -1500 -850 / -850 Weight 89.3 kg Intake: Oral 0 / 0 0 / 0 Tube Feeding 0 / 0 0 / 0 Tube Irrigant 0 / 0 0 / 0 Water Bolus Amount 0 / 0 0 / 0 Other 0 / 0 Output: Urine 250 / 250 850 / 850 Stool 800 / 800 Urine Amount (Catheter) 50 / 50 Indwelling Urethral Catheter 50 / 50 Gastric Drainage 400 / 400 Gastrostomy Tube (PEG) 400 / 400 Left Nare Nasogastric Tube 0 / 0 Orogastric Tube 0 / 0 Other: Date of Last Bowel Movement 09/22/17 09/22/17 # Bowel Movements 0 0 # Incontinent Bowel Movements 0 Lab - Hematology Results 09/22/17 09/23/17 04:05 03:58 WBC 12.3 H 6.8 RBC 4.13 L 3.45 L Hgb 12.8 L 10.8 L D Hct 38.5 L 32.3 L MCV 93.0 93.7 MCH 30.9 31.3 MCHC 33.3 33.4 RDW 16.4 16.7 Plt Count 181 128 L MPV 8.5 8.7 Lab - Chemistry Results 09/21/17 09/21/17 09/21/17 13:19 15:35 20:00 Sodium Potassium Chloride Carbon Dioxide Anion Gap BUN Creatinine Estimated GFR POC Glucose 85 92 93 Random Glucose Calcium 09/21/17 09/22/17 09/22/17 23:21 04:05 04:51 Sodium 140 Potassium 3.8 Chloride 109 H Carbon Dioxide 19.9 L Anion Gap 11 BUN 14 Creatinine 0.41 L Estimated GFR Greater than 89 POC Glucose 108 97 Random Glucose 95 Calcium 9.1 D 09/22/17 09/22/17 09/22/17 12:09 17:39 20:51 Sodium Potassium Chloride Carbon Dioxide Anion Gap BUN Creatinine Estimated GFR POC Glucose 86 80 76 Random Glucose Calcium 09/23/17 09/23/17 09/23/17 00:28 01:00 02:58 Sodium 139 Potassium 3.3 L Chloride 107 Carbon Dioxide 22.2 Anion Gap 10 BUN 13 Creatinine 0.30 L Estimated GFR Greater than 89 POC Glucose 68 141 H Random Glucose 128 H Calcium 8.3 L D 09/23/17 09/23/17 09/23/17 03:22 03:56 07:07 Sodium Potassium Chloride Carbon Dioxide Anion Gap BUN Creatinine Estimated GFR POC Glucose 57 L 132 H 68 Random Glucose Calcium 09/23/17 08:12 Sodium Potassium Chloride Carbon Dioxide Anion Gap BUN Creatinine Estimated GFR POC Glucose 103 Random Glucose Calcium Imaging: ITS Impressions Abdomen/Bladder Ultrasound 08/31/17 00:00 CONCLUSION: 1. 11 mm left midlung calculus. 2. No evidence of hydronephrosis. 3. Otherwise normal appearing kidneys. Chest CTA 08/31/17 00:00 CONCLUSION: 1. No evidence of pulmonary embolism. 2. Extensive consolidation in the right lung and patchy infiltrates elsewhere in both lungs. 3. Moderately enlarged mediastinal lymph node. Abdomen X-Ray 09/20/17 00:00 CONCLUSION: 1. Increasing gaseous distention throughout the colon. 2. No evidence of free air. Gastrostomy Tube Placement 09/21/17 00:00 CONCLUSION: Abdomen/Pelvis CT 09/22/17 06:19 CONCLUSION: Findings of generalized ileus. The findings are similar to the prior exam. Bilateral lower lobe atelectasis versus pneumonia. Chest X-Ray 09/23/17 00:00 CONCLUSION: Significant improvement in aeration of the lungs. Physical Exam: GENERAL: Awake, and alert, NAD on the vent SKIN: Cool and dry. No generalized rash. HEAD: Atraumatic. Normocephalic. No temporal wasting, or tenderness. EYES: Iago conjunctiva. No petechia or hemorrhage. Pupils equal, round and reactive to light. No scleral icterus. No injection or drainage. NECK: S/P trach, site looks ok. CARDIOVASCULAR: Regular rate and rhythm. No murmurs, rubs or gallops. RESPIRATORY: Coarse breath sounds, decreased at bases. ABDOMEN: obese, less distended, not tender, no guarding. Bowel sounds present and hypoactive. Midline scar. Ecchymoses at SQ sites EXTREMITIES: No clubbing, cyanosis. Has chico pedal edema. No calf tenderness. NEUROLOGICAL: Awake and following commands. PSYCH: Cooperative : Vernon in place, Clear yellow urine. LINE: No evidence of infection Assessment and Plan - Plan Impression Sepsis on presentation, patient came from [facility], better - has lung infiltrates, and SOB, C/W HCAP - also with UTI, S/P Rx HCAP, C/S bronch negative, S/P Rx Leukocytosis, resolved Respiratory failure, recurrent - S/P trach 09/19 Hx paraplegia Encephalopathy Abdominal distension, ?ileus post gastrostomy - better Recommendation Monitor off Abx Monitor progress For transfer to [facility] today Clinically stable from ID standpoint D/W RN
== END 2017-09-23 13:35 ==
LOC: NEPC 00:05 → NEDA 02:10 → HIMC 04:10
PROVIDERS: ADMIT Internal Medicine Critical Care Medicine; ATTEND Internal Medicine Critical Care Medicine